=== PATIENT | male | born 1960 | race Caucasian/White ===

== ENCOUNTER → 2018-08-30 | Outpatient (CLI) | payer OTHER ==
[~2018-08-30] MED LIST: ?BP MED; ASP81TEC PO; CEPH500C PO
--- NOTE | 2018-08-30 16:30 | Diagnostic Imaging Report ---
INDICATION: Sarcoidosis. TIME OF EXAM: 4:04 PM COMPARISON: No prior studies are available for comparison. FINDINGS: The heart size is normal. There is some hilar prominence bilaterally, likely secondary to patient's known sarcoidosis. There is some linear scarring or atelectasis in both bases. Upper lung cisneros are clear. No effusion or pneumothorax is seen. IMPRESSION: 1. Hilar prominence, likely secondary to patient's known sarcoidosis. 2. Bibasilar subsegmental atelectasis or scarring. Dictated by: Dictated on workstation # [id number]
== END ==
LOC: RAD 15:34
PROVIDERS: ATTEND Family Medicine
DX: D86.0 Sarcoidosis of lung (principal)
CPT/HCPCS: 71046

== ENCOUNTER 2018-09-25 19:43 | Inpatient (IN) | payer BC, OTHER ==
[~2018-09-25] VITALS: Ht 172.7 cm; Wt 108.9 kg
--- OUTSIDE RECORDS SUMMARY | 2018-09-25 19:47 | XMS REPORT | Continuity of Care Document ---
Author Author [facility] Organization [facility] Address Unknown Phone Unavailable Care Team Providers Care Windows Mobile Developer Name Role Phone YUE LEON MD PP Insurance Providers Payer Name Policy Number Subscriber Name Relationship Self Pay Kun Mancuso 01 Self / Same As Patient Advance Directives Directive Response Recorded Date Advance Directives N 03/17/13 4:52pm Organ Donor N 03/17/13 4:52pm Problems No Known Problems or Medical conditions. Social History History Response Recorded Date/Time Alcohol Use Regular Use 03/17/13 4:52pm Recreational Drug Use N 03/17/13 4:52pm Allergies, Adverse Reactions, Alerts Allergen Type Severity Reaction Last Updated No Known Drug Allergies 03/17/13 Medications Medication Dose Units Route Sig Qty Days Cephalexin Monohydrate (Cephalexin) 1 Each PO TID 3 Aspirin (Aspirin Ec 81 Mg) 81 Mg PO DAILY [?Bp Med] DAILY Immunizations Name Given Type DTaP 03/17/13 A Response Recorded Date/Time Status not known Unknown Results No Known Relevant Diagnostic Tests, Laboratory Data and/or Discharge Summary. Encounters Encounter Location Date/Time Departed Emergency Room [facility] 12/25 4:41pm
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
[2018-09-25] MEDS ORDERED: RT-ALBUTEROL/IPRATROPIUM 3 ML (DUONEB) VIAL INH ONE (20:30)
--- NOTE | 2018-09-25 20:32 | ED Respiratory ---
General Stated Complaint: SOB,SWOLLEN ANKLES Source: patient, spouse Exam Limitations: no limitations History of Present Illness Date Seen by Provider: Sep 25, 2018 Time Seen by Provider: 20:15 Initial Comments Patient presents to ER by private conveyance for an acute worsening of his progressively worsening shortness of breath swelling in his feet and wheezing. He says been having this for past several months and it makes him very short of breath whenever he lays down at night after a long day. However last day or so he's been getting very short of breath just with exertion. He also has noticed increased swelling in his feet up half way up his legs throughout the day and even had a hard time lifting a 20 pound object. He's had a nonproductive cough. No fevers or chills. No known history of coronary artery disease or congestive heart failure. Is not followed by a curriculum manager. He is not on any water pills. He quit drinking 10 months ago. He stopped smoking years ago. Is not having any pain in his chest right now but last night he did note a little sharp pain for a few minutes in his right upper chest that he associated with some gas pains. He's never had a heart catheterization or echocardiogram that he knows of. He said last week when it wasn't as bad he went to Dr. Munoz and they shot an x- ray that was unremarkable. He does have a history of sarcoidosis with some mild scarring in his lungs but he's never had to be on any kind of treatment to maintain it. The patient denies a history of anemia, black tarry stools, hematochezia, recent trauma or surgeries, etc.. He has never had a colonoscopy/EGD. Allergies and Home Medications Allergies Coded Allergies: No Known Drug Allergies (Unverified , 03/17/13) Patient Home Medication List Home Medication List Reviewed: Yes Review of Systems Review of Systems Constitutional: No chills, No diaphoresis EENTM: No ear discharge, No ear pain Respiratory: cough; No phlegm; short of breath, wheezing Cardiovascular: chest pain (yesterday recently), edema; No Hx of Intervention, No palpitations, No syncope, No vascular heart diseas Gastrointestinal: No abdominal pain, No constipation, No diarrhea, No nausea Genitourinary: No discharge, No dysuria Musculoskeletal: No back pain, No joint pain Skin: No pruritus, No rash Psychiatric/Neurological: Denies Headache, Denies Numbness Past Jfkqjmx-[id number]-Zliexv Hx Patient Social History Alcohol Use: Past History Recreational Drug Use: No Smoking Status: Former Smoker Type Used: Cigarettes Recent Foreign Travel: No Contact w/Someone Who Travel: No Immunizations Up To Date Tetanus Booster (TDap): More than 5yrs Seasonal Allergies Seasonal Allergies: Yes Past Medical History Kidney Stones Physical Exam Vital Signs - First Documented 09/25/18 20:43 Pulse Ox 94 O2 Delivery Room Air Capillary Refill : Height: '" Weight: lbs. oz. kg; BMI Method:Stated General Appearance: WD/WN, mild distress (ambulated in that short of breath with ambulation or talking.) Eyes: Bilateral Eye Normal Inspection, Bilateral Eye PERRL, Bilateral Eye EOMI HEENT: PERRL/EOMI, normal ENT inspection, TMs normal, pharynx normal Neck: non-tender, full range of motion, supple, normal inspection Respiratory: chest non-tender, no accessory muscle use, respiratory distress ( mild on exertion), wheezing (faint, upper) Cardiovascular: normal peripheral pulses, regular rate, rhythm, no JVD, no murmur, other (bilateral lower extremity 1+ pitting edema up to the mid leg) Gastrointestinal: normal bowel sounds, non tender, soft Neurologic/Psychiatric: financial services specialist II-XII nml as tested, no motor/sensory deficits, alert, normal mood/affect, oriented x 3 Skin: normal color, warm/dry Focused Exam Lactate Level 09/25/18 20:30: Lactic Acid Level 1.13 Lactic Acid Level Laboratory Tests Test 09/25/18 20:30 Lactic Acid Level 1.13 MMOL/L (0.50-2.00) Progress/Results/Core Measures Suspected Sepsis SIRS Temperature: Pulse: Respiratory Rate: Laboratory Tests 09/25/18 20:30: White Blood Count 8.5 Blood Pressure / Mean: 09/25/18 20:30: Lactic Acid Level 1.13 Laboratory Tests 09/25/18 20:30: Creatinine 0.94, INR Comment 1.2, Platelet Count 272, Total Bilirubin 0.6 Results/Orders Lab Results Laboratory Tests Test 09/25/18 20:30 09/25/18 21:09 Range/Units White Blood Count 8.5 4.3-11.0 10^3/uL Red Blood Count 3.85 L 4.35-5.85 10^6/uL Hemoglobin 6.5 *L 13.3-17.7 G/DL Hematocrit 24 L 40-54 % Mean Corpuscular Volume 61 L 80-99 FL Mean Corpuscular Hemoglobin 17 L 25-34 PG Mean Corpuscular Hemoglobin Concent 27 L 32-36 G/DL Red Cell Distribution Width 18.7 H 10.0-14.5 % Platelet Count 272 130-400 10^3/uL Mean Platelet Volume 9.7 7.4-10.4 FL Neutrophils (%) (Auto) 70 42-75 % Lymphocytes (%) (Auto) 10 L 12-44 % Monocytes (%) (Auto) 14 H 0-12 % Eosinophils (%) (Auto) 4 0-10 % Basophils (%) (Auto) 2 0-10 % Neutrophils # (Auto) 5.9 1.8-7.8 X 10^3 Lymphocytes # (Auto) 0.9 L 1.0-4.0 X 10^3 Monocytes # (Auto) 1.1 H 0.0-1.0 X 10^3 Eosinophils # (Auto) 0.4 H 0.0-0.3 10^3/uL Basophils # (Auto) 0.1 0.0-0.1 10^3/uL Absolute Reticulocyte Count 99 H 24-90 10e9/L Percent Reticulocyte Count 2.58 H 0.50-2.40 % Prothrombin Time 15.2 H 12.2-14.7 SEC INR Comment 1.2 0.8-1.4 Activated Partial Thromboplast Time 34 24-35 SEC Sodium Level 133 L 135-145 MMOL/L Potassium Level 3.7 3.6-5.0 MMOL/L Chloride Level 103 98-107 MMOL/L Carbon Dioxide Level 20 L 21-32 MMOL/L Anion Gap 10 5-14 MMOL/L Blood Urea Nitrogen 18 7-18 MG/DL Creatinine 0.94 0.60-1.30 MG/DL Estimat Glomerular Filtration Rate > 60 BUN/Creatinine Ratio 19 Glucose Level 116 H 70-105 MG/DL Lactic Acid Level 1.13 0.50-2.00 MMOL/L Calcium Level 9.0 8.5-10.1 MG/DL Corrected Calcium 9.0 8.5-10.1 MG/DL Total Bilirubin 0.6 0.1-1.0 MG/DL Aspartate Amino Transf (AST/SGOT) 21 5-34 U/L Alanine Aminotransferase (ALT/SGPT) 17 0-55 U/L Alkaline Phosphatase 63 40-136 U/L Lactate Dehydrogenase 187 125-220 U/L Troponin I < 0.028 <0.028 NG/ML B-Type Natriuretic Peptide 284.3 H <100.0 PG/ML Total Protein 7.0 6.4-8.2 GM/DL Albumin 4.0 3.2-4.5 GM/DL Urine Color YELLOW Urine Clarity CLEAR Urine pH 5 5-9 Urine Specific [place] 1.015 L 1.016-1.022 Urine Protein NEGATIVE NEGATIVE Urine Glucose (UA) NEGATIVE NEGATIVE Urine Ketones NEGATIVE NEGATIVE Urine Nitrite NEGATIVE NEGATIVE Urine Bilirubin NEGATIVE NEGATIVE Urine Urobilinogen NORMAL NORMAL MG/DL Urine Leukocyte Esterase NEGATIVE NEGATIVE Urine RBC (Auto) NEGATIVE NEGATIVE Urine RBC NONE /HPF Urine WBC NONE /HPF Urine Squamous Epithelial Cells 0-2 /HPF Urine Crystals NONE /LPF Urine Bacteria NEGATIVE /HPF Urine Casts NONE /LPF Urine Mucus NEGATIVE /LPF Urine Culture Indicated CULTURE PENDING My Orders Orders - LIBBY OTT Cbc With Automated Diff (09/25/18 20:23) Comprehensive Metabolic Panel (09/25/18 20:23) Blood Culture (09/25/18 20:23) Sputum Culture (09/25/18 20:23) Urinalysis (09/25/18 20:23) Urine Culture (09/25/18 20:23) Protime With Inr (09/25/18 20:23) Partial Thromboplastin Time (09/25/18 20:23) Saline Lock/Iv-Start (09/25/18 20:23) Saline Lock/Iv-Start (09/25/18 20:23) Ekg Tracing (09/25/18 20:23) Troponin I (09/25/18 20:23) O2 (09/25/18 20:23) Remove Rings In Anticipation O (09/25/18 20:23) Lactic Acid Analyzer (09/25/18 20:23) BNP (09/25/18 20:23) Chest Pa/Lat (2 View) (09/25/18 20:23) Albuterol/Ipra Inhalation Soln (Duoneb I (09/25/18 20:30) Svn Small Volume Nebulizer (09/25/18 20:23) Vital Signs: Special (Order) (09/25/18 20:39) Consent-Obtain Consent For (09/25/18 20:39) Monitor S/S Transfusion Reacti (09/25/18 20:39) Ns Iv 500 Ml (Sodium Chloride 0.9%) (09/25/18 20:39) Furosemide Injection (Lasix Injection) (09/25/18 20:45) Type And Screen (09/25/18 20:39) Red Cells Leukocytes Reduced (09/25/18 20:39) Preop Checklist (09/25/18 20:39) Occult Blood Stool (09/25/18 20:39) Iron Tibc %Sat & Ferritin (09/25/18 20:49) Reticulocyte Count (09/25/18 20:49) Medications Given in ED Current Medications Medications Dose Ordered Sig/Obi Route Start Time Stop Time Status Last Admin Dose Admin Albuterol/ Ipratropium 3 ml ONCE ONCE INH 09/25/18 20:30 09/25/18 20:31 DC 09/25/18 20:42 3 ML Furosemide 20 mg ONCE ONCE IVP 09/25/18 20:45 09/25/18 20:46 DC 09/26/18 02:07 20 MG Vital Signs/I&O 09/25/18 20:43 Pulse Ox 94 O2 Delivery Room Air Capillary Refill : Progress Note : Time: 20:31 Progress Note Patient's history of sarcoidosis, fluid collection metastatic about possible decompensated heart failure. His chest pain from yesterday will prompt an EKG and troponin today. We'll give him a breathing treatment by think most of his wheezing is more in his upper airways and may not be as beneficial. He is tachycardic in the 115 to 120 range we'll go ahead and obtain cultures but is afebrile and at this point not convinced that this is infectious process. We'll hold off giving any fluids or antibiotics until we have a better idea what the BNP shows. Chest x-ray from August 30, 2018 showed some mild evidence of sarcoidosis and basilar scarring versus atelectasis. Plan to recheck an EKG after we've got some blood in him and his heart rate is slow down to be a little easier to read. Hemoglobin 6.5 plan to transfuse 2 units. We'll also get an iron panel and reticulocyte count. ECG Initial ECG Impression Date: Sep 25, 2018 Initial ECG Impression Time: 20:33 Initial ECG Rate: 115 Initial ECG Rhythm: S.Tach Initial ECG Intervals: QT (498) Initial ECG Impression: Nonspecific Changes Initial ECG Comparisson: No Previous ECG Available Comment Lots of artifact with PVCs and irregular heart rate. Difficult to ascertain if there is atrial flutter versus sinus rhythm with fairly irregular heartbeat. EKG : EKG Time: 21:01 Rate: 117 Rhythm: S.Tach Intervals: QT (519) ECG Comparisson: Unchanged ECG Impression: Normal Comment Sinus tachycardia with a run of Monica PVCs. Can clearly see that is not atrial flutter. Diagnostic Imaging Diagonstic Imaging: Xray Plain Films/CT/US/NM/MRI: chest (2 view) Comments No interval changes. Hilar prominence with possible scarring versus atelectasis in the bases. [facility]. [place], [place] NAME: JAMEESUKHJINDER A [facility] REC#: [id number] PT STATUS: REG ER : 1960 PHYSICIAN: LIBBY OTT MD ADMIT DATE: 09/25/18/ER Draft Date of Exam:09/25/18 CHEST PA/LAT (2 VIEW) EXAM: CHEST PA/LAT (2 VIEW) INDICATION: Sarcoidosis. COMPARISON: Chest radiograph 08/30/2018. FINDINGS: Stable cardiomegaly and prominent byron bilaterally. Scarring in the right lung base. There is increasing interstitial opacities including Tracy B lines. No pleural effusion or pneumothorax. No acute osseous findings. IMPRESSION: 1. Increasing interstitial opacities including Tracy B-lines suggesting a degree of interstitial edema. 2. Stable cardiomegaly. 3. Stable prominence of the byron bilaterally would be consistent with reported history of sarcoidosis. Dictated on workstation # [id number] Dict: 09/25/182124 Trans: 09/25/182128 SHERIN [id number] Interpreted by: TRACY MOYA MD Electronically signed by: Reviewed: Reviewed by Me Departure Communication (Admissions) Time/Spoke to Admitting Phy: 21:35 Discussed the case lab imaging findings with Dr. Winter. She recommends an LDH in addition to her overnight stay for transfusion of blood. Impression Primary Impression: Anemia Qualified Codes: D64.9 - Anemia, unspecified Additional Impression: Dyspnea Qualified Codes: R06.09 - Other forms of dyspnea Disposition: ADMITTED INPATIENT Condition: Stable Admissions Decision to Admit Reason: Admit from ER (General) Decision to Admit/Date: Sep 25, 2018 Time/Decision to Admit Time: 21:30 Departure-Patient Inst. Referrals: YUE MUNOZ MD (PCP/Family) Primary Care Physician LIBBY OTT Sep 25, 2018 20:32
[2018-09-25 20:36] LABS: BASOPHILS # (AUTO) 0.1 10^3/uL (0.0-0.1); BASOPHILS % (AUTO) 2 % (0-10); EOSINOPHILS # (AUTO) 0.4 10^3/uL (0.0-0.3); EOSINOPHILS % (AUTO) 4 % (0-10); HEMATOCRIT 24 % (40-54); LYMPHOCYTES # (AUTO) 0.9 X 10^3 (1.0-4.0); LYMPHOCYTES % (AUTO) 10 % (12-44); MEAN CORPUSCULAR HEMOGLOBIN 17 PG (25-34); MEAN CORPUSCULAR HGB CONC 27 G/DL (32-36); MEAN CORPUSCULAR VOLUME 61 FL (80-99); MEAN PLATELET VOLUME 9.7 FL (7.4-10.4); MONOCYTES # (AUTO) 1.1 X 10^3 (0.0-1.0); MONOCYTES % (AUTO) 14 % (0-12); NEUTROPHILS # (AUTO) 5.9 X 10^3 (1.8-7.8); NEUTROPHILS % (AUTO) 70 % (42-75); PLATELET COUNT 272 10^3/uL (130-400); RED BLOOD COUNT 3.89 10^6/uL (4.35-5.85); RED CELL DISTRIBUTION WIDTH 18.7 % (10.0-14.5); WHITE BLOOD COUNT 8.5 10^3/uL (4.3-11.0)
[2018-09-25 20:38] LABS: HEMOGLOBIN 6.5 G/DL (13.3-17.7)
[2018-09-25] MEDS ORDERED: NS IV 500 ML 500 ML IV SCH (20:39)
[2018-09-25] MEDS ORDERED: FUROSEMIDE 40 MG/4 ML INJ (LASIX) IVP ONE (20:45)
[2018-09-25 20:49] LABS: INR 1.2 (0.8-1.4); PROTHROMBIN TIME PATIENT 15.2 SEC (12.2-14.7)
[2018-09-25 20:54] LABS: RED BLOOD COUNT 3.85 10^6/uL (4.35-5.85); RETICULOCYTE % 2.58 % (0.50-2.40)
[2018-09-25 20:58] LABS: ALANINE AMINOTRANSFERASE 17 U/L (0-55); ALKALINE PHOSPHATASE 63 U/L (40-136); BILIRUBIN,TOTAL 0.6 MG/DL (0.1-1.0); BUN/CREATININE RATIO 19; CARBON DIOXIDE 20 MMOL/L (21-32); CHLORIDE 103 MMOL/L (98-107); CREATININE SERUM 0.94 MG/DL (0.60-1.30); GFR ESTIMATED > 60; GLUCOSE 116 MG/DL (70-105); POTASSIUM 3.7 MMOL/L (3.6-5.0); SODIUM 133 MMOL/L (135-145)
[2018-09-25 21:16] LABS: BILIRUBIN,URINE NEGATIVE (NEGATIVE); CLARITY,URINE CLEAR; COLOR,URINE YELLOW; GLUCOSE, URINE (UA) NEGATIVE (NEGATIVE); KETONES,URINE NEGATIVE (NEGATIVE); LEUKOCYTE ESTERASE ,URINE NEGATIVE (NEGATIVE); NITRITE,URINE NEGATIVE (NEGATIVE); PH,URINE 5 (5-9); PROTEIN,URINE NEGATIVE (NEGATIVE); UROBILINOGEN,URINE NORMAL (NORMAL)
[2018-09-25 21:27] LABS: BACTERIA,URINE NEGATIVE /HPF; SQUAMOUS EPITHELIAL CELL,UR 0-2 /HPF
--- NOTE | 2018-09-25 21:30 | Diagnostic Imaging Report ---
EXAM: CHEST PA/LAT (2 VIEW) INDICATION: Sarcoidosis. COMPARISON: Chest radiograph 08/30/2018. FINDINGS: Stable cardiomegaly and prominent byron bilaterally. Scarring in the right lung base. There is increasing interstitial opacities including Tracy B lines. No pleural effusion or pneumothorax. No acute osseous findings. IMPRESSION: 1. Increasing interstitial opacities including Tracy B-lines suggesting a degree of interstitial edema. 2. Stable cardiomegaly. 3. Stable prominence of the byron bilaterally would be consistent with reported history of sarcoidosis. Dictated by: Dictated on workstation # [id number]
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
[2018-09-25 23:00] VITALS: BP 156/83
--- NOTE | 2018-09-25 23:00 | NUR ---
SUKHJINDER MANCUSO admitted to room 433-1, with an admitting diagnosis of SOB, ANEMIA, on 09/25/18 from ED via WHEELCHAIR, accompanied by STAFF.SUKHJINDER MANCUSO introduced to surroundings, call light, bed controls, phone, TV, temperature control, lights, meal times, smoking policy, visitor policy, side rail policy, bathrooms and showers. Patient Rights given to patient in the handbook. SUKHJINDER MANCUSO verbalizes understanding that [facility] is not responsible for the loss or damage to any personal effects or valuables that are kept in the patients posession during their hospitalization.
[2018-09-25] MEDS ORDERED: ONDANSETRON 4 MG/2 ML (SDV) Z0FRAN IV PRN (23:30)
[2018-09-25] MEDS ORDERED: FUROSEMIDE 40 MG/4 ML INJ (LASIX) IV ONE (23:30)
[2018-09-25] MEDS ORDERED: ACETAMINOPHEN 500 MG TAB (TYLENOL) PO PRN (23:30)
[2018-09-25 23:42] VITALS: BP 151/60
[2018-09-26] VITALS (11 sets, daily range): BP systolic 112–152; BP diastolic 54–91
[2018-09-26] MEDS ORDERED: LOSARTAN (01:46)
[2018-09-26] MEDS ORDERED: FUROSEMIDE 40 MG/4 ML INJ (LASIX) ONE (01:58)
[2018-09-26] MEDS ORDERED: FLU QUADRIvalent (5+ YOA) 2018-2019 (AFLURIA) 0.5 ML IM ONE (07:15)
[2018-09-26 07:22] LABS: BASOPHILS # (AUTO) 0.1 10^3/uL (0.0-0.1); BASOPHILS % (AUTO) 1 % (0-10); EOSINOPHILS # (AUTO) 0.3 10^3/uL (0.0-0.3); EOSINOPHILS % (AUTO) 5 % (0-10); HEMATOCRIT 28 % (40-54); HEMOGLOBIN 8.2 G/DL (13.3-17.7); LYMPHOCYTES # (AUTO) 0.7 X 10^3 (1.0-4.0); LYMPHOCYTES % (AUTO) 10 % (12-44); MEAN CORPUSCULAR HEMOGLOBIN 19 PG (25-34); MEAN CORPUSCULAR HGB CONC 29 G/DL (32-36); MEAN CORPUSCULAR VOLUME 65 FL (80-99); MONOCYTES # (AUTO) 0.8 X 10^3 (0.0-1.0); MONOCYTES % (AUTO) 13 % (0-12); NEUTROPHILS # (AUTO) 4.6 X 10^3 (1.8-7.8); NEUTROPHILS % (AUTO) 71 % (42-75); PLATELET COUNT 247 10^3/uL (130-400); RED BLOOD COUNT 4.39 10^6/uL (4.35-5.85); RED CELL DISTRIBUTION WIDTH 21.8 % (10.0-14.5); WHITE BLOOD COUNT 6.5 10^3/uL (4.3-11.0)
[2018-09-26 07:34] LABS: BUN/CREATININE RATIO 14; CALCIUM 9.4 MG/DL (8.5-10.1); CARBON DIOXIDE 23 MMOL/L (21-32); CHLORIDE 103 MMOL/L (98-107); CREATININE SERUM 1.05 MG/DL (0.60-1.30); GFR ESTIMATED > 60; GLUCOSE 102 MG/DL (70-105); SODIUM 138 MMOL/L (135-145)
[2018-09-26] MEDS ORDERED: CALCIUM CARBONATE 500 MG (TUMS) TAB.CHEW ONE (09:23)
[2018-09-26] MEDS ORDERED: PANTOPRAZOLE 20 MG TABLET (PROTONIX) PO ONE (09:24)
--- NOTE | 2018-09-26 13:26 | History & Physical-Hospitalist ---
History of Present Illness HPI/Chief Complaint This is a 58-year-old white male who presents to the emergency room with severe shortness of breath for the last week. He notes that he's had orthopnea and PND for the last 2-3 weeks as well. He notes he's been short of breath for about 6 months or so. He says he thinks he's had a heart attack in the past when he was fishing. He notes that he has had trouble with heartburn for years and has some dysphagia and hasn't is no longer able to throw up although he could in the past. He denies having any change in his bowel habits and notes that there is no blood in his stools or melena. Hemoccult stool was positive in the emergency room where his hemoglobin was found to be 6.5. This morning he status post 2 units of blood transfusion and feels much much better. In addition his pedal edema is down. On exam it is noted that he has frequent PVCs and PACs. Source: patient Exam Limitations: no limitations Date Seen 09/26/18 Time Seen by a Provider: 13:00 Attending Physician Marichuy Winter MD PCP Yue Munoz MD Referring Physician Date of Admission Sep 25, 2018 at 21:15 Home Medications & Allergies Home Medications Reviewed patient Home Medication Reconciliation performed by pharmacy medication reconciliations fiber technician and/or nursing. Patients Allergies have been reviewed. Allergies Allergies Coded Allergies No Known Drug Allergies (Unverified03/17/13) Past Phogobw-Lbatty-Xkcljh Hx Past Med/Social Hx: Reviewed Nursing Past Med/Soc Hx Patient Social History Marrital Status: Employed/Student: employed Alcohol Use: Past History Recreational Drug Use: No Smoking Status: Former Smoker Type Used: Cigarettes Physical Abuse Screen: No Sexual Abuse: No Recent Foreign Travel: No Contact w/other who traveled: No Recent Hopitalizations: No Recent Infectious Disease Expo: No Immunizations Up To Date Tetanus Booster (TDap): More than 5yrs Seasonal Allergies Seasonal Allergies: Yes Past Medical History Genitourinary: Kidney Stones History of Blood Disorders: No Family History Cancer, CAD Under 55 Years Old Review of Systems Constitutional: see HPI EENTM: no symptoms reported Respiratory: dyspnea on exertion, orthopnea, short of breath Cardiovascular: edema, palpitations Gastrointestinal: dysphagia, heartburn Genitourinary: no symptoms reported Musculoskeletal: no symptoms reported Skin: no symptoms reported Psychiatric/Neurological: No Symptoms Reported Physical Exam Physical Exam Vital Signs Vital Signs - First Documented 09/25/18 09/25/18 20:43 22:55 Temp 98.9 Pulse 66 Resp 19 B/P (MAP) 147/91 (109) Pulse Ox 94 O2 Delivery Room Air Capillary Refill : Less Than 3 Seconds Height, Weight, BMI Height: 5'8.00" Weight: 240lbs. 0.00oz. 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 Assessment/Plan Admission Diagnosis Severe anemia secondary to GI blood loss over time Microcytic anemia with a good reticulocyte count Cardiac arrhythmias with possible previous inferior wall ND Pedal edema consistent with mild failure. Sarcoid asymptomatic Elevated BNP Plan is to consult general surgery for upper endoscopy and colonoscopy cardiology for further evaluation of heart function and discharge planning based on the results Admission Status: Observation Clinical Quality Measures DVT/VTE Risk/Contraindication: Risk Factor Score Per Nursin RFS Level Per Nursing on Admit: 3=High Copy Copies To 1: YUE MUNOZ MD, KATHLEEN M MD Sep 26, 2018 13:26
[2018-09-26] MEDS ORDERED: FUROSEMIDE 40 MG (LASIX) TAB PO ONE (13:30)
[2018-09-26] MEDS ORDERED: KCL 10 MEQ TAB (MICRO K) PO ONE (13:30)
--- NOTE | 2018-09-26 13:33 | Consultation-Cardiology ---
HPI-Cardiology Cardiology Consultation: Date of Consultation 09/26/18 Time Seen by a Provider: 13:10 Date of Admission Attending Physician Marichuy Winter MD Admitting Physician Duane Munoz MD Consulting Physician EDWARDO QUESADA MD, MA, FACP, FACC, FSCAI, CCDS Physician requesting consult: Dr Winter HPI: Chief Complaint: Shortness of breath HPI: 58 yo man with increasing shortness of breath and bilat leg swelling for several weeks prior to being admitted to Dr Winter yesterday. Found to have anemia and leg swelling. Treated with blood transfusion and furosemide. Much better now. No cp or palp or syncope. Has gen malaise and tiredness Review of Systems-Cardiology Review of Systems Constitutional: As described under HPI Eyes: No vision change Ears/Nose/Throat: No ear discharge, No nasal drainage, No recent hearing loss Respiratory: As described under HPI Cardiovascular: As described under HPI Gastrointestinal: No diarrhea, No nausea Genitourinary: No dysuria, No hematuria, No urine frequency changes Musculoskeletal: No back pain, No joint pain Skin: No rash, No ulcerations Psychiatric/Neurological: No seizure, No focal weakness, No syncope Hematologic: No bleeding abnormalities XTJ-Rmisee-Ncvvks Hx Patient Social History Alcohol Use: Past History Recreational Drug Use: No Smoking Status: Former Smoker Type Used: Cigarettes Recent Foreign Travel: No Recent Infectious Disease Expo: No Hospitalization with Isolation: Denies Physical Abuse Screen: No Sexual Abuse: No Immunizations Up To Date Tetanus Booster (TDap): More than 5yrs Past Medical History PMH As described under Assessment. Family Medical History Family Medical History: Has fam h/o early CAD Allergies and Home Medications Allergies Coded Allergies: No Known Drug Allergies (Unverified , 03/17/13) Patient Home Medication List Home Medication List Reviewed: Yes Physical Exam-Cardiology Physical Exam Vital Signs/I&O 09/26/18 09/26/18 09/26/18 09/26/18 01:55 02:05 02:20 02:37 Temp 97.4 97.0 97.0 97.9 Pulse 98 82 82 89 Resp 18 18 18 18 B/P (MAP) 132/75 (94) 133/89 133/89 112/66 Pulse Ox 90 96 96 97 O2 Delivery Room Air Room Air Room Air Room Air 09/26/18 09/26/18 09/26/1813/19 04:00 04:53 07:38 08:00 Temp 97.0 97.4 97.4 97.0 Pulse 79 84 110 87 Resp 18 20 20 18 B/P (MAP) 131/91 (104) 131/84 163/110 (127) 142/68 (92) Pulse Ox 97 96 97 97 O2 Delivery Room Air Room Air Room Air Room Air Capillary Refill : Less Than 3 Seconds Constitutional: AAO x 3, well-developed, well-nourished HEENT: PERRL, EOMI; No xanthelasmas are seen Neck: No carotid bruit; carotid pulses are 2 + bilaterally, with good upstrokes Respiratory: No accessory muscle use; lungs clear to percussion, lungs clear to auscultation Cardiovascular: regular rate-rhythm, S1 and S2, systolic murmur (soft MARILYN at card base) Gastrointestinal: No tender; soft; No guarding, No rebound; audible bowel sounds Extremities: No clubbing, No cyanosis; significant edema (2+ edema of the legs) Neurologic/Psychiatric: oriented x 3, grossly intact, power is 5/5 both on sides Skin: No rash on exposed areas, No ulcerations on exposed areas Data Review Labs Laboratory Tests 09/25/18 20:30: White Blood Count 8.5, Red Blood Count 3.85L, Hemoglobin 6.5*L, Hematocrit 24L, Mean Corpuscular Volume 61L, Mean Corpuscular Hemoglobin 17L, Mean Corpuscular Hemoglobin Concent 27L, Red Cell Distribution Width 18.7H, Platelet Count 272, Mean Platelet Volume 9.7, Neutrophils (%) (Auto) 70, Lymphocytes (%) (Auto) 10L , Monocytes (%) (Auto) 14H, Eosinophils (%) (Auto) 4, Basophils (%) (Auto) 2, Neutrophils # (Auto) 5.9, Lymphocytes # (Auto) 0.9L, Monocytes # (Auto) 1.1H, Eosinophils # (Auto) 0.4H, Basophils # (Auto) 0.1, Absolute Reticulocyte Count 99H, Percent Reticulocyte Count 2.58H, Prothrombin Time 15.2H, INR Comment 1.2, Activated Partial Thromboplast Time 34, Sodium Level 133L, Potassium Level 3.7, Chloride Level 103, Carbon Dioxide Level 20L, Anion Gap 10, Blood Urea Nitrogen 18, Creatinine 0.94, Estimat Glomerular Filtration Rate > 60, BUN/Creatinine Ratio 19, Glucose Level 116H, Lactic Acid Level 1.13, Calcium Level 9.0, Corrected Calcium 9.0, Total Bilirubin 0.6, Aspartate Amino Transf (AST/SGOT) 21 , Alanine Aminotransferase (ALT/SGPT) 17, Alkaline Phosphatase 63, Lactate Dehydrogenase 187, Troponin I < 0.028, B-Type Natriuretic Peptide 284.3H, Total Protein 7.0, Albumin 4.0 09/25/18 21:09: Urine Color YELLOW, Urine Clarity CLEAR, Urine pH 5, Urine Specific [place] 1.015L, Urine Protein NEGATIVE, Urine Glucose (UA) NEGATIVE, Urine Ketones NEGATIVE, Urine Nitrite NEGATIVE, Urine Bilirubin NEGATIVE, Urine Urobilinogen NORMAL, Urine Leukocyte Esterase NEGATIVE, Urine RBC (Auto) NEGATIVE, Urine RBC NONE, Urine WBC NONE, Urine Squamous Epithelial Cells 0-2, Urine Crystals NONE, Urine Bacteria NEGATIVE, Urine Casts NONE, Urine Mucus NEGATIVE, Urine Culture Indicated CULTURE PENDING 09/26/18 07:09: White Blood Count 6.5, Red Blood Count 4.39, Hemoglobin 8.2#L, Hematocrit 28L, Mean Corpuscular Volume 65L, Mean Corpuscular Hemoglobin 19L, Mean Corpuscular Hemoglobin Concent 29L, Red Cell Distribution Width 21.8H, Platelet Count 247, Mean Platelet Volume , Neutrophils (%) (Auto) 71, Lymphocytes (%) (Auto) 10L, Monocytes (%) (Auto) 13H, Eosinophils (%) (Auto) 5, Basophils (%) (Auto) 1, Neutrophils # (Auto) 4.6, Lymphocytes # (Auto) 0.7L, Monocytes # (Auto) 0.8, Eosinophils # (Auto) 0.3, Basophils # (Auto) 0.1, Sodium Level 138, Potassium Level 4.0, Chloride Level 103, Carbon Dioxide Level 23, Anion Gap 12, Blood Urea Nitrogen 15, Creatinine 1.05, Estimat Glomerular Filtration Rate > 60, BUN/ Creatinine Ratio 14, Glucose Level 102, Calcium Level 9.4 Laboratory Tests 09/25/18 20:30 09/26/18 07:09 A/P-Cardiology Assessment/Admission Diagnosis Shortness of breath likely primarily due to marked anemia Anemia, suspected to be due to GI blood loss, s/p transfusions RBBB and frequent, isolated PVCs as documented on ECG of 09/26/18 Bilat leg swelling Impaired fasting glucose H/o hypertension Elevated BMI of approx 37 Fam h/o early CAD Discussion and Recomendations * I discussed his case with Dr Winter who had asked us to see him because of abnormal ECG * I had a long and detailed discussion with him and his regarding his CV issues * Add BB * Add diuretic and K * Keep on tele * Echo * Ok to proceed with GI w/u and/or intervention (if needed) Clinical Quality Measures DVT/VTE Risk/Contraindication: Risk Factor Score Per Nursin RFS Level Per Nursing on Admit: 3=High EDWARDO QUESADA MD FACP FACC CCDS Sep 26, 2018 13:33
[2018-09-26] MEDS: BISACODYL 5 MG (DULCOLAX) TABLET PO SCH ×2 (14:16→20:10)
--- NOTE | 2018-09-26 14:23 | Consultation ---
History of Present Illness History of Present Illness Patient Consulted On(wily/time) 09/26/18 14:17 Time Seen by Provider: 12:50 History of Present Illness Surgery asked to consult regarding anemia, Hemoccult + stool and has never had colonoscopy. HPI per IM: This is a 58-year-old white male who presents to the emergency room with severe shortness of breath for the last week. He notes that he's had orthopnea and PND for the last 2-3 weeks as well. He notes he's been short of breath for about 6 months or so. He says he thinks he's had a heart attack in the past when he was fishing. He notes that he has had trouble with heartburn for years and has some dysphagia and hasn't is no longer able to throw up although he could in the past. He denies having any change in his bowel habits and notes that there is no blood in his stools or melena. Hemoccult stool was positive in the emergency room where his hemoglobin was found to be 6.5. This morning he status post 2 units of blood transfusion and feels much much better. In addition his pedal edema is down. On exam it is noted that he has frequent PVCs and PACs. When I spoke to pt he states he has never seen black or bloody BM's; he has seen blood after riding tractor or mower all day "cause of my hemorrhoids". He states he was pretty weak when he came in and breathing was "raspy"; but he feels great today and want to walk around the halls. He denies abdominal pain. He states he has never had an EGD either and does admit to taking Alleve daily. Allergies and Home Medications Allergies Coded Allergies: No Known Drug Allergies (Unverified , 03/17/13) Patient Home Medication List Home Medication List Reviewed: Yes Past Bthxntd-Bqrxhg-Mgbxvj Hx Patient Social History Alcohol Use: Past History Recreational Drug Use: No Smoking Status: Former Smoker Type Used: Cigarettes Recent Foreign Travel: No Contact w/Someone Who Travel: No Recent Infectious Disease Expo: No Recent Hopitalizations: No Physical Abuse Screen: No Sexual Abuse: No Immunizations Up To Date Tetanus Booster (TDap): More than 5yrs Seasonal Allergies Seasonal Allergies: Yes Respiratory History of Respiratory Disorde: Yes (SARCOIDOSIS) Cardiovascular History of Cardiac Disorders: Yes Neurological History of Neurological Disord: No Genitourinary History of Genitourinary Disor: No Genitourinary Disorders: Kidney Stones Gastrointestinal History of Gastrointestinal Di: No Musculoskeletal History of Musculoskeletal Dis: No Endocrine History of Endocrine Disorders: No HEENT History of HEENT Disorders: No Cancer History of Cancer: No Psychosocial History of Psychiatric Problem: No Integumentary History of Skin or Integumenta: No Blood Transfusions History of Blood Disorders: No Family Medical History Significant Family History: Cancer, CAD Under 55 Years Old (father and mother) , Stroke (grandparents) Review of Systems-General Constitutional: No chills, No diaphoresis; malaise, weakness EENTM: No blurred vision, No double vision, No mouth pain, No mouth swelling, No epistaxis Respiratory: No cough; dyspnea on exertion; No hemoptysis; short of breath, wheezing Cardiovascular: chest pain, palpitations Gastrointestinal: No abdominal pain, No constipation, No diarrhea; dysphagia; No hematemesis, No jaundice, No melena, No nausea, No vomiting Genitourinary: No dysuria; frequency; No hematuria; hesitancy, nocturia Musculoskeletal: joint pain, muscle stiffness Skin: No change in color, No change in hair/nails Psychiatric/Neurological: Denies Anxiety, Denies Depressed, Denies Seizure, Denies Tremors Other pt denies any abnormal bruising or bleeding, no heat or cold intolerance Physical Exam-General Problems Physical Exam Vital Signs Vital Signs - First Documented 09/25/18 09/25/18 20:43 22:55 Temp 98.9 Pulse 66 Resp 19 B/P (MAP) 147/91 (109) Pulse Ox 94 O2 Delivery Room Air Capillary Refill : Less Than 3 Seconds General Appearance: WD/WN, no apparent distress Eyes: Bilateral Eye PERRL, Bilateral Eye EOMI HEENT: pharynx normal; No scleral icterus (R), No scleral icterus (L) Neck: non-tender, full range of motion, supple, normal inspection Respiratory: chest non-tender, lungs clear, normal breath sounds, no respiratory distress, no accessory muscle use Cardiovascular: regular rate, rhythm, no murmur, systolic murmur Gastrointestinal: normal bowel sounds, non tender, soft, no organomegaly, no pulsatile mass Back: no CVA tenderness, no vertebral tenderness Extremities: normal range of motion, non-tender, normal inspection, no pedal edema, no calf tenderness Neurologic/Psychiatric: teaching fellow II-XII nml as tested, no motor/sensory deficits, alert, normal mood/affect, oriented x 3 Skin: normal color, warm/dry Lymphatic: no adenopathy (neck, axilla or groin) Data Review Labs Laboratory Tests 09/25/18 20:30: White Blood Count 8.5, Red Blood Count 3.85L, Hemoglobin 6.5*L, Hematocrit 24L, Mean Corpuscular Volume 61L, Mean Corpuscular Hemoglobin 17L, Mean Corpuscular Hemoglobin Concent 27L, Red Cell Distribution Width 18.7H, Platelet Count 272, Mean Platelet Volume 9.7, Neutrophils (%) (Auto) 70, Lymphocytes (%) (Auto) 10L , Monocytes (%) (Auto) 14H, Eosinophils (%) (Auto) 4, Basophils (%) (Auto) 2, Neutrophils # (Auto) 5.9, Lymphocytes # (Auto) 0.9L, Monocytes # (Auto) 1.1H, Eosinophils # (Auto) 0.4H, Basophils # (Auto) 0.1, Absolute Reticulocyte Count 99H, Percent Reticulocyte Count 2.58H, Prothrombin Time 15.2H, INR Comment 1.2, Activated Partial Thromboplast Time 34, Sodium Level 133L, Potassium Level 3.7, Chloride Level 103, Carbon Dioxide Level 20L, Anion Gap 10, Blood Urea Nitrogen 18, Creatinine 0.94, Estimat Glomerular Filtration Rate > 60, BUN/Creatinine Ratio 19, Glucose Level 116H, Lactic Acid Level 1.13, Calcium Level 9.0, Corrected Calcium 9.0, Total Bilirubin 0.6, Aspartate Amino Transf (AST/SGOT) 21 , Alanine Aminotransferase (ALT/SGPT) 17, Alkaline Phosphatase 63, Lactate Dehydrogenase 187, Troponin I < 0.028, B-Type Natriuretic Peptide 284.3H, Total Protein 7.0, Albumin 4.0 09/25/18 21:09: Urine Color YELLOW, Urine Clarity CLEAR, Urine pH 5, Urine Specific [place] 1.015L, Urine Protein NEGATIVE, Urine Glucose (UA) NEGATIVE, Urine Ketones NEGATIVE, Urine Nitrite NEGATIVE, Urine Bilirubin NEGATIVE, Urine Urobilinogen NORMAL, Urine Leukocyte Esterase NEGATIVE, Urine RBC (Auto) NEGATIVE, Urine RBC NONE, Urine WBC NONE, Urine Squamous Epithelial Cells 0-2, Urine Crystals NONE, Urine Bacteria NEGATIVE, Urine Casts NONE, Urine Mucus NEGATIVE, Urine Culture Indicated CULTURE PENDING 09/26/18 07:09: White Blood Count 6.5, Red Blood Count 4.39, Hemoglobin 8.2#L, Hematocrit 28L, Mean Corpuscular Volume 65L, Mean Corpuscular Hemoglobin 19L, Mean Corpuscular Hemoglobin Concent 29L, Red Cell Distribution Width 21.8H, Platelet Count 247, Mean Platelet Volume , Neutrophils (%) (Auto) 71, Lymphocytes (%) (Auto) 10L, Monocytes (%) (Auto) 13H, Eosinophils (%) (Auto) 5, Basophils (%) (Auto) 1, Neutrophils # (Auto) 4.6, Lymphocytes # (Auto) 0.7L, Monocytes # (Auto) 0.8, Eosinophils # (Auto) 0.3, Basophils # (Auto) 0.1, Sodium Level 138, Potassium Level 4.0, Chloride Level 103, Carbon Dioxide Level 23, Anion Gap 12, Blood Urea Nitrogen 15, Creatinine 1.05, Estimat Glomerular Filtration Rate > 60, BUN/ Creatinine Ratio 14, Glucose Level 102, Calcium Level 9.4 Assessment/Plan Assessment/Plan Assessment/Plan Anemia Hemoccult + stool Gastritis and GERD HTN Plan is to begin prepping pt today and do EGD and Colonoscopy tomorrow. Will do this to rule out GI bleed as cause of anemia. Discussed risks and complications with pt and ; including but not limited to pain, bleeding, infection damage to esophagus or even intestinal perforation. All questions answered to their satisfaction. Monitor H/H, probably will not need another transfusion; in fact would recommend iron infusion first. Clinical Quality Measures DVT/VTE Risk/Contraindication: Risk Factor Score Per Nursin RFS Level Per Nursing on Admit: 3=High JENNIFER DOMINIQUE DO Sep 26, 2018 14:23
[2018-09-26] MEDS ORDERED: POLYETHYLENE GLYCOL 17 GM (MIRALAX) PACK PO ONE (16:00)
[2018-09-27 00:57] VITALS: BP 141/71
[2018-09-27 04:00] VITALS: BP 131/66
[2018-09-27 04:12] LABS: BASOPHILS # (AUTO) 0.2 10^3/uL (0.0-0.1); BASOPHILS % (AUTO) 2 % (0-10); EOSINOPHILS # (AUTO) 0.4 10^3/uL (0.0-0.3); EOSINOPHILS % (AUTO) 6 % (0-10); HEMATOCRIT 30 % (40-54); HEMOGLOBIN 8.7 G/DL (13.3-17.7); LYMPHOCYTES # (AUTO) 0.7 X 10^3 (1.0-4.0); LYMPHOCYTES % (AUTO) 11 % (12-44); MEAN CORPUSCULAR HEMOGLOBIN 18 PG (25-34); MEAN CORPUSCULAR HGB CONC 29 G/DL (32-36); MEAN CORPUSCULAR VOLUME 64 FL (80-99); MEAN PLATELET VOLUME 10.1 FL (7.4-10.4); MONOCYTES # (AUTO) 1.1 X 10^3 (0.0-1.0); MONOCYTES % (AUTO) 18 % (0-12); NEUTROPHILS # (AUTO) 3.9 X 10^3 (1.8-7.8); NEUTROPHILS % (AUTO) 63 % (42-75); PLATELET COUNT 285 10^3/uL (130-400); RED BLOOD COUNT 4.74 10^6/uL (4.35-5.85); RED CELL DISTRIBUTION WIDTH 22.2 % (10.0-14.5); WHITE BLOOD COUNT 6.2 10^3/uL (4.3-11.0)
[2018-09-27 04:39] LABS: ALANINE AMINOTRANSFERASE 19 U/L (0-55); ALBUMIN 4.1 GM/DL (3.2-4.5); ALKALINE PHOSPHATASE 63 U/L (40-136); BUN/CREATININE RATIO 16; CALCIUM 9.3 MG/DL (8.5-10.1); CARBON DIOXIDE 22 MMOL/L (21-32); CHLORIDE 107 MMOL/L (98-107); CHOLESTEROL 150 MG/DL (< 200); CREATININE SERUM 0.99 MG/DL (0.60-1.30); GFR ESTIMATED > 60; GLUCOSE 98 MG/DL (70-105); HDL CHOLESTEROL 31 MG/DL (40-60); POTASSIUM 3.8 MMOL/L (3.6-5.0); SODIUM 140 MMOL/L (135-145); TOTAL PROTEIN 7.1 GM/DL (6.4-8.2); TRIGLYCERIDES 143 MG/DL (<150); VLDL CHOLESTEROL 29 MG/DL (5-40)
[2018-09-27] MEDS: PANTOPRAZOLE 40 MG (PROTONIX) VIAL IV SCH ×2 (05:14→08:07)
[2018-09-27] MEDS: KCL 10 MEQ TAB (MICRO K) PO SCH (05:18)
[2018-09-27] MEDS ORDERED: POLYETHYLENE GLYCOL 17 GM (MIRALAX) PACK PO ONE (06:00)
[2018-09-27 08:00] VITALS: BP 126/87
--- NOTE | 2018-09-27 09:30 | Progress Note-Cardiology ---
Cardiology SOAP Progress Note Subjective: Up ambulating in the halls. No c/o CP, palpitations, syncope or near syncope. Feels LE swelling has improved. Awaiting EGD/colo scheduled for later today. Objective: I&O/Vital Signs 09/27/18 09/27/18 09/27/18 09/27/18 07:00 08:00 08:00 11:25 Temp 96.7 97.6 Pulse 100 78 80 Resp 19 17 B/P (MAP) 126/87 (100) 134/78 (96) Pulse Ox 96 97 O2 Delivery Room Air Room Air Room Air 09/27/18 13:00 Pulse 102 09/27/18 00:00 Intake Total 3970 ml Output Total 3550 ml Balance 420 ml Weight (Pounds): 240 Weight (Ounces): 0.00 Weight (Calculated Kilograms): [id number] Constitutional: AAO x 3, well-developed, well-nourished Respiratory: No accessory muscle use; lungs clear to percussion, lungs clear to auscultation Cardiovascular: regular rate-rhythm, S1 and S2, systolic murmur (soft MARILYN at card base) Gastrointestional: No tender; soft; No guarding, No rebound; audible bowel sounds Extremities: No clubbing, No cyanosis; significant edema (mild bilat LE swelling) Neurologic/Psychiatric: oriented x 3, grossly intact, power is 5/5 both on sides Skin: No rash on exposed areas, No ulcerations on exposed areas Results/Procedures: Labs Laboratory Tests 09/27/18 04:00: White Blood Count 6.2, Red Blood Count 4.74, Hemoglobin 8.7L, Hematocrit 30L, Mean Corpuscular Volume 64L, Mean Corpuscular Hemoglobin 18L, Mean Corpuscular Hemoglobin Concent 29L, Red Cell Distribution Width 22.2H, Platelet Count 285, Mean Platelet Volume 10.1, Neutrophils (%) (Auto) 63, Lymphocytes (%) (Auto) 11L , Monocytes (%) (Auto) 18H, Eosinophils (%) (Auto) 6, Basophils (%) (Auto) 2, Neutrophils # (Auto) 3.9, Lymphocytes # (Auto) 0.7L, Monocytes # (Auto) 1.1H, Eosinophils # (Auto) 0.4H, Basophils # (Auto) 0.2H, Sodium Level 140, Potassium Level 3.8, Chloride Level 107, Carbon Dioxide Level 22, Anion Gap 11, Blood Urea Nitrogen 16, Creatinine 0.99, Estimat Glomerular Filtration Rate > 60, BUN/ Creatinine Ratio 16, Glucose Level 98, Calcium Level 9.3, Corrected Calcium 9.2 , Magnesium Level 2.0, Total Bilirubin 1.0, Aspartate Amino Transf (AST/SGOT) 24 , Alanine Aminotransferase (ALT/SGPT) 19, Alkaline Phosphatase 63, Total Protein 7.1, Albumin 4.1, Triglycerides Level 143, Cholesterol Level 150, LDL Cholesterol Direct 102, VLDL Cholesterol 29, HDL Cholesterol 31L, Thyroid Stimulating Hormone (TSH) 0.51 09/27/18 12:06: Lab Scanned Report Transfusion Reaction Form Microbiology 09/25/18 Blood Culture - Preliminary, Resulted No growth 09/26/18 MRSA Screen - Final, Complete MRSA not isolated 09/25/18 Urine Culture - Final, Complete NO GROWTH A/P: Assessment: Shortness of breath likely primarily due to marked anemia Anemia due to GI blood loss, s/p transfusions. Endoscopy today has shown colonic obstruction. Pt is awaiting surgery with Dr Benitez Echo of 09/27/18: LVEF 50-55%, mod to sev MR, basal inferior hypokinesis RBBB and frequent, isolated PVCs as documented on ECG of 09/26/18 Bilat leg swelling Impaired fasting glucose H/o hypertension Elevated BMI of approx 37 Fam h/o early CAD Suspected sleep apnea Plan: * We have had a long and detailed discussion with him and his regarding his CV issues * Continue BB * Continue diuretic and K * Keep on tele * Echo - pending * Suspected sleep apnea - advise w/u as an out pt * Ok to proceed with GI w/u and/or intervention (if needed) Physician Assessment Physician Assessment No cp or palp or syncope. Shortness of breath resolved after treatment since admission (transfusions and diuretics) Lungs: good bilat air entry Cor: reg Ext: no c/c. Mild edema A&R * As documented in our note above that I updated (italics) and as noted below * I spoke with him in detail regarding his CV findings * Cardiac risk for non-cardiac surgery is estimated to be intermediate. He understands his risk and wishes to proceed * Continue therapy with BB, ARB and diuretics * Add aspirin when safe from surgical standpoint ZULEYMA BUCKNER Sep 27, 2018 09:30 EDWARDO QUESADA MD FACP FAC CCDS Sep 27, 2018 17:13
[2018-09-27 11:25] VITALS: BP 134/78
[2018-09-27] MEDS ORDERED: LOSA100T57 PO (12:10)
[2018-09-27] MEDS ORDERED: ASPI-983 PO (12:10)
[2018-09-27] MEDS ORDERED: NAPR220T66 PO (12:10)
[2018-09-27] MEDS ORDERED: TRAM50TA2 PO (12:10)
--- NOTE | 2018-09-27 12:13 | NUR ---
SPOKE WITH THE PATIENT ABOUT HIS MEDICATIONS. HE LISTED WHAT HE IS TAKING. [facility] FILLED: 09-20-18 LOSARTAN 100MG DAILY 09-20-18 TRAMADOL 50MG 2 Q6H PRN #30 (STATES HE ONLY TAKES 1 TAB AT HS) HE ALSO TAKES ALEVE OTC PRN PAIN AND ASPIRIN 81MG OTC - HE STATES HE IS SUPPOSED TO TAKE THE ASPIRIN EVERY DAY BUT FORGETS TO AND PROBABLY REMEMBERS IT ABOUT THREE TIMES A WEEK.
--- NOTE | 2018-09-27 12:42 | Progress Note-Hospitalist ---
Progress Note Progress Notes/Assess & Plan Date Seen 09/27/18 Time Seen by Provider: 12:40 Assessment & Plan The patient is a 58-year-old white male known to me as he is my cole and as his father was before him. He was admitted from the emergency room after he arrived complaining of edema and progressive shortness of breath over a month to 2 month period of time. He was found to have a hemoglobin of 6.5 and has received 2 units of packed red blood cells. He denies any hematemesis, hematochezia or melena. He reports that after a 2 unit transfusion he feels remarkably better. He is to have upper lower endoscopy today. Physical exam: He is alert and oriented. Lungs are clear to auscultation. CV is regular without murmur. There is no tachycardia. Abdomen is obese and nontender. Extremities show only a trace of pedal edema. Impression: Significant anemia etiology unclear. Focused Exam Lactate Level 09/25/18 20:30: Lactic Acid Level 1.13 JIM ARREDONDO MD Sep 27, 2018 12:42
[2018-09-27] MEDS ORDERED: LACTATED RINGERS 1,000 ML IV ONE (13:25)
[2018-09-27] MEDS ORDERED: LACTATED RINGERS 1,000 ML IV STA (13:46)
[2018-09-27] MEDS ORDERED: HURRICAINE EXT TUBE (BENZOCAINE) XX PRN (14:00)
[2018-09-27] MEDS ORDERED: PROPOFOL INJECTION 50 ML IV ONE ×3 (14:20→15:09)
[2018-09-27] MEDS ORDERED: MIDAZOLAM 2 MG/2 ML (VERSED) VIAL ONE (14:21)
--- NOTE | 2018-09-27 14:24 | Progress Note ---
Subjective Time Seen by a Provider: 13:53 Subjective/Events-last exam Pt seen and examined, denies abdominal pain. States stool very liquidy and mostly green, "at the very end it was dark". Pt denies hematochezia. Review of Systems General: No Chills, No Night Sweats Pulmonary: No Dyspnea, No Cough Cardiovascular: Palpitations; No: Chest Pain Gastrointestinal: No: Nausea, Vomiting, Abdominal Pain Focused Exam Lactate Level 09/25/18 20:30: Lactic Acid Level 1.13 Objective Exam Vital Signs Date Time Temp Pulse Resp B/P (MAP) Pulse Ox O2 Delivery O2 Flow Rate FiO2 09/27/18 13:00 102 09/27/18 11:25 97.6 80 17 134/78 (96) 97 Room Air 09/27/18 08:00 96.7 78 19 126/87 (100) 96 Room Air 09/27/18 08:00 Room Air 09/27/18 07:00 100 09/27/18 04:00 97.0 78 20 131/66 (87) 97 Room Air 09/27/18 01:00 95 09/27/18 00:57 97.4 77 20 141/71 (94) 97 Room Air 09/26/18 20:20 98.0 87 20 152/77 (102) 99 Room Air 09/26/18 20:00 Room Air 09/26/18 19:00 94 09/26/18 16:15 97.1 76 18 133/79 (97) 98 Room Air 09/26/18 14:24 104 I & O 09/27/18 07:00 Intake Total 3970 ml Output Total 3550 ml Balance 420 ml Capillary Refill : Less Than 3 Seconds General Appearance: No Apparent Distress, WD/WN HEENT: Normal ENT Inspection Neck: Full Range of Motion, Normal Inspection, Supple Respiratory: Chest Non Tender, Lungs Clear, Normal Breath Sounds, No Accessory Muscle Use, No Respiratory Distress Cardiovascular: No Gallop, Normal Peripheral Pulses, Irregularly Irregular Gastrointestinal: normal bowel sounds, non tender, soft, no organomegaly, no pulsatile mass Extremity: Pedal Edema Neurologic/Psychiatric: Alert, Oriented x3, No Motor/Sensory Deficits, Normal 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, 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 Norm as 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 Skin: Pallor Results Lab Laboratory Tests 09/27/18 04:00: White Blood Count 6.2, Red Blood Count 4.74, Hemoglobin 8.7L, Hematocrit 30L, Mean Corpuscular Volume 64L, Mean Corpuscular Hemoglobin 18L, Mean Corpuscular Hemoglobin Concent 29L, Red Cell Distribution Width 22.2H, Platelet Count 285, Mean Platelet Volume 10.1, Neutrophils (%) (Auto) 63, Lymphocytes (%) (Auto) 11L , Monocytes (%) (Auto) 18H, Eosinophils (%) (Auto) 6, Basophils (%) (Auto) 2, Neutrophils # (Auto) 3.9, Lymphocytes # (Auto) 0.7L, Monocytes # (Auto) 1.1H, Eosinophils # (Auto) 0.4H, Basophils # (Auto) 0.2H, Sodium Level 140, Potassium Level 3.8, Chloride Level 107, Carbon Dioxide Level 22, Anion Gap 11, Blood Urea Nitrogen 16, Creatinine 0.99, Estimat Glomerular Filtration Rate > 60, BUN/ Creatinine Ratio 16, Glucose Level 98, Calcium Level 9.3, Corrected Calcium 9.2 , Magnesium Level 2.0, Total Bilirubin 1.0, Aspartate Amino Transf (AST/SGOT) 24 , Alanine Aminotransferase (ALT/SGPT) 19, Alkaline Phosphatase 63, Total Protein 7.1, Albumin 4.1, Triglycerides Level 143, Cholesterol Level 150, LDL Cholesterol Direct 102, VLDL Cholesterol 29, HDL Cholesterol 31L, Thyroid Stimulating Hormone (TSH) 0.51 09/27/18 12:06: Lab Scanned Report Transfusion Reaction Form Microbiology 09/25/18 Blood Culture - Preliminary, Resulted No growth 09/25/18 Urine Culture - Final, Complete NO GROWTH Assessment/Plan Assessment/Plan Assessment/Plan Anemia Hemoccult + stool Gastritis and GERD HTN Plan to do EGD and Colonoscopy; to rule out GI bleed as cause of anemia. Hemoglobin stable from yesterday, did not drop. Discussed risks and complications with pt and ; including but not limited to pain, bleeding, infection damage to esophagus or even intestinal perforation. All questions answered to their satisfaction. Clinical Quality Measures DVT/VTE Risk/Contraindication: Risk Factor Score Per Nursin RFS Level Per Nursing on Admit: 3=High JENNIFER DOMINIQUE DO Sep 27, 2018 14:24
--- NOTE | 2018-09-27 15:44 | Anesthesia-General Post-Op ---
MAC Patient Condition Mental Status/LOC: Same as Preop Cardiovascular: Satisfactory Nausea/Vomiting: Absent Respiratory: Satisfactory Pain: Controlled Complications: Absent Post Op Complications Complications None Follow Up Care/Instructions Patient Instructions None needed. Anesthesiology Discharge Order Discharge Order Patient is doing well, no complaints, stable vital signs, no apparent adverse anesthesia problems. JAMAAL ASENCIO DO Sep 27, 2018 15:44
[2018-09-27] MEDS ORDERED: FURO40TA4 PO (16:42)
[2018-09-27] MEDS ORDERED: METO-387 PO (16:42)
[2018-09-27] MEDS ORDERED: PANT40TA2 PO (16:42)
--- NOTE | 2018-09-27 16:45 | Discharge Inst-Simple/Standard ---
Discharge Inst-Standard Discharge Medications New, Converted or Re-Newed RX: Transmitted to Pharmacy Patient Instructions/Follow Up Plan of Care/Instructions/FU: Please continue to take your medications as written. Please follow up with Dr Munoz, Dr Tavera, and Dr Benitez to follow up this hospital stay and to scheduled your surgery. Activity as Tolerated: Yes Discharge Diet: Other Diet (Clear liquids) Return to The Hospital For: Chest pain, shortness of breath, dark stools, abdominal pain, if you feel you are getting worse. THAI BRANHAM MD Sep 27, 2018 16:45
[2018-09-27 16:50] VITALS: BP 142/92
--- NOTE | 2018-09-27 17:01 | Diagnostic Imaging Report ---
INDICATION: Incomplete colonoscopy, possible stricture in the descending colon. TECHNIQUE: The CT abdomen and pelvis was obtained without IV contrast. Rectal contrast was given. FINDINGS: The visualized portions of the lung bases show no infiltrate. There is no pleural fluid or free intraperitoneal air. The liver shows no focal lesion without IV contrast. There are numerous gallstones in the gallbladder. The spleen, adrenals, and pancreas appear normal. The kidneys bilaterally appear unremarkable. There is questionable adenopathy in the paraesophageal region in the lower mediastinum and I would recommend a CT of the chest with IV contrast for further evaluation. There is no retroperitoneal adenopathy. There is no ascites. Rectal contrast was given. There is an apparent stricture in the region of the junction of the sigmoid colon and descending colon which appears suspicious for a neoplastic lesion. There is some induration of the adjacent fat. The remainder of the colon is grossly unremarkable. There is no significant small bowel distention. IMPRESSION: The CT performed with rectal contrast demonstrates a suspicious lesion in the junction of the sigmoid and descending colon, neoplasm is not excluded. There is some induration of the adjacent fat which may represent secondary inflammatory change or tumor microinvasion. There is questionable adenopathy in the lower portion of the mediastinum in the paraesophageal region. I would recommend a CT chest with IV contrast for further evaluation of this area. An apparent cluster of nodes to the right of the esophagus measures about 4.1 x 3.5 cm. Dictated by: Dictated on workstation # [id number]
--- NOTE | 2018-09-27 19:16 | Progress Note-Post Operative ---
Post-Operative Progess Note Surgeon (s)/Quality Officer (s) Surgeon JENNIFER DOMINIQUE DO Quality Officer: none Pre-Operative Diagnosis Anemia, Hemoccult + Post-Operative Diagnosis Gastritis Sigmoid colon stricture and inflammation Procedure & Operative Findings Date of Procedure 09/27/18 Procedure Performed/Findings EGD with Bx Flex sig with snare polypectomy Anesthesia Type IV sedation by PUSHCART PEDDLER Estimated Blood Loss Estimated blood loss (mL): scant Specimens/Packing Specimens Removed Antral Bx Sigmoid Colon polyp JENNIFER DOMINIQUE DO Sep 27, 2018 19:16
--- NOTE | 2018-09-27 19:22 | Progress Note ---
Subjective Time Seen by a Provider: 18:50 Subjective/Events-last exam I spoke with pt and his regarding the findings from flex sig and CT with contrast enema. Pt denies abdominal pain. He states he feels great after getting the blood transfusion. Review of Systems General: No Chills Pulmonary: No Dyspnea, No Cough Cardiovascular: No: Chest Pain, Palpitations Focused Exam Lactate Level 09/25/18 20:30: Lactic Acid Level 1.13 Objective Exam Vital Signs Date Time Temp Pulse Resp B/P (MAP) Pulse Ox O2 Delivery O2 Flow Rate FiO2 09/27/18 16:50 97.1 89 20 142/92 (109) 98 Room Air 09/27/18 13:00 102 09/27/18 11:25 97.6 80 17 134/78 (96) 97 Room Air 09/27/18 08:00 96.7 78 19 126/87 (100) 96 Room Air 09/27/18 08:00 Room Air 09/27/18 07:00 100 09/27/18 04:00 97.0 78 20 131/66 (87) 97 Room Air 09/27/18 01:00 95 09/27/18 00:57 97.4 77 20 141/71 (94) 97 Room Air 09/26/18 20:20 98.0 87 20 152/77 (102) 99 Room Air 09/26/18 20:00 Room Air I & O 09/27/18 07:00 Intake Total 3970 ml Output Total 3550 ml Balance 420 ml Capillary Refill : Less Than 3 Seconds General Appearance: No Apparent Distress, WD/WN Neck: Full Range of Motion, Normal Inspection, Supple Respiratory: Chest Non Tender, Lungs Clear, Normal Breath Sounds, No Accessory Muscle Use, No Respiratory Distress Cardiovascular: Regular Rate, Rhythm, No Gallop, Normal Peripheral Pulses Gastrointestinal: normal bowel sounds, non tender, soft, no organomegaly, no pulsatile mass Extremity: Pedal Edema Neurologic/Psychiatric: Alert, Oriented x3, No Motor/Sensory Deficits, Normal 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, 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 Norm as Tested Skin: Pallor Results Lab Laboratory Tests 09/27/18 04:00: White Blood Count 6.2, Red Blood Count 4.74, Hemoglobin 8.7L, Hematocrit 30L, Mean Corpuscular Volume 64L, Mean Corpuscular Hemoglobin 18L, Mean Corpuscular Hemoglobin Concent 29L, Red Cell Distribution Width 22.2H, Platelet Count 285, Mean Platelet Volume 10.1, Neutrophils (%) (Auto) 63, Lymphocytes (%) (Auto) 11L , Monocytes (%) (Auto) 18H, Eosinophils (%) (Auto) 6, Basophils (%) (Auto) 2, Neutrophils # (Auto) 3.9, Lymphocytes # (Auto) 0.7L, Monocytes # (Auto) 1.1H, Eosinophils # (Auto) 0.4H, Basophils # (Auto) 0.2H, Sodium Level 140, Potassium Level 3.8, Chloride Level 107, Carbon Dioxide Level 22, Anion Gap 11, Blood Urea Nitrogen 16, Creatinine 0.99, Estimat Glomerular Filtration Rate > 60, BUN/ Creatinine Ratio 16, Glucose Level 98, Calcium Level 9.3, Corrected Calcium 9.2 , Magnesium Level 2.0, Total Bilirubin 1.0, Aspartate Amino Transf (AST/SGOT) 24 , Alanine Aminotransferase (ALT/SGPT) 19, Alkaline Phosphatase 63, Total Protein 7.1, Albumin 4.1, Triglycerides Level 143, Cholesterol Level 150, LDL Cholesterol Direct 102, VLDL Cholesterol 29, HDL Cholesterol 31L, Thyroid Stimulating Hormone (TSH) 0.51 09/27/18 12:06: Lab Scanned Report Transfusion Reaction Form Microbiology 09/25/18 Blood Culture - Preliminary, Resulted No growth 09/26/18 MRSA Screen - Final, Complete MRSA not isolated 09/25/18 Urine Culture - Final, Complete NO GROWTH Assessment/Plan Assessment/Plan Assessment/Plan Sigmoid Colon Stricture Anemia Hemoccult + stool Gastritis and GERD HTN Unable to complete Colonoscopy because of a stricture, confirmed on CT. I spoke with pt and about timing of surgery; he will need it whether this is stricture from diverticular inflammation or worse cancer. Surgery would be the same no matter what and he is already prepped. I did give him the option of going home; but told him he should not wait longer than a week or two to have the surgery. He wants to do it now. I discussed risks and complications with pt and ; including but not limited to pain, bleeding, infection, scar and damage to intestine with need for further procedure. All questions answered to their satisfaction. Laparoscopic Hand Assisted Sigmoid colon resection is planned for tomorrow and ordered consent and IV ABX (chief innovation officer to OR), npo after midnight. I also wrote for a Valium to help him sleep tonight. Clinical Quality Measures DVT/VTE Risk/Contraindication: Risk Factor Score Per Nursin RFS Level Per Nursing on Admit: 3=High JENNIFER DOMINIQUE DO Sep 27, 2018 19:22
[2018-09-27] MEDS: FUROSEMIDE 40 MG (LASIX) TAB PO SCH (19:26)
[2018-09-27 19:50] VITALS: BP 133/76
[2018-09-27] MEDS ORDERED: DIAZEPAM 5 MG (VALIUM) TABLET PO NR (21:00)
[2018-09-28] VITALS: BP 130/64
--- NOTE | 2018-09-28 02:02 | NUR ---
PT REPORTED THAT HE WAS FEELING SHORT OF BREATH AND CONGESTED. STATED HE RECEIVED A BREATHING TREATMENT WHEN HE ARRIVED THURSDAY NIGHT AND IT HELPED, REQUESTED ANOTHER ONE. THIS RN CALLED DR ARREDONDO AND RECEIVED TELEPHONE ORDERS FOR ALBUTEROL BREATHING TX PRN.
[2018-09-28] MEDS ORDERED: RT-ALBUTEROL SULF 2.5 MG/3 ML PRE-MIX VIAL INH SCH (02:15)
[2018-09-28] MEDS: RT-ALBUTEROL SULF 2.5 MG/3 ML PRE-MIX VIAL INH PRN ×2 (03:21→20:42)
--- NOTE | 2018-09-28 03:55 | OPERATIVE REPORT ---
DATE OF SERVICE: 09/27/2018 PREOPERATIVE DIAGNOSIS: Anemia, hemoccult positive. POSTOPERATIVE DIAGNOSES: 1. Gastritis. 2. Stricture of the sigmoid colon. 3. Internal hemorrhoids. PROCEDURES: 1. EGD with biopsy. 2. Flexible sigmoidoscopy with a snare polypectomy. SURGEON: Waqas Benitez DO. MAT MAKER: None. ANESTHESIA: IV sedation by LEASE ADMINISTRATION SUPERVISOR. SPECIMEN: 1. Biopsy from the antrum. 2. Polyp or a portion of inflamed tissue from the sigmoid colon. BLOOD LOSS: Scant. FLUIDS: Per anesthesia. POSTOPERATIVE CONDITION: Stable. INDICATION FOR PROCEDURE: The patient is a 58-year-old male. He came in with chest pain with more short of breath, found to be anemic and little bit of CHF, given some Lasix and then proved. Also had a blood transfusion as his hemoglobin was 6.5, needed a workup. FINDINGS: The patient had a little bit of gastritis, but in the sigmoid colon he had a stricture could not get pass this area, there was inflamed tissue and then elected to do a snare of this inflamed tissue, got a large piece and sent to pathology. PROCEDURE NOTE: After informed consent was obtained, the patient was brought to the endoscopy suite and placed in the left lateral decubitus position. Administered IV sedation by the LEASE ADMINISTRATION SUPERVISOR who then monitored his vitals the entire time, heart rate, blood pressure and pulse ox and started this with the EGD pushing the scope down the mouth through the esophagus and into the stomach, saw little bit of gastritis, possibly an ulcer, did a biopsy of the antrum, possibly small hiatal hernia. I did a biopsy of the GE junction, took pictures and then pulled the scope up the esophagus out the mouth. I then switched scopes, switched cameras went down below and inserted the colonoscope, got about 40 cm in and came into an inflamed tissue, looked like a possible polyp or mass could not feel, tried to get through here, but could not. Elected to do a snare polypectomy, removed a large portion of the tissue, had to wait to get a good portion of tissue then suctioned this up to the scope. Pulled the scope out to remove this pulling the scope back in, could not. Tried for about 5 to 10 minutes, could not get pass this area. Switched actually a pediatric scope and still could not get pass this area. At this point, then elected to pull the scope out down in the rectum, retroflexed the rectal vault, saw some minimal internal hemorrhoids, took a picture of this. The patient was recovered in the endoscopy suite and then sent to a CAT scan for a barium enema to assess this area. The patient tolerated the procedure. Job ID: [id number] DocumentID: [id number] Dictated Date: 09/27/2018 20:03:24 Residential Monitor Date: 09/28/2018 03:54:42 Dictated By: DO RICHELLE ROA
[2018-09-28 04:23] VITALS: BP 120/64
[2018-09-28] MEDS: KCL 10 MEQ TAB (MICRO K) PO SCH (07:37)
[2018-09-28] MEDS: PANTOPRAZOLE 40 MG (PROTONIX) VIAL IV SCH (07:46)
[2018-09-28] MEDS: FUROSEMIDE 40 MG (LASIX) TAB PO SCH (07:46)
--- NOTE | 2018-09-28 07:52 | Physician Query Clarification ---
PQ-CHF Specificity The medical record reflects the following clinical scenario: History/Risk Factors: Pedal edema consistent with mild failure documented by Dr. Winter. Dr. Benitez's op report says, "he came in with chest pain with more shor of breath, found to be anemic and little bit of CHF,given some Lasix. Clinical Findings: Pedal edema, BNP 284.3, EF 50-55% on 09/27 Echo. Treatment: IV Lasix. Question: Can you further specify the acuity &/or type of CHF per the clinical indicators above? Please document a response below PHYSICIAN RESPONSE Acuity: Acute Type: Systolic & Diastolic In responding to this query, please exercise your independent professional judgment. The purpose of this communication is to more accurately reflect the complexity of your patients condition. The fact that a question is asked does not imply that any particular answer is desired or expected. Thank you for your timely response to this clarification. Requestors name: Lottie Hensley [facility], [facility] Phone # ext [phone] or [phone] THIS PHYSICIAN QUERY FORM IS A PERMANENT PART OF THE MEDICAL RECORD LOTTIE HENSLEY Sep 28, 2018 07:52 EDWARDO QUESADA MD [facility] Sep 28, 2018 09:38
[2018-09-28] MEDS ORDERED: LIDOCAINE/EPI 1%-1:100,000 (XYLOCAINE) 20ML ONE (08:19)
[2018-09-28] MEDS ORDERED: metroNIDAZOLE 500MG/100ML IVPB 100 ML IV SCH (09:00)
[2018-09-28] MEDS ORDERED: ceFAZolin 2 GM IV Premixed 50 ML IV SCH (09:00)
[2018-09-28] MEDS ORDERED: proPOfol 200 MG/20 ML (DIPRIVAN) VIAL IV ONE ×2 (09:09→13:05)
[2018-09-28] MEDS ORDERED: ONDANSETRON 4 MG/2 ML (SDV) Z0FRAN ONE (09:09)
[2018-09-28] MEDS ORDERED: DEXAMETHASONE 10 MG/ML (DECADRON) 1 ML VIAL ONE (09:09)
[2018-09-28] MEDS ORDERED: MIDAZOLAM 2 MG/2 ML (VERSED) VIAL ONE (09:09)
[2018-09-28] MEDS ORDERED: fentaNYL INJECTION 100 MCG/2 ML AMP ONE ×2 (09:09→10:25)
[2018-09-28] MEDS ORDERED: ROCURONIUM 10 MG/ML 5 ML SYRINGE IV ONE ×3 (09:09→12:31)
[2018-09-28] MEDS ORDERED: SEVOFLURANE (ULTANE) 15 ML INHAL SOLN ONE (09:09)
[2018-09-28] MEDS ORDERED: RT-ALBUTEROL HFA (VENTOLIN) PER PUFF IH ONE ×3 (10:51→11:54)
[2018-09-28] MEDS ORDERED: LABETALOL HCL 20 MG/4 ML VIAL ONE (10:51)
[2018-09-28] MEDS ORDERED: SUGAMMADEX 500 MG/5 ML VIAL (BRIDION) IV ONE (12:39)
[2018-09-28] MEDS: LACTATED RINGERS 1,000 ML IV SCH ×3 (12:44→14:30)
--- NOTE | 2018-09-28 12:45 | Progress Note-Post Operative ---
Post-Operative Progess Note Surgeon (s)/Drawer In Hand (s) Surgeon JENNIFER DOMINIQUE DO Drawer In Hand: Winsome Pre-Operative Diagnosis Sigmoid Colon Stricture Post-Operative Diagnosis Same pending path Procedure & Operative Findings Date of Procedure 09/28/18 Procedure Performed/Findings Lap hand assisted Sigmoid colon resection Anesthesia Type GET Estimated Blood Loss Estimated blood loss (mL): 100ml Specimens/Packing Specimens Removed portion of sigmoid colon JENNIFER DOMINIQUE DO Sep 28, 2018 12:45
[2018-09-28] MEDS ORDERED: ONDANSETRON 4 MG/2 ML (SDV) Z0FRAN IVP PRN ×2 (13:00→13:30)
[2018-09-28] MEDS ORDERED: ACETAMINOPHEN 500 MG TAB (TYLENOL) PO PRN (13:00)
[2018-09-28] MEDS ORDERED: BUPIVACAINE 0.5% 30 ML (SENSORCAINE) VIAL ONE (13:29)
[2018-09-28] MEDS ORDERED: HYDROmorphone 2 MG/ML VIAL (DILAUDID) IV ONE (13:30)
[2018-09-28] MEDS ORDERED: morphine INJ 10 MG/ML 1ML (SYR OR VIAL) IVP ONE (13:30)
[2018-09-28] MEDS: metroNIDAZOLE 500MG/100ML IVPB 100 ML IV SCH ×2 (15:08→23:04)
[2018-09-28] MEDS: ceFAZolin 2 GM IV Premixed 50 ML IV SCH (15:08)
[2018-09-28] MEDS: KETOROLAC 30 MG/ML VIAL IVP PRN (15:24)
--- NOTE | 2018-09-28 15:24 | Progress Note-Hospitalist ---
Subjective HPI/CC On Admission Date Seen by Provider: Sep 28, 2018 Time Seen by Provider: 15:17 This is a 58-year-old white male who presents to the emergency room with severe shortness of breath for the last week. He notes that he's had orthopnea and PND for the last 2-3 weeks as well. He notes he's been short of breath for about 6 months or so. He says he thinks he's had a heart attack in the past when he was fishing. He notes that he has had trouble with heartburn for years and has some dysphagia and hasn't is no longer able to throw up although he could in the past. He denies having any change in his bowel habits and notes that there is no blood in his stools or melena. Hemoccult stool was positive in the emergency room where his hemoglobin was found to be 6.5. This morning he status post 2 units of blood transfusion and feels much much better. In addition his pedal edema is down. On exam it is noted that he has frequent PVCs and PACs. Subjective/Events-last exam Just returned to room for PACU. No complaints. Still somewhat drowsy. at bedside. No concerns. Focused Exam Lactate Level Objective Exam Vital Signs Vital Signs Date Time Temp Pulse Resp B/P (MAP) Pulse Ox O2 Delivery O2 Flow Rate FiO2 10/01/18 12:00 98.0 84 18 132/68 (89) 96 Room Air 09/30/18 08:00 2.00 Capillary Refill : Less Than 3 Seconds General Appearance: No Apparent Distress, Anxious, Obese Respiratory: Lungs Clear, No Respiratory Distress Cardiovascular: Regular Rate, Rhythm, No Murmur Gastrointestinal: Distended, Tenderness (appropriately) Neurologic/Psychiatric: Alert, Oriented x3 Results/Procedures Lab Patient resulted labs reviewed. Assessment/Plan Assessment and Plan Assess & Plan/Chief Complaint Colonic stricture- POD #[address] Benitez Severe anemia secondary to GI losses- Hgb now stable Microcytic anemia- s/p 2 unit pRBCs transfusion, check in AM Cardiac arrhythmias with possible previous inferior wall SD- cardiology consulted, appreciate recs Sarcoid- asymptomatic Diagnosis/Problems Diagnosis/Problems (1) Colonic mass (2) Anemia Status: Acute Qualifiers: Anemia type: unspecified type Qualified Codes: D64.9 - Anemia, unspecified Clinical Quality Measures DVT/VTE Risk/Contraindication: Risk Factor Score Per Nursin RFS Level Per Nursing on Admit: 3=High THAI BRANHAM MD Sep 28, 2018 15:24
[2018-09-28 16:30] VITALS: BP 134/76
[2018-09-28] MEDS: rOPINIRole 0.25 MG (REQUIP) TAB PO SCH (20:26)
[2018-09-28 20:35] VITALS: BP 136/73
[2018-09-28] MEDS: morphine INJ 10 MG/ML 1ML (SYR OR VIAL) IVP PRN (23:12)
[2018-09-29 00:20] VITALS: BP 123/71
[2018-09-29] MEDS: ceFAZolin 2 GM IV Premixed 50 ML IV SCH (00:21)
--- NOTE | 2018-09-29 01:30 | OPERATIVE REPORT ---
DATE OF SERVICE: PREOPERATIVE DIAGNOSIS: Sigmoid colon stricture. POSTOPERATIVE DIAGNOSES: Sigmoid colon stricture. PROCEDURES: 1. Laparoscopic hand assisted sigmoid colon resection. 2. Takedown of splenic flexure. SURGEON: Waqas Benitez DO REAL ESTATE EXECUTIVE ASSISTANT: Andrew Schumacher DO ANESTHESIA: General endotracheal tube. SPECIMEN: Portion of sigmoid colon with anastomotic rings. BLOOD LOSS: Less than 100 mL. FLUIDS: Per anesthesia. POSTOPERATIVE CONDITION: Stable. INDICATION FOR PROCEDURE: The patient is a 58-year-old male who had a colonoscopy and then subsequent CT, which showed a severe stricturing of the sigmoid colon and the patient needed to get this resected so that he can have normal bowel movements, unsure whether this was going to be diverticular or even possibility of cancer. FINDINGS: The patient had a severe stricturing of the sigmoid colon. This area was very stuck into the left pelvic and abdominal side wall, which made me think it was more likely diverticular, but it was all sent to pathology. PROCEDURE NOTE: After informed consent was obtained, the patient was brought to the operating room, placed on the table in the lithotomy position. He was sterilely prepped and draped in normal fashion. I made incision in the midline starting from just above the umbilicus to just below with #15 blade, carried down through the skin and subcutaneous tissue, deepened down to subcutaneous tissue with Bovie electrocautery down to the fascia. Fascia incised with Bovie electrocautery and bluntly entered the abdomen and then increased the incision superiorly and inferiorly, placed a wound retractor and then in the right lower quadrant, infiltrate the skin with local, made a stab incision with #11 blade and then used the VersaStep trocar, advanced it towards my finger, felt to come in and protected the bowel and then placed a 12 mm port hooked this up to gas and then placed the Gelport over the top of the wound protector and then created pneumoperitoneum. I placed a 12 mm trocar port using the VersaStep system in the normal fashion using local lidocaine, 11 blade for stab incision, all done under direct visualization. During the case, also placed one more 5 mm VersaStep ports. Upon entry, we could see the area of tattooing it was below this stricture. There was a lot of adhesions in the left lower quadrant started taking these down with the LigaSure, clamping, coagulating and transecting taking care to try and stay out of the retroperitoneum, took quite a while to get this down. Once this was down, then able to place the patient in the Trendelenburg so that the intestines fell out of the way, went about 5 cm below the tattooing, made a defect in the mesentery with blunt dissection got my finger around the intestine and then placed an Endo-SINDHU 60 mm staple load across the distal portion of the sigmoid colon, clamped and fired transecting, unfortunately did go all the way across to switch for another 45 mm load and then came across the rest of the colon and started coming across the mesentery in the superior direction clamping, coagulating and transecting to try and start going under this, made mostly under this and then elected to start coming across the left pericolic gutter and coming up the white line of Toldt going all the way across over through the splenic flexure and taking down the splenic ligament, so we could get the colon to mobilize and come into the middle of the abdomen. Did this with blunt dissection as well as with the LigaSure. Removed the gel hand port and brought to the colon up placed a pursestring applicator about 4 cm past the superior aspect of the stricture or mass and then clamped above this with an intestinal clamp and then cut the intestine passed this off the table. A pursestring was placed and then placed the anvil of a 29 ILS tied this down. Then, did more take down of the splenic flexure; then able to easily bring down the descending colon to the distal portion of the sigmoid colon. We could bring this up. I then went below and placed a 25, then 28 and 30 rectal dilators. They went up very easily and at this point, I then placed a 29 ILS it went all the way up. We could feel it towards the end and then brought out the trocar through the tinea attached to the trocar to the anvil, tightened it down all the way to its tightest held for 30 seconds. Clamps and fired, held for 20 seconds and then removed this. The distal donut was good. This superior donut was not that great. We tested with water for leakage held colon above the anastomosis. There were no leaks. At this point, then made sure hemostasis. Took out all of the sponges that we had been in the abdomen and then elected to close the midline incision with a #1 double stranded PDS suture, one from the inferior portion to superior portion and tied to itself, copiously irrigated with normal saline and then closed this midline incision with geovanny as well as closed the two 10 mm incisions and the 5 mm incision with geovanny. Area was cleaned and dried, dressing placed. The patient then transferred to recovery room in stable condition. Sponge, instrument and needle count correct at the end of the case. Dr. Andrew Schumacher assisted in this case helping to make incisions, closed the incisions, identify anatomy, moving the anatomy out of the way. Job ID: [id number] DocumentID: [id number] Dictated Date: 09/28/2018 16:40:07 Catalog Librarian Date: 09/28/2018 23:13:15 Dictated By: DO RICHELLE ROA
[2018-09-29] MEDS: morphine INJ 10 MG/ML 1ML (SYR OR VIAL) IVP PRN ×2 (04:15→06:15)
[2018-09-29] MEDS: RT-ALBUTEROL SULF 2.5 MG/3 ML PRE-MIX VIAL INH PRN ×3 (04:27→21:59)
[2018-09-29 04:28] VITALS: BP 115/67
[2018-09-29] MEDS: KCL 10 MEQ TAB (MICRO K) PO SCH (06:15)
[2018-09-29] MEDS: LACTATED RINGERS 1,000 ML IV SCH (06:27)
--- NOTE | 2018-09-29 07:49 | NUR ---
RT recommends patient use [facility]. Dr. Diaz notified and approved.
[2018-09-29 08:00] VITALS: BP 123/76
[2018-09-29] MEDS: FUROSEMIDE 40 MG (LASIX) TAB PO SCH (08:31)
[2018-09-29] MEDS: PANTOPRAZOLE 40 MG (PROTONIX) VIAL IVP SCH (08:31)
[2018-09-29] MEDS: KETOROLAC 30 MG/ML VIAL IVP PRN (08:37)
[2018-09-29] MEDS ORDERED: NS IV 500 ML 500 ML IV SCH (09:13)
[2018-09-29] MEDS ORDERED: diphenhydrAMINE 50 MG/ML INJ (BENADRYL) IV PRN (09:15)
[2018-09-29] MEDS ORDERED: EPINEPHrine INJECTION 1 MG/ML AMP IM PRN (09:15)
[2018-09-29] MEDS ORDERED: RT-ALBUTEROL SULF 2.5 MG/3 ML PRE-MIX VIAL IH PRN (09:15)
[2018-09-29] MEDS ORDERED: HYDROCORTISONE 100 MG/2 ML (Solu-CORTEF) VIAL IV PRN (09:15)
[2018-09-29] MEDS ORDERED: IRON DEXTRAN INJECTION 1,000 MG in NS (IVPB) 250 ML IV ONE (09:15)
[2018-09-29] MEDS ORDERED: IRON DEXTRAN INJECTION 25 MG in NS (IVPB) 5.75 ML IV NR (09:27)
[2018-09-29 09:39] LABS: BASOPHILS % (AUTO) 0 % (0-10); EOSINOPHILS % (AUTO) 0 % (0-10); HEMATOCRIT 27 % (40-54); HEMOGLOBIN 7.5 G/DL (13.3-17.7); LYMPHOCYTES # (AUTO) 0.5 X 10^3 (1.0-4.0); LYMPHOCYTES % (AUTO) 4 % (12-44); MEAN CORPUSCULAR HEMOGLOBIN 18 PG (25-34); MEAN CORPUSCULAR HGB CONC 28 G/DL (32-36); MEAN CORPUSCULAR VOLUME 65 FL (80-99); MEAN PLATELET VOLUME 10.1 FL (7.4-10.4); MONOCYTES # (AUTO) 1.4 X 10^3 (0.0-1.0); MONOCYTES % (AUTO) 11 % (0-12); NEUTROPHILS # (AUTO) 10.5 X 10^3 (1.8-7.8); NEUTROPHILS % (AUTO) 84 % (42-75); PLATELET COUNT 251 10^3/uL (130-400); RED CELL DISTRIBUTION WIDTH 22.2 % (10.0-14.5); WHITE BLOOD COUNT 12.5 10^3/uL (4.3-11.0)
--- NOTE | 2018-09-29 09:47 | Progress Note-Hospitalist ---
Subjective HPI/CC On Admission Date Seen by Provider: Sep 29, 2018 Time Seen by Provider: 09:42 This is a 58-year-old white male who presents to the emergency room with severe shortness of breath for the last week. He notes that he's had orthopnea and PND for the last 2-3 weeks as well. He notes he's been short of breath for about 6 months or so. He says he thinks he's had a heart attack in the past when he was fishing. He notes that he has had trouble with heartburn for years and has some dysphagia and hasn't is no longer able to throw up although he could in the past. He denies having any change in his bowel habits and notes that there is no blood in his stools or melena. Hemoccult stool was positive in the emergency room where his hemoglobin was found to be 6.5. This morning he status post 2 units of blood transfusion and feels much much better. In addition his pedal edema is down. On exam it is noted that he has frequent PVCs and PACs. Subjective/Events-last exam Pt reports feeling well. Restless leg symptoms improved significantly with Requip. Otherwise no complaints or concerns. Objective Exam Vital Signs Vital Signs Date Time Temp Pulse Resp B/P (MAP) Pulse Ox O2 Delivery O2 Flow Rate FiO2 10/01/18 12:00 98.0 84 18 132/68 (89) 96 Room Air 09/30/18 08:00 2.00 Capillary Refill : Less Than 3 Seconds General Appearance: No Apparent Distress, Obese Respiratory: Lungs Clear, No Respiratory Distress Cardiovascular: Regular Rate, Rhythm, No Murmur Gastrointestinal: Non Tender, Soft, Abnormal Bowel Sounds (quiet) Neurologic/Psychiatric: Alert, Oriented x3, Normal Mood/Affect Results/Procedures Lab Patient resulted labs reviewed. Assessment/Plan Assessment and Plan Assess & Plan/Chief Complaint Colonic stricture- POD #[address] Benitez, pathology from resection pending Severe anemia secondary to GI losses- Hgb 7.5 today likely from losses from OR Microcytic anemia- s/p 2 unit pRBCs transfusion, iron low- will give Infed Cardiac arrhythmias with possible previous inferior wall MS- cardiology consulted, appreciate recs Sarcoid- asymptomatic Restless leg syndrome- improved with Requip Diagnosis/Problems Diagnosis/Problems (1) Colonic mass (2) Anemia Status: Acute Qualifiers: Anemia type: unspecified type Qualified Codes: D64.9 - Anemia, unspecified Clinical Quality Measures DVT/VTE Risk/Contraindication: Risk Factor Score Per Nursin RFS Level Per Nursing on Admit: 3=High THAI BRANHAM MD Sep 29, 2018 09:47
--- NOTE | 2018-09-29 09:54 | Progress Note ---
Subjective Time Seen by a Provider: 09:26 Subjective/Events-last exam Pt seen and examined, states his pain is better controlled once he got Toradol shot. No flatus or BM. Tolerating clears. Review of Systems General: No Chills, No Night Sweats Pulmonary: No Dyspnea; Cough Cardiovascular: No: Chest Pain Gastrointestinal: Abdominal Pain Objective Exam Vital Signs Date Time Temp Pulse Resp B/P (MAP) Pulse Ox O2 Delivery O2 Flow Rate FiO2 09/29/18 08:00 Room Air 09/29/18 07:39 98 Nasal Cannula 3.00 09/29/18 07:00 87 09/29/18 04:28 97.9 87 18 115/67 (83) 100 Nasal Cannula 2.00 09/29/18 04:27 96 Nasal Cannula 3.00 09/29/18 01:00 86 09/29/18 00:20 98.7 83 18 123/71 (88) 99 Nasal Cannula 2.00 09/28/18 20:42 97 Nasal Cannula 3.00 09/28/18 20:35 97.2 87 18 136/73 (94) 99 Nasal Cannula 2.00 09/28/18 20:00 Room Air 09/28/18 19:00 92 09/28/18 16:30 97.6 92 18 134/76 (95) 98 Nasal Cannula 2.00 I & O 09/29/18 07:00 Intake Total 3945 ml Output Total 2390 ml Balance 1555 ml Capillary Refill : Less Than 3 Seconds General Appearance: No Apparent Distress, WD/WN Respiratory: Chest Non Tender, No Accessory Muscle Use, No Respiratory Distress Cardiovascular: Regular Rate, Rhythm Gastrointestinal: tenderness (mostly at incision, incision is c/d/i) Extremity: Pedal Edema Skin: Pallor Results Lab Laboratory Tests 09/29/18 09:30: White Blood Count 12.5H, Red Blood Count 4.10L, Hemoglobin 7.5L, Hematocrit 27L , Mean Corpuscular Volume 65L, Mean Corpuscular Hemoglobin 18L, Mean Corpuscular Hemoglobin Concent 28L, Red Cell Distribution Width 22.2H, Platelet Count 251, Mean Platelet Volume 10.1, Neutrophils (%) (Auto) 84H, Lymphocytes (% ) (Auto) 4L, Monocytes (%) (Auto) 11, Eosinophils (%) (Auto) 0, Basophils (%) ( Auto) 0, Neutrophils # (Auto) 10.5H, Lymphocytes # (Auto) 0.5L, Monocytes # ( Auto) 1.4H, Eosinophils # (Auto) 0.0, Basophils # (Auto) 0.0 Microbiology 09/25/18 Blood Culture - Preliminary, Resulted No growth 09/26/18 MRSA Screen - Final, Complete MRSA not isolated 09/25/18 Urine Culture - Final, Complete NO GROWTH Assessment/Plan Assessment/Plan Assessment/Plan S/P Lap Hand assisted Sigmoid Colon Resection Anemia - Dr. Diaz has ordered Infed Gastritis and GERD HTN Pt doing well after surgery, will continue clears and pain control. Pt encouraged to ambulate and use IS. Clinical Quality Measures DVT/VTE Risk/Contraindication: Risk Factor Score Per Nursin RFS Level Per Nursing on Admit: 3=High JENNIFER DOMINIQUE DO Sep 29, 2018 09:54
[2018-09-29] MEDS ORDERED: IRON DEXTRAN INJECTION 1,000 MG in NS (IVPB) 250 ML IV NR (10:00)
--- NOTE | 2018-09-29 11:09 | Progress Note-Cardiology ---
Cardiology SOAP Progress Note Subjective: Up ambulating in the halls. Denies any c/o CP or palpitations. C/O occ "wheezing". Feels LE swelling has resolved. Objective: I&O/Vital Signs 09/29/18 09/29/18 09/29/18 09/29/18 07:00 07:39 08:00 08:00 Temp 99.2 Pulse 87 101 Resp 18 B/P (MAP) 123/76 (92) Pulse Ox 98 95 O2 Delivery Nasal Cannula Nasal Cannula Room Air O2 Flow Rate 3.00 2.00 09/29/18 09/29/18 09/29/18 12:00 13:00 15:54 Temp 99.0 97.6 Pulse 85 95 93 Resp 18 18 B/P (MAP) 118/75 (89) 131/76 (94) Pulse Ox 96 95 O2 Delivery Room Air Room Air 09/29/18 00:00 Intake Total 2895 ml Output Total 1390 ml Balance 1505 ml Weight (Pounds): 240 Weight (Ounces): 0.00 Weight (Calculated Kilograms): 108.801197 Constitutional: AAO x 3, well-developed, well-nourished Respiratory: No accessory muscle use; lungs clear to percussion, lungs clear to auscultation Cardiovascular: regular rate-rhythm, S1 and S2, systolic murmur (soft MARILYN at card base) Gastrointestional: audible bowel sounds, other (post surgical abdomen (POD #1)) Extremities: No clubbing, No cyanosis, No significant edema Neurologic/Psychiatric: oriented x 3, grossly intact, power is 5/5 both on sides Skin: No rash on exposed areas, No ulcerations on exposed areas Results/Procedures: Labs Laboratory Tests 09/29/18 09:30: White Blood Count 12.5H, Red Blood Count 4.10L, Hemoglobin 7.5L, Hematocrit 27L , Mean Corpuscular Volume 65L, Mean Corpuscular Hemoglobin 18L, Mean Corpuscular Hemoglobin Concent 28L, Red Cell Distribution Width 22.2H, Platelet Count 251, Mean Platelet Volume 10.1, Neutrophils (%) (Auto) 84H, Lymphocytes (% ) (Auto) 4L, Monocytes (%) (Auto) 11, Eosinophils (%) (Auto) 0, Basophils (%) ( Auto) 0, Neutrophils # (Auto) 10.5H, Lymphocytes # (Auto) 0.5L, Monocytes # ( Auto) 1.4H, Eosinophils # (Auto) 0.0, Basophils # (Auto) 0.0, Neutrophils % ( Manual) 85, Lymphocytes % (Manual) 2, Monocytes % (Manual) 11, Eosinophils % ( Manual) 0, Basophils % (Manual) 0, Band Neutrophils 2, Nucleated Red Blood Cells 1, Polychromasia SLIGHT, Hypochromasia MARKED, Anisocytosis MARKED, Microcytosis MODERATE, Tear Drop Cells SLIGHT, Elliptocytes SLIGHT Microbiology 09/25/18 Blood Culture - Preliminary, Resulted No growth 09/26/18 MRSA Screen - Final, Complete MRSA not isolated 09/25/18 Urine Culture - Final, Complete NO GROWTH A/P: Assessment: Shortness of breath likely primarily due to marked anemia - improved following transfusion and improved H/H Anemia due to GI blood loss, s/p transfusions. Endoscopy today has shown colonic obstruction. S/P colon resection Echo of 09/27/18: LVEF 50-55%, mod to sev MR, basal inferior hypokinesis RBBB and frequent, isolated PVCs as documented on ECG of 09/26/18 S/P colon resection d/t stricture by Dr. Benitez on 09-28-18 Echocardiogram of 09-27-18 showed LVEF 50-55%. Hypokinesis of basal inferoseptal and basal inferolateral myocardium. LA mildly dilated. Mod to severe MR. PASP 35-40 mmHg Bilat leg swelling - resolved Impaired fasting glucose H/o hypertension Elevated BMI of approx 37 Fam h/o early CAD Suspected sleep apnea Plan: * Continue BB * Continue diuretic and K * Keep on tele * Echocardiogram as noted above * Suspected sleep apnea - advise w/u as an out pt * S/P colon resection on 09-28-18 (POD#1) * Answered multiple questions regarding cardiac status and tx plan Physician Assessment Physician Assessment No cp or palp or syncope Lungs: fair air entry bilat Cor: reg Ext: no c/c/e A&R * As documented in our note above that I updated (italics) and as noted below * Monitor labs * Continue current regimen ZULEYMA BUCKNER [facility] Sep 29, 2018 11:09 EDWARDO QUESADA MD [facility] Sep 29, 2018 18:58
[2018-09-29 11:43] LABS: BAND NEUTROPHILS 2 %; BASOPHILS % (MANUAL) 0 %; EOSINOPHILS % (MANUAL) 0 %; LYMPHOCYTES % (MANUAL) 2 %; MONOCYTES % (MANUAL) 11 %; NEUTROPHILS % (MANUAL) 85 %; NUCLEATED RED BLOOD CELLS 1; POLYCHROMASIA SLIGHT
[2018-09-29 11:44] LABS: ANISOCYTOSIS MARKED; ELLIPT/OVALOCYTES SLIGHT; HYPOCHROMASIA MARKED; MICROCYTOSIS MODERATE; TEAR DROP CELLS SLIGHT
[2018-09-29 12:00] VITALS: BP 118/75
[2018-09-29] MEDS: ENOXAPARIN 40 MG/0.4 ML (LOVENOX) SYR SC SCH (13:13)
[2018-09-29] MEDS: KETOROLAC 30 MG/ML VIAL IVP SCH ×2 (13:13→19:29)
--- NOTE | 2018-09-29 14:07 | Anesthesia-General Post-Op ---
General Patient Condition Mental Status/LOC: Same as Preop Cardiovascular: Satisfactory Nausea/Vomiting: Absent Respiratory: Satisfactory Pain: Controlled Complications: Absent Post Op Complications Complications None Follow Up Care/Instructions Patient Instructions None needed. Anesthesia/Patient Condition Patient Condition Patient is doing well, no complaints, stable vital signs, no apparent adverse anesthesia problems. JAMAAL ASENCIO DO Sep 29, 2018 14:07
[2018-09-29 15:54] VITALS: BP 131/76
--- NOTE | 2018-09-29 18:58 | NUR ---
Pt. running sinus tachycardia in the 130s with multiple PVCs. EKG obtained and vital signs taken. Dr. Liang hughes. New metoprolol orders received.
[2018-09-29] MEDS ORDERED: meTOproloL SUCCINATE 50 MG (TOPROL XL) TAB PO NR (19:00)
[2018-09-29 19:43] VITALS: BP 129/75
[2018-09-29] MEDS: rOPINIRole 0.25 MG (REQUIP) TAB PO SCH (21:15)
--- NOTE | 2018-09-29 22:11 | NUR ---
THIS PT REPORTED FEELING SHORT OF BREATHE AND ANXIOUS AND ASKED THIS RN TO PLACE A CALL TO THE DOCTOR TO REQUEST SOMETHING FOR ANXIETY, AND STATED HE HAS TAKEN XANAX BEFORE. THIS RN PLACED AN ORDER TO DR ARREDONDO AND RECEIVED TELEPHONE ORDER FOR 2MG XANAX TID PO.
[2018-09-29] MEDS: ALPRAZolam 1 MG (XANAX) TAB PO SCH (22:19)
[2018-09-30] VITALS (7 sets, daily range): BP systolic 105–139; BP diastolic 57–77
[2018-09-30] MEDS: KETOROLAC 30 MG/ML VIAL IVP SCH ×4 (01:04→18:39)
[2018-09-30] MEDS: KCL 10 MEQ TAB (MICRO K) PO SCH (06:08)
--- NOTE | 2018-09-30 09:00 | NUR ---
PRIOR TO A.M. MEDICATIONS PULSE WAS 84 BPM AND B/P WAS 129/72.
[2018-09-30] MEDS: PANTOPRAZOLE 40 MG (PROTONIX) VIAL IVP SCH (09:22)
[2018-09-30] MEDS: meTOproloL SUCCINATE 50 MG (TOPROL XL) TAB PO SCH (09:23)
[2018-09-30] MEDS: ALPRAZolam 1 MG (XANAX) TAB PO SCH ×2 (09:23→13:14)
[2018-09-30] MEDS: FUROSEMIDE 40 MG (LASIX) TAB PO SCH (09:23)
[2018-09-30] MEDS: morphine INJ 10 MG/ML 1ML (SYR OR VIAL) IVP PRN (09:23)
--- NOTE | 2018-09-30 13:01 | Progress Note-Hospitalist ---
Subjective HPI/CC On Admission Date Seen by Provider: Sep 30, 2018 Time Seen by Provider: 12:58 This is a 58-year-old white male who presents to the emergency room with severe shortness of breath for the last week. He notes that he's had orthopnea and PND for the last 2-3 weeks as well. He notes he's been short of breath for about 6 months or so. He says he thinks he's had a heart attack in the past when he was fishing. He notes that he has had trouble with heartburn for years and has some dysphagia and hasn't is no longer able to throw up although he could in the past. He denies having any change in his bowel habits and notes that there is no blood in his stools or melena. Hemoccult stool was positive in the emergency room where his hemoglobin was found to be 6.5. This morning he status post 2 units of blood transfusion and feels much much better. In addition his pedal edema is down. On exam it is noted that he has frequent PVCs and PACs. Subjective/Events-last exam Pt reports doing well. tolerating current diet. Passing flatus. States just took a Xanax and would like to rest. Objective Exam Vital Signs Vital Signs Date Time Temp Pulse Resp B/P (MAP) Pulse Ox O2 Delivery O2 Flow Rate FiO2 10/01/18 12:00 98.0 84 18 132/68 (89) 96 Room Air 09/30/18 08:00 2.00 Capillary Refill : Less Than 3 Seconds General Appearance: No Apparent Distress, Obese Respiratory: Lungs Clear, No Respiratory Distress Cardiovascular: Regular Rate, Rhythm, No Murmur Gastrointestinal: Normal Bowel Sounds, Soft, Tenderness (appropriately tender) Neurologic/Psychiatric: Alert, Oriented x3 Results/Procedures Lab Patient resulted labs reviewed. Assessment/Plan Assessment and Plan Assess & Plan/Chief Complaint Colonic stricture- POD #2 s/p resection; pathology from resection pending Severe anemia secondary to GI losses- s/p Infed and 2 units pRBCs Cardiac arrhythmias with possible previous inferior wall MD- cardiology consulted, appreciate recs Sarcoid- asymptomatic Restless leg syndrome- improved with Requip Anxiety- improved with Xanax Diagnosis/Problems Diagnosis/Problems (1) Colonic mass (2) Anemia Status: Acute Qualifiers: Anemia type: unspecified type Qualified Codes: D64.9 - Anemia, unspecified Clinical Quality Measures DVT/VTE Risk/Contraindication: Risk Factor Score Per Nursin RFS Level Per Nursing on Admit: 3=High THAI BRANHAM MD Sep 30, 2018 13:00
[2018-09-30] MEDS: ENOXAPARIN 40 MG/0.4 ML (LOVENOX) SYR SC SCH (13:14)
--- NOTE | 2018-09-30 14:30 | Progress Note-Cardiology ---
Cardiology SOAP Progress Note Subjective: No cp or palp or syncope or shortness of breath Objective: I&O/Vital Signs 09/30/18 09/30/18 09/30/18 09/30/18 03:57 07:09 08:00 08:00 Temp 98.0 97.1 Pulse 81 86 84 Resp 20 18 B/P (MAP) 122/58 (79) 129/72 (91) Pulse Ox 100 100 96 O2 Delivery Room Air Room Air Room Air O2 Flow Rate 2.00 09/30/18 09/30/18 12:00 13:06 Temp 97.4 Pulse 77 77 Resp 18 B/P (MAP) 110/62 (78) Pulse Ox 91 O2 Delivery Room Air 09/30/18 00:00 Intake Total 2740 ml Output Total 2625 ml Balance 115 ml Weight (Pounds): 240 Weight (Ounces): 0.00 Weight (Calculated Kilograms): 108.977996 Constitutional: AAO x 3, well-developed, well-nourished Respiratory: No accessory muscle use; lungs clear to percussion, lungs clear to auscultation Cardiovascular: regular rate-rhythm, S1 and S2, systolic murmur (soft MARILYN at card base) Gastrointestional: audible bowel sounds, other (post surgical abdomen (POD #1)) Extremities: No clubbing, No cyanosis, No significant edema Neurologic/Psychiatric: oriented x 3, grossly intact, power is 5/5 both on sides Skin: No rash on exposed areas, No ulcerations on exposed areas Results/Procedures: Labs Microbiology 09/25/18 Blood Culture - Preliminary, Resulted No growth 09/26/18 MRSA Screen - Final, Complete MRSA not isolated 09/25/18 Urine Culture - Final, Complete NO GROWTH A/P: Assessment: Shortness of breath likely primarily due to marked anemia - improved following transfusion and improved H/H Anemia due to GI blood loss. 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 S/P colon resection on 09/28/18 RBBB and frequent, isolated PVCs as documented on ECG of 09/26/18 Echocardiogram of 09-27-18 showed LVEF 50-55%. Hypokinesis of basal inferoseptal and basal inferolateral myocardium. LA mildly dilated. Mod to severe MR. PASP 35-40 mmHg Bilat leg swelling - resolved Impaired fasting glucose H/o hypertension Elevated BMI of approx 37 Fam h/o early CAD Suspected sleep apnea Plan: * Continue BB * Add losartan back to regimen * D/c diuretics * Monitor labs * Answered multiple questions regarding cardiac status and tx plan EDWARDO QUESADA MD FACP [facility] Sep 30, 2018 14:30
--- NOTE | 2018-09-30 16:23 | Progress Note ---
Subjective Time Seen by a Provider: 15:52 Subjective/Events-last exam Pt seen and exmamined, denies abdominal pain. States he has been sleeping. Review of Systems General: No Chills, No Night Sweats Pulmonary: No Dyspnea, No Cough Gastrointestinal: No: Nausea, Vomiting Objective Exam Vital Signs Date Time Temp Pulse Resp B/P (MAP) Pulse Ox O2 Delivery O2 Flow Rate FiO2 09/30/18 13:06 77 09/30/18 12:00 97.4 77 18 110/62 (78) 91 Room Air 09/30/18 08:00 97.1 84 18 129/72 (91) 96 Room Air 09/30/18 08:00 100 Room Air 2.00 09/30/18 07:09 86 09/30/18 03:57 98.0 81 20 122/58 (79) 100 Room Air 09/30/18 01:00 88 09/30/18 00:28 98.0 91 20 120/77 (91) 96 Room Air 09/29/18 21:59 93 Room Air 09/29/18 20:00 Room Air 09/29/18 19:43 98.0 113 18 129/75 (93) 94 Room Air 09/29/18 19:00 110 I & O 09/30/18 07:00 Intake Total 3040 ml Output Total 2625 ml Balance 415 ml Capillary Refill : Less Than 3 Seconds General Appearance: No Apparent Distress, Obese Respiratory: Lungs Clear, No Respiratory Distress Cardiovascular: Regular Rate, Rhythm, No Murmur Gastrointestinal: tenderness (mostly at incision, incision is c/d/i) Extremity: Pedal Edema Skin: Pallor Results Lab Microbiology 09/25/18 Blood Culture - Preliminary, Resulted No growth 09/26/18 MRSA Screen - Final, Complete MRSA not isolated 09/25/18 Urine Culture - Final, Complete NO GROWTH Assessment/Plan Assessment/Plan Assessment/Plan S/P Lap Hand assisted Sigmoid Colon Resection Anemia - Dr. Diaz has ordered Infed Gastritis and GERD HTN Pt doing well after surgery, will switch to soft diet. Pt encouraged to ambulate and use IS. Clinical Quality Measures DVT/VTE Risk/Contraindication: Risk Factor Score Per Nursin RFS Level Per Nursing on Admit: 3=High JENNIFER DOMINIQUE DO Sep 30, 2018 16:23
[2018-09-30] MEDS: rOPINIRole 0.25 MG (REQUIP) TAB PO SCH (20:31)
[2018-09-30] MEDS ORDERED: ALPRAZolam 1 MG (XANAX) TAB PO SCH (21:00)
[2018-10-01] MEDS: KETOROLAC 30 MG/ML VIAL IVP SCH ×3 (01:43→14:59)
[2018-10-01 03:30] VITALS: BP 129/74
[2018-10-01] MEDS: morphine INJ 10 MG/ML 1ML (SYR OR VIAL) IVP PRN (07:47)
[2018-10-01 08:00] VITALS: BP 127/64
[2018-10-01] MEDS: meTOproloL SUCCINATE 50 MG (TOPROL XL) TAB PO SCH (08:42)
[2018-10-01] MEDS: PANTOPRAZOLE 40 MG (PROTONIX) VIAL IVP SCH (08:42)
[2018-10-01] MEDS ORDERED: LOSARTAN 25 MG (COZAAR) TAB PO SCH (09:00)
--- NOTE | 2018-10-01 10:18 | Progress Note ---
Subjective Time Seen by a Provider: 10:07 Subjective/Events-last exam Pt seen and examined; tolerating soft diet, pain controlled and having flatus. Review of Systems Pulmonary: No Dyspnea, No Cough Cardiovascular: No: Chest Pain Gastrointestinal: Abdominal Pain Objective Exam Vital Signs Date Time Temp Pulse Resp B/P (MAP) Pulse Ox O2 Delivery O2 Flow Rate FiO2 10/01/18 08:20 98.4 10/01/18 08:00 Room Air 10/01/18 08:00 98.3 70 18 127/64 (85) 95 Room Air 10/01/18 07:47 98.4 10/01/18 07:23 93 Room Air 10/01/18 07:00 85 10/01/18 03:30 98.4 79 18 129/74 (92) 96 Room Air 10/01/18 01:00 80 09/30/18 23:57 98.0 83 18 131/76 (94) 93 Room Air 09/30/18 20:00 96.8 127 14 139/63 (88) 92 Room Air 09/30/18 20:00 Room Air 09/30/18 19:00 99 09/30/18 15:48 97.1 70 22 105/57 (73) 91 Room Air 09/30/18 13:06 77 09/30/18 12:00 97.4 77 18 110/62 (78) 91 Room Air I & O 10/01/18 07:00 Intake Total 2490 ml Output Total 1725 ml Balance 765 ml Capillary Refill : Less Than 3 Seconds General Appearance: No Apparent Distress, Obese Respiratory: Lungs Clear, No Respiratory Distress Cardiovascular: Regular Rate, Rhythm, No Murmur Gastrointestinal: tenderness (mostly at incision, incision is c/d/i) Extremity: Pedal Edema Skin: Pallor Results Lab Microbiology 09/25/18 Blood Culture - Preliminary, Resulted No growth 09/26/18 MRSA Screen - Final, Complete MRSA not isolated 09/25/18 Urine Culture - Final, Complete NO GROWTH Assessment/Plan Assessment/Plan Assessment/Plan S/P Lap Hand assisted Sigmoid Colon Resection Anemia - Dr. Diaz has ordered Infed Gastritis and GERD HTN DC IV, DC home Clinical Quality Measures DVT/VTE Risk/Contraindication: Risk Factor Score Per Nursin RFS Level Per Nursing on Admit: 3=High JENNIFER DOMINIQUE DO Oct 01, 2018 10:18
[2018-10-01] MEDS ORDERED: HYDR-3820 PO (10:20)
--- NOTE | 2018-10-01 10:22 | Discharge Inst-Surgical ---
Discharge Inst-Surgical Depart Medication/Instructions New, Converted or Re-Newed RX: RX Given to Pt/Family Patient Instructions Follow up Appt: Make appointment for 1 week. Instructions: No lifting greater than 10 pounds. No strenuous activity. May shower in 24 hours, no tub bath or soaking. Use incentive spirometer at home as directed. No Smoking Skin/Wound Care: May remove bandages. You need to leave the geovanny in place, they will be removed in 7-10 days. Symptoms to Report: Appetite Changes, Extremity Discoloration, Numbness/Tingling, Swelling Increased , Bleeding Excessive, Eyesight Changes, Pain Increased, Urine Color Change, Constipation(Persistent), Fever over 101 degree F, Pain/Pressure in chest, Urinating Difficulty, Cough Up/Vomit Blood, Heart Beat Irreg/Pounding, Pain/ Pressure in jaw, Cramps in feet or legs, Lightheadedness, Pain/Pressure in shoulder, Diarrhea(Persistent), Memory Changes Suddenly, Questions/Concerns, Weight gain consecutive days, Dizziness/Fainting, Nausea/Vomiting, Shortness of Breath, Weight gain over 2 pounds If questions or concerns contact your physician Or seek help at emergency department. Activity Activity as Tolerated: Yes Activity Instructions: Avoid Stress to Incision Driving Instructions: No Driving/Refer to Diet Discharge Diet: Low Residue If Any Problems/Questions/Issu: Contact Your Physician, Go to Emergency Room Skin/Wound Care Infection Signs and Symptoms: Increased Redness, Foul Odor of Wound, Increased Drainage, Skin Itchy or Has a Rash, Increased Swelling, Temperature Above 101 F Bathing Instructions: Shower Stitches/Geovanny/Dermabond Dis: Care of JENNIFER Juarez DO Oct 01, 2018 10:22
[2018-10-01] MEDS ORDERED: ALPR1TAB2 PO (11:05)
[2018-10-01] MEDS ORDERED: LOSA25TA41 PO (11:05)
[2018-10-01] MEDS ORDERED: RPN.25T PO (11:05)
--- NOTE | 2018-10-01 11:10 | Discharge Summary-Hospitalist ---
Diagnosis/Chief Complaint Date of Admission Sep 25, 2018 at 21:15 Date of Discharge Discharge Date: Sep 27, 2018 Admission Diagnosis Severe anemia secondary to GI blood loss over time Microcytic anemia with a good reticulocyte count Cardiac arrhythmias with possible previous inferior wall WI Pedal edema consistent with mild failure. Sarcoid asymptomatic Elevated BNP Plan is to consult general surgery for upper endoscopy and colonoscopy cardiology for further evaluation of heart function and discharge planning based on the results Discharge Diagnosis (1) Colonic mass (2) Anemia Status: Acute (3) Adenocarcinoma, colon (4) Essential (primary) hypertension Discharge Summary Procedures/Consulations Dr Benitez- Surgery Dr Tavera- Cardiology Discharge Physical Exam Allergies: Coded Allergies: No Known Drug Allergies (Unverified , 03/17/13) Vitals & I&Os Vital Signs Date Time Temp Pulse Resp B/P (MAP) Pulse Ox O2 Delivery O2 Flow Rate FiO2 10/01/18 12:00 98.0 84 18 132/68 (89) 96 Room Air 09/30/18 08:00 2.00 General Appearance: No Apparent Distress, Obese Respiratory: Lungs Clear, No Respiratory Distress Cardiovascular: Regular Rate, Rhythm, No Murmur Gastrointestinal: Normal Bowel Sounds, Non Tender, Soft Neurologic/Psychiatric: Alert, Oriented x3 Hospital Course Pt was admitted for severe anemia after presenting for shortness of breath. He was transfused 2 units of pRBCs and given 1g of Infed. He underwent endoscopy and colonoscopy which revealed a polyp s/p polypectomy and a colonic stricture. He was taken to the OR for resection the next day. His initial pathology revealed moderately differentiated adenocarcinoma within the polyp. The pathology from the resection is still pending at this time. He is to follow up with Dr Benitez on Wednesday 10/04 and he plans to establish care with Dr Jace Montalvo to follow up this hospital stay as well. I called and discussed this admission with Dr Montalvo. Labs (last 24 hrs) Microbiology 09/25/18 Blood Culture - Preliminary, Resulted No growth 09/26/18 MRSA Screen - Final, Complete MRSA not isolated 09/25/18 Urine Culture - Final, Complete NO GROWTH Patient resulted labs reviewed. Discussion & Recommendations Discharge Planning: >30 minutes discharge planning Discharge Home Medications: Active Scripts Active Xanax (Alprazolam) 1 Mg Tablet 1 Mg PO HS PRN Requip (Ropinirole HCl) 0.25 Mg Tab 0.25 Mg PO HS Losartan Potassium 25 Mg Tablet 25 Mg PO DAILY Hydrocodon-Acetaminophn 10-325 (Hydrocodone/Acetaminophen) 1 Each Tablet 1 Tab PO Q6H MDD 5 Protonix (Pantoprazole Sodium) 40 Mg Tablet.dr 40 Mg PO DAILY Furosemide 40 Mg Tablet 40 Mg PO DAILY Metoprolol Succinate 25 Mg Tab.er.24h 25 Mg PO DAILY Reported Tramadol HCl 50 Mg Tablet 50 Mg PO HS Instructions to patient/family Please see electronic discharge instructions given to patient. Clinical Quality Measures DVT/VTE Risk/Contraindication: Risk Factor Score Per Nursin RFS Level Per Nursing on Admit: 3=High Problem Qualifiers (1) Anemia: Anemia type: unspecified type Qualified Codes: D64.9 - Anemia, unspecified THAI BRANHAM MD Oct 01, 2018 11:10
[2018-10-01 12:00] VITALS: BP 132/68
--- NOTE | 2018-10-01 12:49 | NUR ---
NOTE THAT THIS RN WENT OVER DISCHARGE ORDERS WITH PT AND HE SIGNED THEM -- PT VOICED THAT HE WAS GOING TO REST AND THAT HIS RIDE WOULD BE HERE LATER ON
--- NOTE | 2018-10-01 13:19 | Cardiology Progress Note ---
Cardiology SOAP Progress Note Subjective: Mild shortness of breath According to the patient. Objective: I&O/Vital Signs 10/02/18 00:00 Intake Total 680 ml Output Total 575 ml Balance 105 ml Weight (Pounds): 240 Weight (Ounces): 0.00 Weight (Calculated Kilograms): 108.671633 Constitutional: No appears stated age; AAO x 3; No apparent distress, No PERRL ; well-developed, well-nourished; No other Respiratory: No accessory muscle use; chest is bilaterally symmetric, lungs clear to percussion, lungs clear to auscultation Cardiovascular: regular rate-rhythm; No irregularly irregular, No extra beats, No parasternal heave is noted, No JVD, No edema, No bradycardia, No tachycardia , No point of maximal impulse, No cardiac thrills are palpable; S1 and S2; No gallop/S3, No gallop/S4, No diastolic murmur; systolic murmur (soft MARILYN at card base); No friction rub, No click, No other Gastrointestional: No tender, No soft, No round, No distended, No pulsatile mass, No organomegaly, No guarding, No rebound, No tenderness, No hernia, No mass; audible bowel sounds; No abnormal bowel sounds, No abdominal bruits, No spleenomegaly; other (post surgical abdomen (POD #1)) Extremities: No normal range of motion, No non-tender, No normal inspection, No pedal edema, No calf tenderness, No normal capillary refill, No pelvis stable , No calf tenderness, No inflammation, No pedal edema, No slow capillary refill , No swelling, No other, No abrasion, No clubbing, No cyanosis, No ecchymosis, No laceration, No no lower extremity edema bilateral, No significant edema, No tenderness, No wound Neurologic/Psychiatric: no motor/sensory deficits, alert, normal mood/affect, oriented x 3, grossly intact, power is 5/5 both on sides Skin: No rash on exposed areas, No ulcerations on exposed areas Results/Procedures: Labs Microbiology 09/25/18 Blood Culture - Final, Complete No growth 09/26/18 MRSA Screen - Final, Complete MRSA not isolated 09/25/18 Urine Culture - Final, Complete NO GROWTH A/P: Assessment/Dx: Assessment: Shortness of breath likely primarily due to marked anemia - improved following transfusion and improved H/H Anemia due to GI blood loss. Endoscopy showed colonic obstruction (moderately differentiated adeno CA). S/P colon resection on 09/28/18 RBBB and frequent, isolated PVCs as documented on ECG of 09/26/18 Echocardiogram of 09-27-18 showed LVEF 50-55%. Hypokinesis of basal inferoseptal and basal inferolateral myocardium. LA mildly dilated. Mod to severe MR. PASP 35-40 mmHg Bilat leg swelling - resolved Impaired fasting glucose H/o hypertension Elevated BMI of approx 37 Fam h/o early CAD Suspected sleep apnea Plan: Plan: * Continue BB * Add losartan back to regimen * D/c diuretics * Monitor labs * Patient will follow with Dr. Tavera as an outpatient. Thank you for your consultation. Please call me if you have any questions. Paul Bentley MD, FACP, FACC, FSCAI, FHRS, CCDS Interventional Cardiology Cardiac Electrophysiology Vascular Medicine and Endovascular Interventions Kristin BENTLEY MD Oct 01, 2018 13:19
[2018-10-01] MEDS: ENOXAPARIN 40 MG/0.4 ML (LOVENOX) SYR SC SCH (15:00)
[2018-10-01 15:01] VITALS: BP 132/68
--- NOTE | 2018-10-01 15:02 | NUR ---
Patient's arrived to take patient home. Belongings gathered and discharge instructions and prescriptions in hand. Pt. left via wheelchair accompanied by and staff member.
[2018-10-03] MEDS ORDERED: CEPH-507 PO (14:48)
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
--- NOTE | 2018-10-05 12:25 | Physician Query Clarification ---
PQ-Further Specificity Admission/Discharge Admission Date: Sep 25, 2018 at 21:15 Discharge Date: Oct 01, 2018 at 15:05 The medical record reflects the following clinical scenario: History/Risk Factors: CA sigmoid colon, gastritis, gastric ulcer, chronic blood loss anemia, acute systolic/diastolic CHF Clinical Findings: Hgb 6.5, CA sigmoid colon Treatment: Transfusion 2 U RBC's, excision sigmoid Question: Can you further specify the etiology of the chronic blood loss anemia per the clinical indicators above? Please document below. 1. 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 Gastric ulcer 3. Gastritis 4. Other, with explanation of the clinical findings. 5. Clinically undetermined, no explanation for the clinical findings. PHYSICIAN RESPONSE Can you specify per above: 1 In responding to this query, please exercise your independent professional judgment. The purpose of this communication is to more accurately reflect the complexity of your patients condition. The fact that a question is asked does not imply that any particular answer is desired or expected. Thank you for your timely response to this clarification. Requestors name: [place] THIS PHYSICIAN QUERY FORM IS A PERMANENT PART OF THE MEDICAL RECORD PHILLY RIOS Oct 05, 2018 12:25 JENNIFER DOMINIQUE DO Oct 05, 2018 13:31
[2018-10-07] MEDS ORDERED: FURO40TA4 PO (16:30)
[2018-10-07] MEDS ORDERED: PANT40TA3 PO (16:30)
[2018-10-07] MEDS ORDERED: HYDR-3820 PO (16:30)
[2018-10-07] MEDS ORDERED: NORT25CA PO (16:30)
[2018-10-07] MEDS ORDERED: LEVO500T80 PO (16:30)
[2018-10-07] MEDS ORDERED: POTA-51 PO (16:30)
[2018-10-07] MEDS ORDERED: METO-387 PO (16:30)
[2018-10-07] MEDS ORDERED: ROPI0.253 PO (16:30)
[2018-10-07] MEDS ORDERED: LOSA25TA41 PO (16:30)
[2018-10-07] MEDS ORDERED: POLY17PO6 PO (16:32)
[2018-10-07] MEDS ORDERED: DOCU-143 PO (16:32)
[2018-10-07] MEDS ORDERED: FEXO1TAB43 PO (16:37)
[2018-10-07] MEDS ORDERED: GUAI400T44 PO (16:37)
[2018-10-07] MEDS ORDERED: RT-ALBUINH IH (16:37)
== END 2018-10-01 15:05 | disposition home or self-care (01) | DRG 329 ==
LOC: EDUNIT# 19:43 → ER 19:44 → 4TH 21:15 → INTOOBSV 21:15 → 4TH 21:15 → UNDOADMOB 21:15 → OBSVTOIN 21:15 → 4TH 09-27 11:28 → UNDODISIN 10-01 15:05
PROVIDERS: ADMIT Internal Medicine; ATTEND Internal Medicine
PROC: 0DB78ZX Excision of Stomach, Pylorus, Via Natural or Artificial Opening Endoscopic, Diagnostic (ICD-10-PCS; 2018-09-27)
PROC: 0DBN8ZX Excision of Sigmoid Colon, Via Natural or Artificial Opening Endoscopic, Diagnostic (ICD-10-PCS; 2018-09-27)
PROC: 0DB48ZX Excision of Esophagogastric Junction, Via Natural or Artificial Opening Endoscopic, Diagnostic (ICD-10-PCS; 2018-09-27 14:25)
PROC: 0DBN0ZZ Excision of Sigmoid Colon, Open Approach (ICD-10-PCS; principal; 2018-09-28 10:00)
DX: C18.7 Malignant neoplasm of sigmoid colon (principal); C77.2 Secondary and unspecified malignant neoplasm of intra-abdominal lymph nodes; K25.9 Gastric ulcer, unspecified as acute or chronic, without hemorrhage or perforation; K29.70 Gastritis, unspecified, without bleeding; D50.0 Iron deficiency anemia secondary to blood loss (chronic); I11.0 Hypertensive heart disease with heart failure; I50.41 Acute combined systolic (congestive) and diastolic (congestive) heart failure; D86.0 Sarcoidosis of lung; I49.3 Ventricular premature depolarization; K64.8 Other hemorrhoids; I34.0 Nonrheumatic mitral (valve) insufficiency; K44.9 Diaphragmatic hernia without obstruction or gangrene; I49.1 Atrial premature depolarization; R13.10 Dysphagia, unspecified; R12 Heartburn; R73.01 Impaired fasting glucose; G47.30 Sleep apnea, unspecified; I25.2 Old myocardial infarction; Z82.49 Family history of ischemic heart disease and other diseases of the circulatory system; Z87.442 Personal history of urinary calculi; Z87.891 Personal history of nicotine dependence; Z79.1 Long term (current) use of non-steroidal anti-inflammatories (NSAID)
CPT/HCPCS: 36415; 71046; 74176; 80048; 80053; 80061; 81000; 82728; 83540; 83605; 83615; 83735; 83880; 84443; 84484; 85007; 85025; 85027; 85045; 85610; 85730; 86850; 86900; 86901; 86920; 87040; 87081; 87088; 88309; 88341; 88342; 93005; 93306; 94640; 94664; 94760

== ENCOUNTER 2018-10-03 11:48 | Emergency (ER) | payer BC | END 2018-10-03 15:22 | disposition home or self-care (01) | LOC: ER 11:48 ==

== ENCOUNTER → 2018-10-13 | Outpatient (CLI) | payer BC ==
[~2018-10-13] MED LIST changes: +ALPR1TAB2 PO; +ASPI-983 PO; +CEPH-507 PO; +DOCU-143 PO; +FEXO1TAB43 PO; +FURO40TA4 PO; +GUAI400T44 PO; +HYDR-3820 PO; +LEVO500T80 PO; +LOSA100T57 PO; +LOSA25TA41 PO; +LOSARTAN; +METO-387 PO; +NAPR220T66 PO; +NORT25CA PO; +PANT40TA2 PO; +PANT40TA3 PO; +POLY17PO6 PO; +POTA-51 PO; +ROPI0.253 PO; +RPN.25T PO; +RT-ALBUINH IH; +TRAM50TA2 PO
== END ==
LOC: WOUNDCARE 13:54
PROVIDERS: ATTEND Surgery
DX: T81.32XA Disruption of internal operation (surgical) wound, not elsewhere classified, initial encounter (principal); T81.41XA Infection following a procedure, superficial incisional surgical site, initial encounter
CPT/HCPCS: 97606

== ENCOUNTER → 2018-10-15 | Outpatient (CLI) | payer BC | LOC: WOUNDCARE 08:11 | PROVIDERS: ATTEND Surgery | DX: T81.32XA Disruption of internal operation (surgical) wound, not elsewhere classified, initial encounter (principal); T81.41XA Infection following a procedure, superficial incisional surgical site, initial encounter | CPT/HCPCS: 97606 ==

== ENCOUNTER → 2018-10-20 | Outpatient (CLI) | payer BC | LOC: WOUNDCARE 11:34 | PROVIDERS: ATTEND Surgery | DX: T81.32XA Disruption of internal operation (surgical) wound, not elsewhere classified, initial encounter (principal); T81.41XA Infection following a procedure, superficial incisional surgical site, initial encounter ==

== ENCOUNTER → 2018-10-22 | Outpatient (CLI) | payer BC | LOC: WOUNDCARE 08:19 | PROVIDERS: ATTEND Surgery | DX: T81.32XA Disruption of internal operation (surgical) wound, not elsewhere classified, initial encounter (principal); T81.41XA Infection following a procedure, superficial incisional surgical site, initial encounter | CPT/HCPCS: 97605 ==

== ENCOUNTER → 2018-10-27 | Outpatient (CLI) | payer BC | LOC: WOUNDCARE 07:57 | PROVIDERS: ATTEND Surgery | DX: T81.32XA Disruption of internal operation (surgical) wound, not elsewhere classified, initial encounter (principal); T81.41XA Infection following a procedure, superficial incisional surgical site, initial encounter | CPT/HCPCS: 97605 ==

== ENCOUNTER → 2018-10-29 | Outpatient (CLI) | payer BC | LOC: WOUNDCARE 08:03 | PROVIDERS: ATTEND Surgery | DX: T81.32XA Disruption of internal operation (surgical) wound, not elsewhere classified, initial encounter (principal); T81.41XA Infection following a procedure, superficial incisional surgical site, initial encounter | CPT/HCPCS: 97605 ==

== ENCOUNTER 2018-11-07 15:30 | Inpatient (IN) | payer BC ==
[2018-11-07] VITALS (10 sets, daily range): BP systolic 98–117; BP diastolic 65–90
[~2018-11-07] VITALS: Ht 175.3 cm; Wt 108.4 kg
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
[2018-11-07] MEDS ORDERED: morphine INJ 10 MG/ML 1ML (SYR OR VIAL) ONE (15:52)
[2018-11-07] MEDS ORDERED: NS IV 1000 ML 1,000 ML IV SCH (16:00)
[2018-11-07] MEDS ORDERED: morphine INJ 10 MG/ML 1ML (SYR OR VIAL) IVP STA (16:04)
[2018-11-07 16:07] LABS: BASOPHILS % (AUTO) 0 % (0-10); EOSINOPHILS # (AUTO) 0.1 10^3/uL (0.0-0.3); EOSINOPHILS % (AUTO) 0 % (0-10); HEMATOCRIT 39 % (40-54); HEMOGLOBIN 11.9 G/DL (13.3-17.7); LYMPHOCYTES # (AUTO) 0.4 X 10^3 (1.0-4.0); LYMPHOCYTES % (AUTO) 2 % (12-44); MEAN CORPUSCULAR HEMOGLOBIN 22 PG (25-34); MEAN CORPUSCULAR HGB CONC 30 G/DL (32-36); MEAN CORPUSCULAR VOLUME 71 FL (80-99); MONOCYTES # (AUTO) 0.5 X 10^3 (0.0-1.0); MONOCYTES % (AUTO) 3 % (0-12); NEUTROPHILS # (AUTO) 15.4 X 10^3 (1.8-7.8); NEUTROPHILS % (AUTO) 94 % (42-75); PLATELET COUNT 290 10^3/uL (130-400); RED CELL DISTRIBUTION WIDTH 27.1 % (10.0-14.5); WHITE BLOOD COUNT 16.4 10^3/uL (4.3-11.0)
[2018-11-07 16:12] LABS: INR 1.3 (0.8-1.4); PROTHROMBIN TIME PATIENT 16.6 SEC (12.2-14.7)
[2018-11-07] MEDS ORDERED: VANCOMYCIN INJECTION 1,000 MG in NS (IVPB) 250 ML IV SCH (16:15)
[2018-11-07] MEDS ORDERED: PIPERACILLIN/TAZOBACTAM (BULK) 4.5 GM in NS (IVPB) 100 ML IV ONE (16:15)
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
[2018-11-07 16:21] LABS: ALANINE AMINOTRANSFERASE 42 U/L (0-55); ALBUMIN 3.7 GM/DL (3.2-4.5); ALKALINE PHOSPHATASE 126 U/L (40-136); BILIRUBIN,TOTAL 0.7 MG/DL (0.1-1.0); BUN/CREATININE RATIO 20; CALCIUM 10.1 MG/DL (8.5-10.1); CARBON DIOXIDE 23 MMOL/L (21-32); CHLORIDE 100 MMOL/L (98-107); CREATININE SERUM 0.83 MG/DL (0.60-1.30); GFR ESTIMATED > 60; GLUCOSE 105 MG/DL (70-105); POTASSIUM 3.9 MMOL/L (3.6-5.0); SODIUM 134 MMOL/L (135-145); TOTAL PROTEIN 7.4 GM/DL (6.4-8.2)
[2018-11-07 16:26] LABS: ANISOCYTOSIS MARKED; BAND NEUTROPHILS 3 %; BASOPHILS % (MANUAL) 0 %; EOSINOPHILS % (MANUAL) 0 %; HYPOCHROMASIA SLIGHT; LYMPHOCYTES % (MANUAL) 1 %; MONOCYTES % (MANUAL) 1 %; NEUTROPHILS % (MANUAL) 95 %; POLYCHROMASIA MODERATE
[2018-11-07 16:27] LABS: ELLIPT/OVALOCYTES SLIGHT; MICROCYTOSIS MODERATE; SPHEROCYTES SLIGHT; TARGET CELLS SLIGHT
[2018-11-07 16:37] LABS: BILIRUBIN,URINE NEGATIVE (NEGATIVE); CLARITY,URINE CLEAR; COLOR,URINE YELLOW; GLUCOSE, URINE (UA) NEGATIVE (NEGATIVE); KETONES,URINE NEGATIVE (NEGATIVE); LEUKOCYTE ESTERASE ,URINE 1+ (NEGATIVE); NITRITE,URINE NEGATIVE (NEGATIVE); PH,URINE 5 (5-9); PROTEIN,URINE 2+ (NEGATIVE); UROBILINOGEN,URINE NORMAL (NORMAL)
--- NOTE | 2018-11-07 16:37 | Diagnostic Imaging Report ---
INDICATION: Fever. COMPARISON: 10/03/2018. EXAMINATION: Single view of the chest was obtained. FINDINGS: There are hilar infiltrates. The heart remains enlarged. There is no pulmonary edema. No pneumothorax is seen. No large effusion identified. Osseous structures are stable. IMPRESSION: Hilar infiltrates. Followup recommended. Dictated by: Dictated on workstation # [id number]
[2018-11-07 16:43] LABS: BACTERIA,URINE NEGATIVE /HPF; WBC,URINE RARE /HPF
[2018-11-07] MEDS ORDERED: NS (IVPB) 100 ML ONE (16:43)
[2018-11-07] MEDS ORDERED: PIPERACILLIN/TAZO 4.5 GM VIAL (ZOSYN) IV ONE (16:43)
[2018-11-07] MEDS ORDERED: NS IV 1000 ML 1,000 ML IV ONE ×2 (16:58)
[2018-11-07] MEDS ORDERED: ONDANSETRON 4 MG/2 ML (SDV) Z0FRAN ONE (16:59)
[2018-11-07] MEDS ORDERED: RECEIVED CONTRAST 20 ML VIAL IV SCH (17:00)
[2018-11-07] MEDS ORDERED: IOHEXOL 350 MG/ML 100 ML (OMNIPAQUE 350) VIAL IV ONE (17:00)
[2018-11-07] MEDS ORDERED: NS 100 ML (IVPB) BAG IV ONE (17:00)
--- NOTE | 2018-11-07 17:01 | ED General ---
General Chief Complaint: Fever-Adult/Adol Stated Complaint: FEVER/REDNESS AROUND WOUND Nursing Triage Note: Ambulatory to rm 5. Pt reports colon surgery 6 weeks ago, and pt had wound vac until Thursday. Pt c/o fever, GREEN, and redness, odor and streaks around abdominal wound. Pt reports GREEN began last night, but pt did not notice redness until today. When bandages were removed, there was visible puss in the wound. Pt also had audible wheeze. Nursing Sepsis Screen: Possible Sepsis Risk Source of Information: Patient Exam Limitations: No Limitations History of Present Illness Date Seen by Provider: Nov 07, 2018 Time Seen by Provider: 15:40 Initial Comments This 58-year-old gentleman presents to the emergency room with complaints of fever, headache, erythema around his abdominal wound, purulent drainage from the wound, cough, and some wheezing. Patient had a colon resection for removal of adenocarcinoma on September 25. He had a dehiscence repaired with mesh placement on October 07. He has been receiving wound care and has had a wound VAC until a couple of days ago. This morning he woke with the above symptoms. When he coughs, copious amounts of purulent drainage ooze from the wound. Allergies and Home Medications Allergies Coded Allergies: ibuprofen (Verified Allergy, Severe, HIVES, 10/07/18) thimerosal (Verified Allergy, Unknown, 10/07/18) Home Medications Albuterol Sulfate 1 Puff Puff, 2 PUFF IH Q4H PRN for SHORTNESS OF BREATH, ( Reported) Fexofenadine/Pseudoephedrine 1 Each Tab.er.24h, 1 TAB PO DAILY PRN for ALLERGIES , (Reported) Furosemide 40 Mg Tablet, 40 MG PO DAILY, (Reported) Guaifenesin 400 Mg Tablet, 400 MG PO Q4H PRN for CONGESTION, (Reported) Hydrocodone/Acetaminophen 1 Each Tablet, 1 TAB PO Q6H PRN for PAIN-MODERATE, ( Reported) Losartan Potassium 25 Mg Tablet, 25 MG PO 1900, (Reported) Metoprolol Succinate 25 Mg Tab.er.24h, 25 MG PO 1900, (Reported) Nortriptyline HCl 25 Mg Capsule, 25 MG PO 1800, (Reported) Pantoprazole Sodium 40 Mg Tablet.dr, 40 MG PO DAILY, (Reported) Potassium Chloride 20 Meq Tablet.er, 20 MEQ PO DAILY, (Reported) Ropinirole HCl 0.25 Mg Tablet, 0.25 MG PO 1900, (Reported) Patient Home Medication List Home Medication List Reviewed: Yes Review of Systems Review of Systems Constitutional: see HPI EENTM: no symptoms reported Respiratory: see HPI Cardiovascular: other (tachycardia) Gastrointestinal: see HPI Genitourinary: no symptoms reported Musculoskeletal: no symptoms reported Skin: see HPI Psychiatric/Neurological: See HPI Hematologic/Lymphatic: No Symptoms Reported Immunological/Allergic: no symptoms reported Past Cvugltg-Uywbbz-Etaqtm Hx Past Med/Social Hx: Reviewed and Corrections made Patient Social History Alcohol Use: Denies Use Recreational Drug Use: No Type Used: Cigarettes Recent Foreign Travel: No Contact w/Someone Who Travel: No Recent Infectious Disease Expo: No Recent Hopitalizations: Yes Physical Abuse: No Sexual Abuse: No Immunizations Up To Date Tetanus Booster (TDap): More than 5yrs Seasonal Allergies Seasonal Allergies: Yes Past Medical History Surgeries: Yes (SARCOIDOSIS, Hernia, colon resection, repair of wound dehiscence with mesh placement.) Bowel Surgery Respiratory: Yes (SARCOIDOSIS) Cardiac: Yes Hypertension Neurological: No Genitourinary: Yes Kidney Stones Gastrointestinal: Yes Gastroesophageal Reflux Musculoskeletal: No Endocrine: No HEENT: No Cancer: Yes Colon Did You Recieve Any Treatments: Yes What Type of Treatment Did You: Surgical Intervention Psychosocial: No Integumentary: No Blood Disorders: No Family Medical History Cancer, CAD Under 55 Years Old, Stroke Physical Exam-Suspected Sepsis Physical Exam Vital Signs Vital Signs - First Documented 11/07/18 15:30 Temp 102.7 Pulse 113 Resp 16 B/P (MAP) 153/119 (130) Pulse Ox 94 O2 Delivery Room Air Capillary Refill : Less Than 3 Seconds Blood Pressure Mean: 130 Height, Weight, BMI Height: 5'9.00" Weight: 241lbs. 0.0oz. 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 Norm as Tested Skin: normal color, warm/dry, other (see above) Focused Exam Lactate Level 11/07/18 15:45: Lactic Acid Level 1.02 Lactic Acid Level Progress/Results/Core Measures Suspected Sepsis Recent Fever Within 48 Hours: Yes Infection Criteria Present: Suspected New Infection New/Unexplained Altered Menta: No Sepsis Screen: Possible Sepsis Risk SIRS Temperature:102.7 Pulse: 113 Respiratory Rate: 16 Laboratory Tests 11/07/18 15:45: White Blood Count 16.4H Blood Pressure 153 /119 Mean: 130 11/07/18 15:45: Lactic Acid Level 1.02 Laboratory Tests 11/07/18 15:45: Creatinine 0.83, INR Comment 1.3, Platelet Count 290, Total Bilirubin 0.7 Results/Orders Lab Results Laboratory Tests Test 11/07/18 15:45 11/07/18 16:20 Range/Units White Blood Count 16.4 H 4.3-11.0 10^3/uL Red Blood Count 5.52 4.35-5.85 10^6/uL Hemoglobin 11.9 L 13.3-17.7 G/DL Hematocrit 39 L 40-54 % Mean Corpuscular Volume 71 L 80-99 FL Mean Corpuscular Hemoglobin 22 L 25-34 PG Mean Corpuscular Hemoglobin Concent 30 L 32-36 G/DL Red Cell Distribution Width 27.1 H 10.0-14.5 % Platelet Count 290 130-400 10^3/uL Mean Platelet Volume 7.4-10.4 FL Neutrophils (%) (Auto) 94 H 42-75 % Lymphocytes (%) (Auto) 2 L 12-44 % Monocytes (%) (Auto) 3 0-12 % Eosinophils (%) (Auto) 0 0-10 % Basophils (%) (Auto) 0 0-10 % Neutrophils # (Auto) 15.4 H 1.8-7.8 X 10^3 Lymphocytes # (Auto) 0.4 L 1.0-4.0 X 10^3 Monocytes # (Auto) 0.5 0.0-1.0 X 10^3 Eosinophils # (Auto) 0.1 0.0-0.3 10^3/uL Basophils # (Auto) 0.0 0.0-0.1 10^3/uL Neutrophils % (Manual) 95 % Lymphocytes % (Manual) 1 % Monocytes % (Manual) 1 % Eosinophils % (Manual) 0 % Basophils % (Manual) 0 % Band Neutrophils 3 % Polychromasia MODERATE Hypochromasia SLIGHT Anisocytosis MARKED Microcytosis MODERATE Spherocytes SLIGHT Target Cells SLIGHT Elliptocytes SLIGHT Prothrombin Time 16.6 H 12.2-14.7 SEC INR Comment 1.3 0.8-1.4 Activated Partial Thromboplast Time 37 H 24-35 SEC Sodium Level 134 L 135-145 MMOL/L Potassium Level 3.9 3.6-5.0 MMOL/L Chloride Level 100 98-107 MMOL/L Carbon Dioxide Level 23 21-32 MMOL/L Anion Gap 11 5-14 MMOL/L Blood Urea Nitrogen 17 7-18 MG/DL Creatinine 0.83 0.60-1.30 MG/DL Estimat Glomerular Filtration Rate > 60 BUN/Creatinine Ratio 20 Glucose Level 105 70-105 MG/DL Lactic Acid Level 1.02 0.50-2.00 MMOL/L Calcium Level 10.1 8.5-10.1 MG/DL Corrected Calcium 10.3 H 8.5-10.1 MG/DL Total Bilirubin 0.7 0.1-1.0 MG/DL Aspartate Amino Transf (AST/SGOT) 31 5-34 U/L Alanine Aminotransferase (ALT/SGPT) 42 0-55 U/L Alkaline Phosphatase 126 40-136 U/L Total Protein 7.4 6.4-8.2 GM/DL Albumin 3.7 3.2-4.5 GM/DL Urine Color YELLOW Urine Clarity CLEAR Urine pH 5 5-9 Urine Specific [place] 1.015 L 1.016-1.022 Urine Protein 2+ H NEGATIVE Urine Glucose (UA) NEGATIVE NEGATIVE Urine Ketones NEGATIVE NEGATIVE Urine Nitrite NEGATIVE NEGATIVE Urine Bilirubin NEGATIVE NEGATIVE Urine Urobilinogen NORMAL NORMAL MG/DL Urine Leukocyte Esterase 1+ H NEGATIVE Urine RBC (Auto) NEGATIVE NEGATIVE Urine RBC NONE /HPF Urine WBC RARE /HPF Urine Squamous Epithelial Cells NONE /HPF Urine Crystals NONE /LPF Urine Bacteria NEGATIVE /HPF Urine Casts NONE /LPF Urine Mucus NEGATIVE /LPF Urine Culture Indicated CULTURE PENDING My Orders Orders - YUMIKO MAN MD Morphine Injection (Morphine Injection (11/07/18 15:52) Cbc With Automated Diff (11/07/18 16:00) Comprehensive Metabolic Panel (11/07/18 16:00) Blood Culture (11/07/18 16:00) Sputum Culture (11/07/18 16:00) Urinalysis (11/07/18 16:00) Urine Culture (11/07/18 16:00) Protime With Inr (11/07/18 16:00) Partial Thromboplastin Time (11/07/18 16:00) Chest 1 View, Ap/Pa Only (11/07/18 16:00) Saline Lock/Iv-Start (11/07/18 16:00) Saline Lock/Iv-Start (11/07/18 16:00) Vital Signs Adult Sepsis Patie Q15M (11/07/18 16:00) O2 (11/07/18 16:00) Remove Rings In Anticipation O (11/07/18 16:00) Lactic Acid Analyzer (11/07/18 16:00) Ns Iv 1000 Ml (Sodium Chloride 0.9%) (11/07/18 16:00) Piperacillin/Tazobactam (Bulk) (Zosyn In (11/07/18 16:15) Vancomycin Injection (Vancomycin Injecti (11/07/18 16:15) Wound Culture (11/07/18 16:04) Morphine Injection (Morphine Injection (11/07/18 16:04) Manual Differential (11/07/18 15:45) Ct Abdomen/Pelvis W (11/07/18 16:42) Ns (Ivpb) (Sodium Chloride 0.9% Ivpb Bag (11/07/18 16:43) Piperacillin Sodium/Tazobactam (Zosyn Vi (11/07/18 16:43) Iohexol Injection (Omnipaque 350 Mg/Ml 1 (11/07/18 17:00) Contrast Received (Contrast Received) (11/07/18 17:00) Ns (Ivpb) (Sodium Chloride 0.9% Ivpb Bag (11/07/18 17:00) Ekg Tracing (11/07/18 16:58) Monitor-Rhythm Ecg Trace Only (11/07/18 16:58) Ns Iv 1000 Ml (Sodium Chloride 0.9%) (11/07/18 16:58) Ns Iv 1000 Ml (Sodium Chloride 0.9%) (11/07/18 16:58) Ondansetron Injection (Zofran Injectio (11/07/18 17:15) Ondansetron Injection (Zofran Injectio (11/07/18 16:59) Acetaminophen Tablet (Tylenol Tablet) (11/07/18 18:15) Medications Given in ED Current Medications Medications Dose Ordered Sig/Obi Route Start Time Stop Time Status Last Admin Dose Admin Acetaminophen 1,000 mg ONCE ONCE PO 11/07/18 18:15 11/07/18 18:16 DC 11/07/18 18:23 1,000 MG Iohexol 100 ml ONCE ONCE IV 11/07/18 17:00 11/07/18 17:01 DC 11/07/18 17:17 100 ML Morphine Sulfate 10 mg STK-MED ONCE .ROUTE 11/07/18 15:52 11/07/18 15:58 DC 11/07/18 16:01 5 MG Ondansetron HCl 8 mg ONCE ONCE IVP 11/07/18 17:15 11/07/18 17:16 DC 11/07/18 17:06 8 MG Piperacillin Sod/ Tazobactam Sod 4.5 gm/Sodium Chloride 120 ml @ 240 mls/hr ONCE ONCE IV 11/07/18 16:15 11/07/18 16:44 DC 11/07/18 16:59 240 MLS/HR Sodium Chloride 100 ml ONCE ONCE IV 11/07/18 17:00 11/07/18 17:01 DC 11/07/18 17:17 80 ML Sodium Chloride 1,000 ml @ 0 mls/hr Q0M ONCE IV 11/07/18 16:58 11/07/18 17:00 DC 11/07/18 17:55 1,000 MLS/HR Sodium Chloride 1,000 ml @ 0 mls/hr Q0M ONCE IV 11/07/18 16:58 11/07/18 17:00 DC 11/07/18 18:45 1,000 MLS/HR Vital Signs/I&O 11/07/18 15:30 Temp 102.7 Pulse 113 Resp 16 B/P (MAP) 153/119 (130) Pulse Ox 94 O2 Delivery Room Air Capillary Refill : Less Than 3 Seconds Blood Pressure Mean: 130 Progress Note #1: Time: 17:54 Progress Note Patient was seen and examined shortly after arrival. Septic workup was pursued. Culture of the abdominal wound was obtained. Copious amounts of purulent material draining from the wound when patient performs Valsalva or coughs. Patient is being hydrated with IV normal saline. Antibiotic therapy was started with Zosyn and vancomycin after cultures and lactic acid were collected. Case was discussed with Dr. Dennison. We agreed a CT abdomen and pelvis was necessary to rule out intra-abdominal abscess. CT report is pending at this time. Morphine 5 mg was administered for patient's severe headache. Zofran was given for emesis prophylaxis prior to contrast administration. It was noted after CT was ordered the patient had an abnormal x-ray on his prior hospital stay. There is a nodular density in the right lung. This may be related to sarcoid. I will defer to the attending physician to determine if a CT of the chest should be added for further evaluation. The nodular density was not called out on today's chest x-ray by the radiologist. Progress Note #2: Progress Note Patient received his doses of Zosyn and vancomycin in the ER. CT revealed no intra-abdominal abscess. There was a small fluid collection in the subcutaneous tissue likely representing a small abscess. This was not described by the radiologist on the CT report. Case was again discussed with Dr. Dennison who agreed with admission. Patient was admitted to Dr. Stewart in the ICU on behalf of Dr. Jace Casanova. Patient was stable at the time of admission. ECG Initial ECG Impression Date: Nov 07, 2018 Initial ECG Impression Time: 16:50 Initial ECG Rate: 133 Initial ECG Rhythm: S.Tach Comment Sinus tachycardia with no ischemic ST elevation or depression. Multiple PVCs. Right bundle branch block. Compared with prior with no significant change. Diagnostic Imaging Diagonstic Imaging: Xray Plain Films/CT/US/NM/MRI: chest Comments Chest x-ray viewed by me and report reviewed. See report below: NAME: SUKHJINDER MANCUSO MED REC#: [id number] PT STATUS: REG ER : 1960 PHYSICIAN: YUMIKO MAN MD ADMIT DATE: 11/07/18/ER Draft Date of Exam:11/07/18 CHEST 1 VIEW, AP/PA ONLY INDICATION: Fever. COMPARISON: 10/03/2018. EXAMINATION: Single view of the chest was obtained. FINDINGS: There are hilar infiltrates. The heart remains enlarged. There is no pulmonary edema. No pneumothorax is seen. No large effusion identified. Osseous structures are stable. IMPRESSION: Hilar infiltrates. Followup recommended. Dictated on workstation # [id number] Dict: 11/07/18 1623 Trans: 11/07/18 1636 [facility] [id number] Interpreted by: VIOLETA YODER Departure Communication (Admissions) Time/Spoke to Admitting Phy: 18:15 Dr. Stewart Time/Spoke to Consulting Phy: 18:12 Dr. Dennison Impression Primary Impression: Sepsis Qualified Codes: A41.9 - Sepsis, unspecified organism Additional Impressions: Wound infection Pulmonary infiltrates Sinus tachycardia PVCs (premature ventricular contractions) Disposition: ADMITTED INPATIENT Condition: Improved Admissions Decision to Admit Reason: Admit from ER (General) Decision to Admit/Date: Nov 07, 2018 Time/Decision to Admit Time: 15:50 Departure-Patient Inst. Referrals: JACE CASANOVA MD (PCP/Family) Primary Care Physician YUMIKO MAN MD Nov 07, 2018 5:01 pm
[2018-11-07] MEDS ORDERED: ONDANSETRON 4 MG/2 ML (SDV) Z0FRAN IVP ONE (17:15)
--- NOTE | 2018-11-07 17:58 | Diagnostic Imaging Report ---
PROCEDURE: CT abdomen and pelvis with contrast. TECHNIQUE: Multiple contiguous axial images were obtained through the abdomen and pelvis after administration of intravenous contrast. INDICATION: Recent colon resection. Fever. Headache. Oder and streaking around the abdominal wound. COMPARISON: 09/27/2018. FINDINGS: Included portions of the lung bases again show partially calcified paraesophageal soft tissue density. There is also suspicion of right hilar adenopathy. These findings are incompletely visualized on today's exam, but are noted present on prior study dated 09/27/2018. CT abdomen: Patient is status post previous partial colectomy. Surgical suture material is noted within the distal left colon. There is stranding of the surrounding pericolonic fat. There is no free air, loculated fluid collection, or significant free fluid within the abdomen or pelvis. Moderate amount of stool is also noted within the sigmoid colon. Normal appendix cannot be adequately identified, but there is no pericecal inflammation. Small bowel loops are nondistended. The kidneys show benign-appearing cyst on the right, but otherwise have normal CT appearance. The adrenal glands, spleen, pancreas, and liver have a normal CT appearance. Note is made of cholelithiasis. Few scattered subcentimeter retroperitoneal lymph nodes are noted. There is some stranding of the anterior abdominal fat midline. Small focus of gas is also noted (image 48, series 2). There is otherwise no large focal fluid collection to suggest abscess. Note is made of mild scattered calcified aortic and arterial atherosclerosis. Bony structures show no acute abnormalities. CT pelvis: Urinary bladder is grossly unremarkable. There is no loculated fluid collection, free fluid, nor free air within the pelvis. Left inguinal lymph node is noted and is prominent in size measuring 2.9 x 1.9 cm. Bony structures show no acute abnormalities. IMPRESSION: 1. Interval partial left hemicolectomy. There is no significant free fluid, free air, or loculated air-fluid collection to suggest abscess. 2. Stranding of the anterior abdominal fat midline. Correlation with incision site is recommended. There is small droplet of gas within the soft tissues, but no loculated fluid collection to suggest abscess. 3. Few scattered but nonspecific retroperitoneal lymph nodes. These may be reactive, although metastatic disease cannot be excluded. 4. Nonspecific partially visualized paraesophageal and infrahilar soft tissue densities within the included portions of the lower chest. 5. Cholelithiasis. 6. Prominent left inguinal lymph node with the same differential as above. Dictated by: Dictated on workstation # [id number]
--- NOTE | 2018-11-07 18:01 | NUR ---
Pt's temperature rechecked at this time. 103.[address] Pereyra notified.
[2018-11-07] MEDS ORDERED: ACETAMINOPHEN 500 MG TAB (TYLENOL) PO ONE (18:15)
--- NOTE | 2018-11-07 18:27 | NUR ---
Attempted to call report. Nurse taking pt to 4th floor. ICU nurse to call for report when available.
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
--- NOTE | 2018-11-07 19:40 | NUR ---
RECEIVED FROM ED, 58 YEAR OLD MALE WITH DX OF WOUND INFECTION. HAD ABDOMINAL SURGERY APPROX 1 MONTH AGO, WOUND VAC WAS REMOVED LAST WEEK. NOW HAS PURULENT DRAINAGE. ED DID A CULTURE OF IT. DRESSED WITH WET TO DRY DRESSING AT THIS TIME
[2018-11-07] MEDS ORDERED: NS IV 1000 ML 1,000 ML ONE (20:02)
[2018-11-07] MEDS ORDERED: RT-ALBUTEROL/IPRATROPIUM 3 ML (DUONEB) VIAL INH PRN (20:30)
[2018-11-07] MEDS ORDERED: ONDANSETRON 4 MG/2 ML (SDV) Z0FRAN IV PRN (20:45)
[2018-11-07] MEDS ORDERED: morphine INJ 4 MG/ML 1 ML (VIAL/SYRINGE) IV PRN (20:45)
[2018-11-07] MEDS ORDERED: PIPERACILLIN/TAZO 4.5 GM/NS 100 ML IV ONE ×2 (20:45)
[2018-11-07] MEDS: NS IV 1000 ML 1,000 ML IV SCH (20:45)
[2018-11-07] MEDS ORDERED: rOPINIRole 0.25 MG (REQUIP) TAB PO SCH (21:00)
[2018-11-07] MEDS: RT-ALBUTEROL/IPRATROPIUM 3 ML (DUONEB) VIAL INH SCH (21:53)
[2018-11-08] VITALS (11 sets, daily range): BP systolic 94–119; BP diastolic 62–80
[2018-11-08] MEDS: ACETAMINOPHEN 500 MG TAB (TYLENOL) PO PRN ×2 (00:56→08:57)
[2018-11-08] MEDS ORDERED: PIPERACILLIN/TAZO 4.5 GM VIAL (ZOSYN) IV ONE (02:17)
[2018-11-08] MEDS ORDERED: NS (IVPB) 100 ML ONE (02:20)
[2018-11-08] MEDS: NS IV 1000 ML 1,000 ML IV SCH ×2 (02:51→09:53)
[2018-11-08] MEDS ORDERED: PIPERACILLIN/TAZO 4.5 GM/NS 100 ML IV SCH ×2 (03:00)
[2018-11-08 03:43] LABS: BASOPHILS % (AUTO) 0 % (0-10); EOSINOPHILS % (AUTO) 0 % (0-10); HEMATOCRIT 34 % (40-54); HEMOGLOBIN 10.1 G/DL (13.3-17.7); LYMPHOCYTES # (AUTO) 0.4 X 10^3 (1.0-4.0); LYMPHOCYTES % (AUTO) 3 % (12-44); MEAN CORPUSCULAR HEMOGLOBIN 22 PG (25-34); MEAN CORPUSCULAR HGB CONC 30 G/DL (32-36); MEAN CORPUSCULAR VOLUME 72 FL (80-99); MONOCYTES # (AUTO) 0.7 X 10^3 (0.0-1.0); MONOCYTES % (AUTO) 5 % (0-12); NEUTROPHILS # (AUTO) 11.2 X 10^3 (1.8-7.8); NEUTROPHILS % (AUTO) 91 % (42-75); PLATELET COUNT 273 10^3/uL (130-400); RED CELL DISTRIBUTION WIDTH 27.3 % (10.0-14.5); WHITE BLOOD COUNT 12.3 10^3/uL (4.3-11.0)
[2018-11-08 04:09] LABS: ALANINE AMINOTRANSFERASE 30 U/L (0-55); ALKALINE PHOSPHATASE 106 U/L (40-136); BILIRUBIN,TOTAL 0.5 MG/DL (0.1-1.0); BUN/CREATININE RATIO 14; CALCIUM 8.9 MG/DL (8.5-10.1); CARBON DIOXIDE 22 MMOL/L (21-32); CHLORIDE 105 MMOL/L (98-107); CREATININE SERUM 0.77 MG/DL (0.60-1.30); GFR ESTIMATED > 60; GLUCOSE 88 MG/DL (70-105); MAGNESIUM 1.6 MG/DL (1.8-2.4); PHOSPHORUS 3.6 MG/DL (2.3-4.7); POTASSIUM 3.3 MMOL/L (3.6-5.0); SODIUM 137 MMOL/L (135-145); TOTAL PROTEIN 6.2 GM/DL (6.4-8.2)
--- NOTE | 2018-11-08 04:40 | Pulmonary Consultation ---
History of Present Illness History of Present Illness Date of Consultation 11/08/18 04:39 Time Seen by Provider: 04:39 Date of Admission History of Present Illness 58yo who is s/p colon surgery 6 wks ago for adenocarcinoma 09/25 and then developed wound infection with wound dehiscence s/p repeat surgery for mesh placement 10/07 and then required a wound vac which was d/c'd last Thursday. He presented to ED secondary to fever, GREEN, worsening wound erythema, and odor from wound. Upon ED admission pt was found to have puss oozing from wound. Pt was also complaining of persistent cough and wheezing upon admission. Symptoms started morning of admission. When he coughs, copious amounts of purulent drainage ooze from the wound. I am consulted for pulmonary/CC management. Allergies and Home Medications Allergies Coded Allergies: ibuprofen (Verified Allergy, Severe, HIVES, 10/07/18) thimerosal (Verified Allergy, Unknown, 10/07/18) Home Medications Aspirin 81 Mg Tab.chew, 81 MG PO DAILY, (Reported) Cephalexin 500 Mg Capsule, 500 MG PO TID Prescribed by: JENNIFER DOMINIQUE on 11/08/18 1148 Furosemide 40 Mg Tablet, 40 MG PO DAILY, (Reported) Guaifenesin 400 Mg Tablet, 400 MG PO Q4H PRN for CONGESTION, (Reported) Hydrocodone/Acetaminophen 1 Each Tablet, 1 TAB PO DAILY PRN for PAIN-MODERATE, ( Reported) Losartan Potassium 25 Mg Tablet, 25 MG PO 1800, (Reported) Metoprolol Succinate 25 Mg Tab.er.24h, 25 MG PO 1800, (Reported) Nortriptyline HCl 50 Mg Capsule, 50 MG PO HS, (Reported) Pantoprazole Sodium 40 Mg Tablet.dr, 40 MG PO DAILY, (Reported) Potassium Chloride 20 Meq Tablet.er, 20 MEQ PO DAILY, (Reported) Ropinirole HCl 0.25 Mg Tablet, 0.25 MG PO 1800, (Reported) Past Fxiirqy-Apyrsh-Brevee Hx Past Med/Social Hx: Reviewed and Corrections made Patient Social History Alcohol Use: Denies Use Recreational Drug Use: No Type Used: Cigarettes Recent Foreign Travel: No Contact w/Someone Who Travel: No Recent Infectious Disease Expo: No Recent Hopitalizations: Yes Physical Abuse: No Sexual Abuse: No Immunizations Up To Date Tetanus Booster (TDap): More than 5yrs Date of Influenza Vaccine: Jul 07, 2018 Seasonal Allergies Seasonal Allergies: Yes Past Medical History Surgeries: Yes Bowel Surgery Respiratory: Yes (SARCOIDOSIS) Cardiac: Yes Hypertension Neurological: No Genitourinary: Yes Kidney Stones Gastrointestinal: Yes Gastroesophageal Reflux Musculoskeletal: No Endocrine: No HEENT: No Cancer: Yes Colon Did You Recieve Any Treatments: Yes What Type of Treatment Did You: Surgical Intervention Psychosocial: No Integumentary: No Blood Disorders: No Family Medical History Cancer, CAD Under 55 Years Old, Stroke Review of Systems Time Seen by Provider: 06:39 Constitutional: Fever, Chills, Sweats, Weakness, Malaise Eyes: No: Pain, Vision change, Conjunctivae inflammation, Eyelid inflammation, Other, Redness ENT: Nose congestion; No: Ear pain, Ear discharge, Nose pain, Nose discharge, Mouth pain, Mouth swelling, Throat pain, Throat swelling, Other Respiratory: Cough, Shortness of breath, SOB with excertion, Wheezing, Sputum; No: Hemoptysis Cardiovascular: Paroxysmal Noc. Dyspnea Gastrointestinal: Abdominal Pain Genitourinary: No Dysuria, No Frequency, No Incontinence, No Hematuria, No Retention, No Other Neurological: Weakness Sepsis Event Evaluation Height, Weight, BMI Height: 5'9.00" Weight: 241lbs. 0.0oz. [id number]; 35.6 BMI Method:Stated Exam Exam Vital Signs Date Time Temp Pulse Resp B/P (MAP) Pulse Ox O2 Delivery O2 Flow Rate FiO2 11/08/18 03:00 91 27 94/67 (76) 95 Room Air 11/08/18 02:00 98.4 11/08/18 02:00 117 28 104/80 (88) 95 Room Air 11/08/18 01:00 107 24 119/80 (93) 96 Room Air 11/08/18 01:00 107 11/08/18 00:00 112 21 100/75 (83) 94 Room Air 11/08/18 00:00 96 Room Air 11/07/18 23:30 107 22 93 Room Air 11/07/18 23:30 99.4 11/07/18 23:00 105 24 107/85 (92) 93 Room Air 11/07/18 22:30 103 20 107/72 (84) 90 Room Air 11/07/18 22:03 97 Room Air 11/07/18 22:00 98.4 11/07/18 22:00 105 18 107/68 (81) 95 Room Air 11/07/18 21:53 95 Room Air 11/07/18 21:30 99 21 106/74 (85) 95 Room Air 11/07/18 21:00 91 35 102/65 (77) 93 Room Air 11/07/18 20:30 100 25 98/70 (79) 94 Room Air 11/07/18 20:15 100.4 Room Air 11/07/18 20:00 122 21 100/68 (79) 94 Room Air 11/07/18 19:58 117 94 21 11/07/18 19:52 124 27 107/90 (96) 94 Room Air 11/07/18 19:50 115 19 117/85 (96) 94 Room Air 11/07/18 19:49 112 11/07/18 19:30 100.3 118 18 113/56 (75) 95 Room Air 11/07/18 15:30 102.7 113 16 153/119 (130) 94 Room Air I & O 11/08/18 07:00 Intake Total 3880 ml Output Total 1250 ml Balance 2630 ml Height & Weight Height: 5'9.00" Weight: 241lbs. 0.0oz. 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 -Surgery is consulted -Roland cultures pending Pulmonary mediastinal lymphadenopathy r/o metastasis vs sarcoidosis -Pt will need a dedicated chest CT with contrast -Since he currently has sepsis and is s/p CT abd/pelvis with IV contrast yesterday I will wait a couple days before getting CT of chest with contrast. Atelectasis with Acute bronchitis r/o PNA -Tamiflu is negative -Continue abx -SVNS Hx of sarcoidosis -Has not required treatment -Dx years ago via surgical bx -Check NELSY level Recent colon adenocarcinoma s/p resection Witness LASHAE, nocturnal hypoxia, obesity, pulmonary HTN -Pt is scheduled for out patient PSG -I recommend out pt full PFT Hypokalemia -replace CONCETTA ELKINS DO Nov 08, 2018 04:40
[2018-11-08] MEDS: MAGNESIUM 1 GM/100 ML IVPB 100 ML IV SCH ×2 (05:20→05:56)
[2018-11-08] MEDS: POTASSIUM CL 10MEQ/50ML IVPB 50 ML IV SCH ×3 (05:20→06:48)
[2018-11-08] MEDS ORDERED: KCL 20 MEQ TAB (K-DUR) PO SCH (06:00)
[2018-11-08] MEDS ORDERED: POTASSIUM CL 10MEQ/50ML IVPB 50 ML IV SCH (06:00)
[2018-11-08] MEDS ORDERED: MAGNESIUM 1 GM/100 ML IVPB 100 ML IV SCH (06:00)
--- NOTE | 2018-11-08 07:08 | Diagnostic Imaging Report ---
INDICATION: Sepsis wound infection. COMPARISON: 11/07/2018 FINDINGS: Single view of the chest demonstrates cardiac enlargement with unchanged central vascular congestion, bibasilar atelectasis and/or infiltrate. There is no pneumothorax or large effusion. Osseous structures are stable. IMPRESSION: Unchanged aeration of the lungs. Dictated by: Dictated on workstation # [id number]
[2018-11-08] MEDS: RT-ALBUTEROL/IPRATROPIUM 3 ML (DUONEB) VIAL INH SCH (08:08)
--- NOTE | 2018-11-08 08:33 | History & Physical ---
History of Present Illness History of Present Illness Reason for visit/HPI 58 yo M admitted for sepsis due to cellulitis/abdominal wound infection presenting with fevers, chills and a cough. He reports the pus started the morning of admission. He was found to have adenocarcinoma of the colon in September 2018 and underwent resection- with subsequent mesh placement for wound dehiscence. 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 Review of abdominal CT- shows fat stranding, no abscess- left inguinal lymph node- and lung findings that need further evaluation. Dr. Zazueta consulted and plans to do a CT chest w/ contrast to further evaluate his lungs. Date of Admission Nov 07, 2018 at 18:18 Date Seen by a Provider: Nov 08, 2018 Time Seen by a Provider: 08:33 I consulted on this patient on 11/08/18 08:22 Attending Physician Jace Casanova MD Admitting Physician Jace Casanova MD Consult Dr. Carlita Dominique Allergies and Home Medications Allergies Coded Allergies: ibuprofen (Verified Allergy, Severe, HIVES, 10/07/18) thimerosal (Verified Allergy, Unknown, 10/07/18) Home Medications Aspirin 81 Mg Tab.chew, 81 MG PO DAILY, (Reported) Cephalexin 500 Mg Capsule, 500 MG PO TID Prescribed by: JENNIFER DOMINIQUE on 11/08/18 1148 Furosemide 40 Mg Tablet, 40 MG PO DAILY, (Reported) Guaifenesin 400 Mg Tablet, 400 MG PO Q4H PRN for CONGESTION, (Reported) Hydrocodone/Acetaminophen 1 Each Tablet, 1 TAB PO DAILY PRN for PAIN-MODERATE, ( Reported) Losartan Potassium 25 Mg Tablet, 25 MG PO 1800, (Reported) Metoprolol Succinate 25 Mg Tab.er.24h, 25 MG PO 1800, (Reported) Nortriptyline HCl 50 Mg Capsule, 50 MG PO HS, (Reported) Pantoprazole Sodium 40 Mg Tablet.dr, 40 MG PO DAILY, (Reported) Potassium Chloride 20 Meq Tablet.er, 20 MEQ PO DAILY, (Reported) Ropinirole HCl 0.25 Mg Tablet, 0.25 MG PO 1800, (Reported) Patient Home Medication List Home Medication List Reviewed: Yes Past Bpimrjv-Ceftmb-Kxzeqi Hx Patient Social History Alcohol Use: Denies Use Recreational Drug Use: No Type Used: Cigarettes Recent Foreign Travel: No Contact w/other who traveled: No Recent Hopitalizations: Yes Recent Infectious Disease Expo: No Immunizations Up To Date Tetanus Booster (TDap): More than 5yrs Date of Influenza Vaccine: Jul 07, 2018 Seasonal Allergies Seasonal Allergies: Yes Surgeries Yes Bowel Surgery Respiratory Yes (SARCOIDOSIS) Cardiovascular Yes Hypertension Neurological No Genitourinary Yes Kidney Stones Gastrointestinal Yes Gastroesophageal Reflux Musculoskeletal No Endocrine History of Endocrine Disorders: No HEENT History of HEENT Disorders: No Cancer Yes Colon Did You Recieve Any Treatments: Yes Type of Treatment: Surgical Intervention Psychosocial History of Psychiatric Problem: No Integumentary History of Skin or Integumenta: No Blood Transfusions History of Blood Disorders: No Family Medical History Significant Family History: Cancer, CAD Under 55 Years Old, Stroke Review of Systems Review of Systems General: No Chills, No Night Sweats HEENT: Head Aches Pulmonary: No Dyspnea; Cough Cardiovascular: Paroxysmal Noc. Dyspnea Gastrointestinal: Abdominal Pain Genitourinary: No Dysuria, No Frequency, No Incontinence, No Hematuria, No Retention, No Other Neurological: Weakness Physical Exam Vital Signs Capillary Refill : Less Than 3 Seconds Height, Weight, BMI Height: 5'9.00" Weight: 239lbs. 0.0oz. 108.487375qw; 35.6 BMI Method:Stated General Appearance: No Apparent Distress, WD/WN HEENT: PERRL/EOMI Neck: Non Tender, Supple Respiratory: Chest Non Tender, Lungs Clear, Normal Breath Sounds, No Accessory Muscle Use Cardiovascular: Regular Rate, Rhythm Gastrointestinal: Non Tender, Soft Rectal: Deferred Extremity: Normal Inspection, Normal Range of Motion, Non Tender Neurologic/Psychiatric: Alert, Oriented x3, Normal Mood/Affect Skin: Warm/Dry Lymphatic: No Adenopathy Assessment/Plan Assessment/Plan Admission Dx sepsis from surgical wound Admission Status: Inpatient Order (span 2 midnights) Reason for Inpatient Admission: patient will require an inpatient stay due to his abdominal wound infection- and possible need for surgery/debridement Assessment and Plan Sepsis from surgical wound - continue Zosyn, and Vancomycin -Dr. Dominique to be consulted -cultures pending Colon adenocarcinoma s/p resection - September 2018 -will need to establish with onc. Pneumonia- on zosyn, vanc- monitor status, RT -CT chest w/ contrast- Dr. Zazueta will order in a few days. - to further evaluate mediastinal lymphadenopathy probable LASHAE- outpatient sleep study Hypokalemia -replacing Fe deficiency anemia- complete Fe infusions. Restless leg syndrome- on ropinirole- january d/c once Fe deficiency anemia is resolved Dispo: admitted for sepsis, surgery to evaluate patient. Re-evaluated this afternoon and patient improved significantly and will be discharged to home on keflex. He will follow up with Dr. Dominique. Final Diagnosis sepsis from cellulitis of abdominal surgical wound Clinical Quality Measures DVT/VTE Risk/Contraindication: Risk Factor Score Per Nursin RFS Level Per Nursing on Admit: 3=High JACE CASANOVA MD Nov 08, 2018 08:33
[2018-11-08] MEDS ORDERED: VANCOMYCIN 1,750 MG/NS 500 ML IVPB IV SCH ×2 (09:00)
[2018-11-08] MEDS ORDERED: NORT50CA PO ×2 (09:32)
[2018-11-08] MEDS ORDERED: ASPI-999 PO ×2 (09:32)
--- NOTE | 2018-11-08 10:01 | NUR ---
WENT OVER THE EXT MED HX WITH THE PATIENT. HE STATES HE IS NOT TAKING THE TRAMADOL THAT WAS RECENTLY FILLED BECAUSE DR. CASANOVA INSTRUCTED HIM NOT TO. HE VERIFIED HIS OTHER MEDICATIONS AND HOW HE TAKES THEM.
--- NOTE | 2018-11-08 11:45 | Progress Note ---
Subjective Time Seen by a Provider: 10:12 Subjective/Events-last exam Pt seen and examined, resting comfortably in bed. Pt is worried about a little drainage from midline, but states he feels great now. Pt has been eating and tolerating diet. Review of Systems General: Chills, Night Sweats Pulmonary: No Dyspnea, No Cough Cardiovascular: No: Chest Pain, Palpitations Gastrointestinal: No: Nausea, Vomiting Focused Exam Lactate Level 11/07/18 15:45: Lactic Acid Level 1.02 Objective Exam Vital Signs Date Time Temp Pulse Resp B/P (MAP) Pulse Ox O2 Delivery O2 Flow Rate FiO2 11/08/18 08:20 97 Room Air 11/08/18 08:19 97.3 Room Air 11/08/18 08:08 94 Room Air 11/08/18 08:00 87 26 101/69 (80) 94 Room Air 11/08/18 07:08 86 11/08/18 07:00 85 14 102/71 (81) 96 Room Air 11/08/18 06:00 76 18 105/68 (80) 94 Room Air 11/08/18 05:00 77 16 99/65 (76) 94 Room Air 11/08/18 04:00 81 17 103/70 (81) 92 Room Air 11/08/18 04:00 96 Room Air 11/08/18 03:00 91 27 94/67 (76) 95 Room Air 11/08/18 02:00 98.4 11/08/18 02:00 117 28 104/80 (88) 95 Room Air 11/08/18 01:00 107 24 119/80 (93) 96 Room Air 11/08/18 01:00 107 11/08/18 00:00 112 21 100/75 (83) 94 Room Air 11/08/18 00:00 96 Room Air 11/07/18 23:30 107 22 93 Room Air 11/07/18 23:30 99.4 11/07/18 23:00 105 24 107/85 (92) 93 Room Air 11/07/18 22:30 103 20 107/72 (84) 90 Room Air 11/07/18 22:03 97 Room Air 11/07/18 22:00 98.4 11/07/18 22:00 105 18 107/68 (81) 95 Room Air 11/07/18 21:53 95 Room Air 11/07/18 21:30 99 21 106/74 (85) 95 Room Air 11/07/18 21:00 91 35 102/65 (77) 93 Room Air 11/07/18 20:30 100 25 98/70 (79) 94 Room Air 11/07/18 20:15 100.4 Room Air 11/07/18 20:00 122 21 100/68 (79) 94 Room Air 11/07/18 19:58 117 94 21 11/07/18 19:52 124 27 107/90 (96) 94 Room Air 11/07/18 19:50 115 19 117/85 (96) 94 Room Air 11/07/18 19:49 112 11/07/18 19:30 100.3 118 18 113/56 (75) 95 Room Air 11/07/18 15:30 102.7 113 16 153/119 (130) 94 Room Air I & O 11/08/18 07:00 Intake Total 4080 ml Output Total 1750 ml Balance 2330 ml Capillary Refill : Less Than 3 Seconds General Appearance: No Apparent Distress, WD/WN HEENT: PERRL/EOMI, Pharynx Normal Respiratory: Lungs Clear, Normal Breath Sounds, No Accessory Muscle Use, No Respiratory Distress Cardiovascular: No Edema, No Murmur, Irregularly Irregular, Tachycardia Gastrointestinal: soft, other (midline wound has good granulation, minimal serous fluid and some fibrinous fluid. There is no purulent drainage. 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 Norm as Tested Results Lab Laboratory Tests 11/07/18 15:45: White Blood Count 16.4H, Red Blood Count 5.52, Hemoglobin 11.9L, Hematocrit 39L , Mean Corpuscular Volume 71L, Mean Corpuscular Hemoglobin 22L, Mean Corpuscular Hemoglobin Concent 30L, Red Cell Distribution Width 27.1H, Platelet Count 290, Mean Platelet Volume , Neutrophils (%) (Auto) 94H, Lymphocytes (%) ( Auto) 2L, Monocytes (%) (Auto) 3, Eosinophils (%) (Auto) 0, Basophils (%) (Auto ) 0, Neutrophils # (Auto) 15.4H, Lymphocytes # (Auto) 0.4L, Monocytes # (Auto) 0.5, Eosinophils # (Auto) 0.1, Basophils # (Auto) 0.0, Neutrophils % (Manual) 95 , Lymphocytes % (Manual) 1, Monocytes % (Manual) 1, Eosinophils % (Manual) 0, Basophils % (Manual) 0, Band Neutrophils 3, Polychromasia MODERATE, Hypochromasia SLIGHT, Anisocytosis MARKED, Microcytosis MODERATE, Spherocytes SLIGHT, Target Cells SLIGHT, Elliptocytes SLIGHT, Prothrombin Time 16.6H, INR Comment 1.3, Activated Partial Thromboplast Time 37H, Sodium Level 134L, Potassium Level 3.9, Chloride Level 100, Carbon Dioxide Level 23, Anion Gap 11, Blood Urea Nitrogen 17, Creatinine 0.83, Estimat Glomerular Filtration Rate > 60 , BUN/Creatinine Ratio 20, Glucose Level 105, Lactic Acid Level 1.02, Calcium Level 10.1, Corrected Calcium 10.3H, Total Bilirubin 0.7, Aspartate Amino Transf (AST/SGOT) 31, Alanine Aminotransferase (ALT/SGPT) 42, Alkaline Phosphatase 126, Total Protein 7.4, Albumin 3.7 11/07/18 16:20: Urine Color YELLOW, Urine Clarity CLEAR, Urine pH 5, Urine Specific [place] 1.015L, Urine Protein 2+H, Urine Glucose (UA) NEGATIVE, Urine Ketones NEGATIVE, Urine Nitrite NEGATIVE, Urine Bilirubin NEGATIVE, Urine Urobilinogen NORMAL, Urine Leukocyte Esterase 1+H, Urine RBC (Auto) NEGATIVE, Urine RBC NONE, Urine WBC RARE, Urine Squamous Epithelial Cells NONE, Urine Crystals NONE, Urine Bacteria NEGATIVE, Urine Casts NONE, Urine Mucus NEGATIVE, Urine Culture Indicated CULTURE PENDING 11/08/18 03:00: White Blood Count 12.3H, Red Blood Count 4.64, Hemoglobin 10.1L, Hematocrit 34L , Mean Corpuscular Volume 72L, Mean Corpuscular Hemoglobin 22L, Mean Corpuscular Hemoglobin Concent 30L, Red Cell Distribution Width 27.3H, Platelet Count 273, Mean Platelet Volume 10.0, Neutrophils (%) (Auto) 91H, Lymphocytes (% ) (Auto) 3L, Monocytes (%) (Auto) 5, Eosinophils (%) (Auto) 0, Basophils (%) ( Auto) 0, Neutrophils # (Auto) 11.2H, Lymphocytes # (Auto) 0.4L, Monocytes # ( Auto) 0.7, Eosinophils # (Auto) 0.0, Basophils # (Auto) 0.0, Sodium Level 137, Potassium Level 3.3L, Chloride Level 105, Carbon Dioxide Level 22, Anion Gap 10 , Blood Urea Nitrogen 11, Creatinine 0.77, Estimat Glomerular Filtration Rate > 60, BUN/Creatinine Ratio 14, Glucose Level 88, Calcium Level 8.9, Corrected Calcium 9.7, Total Bilirubin 0.5, Aspartate Amino Transf (AST/SGOT) 19, Alanine Aminotransferase (ALT/SGPT) 30, Alkaline Phosphatase 106, Total Protein 6.2L, Albumin 3.0L, Phosphorus Level 3.6, Magnesium Level 1.6L Assessment/Plan Assessment/Plan Assessment/Plan Pyrexia and Elevated WBC - pt met Sepsis criteria, but looks completely fine now. I am unsure why he had a high temp, but lungs are clear (per CXR) and there is no abscess/fluid collection in abdomen or under skin. Pt does not have sepsis from surgical wound. Stop all ABX, would put him on some Keflex for mild cellulitis. He is ok to be D/C'd from a surgical standpoint. Would hold off on Chest CT until after pt meets with Oncology and has PET scan. Clinical Quality Measures DVT/VTE Risk/Contraindication: Risk Factor Score Per Nursin RFS Level Per Nursing on Admit: 3=High JENNIFER DOMINIQUE DO Nov 08, 2018 11:45
[2018-11-08] MEDS ORDERED: CEPH-507 PO ×2 (11:48)
[2018-11-09] MEDS ORDERED: TROUGH ORDER-PHARMACY XX NR (08:00)
--- NOTE | 2018-11-09 17:47 | Physician Query-Final Dx ---
MAURICE NAQVI 11/09/18 1747: Final Diagnosis Give Final Diagnosis Please give Final Diagnosis SHERYL CASANOVA MD 11/15/18 1254: Final Diagnosis Give Final Diagnosis sepsis from cellulitis of abdominal surgical wound Colon adenocarcinoma s/p resection - Pneumonia- probable LASHAE- Hypokalemia - Fe deficiency anemia- Restless leg syndrome MAURICE NAQVI Nov 09, 2018 17:47 SHERYL CASANOVA MD Nov 15, 2018 12:54
== END 2018-11-08 14:00 | disposition home or self-care (01) | DRG 862 ==
LOC: EDUNIT# 15:30 → ER 15:32 → ICU 18:18
PROVIDERS: ADMIT Internal Medicine; ATTEND Family Medicine
DX: T81.44XA Sepsis following a procedure, initial encounter (principal); A41.9 Sepsis, unspecified organism; T81.41XA Infection following a procedure, superficial incisional surgical site, initial encounter; L03.311 Cellulitis of abdominal wall; J18.9 Pneumonia, unspecified organism; T81.31XA Disruption of external operation (surgical) wound, not elsewhere classified, initial encounter; J98.11 Atelectasis; Z85.038 Personal history of other malignant neoplasm of large intestine; Z68.35 Body mass index [BMI] 35.0-35.9, adult; G47.33 Obstructive sleep apnea (adult) (pediatric); E87.6 Hypokalemia; G25.81 Restless legs syndrome; D50.9 Iron deficiency anemia, unspecified; K21.9 Gastro-esophageal reflux disease without esophagitis; I10 Essential (primary) hypertension; R09.02 Hypoxemia; E66.9 Obesity, unspecified; R59.0 Localized enlarged lymph nodes; J20.9 Acute bronchitis, unspecified; I27.20 Pulmonary hypertension, unspecified; Z87.442 Personal history of urinary calculi; Z87.09 Personal history of other diseases of the respiratory system; Z90.49 Acquired absence of other specified parts of digestive tract
CPT/HCPCS: 36415; 71045; 74177; 80053; 81000; 82164; 83605; 83735; 84100; 85007; 85025; 85027; 85610; 85730; 87040; 87070; 87077; 87081; 87088; 87186; 87205; 87804; 93005; 93041; 94640; 96361; 96365; 96367; 96375

== ENCOUNTER 2018-11-15 13:44 | Outpatient (RCR) | payer BC ==
[2018-10-18] MEDS: IRON SUCROSE 200 MG/10 ML (VENOFER) VIAL IV SCH (10:31)
[2018-10-18 10:40] VITALS: BP 129/79
[2018-10-25] MEDS: IRON SUCROSE 200 MG/10 ML (VENOFER) VIAL IV SCH (10:28)
[2018-10-25 11:00] VITALS: BP 137/88
[2018-11-01] MEDS: IRON SUCROSE 200 MG/10 ML (VENOFER) VIAL IV SCH (10:00)
[2018-11-01 10:30] VITALS: BP 133/94
[~2018-11-15] VITALS: Ht 175.3 cm; Wt 108.9 kg
[~2018-11-15 13:44] MED LIST changes: -CATHETER FLUSH 10 ML SYR IV PRN; -IOHEXOL 350 MG/ML 100 ML (OMNIPAQUE 350) VIAL IV ONE; +IRON SUCROSE 200 MG/10 ML (VENOFER) VIAL IV ONE; -NS 100 ML (IVPB) BAG IV ONE; -RECEIVED CONTRAST 20 ML VIAL IV SCH
[2018-11-15] MEDS: IRON SUCROSE 200 MG/10 ML (VENOFER) VIAL IV SCH (13:50)
[2018-11-15 13:59] VITALS: BP 135/88
== END 2018-11-15 14:20 | disposition home or self-care (01) ==
LOC: SDC 13:44
PROVIDERS: ATTEND Family Medicine
DX: D50.8 Other iron deficiency anemias (principal); R53.83 Other fatigue
CPT/HCPCS: 96365

== ENCOUNTER → 2018-11-15 | Outpatient (CLI) | payer BC ==
[~2018-11-15] MED LIST changes: +ASPI-999 PO; +CATHETER FLUSH 10 ML SYR IV PRN; +IOHEXOL 350 MG/ML 100 ML (OMNIPAQUE 350) VIAL IV ONE; +NORT50CA PO; +NS 100 ML (IVPB) BAG IV ONE; +RECEIVED CONTRAST 20 ML VIAL IV SCH
--- NOTE | 2018-11-15 17:55 | Diagnostic Imaging Report ---
PROCEDURE: CT chest with contrast only. TECHNIQUE: Multiple contiguous axial images were obtained through the chest after administration of intravenous contrast. INDICATION: Colon cancer. There is a reported history of sarcoidosis. COMPARISON: I have no previous for comparison. Comparison limited to overlapped images obtained during an abdominal CT, most recently 09/27/2018. FINDINGS: Ayanna-fissural opacity involves the right middle and right lower lobes where there is airspace density as well as more soft tissue like nodularity with the nodular components measuring up to 1.9 x 1.0 cm. An irregular nodule in the left lower lobe measures 1 cm. There are some zones with partial atelectasis in the left lung. Irregular nodule in the right upper lobe measures 8.2 mm. No effusion or pneumothorax. There is extensive mediastinal right greater than left hilar lymphadenopathy. Lower mediastinal paraesophageal node measures 3.7 x 3.2 cm. Partially calcified subcarinal mass measures 4.4 x 3 cm. Lower right paratracheal mass measures 2.6 x 2.1 cm. Lower left paratracheal mass measures 2 x 1 cm. Left para-aortic mediastinal mass measures 3.3 x 2.0 cm. AP window lymph nodes measure up to 3.1 x 1.7 cm. Perivascular and superior paratracheal mediastinal nodes are 1.5 cm in short axis. Supraclavicular fossa is unremarkable. There is no axillary adenopathy. Upper abdomen reveals gallstones and splenomegaly with no free air or fluid collection. No acute bony abnormality is identified. IMPRESSION: Hilar and mediastinal lymphadenopathy with bilateral pulmonary nodules, ill defined and somewhat atypical in density for metastatic disease. The lung nodules could be metastatic or inflammatory. Adenopathy may reflect the systemic process of sarcoidosis in this patient as well as metastatic disease. Given the history, there are presumed outside chest CTs in existence somewhere; if these could be obtained, their submission is encouraged, and an addendum addressing stability or change could be provided upon receipt. Dictated by: Dictated on workstation # [id number]
== END ==
LOC: RAD 14:26
PROVIDERS: ATTEND Internal Medicine Hematology & Oncology
DX: C18.7 Malignant neoplasm of sigmoid colon (principal); R59.0 Localized enlarged lymph nodes; R91.8 Other nonspecific abnormal finding of lung field; Z87.09 Personal history of other diseases of the respiratory system
CPT/HCPCS: 71260

== ENCOUNTER 2018-11-17 05:35 | Outpatient (CLI) | payer BC ==
[~2018-11-17] VITALS: Ht 175.3 cm; Wt 104.8 kg
[~2018-11-17 05:35] MED LIST changes: -IRON SUCROSE 200 MG/10 ML (VENOFER) VIAL IV ONE
== END 2018-11-17 12:42 | disposition home or self-care (01) ==
LOC: PREOP 05:35
PROVIDERS: ATTEND Surgery
DX: Z01.818 Encounter for other preprocedural examination (principal)

== ENCOUNTER 2018-11-22 07:20 | Day surgery (SDC) | payer BC ==
[~2018-11-22] VITALS: Ht 175.3 cm; Wt 104.8 kg
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
[2018-11-22 07:25] VITALS: BP 133/90
[2018-11-22] MEDS ORDERED: LACTATED RINGERS 1,000 ML IV PRN (07:32)
[2018-11-22] MEDS ORDERED: ceFAZolin 2 GM IV Premixed 50 ML IV ONE (07:45)
[2018-11-22] MEDS ORDERED: CATHETER FLUSH 10 ML SYR IV PRN (08:00)
--- NOTE | 2018-11-22 08:25 | Progress Note-Pre Operative ---
Pre-Operative Progress Note H&P Reviewed The H&P was reviewed, patient examined and no changes noted. Time Seen by Provider: 08:22 Date H&P Reviewed: Nov 22, 2018 Time H&P Reviewed: 08:23 Pre-Operative Diagnosis: Venous Insufficiency, Colon CA JENNIFER DOMINIQUE DO Nov 22, 2018 08:25
[2018-11-22] MEDS ORDERED: BUP/EPI 0.5% 1:200,000 (SENSORCAINE) 30 ML VIAL ONE (08:38)
[2018-11-22] MEDS ORDERED: LIDOCAINE 1% INJ 20 ML 20 ML VIAL ONE (08:38)
[2018-11-22] MEDS ORDERED: NS (IVPB) 100 ML ONE (08:38)
[2018-11-22] MEDS ORDERED: HEParin (CENTRAL IV FLUSH) 500 UNIT/5 ML SYR ONE (08:38)
[2018-11-22] MEDS ORDERED: PROPOFOL INJECTION 0 ML IV ONE (08:50)
[2018-11-22] MEDS ORDERED: MIDAZOLAM 2 MG/2 ML (VERSED) VIAL ONE ×2 (08:51→09:38)
[2018-11-22] MEDS ORDERED: fentaNYL INJECTION 100 MCG/2 ML AMP ONE (08:51)
[2018-11-22] MEDS ORDERED: LIDOCAINE PF 2% 5 ML (XYLOCAINE) VIAL ONE (09:10)
[2018-11-22] MEDS ORDERED: proPOfol 200 MG/20 ML (DIPRIVAN) VIAL IV ONE (09:10)
--- NOTE | 2018-11-22 09:55 | Progress Note-Post Operative ---
Post-Operative Progess Note Surgeon (s)/Guard Driver (s) Surgeon JENNIFER DOMINIQUE DO Guard Driver: none Pre-Operative Diagnosis Venous Insufficiency, Colon CA Post-Operative Diagnosis same Procedure & Operative Findings Date of Procedure 11/22/18 Procedure Performed/Findings Shauna-cath insertion Anesthesia Type MAC Estimated Blood Loss Estimated blood loss (mL): scant Specimens/Packing Specimens Removed none JENNIFER DOMINIQUE DO Nov 22, 2018 09:55
--- NOTE | 2018-11-22 09:58 | Discharge Inst-Surgical ---
Discharge Inst-Surgical Depart Medication/Instructions New, Converted or Re-Newed RX: Other (no Rx needed) Patient Instructions Follow up Appt: Make appointment for 1 week. [phone] Instructions: No lifting greater than 20 pounds. No strenuous activity. May shower in 24 hours, no tub bath or soaking. Use incentive spirometer at home as directed. No Smoking Skin/Wound Care: May remove bandages in am. You need to leave the Dermabond on incision it will fall off on it's own. Symptoms to Report: Appetite Changes, Extremity Discoloration, Numbness/Tingling, Swelling Increased , Bleeding Excessive, Eyesight Changes, Pain Increased, Urine Color Change, Constipation(Persistent), Fever over 101 degree F, Pain/Pressure in chest, Urinating Difficulty, Cough Up/Vomit Blood, Heart Beat Irreg/Pounding, Pain/ Pressure in jaw, Cramps in feet or legs, Lightheadedness, Pain/Pressure in shoulder, Diarrhea(Persistent), Memory Changes Suddenly, Questions/Concerns, Weight gain consecutive days, Dizziness/Fainting, Nausea/Vomiting, Shortness of Breath, Weight gain over 2 pounds If questions or concerns contact your physician Or seek help at emergency department. Activity Activity Instructions: Avoid Stress to Incision Driving Instructions: No Driving/Refer to Dr. Collins Discharge Diet: No Restrictions Diet After 24 Hours: Clear Liquid if Nauseous If Any Problems/Questions/Issu: Contact Your Physician, Go to Emergency Room Skin/Wound Care Infection Signs and Symptoms: Increased Redness, Foul Odor of Wound, Increased Drainage, Skin Itchy or Has a Rash, Increased Swelling, Temperature Above 101 F Bathing Instructions: Shower Stitches/Rugby/Dermabond Dis: Dermabond Ice Pack: Ice On and Off Site (as needed for pain ) JENNIFER DOMINIQUE DO Nov 22, 2018 09:58
--- NOTE | 2018-11-22 10:08 | Diagnostic Imaging Report ---
INDICATION: Fluoroscopy for Groshong catheter placement. FINDINGS: Fluoroscopy was provided in the OR during Groshong catheter placement. 6 seconds of fluoroscopy was utilized. A right subclavian catheter is noted. IMPRESSION: Fluoroscopy for Groshong catheter placement. Dictated by: Dictated on workstation # [id number]
[2018-11-22] MEDS ORDERED: ONDANSETRON 4 MG/2 ML (SDV) Z0FRAN IVP PRN (10:15)
[2018-11-22] MEDS ORDERED: morphine INJ 10 MG/ML 1ML (SYR OR VIAL) IVP ONE (10:15)
[2018-11-22 10:30] VITALS: BP 118/82
[2018-11-22 11:00] VITALS: BP 127/92
[2018-11-22 11:20] VITALS: BP 127/92
--- NOTE | 2018-11-22 11:20 | NUR ---
HAS REMAINED ALERT, CHEERFUL AND HAS DENIED COMPLAINTS THROUGHOUT RECOVERY. OPSITE OVER GAUZE DSG REMAINS D/I TO RIGHT UPPER CHEST PORT INSERTION SITE. HAS USED ICE PACK ON AND OFF TO SITE. REQUESTING DISMISSAL.
--- NOTE | 2018-11-23 03:39 | OPERATIVE REPORT ---
DATE OF SERVICE: PREOPERATIVE DIAGNOSES: 1. Venous insufficiency. 2. Colon cancer. POSTOPERATIVE DIAGNOSES: 1. Venous insufficiency. 2. Colon cancer. PROCEDURE: Insertion of Port-A-Cath. SURGEON: Waqas Benitez DO CREDIT REVIEW ANALYST: None. ANESTHESIA: IV sedation by the anesthesiologist. SPECIMENS: None. BLOOD LOSS: Scant. FLUIDS: Per anesthesia. POSTOPERATIVE CONDITION: Stable. INDICATION FOR PROCEDURE: The patient is a 58-year-old male who has venous insufficiency, history of colon cancer needed port placed for chemotherapy. FINDINGS: The patient had a port placed right anterior chest wall and right subclavian vein. PROCEDURE NOTE: After informed consent was obtained, the patient was brought to the operating room, placed on the table in supine position, sterilely prepped and draped in normal fashion, placed slightly Trendelenburg. Then, right anterior chest wall infiltrated with local as well as towards the clavicle and slightly under it, injected about 20 mL of local and then an 18 gauge fine needle was advanced using negative inspiration, cannulated the subclavian vein on the first attempt. Good flash of blood, removed the syringe, placed a guidewire down the needle using Seldinger technique, went in easily, checked fluoroscopy, it was in good position in superior vena cava, removed the needle, held the guidewire in place with a clamp and then made a stab incision along the guidewire as well as made an incision in the right anterior chest wall with #11 blade carried down through the skin into the subcutaneous tissue, then deepened down to subcutaneous tissue with Bovie electrocautery down to the pectoralis major fascia. A blunt dissection also used to create a pocket over the guidewire placed a dilator using Seldinger technique, it went in easily and then tunneled the catheter from the stab incision towards the port pocket and then placed the catheter down the dilator after removing the inner portion and then the wire, checked fluoroscopy, it was in good position, removed the dilator portion, connect the catheter to the port, accessed, good flush of blood, flushed with saline, then accessed the flush with heparin, then placed into the pocket previously created, sutured placed with 3-0 Prolene and then closed the deep tissue with 3-0 Vicryl, 2 interrupted sutures and closed the skin with 4-0 undyed Monocryl, 3 interrupted subcuticular stitches. Area was then cleaned and dried. Dermabond placed. Post-fluoroscopy also showed the port was in good position, no kinks and the patient then transferred to recovery room in stable condition. Sponge, instrument and needle count correct at the end of the case. Job ID: [id number] DocumentID: [id number] Dictated Date: 11/22/2018 15:59:19 Internet Sales Associate Date: 11/23/2018 03:38:30 Dictated By: WAQAS BENITEZ DO
[2018-11-23] MEDS ORDERED: BUDE10.2 IH (07:58)
[2018-11-23] MEDS ORDERED: METO-352 PO (09:21)
[2018-11-23] MEDS ORDERED: SPIR25TA5 PO (09:23)
[2018-11-23] MEDS ORDERED: ATOR20TA66 PO (09:23)
== END 2018-11-22 11:20 | disposition home or self-care (01) ==
LOC: SDC 07:20
PROVIDERS: ATTEND Surgery
DX: C18.7 Malignant neoplasm of sigmoid colon (principal); I87.2 Venous insufficiency (chronic) (peripheral); I10 Essential (primary) hypertension; D86.9 Sarcoidosis, unspecified; I34.0 Nonrheumatic mitral (valve) insufficiency; K21.9 Gastro-esophageal reflux disease without esophagitis; E66.01 Morbid (severe) obesity due to excess calories; Z68.34 Body mass index [BMI] 34.0-34.9, adult; Z79.82 Long term (current) use of aspirin; Z79.899 Other long term (current) drug therapy
CPT/HCPCS: 87081

== ENCOUNTER 2018-11-23 06:56 | Day surgery (SDC) | payer BC ==
[2018-11-23] VITALS (8 sets, daily range): BP systolic 100–143; BP diastolic 71–108
[~2018-11-23] VITALS: Ht 175.3 cm; Wt 104.8 kg
[2018-11-23] MEDS ORDERED: NS IV 1000 ML 1,000 ML IV SCH ×2 (07:00→09:15)
[2018-11-23] MEDS ORDERED: HEParin 1000 UNIT/ML (10ML VIAL) FOR BOLUS ONE (07:01)
[2018-11-23] MEDS ORDERED: LIDOCAINE 1% INJ 20 ML 20 ML VIAL ONE (07:01)
[2018-11-23] MEDS ORDERED: NS IV 1000 ML 3,000 ML ONE (07:01)
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
[2018-11-23 07:45] LABS: HEMATOCRIT 43 % (40-54); HEMOGLOBIN 13.3 G/DL (13.3-17.7); MEAN CORPUSCULAR HEMOGLOBIN 23 PG (25-34); MEAN CORPUSCULAR HGB CONC 31 G/DL (32-36); MEAN CORPUSCULAR VOLUME 73 FL (80-99); PLATELET COUNT 233 10^3/uL (130-400); RED CELL DISTRIBUTION WIDTH 26.3 % (10.0-14.5); WHITE BLOOD COUNT 5.4 10^3/uL (4.3-11.0)
[2018-11-23 07:55] LABS: PROTHROMBIN TIME PATIENT 13.5 SEC (12.2-14.7)
[2018-11-23] MEDS ORDERED: BUDE10.2 IH (07:58)
[2018-11-23] MEDS ORDERED: FLU QUADRIvalent (5+ YOA) 2018-2019 (AFLURIA) 0.5 ML IM ONE (08:00)
[2018-11-23 08:05] LABS: ALANINE AMINOTRANSFERASE 132 U/L (0-55); ALBUMIN 3.9 GM/DL (3.2-4.5); ALKALINE PHOSPHATASE 85 U/L (40-136); BILIRUBIN,TOTAL 0.4 MG/DL (0.1-1.0); BUN/CREATININE RATIO 23; CALCIUM 9.4 MG/DL (8.5-10.1); CARBON DIOXIDE 22 MMOL/L (21-32); CHLORIDE 106 MMOL/L (98-107); CHOLESTEROL 207 MG/DL (< 200); CREATININE SERUM 0.78 MG/DL (0.60-1.30); GFR ESTIMATED > 60; GLUCOSE 100 MG/DL (70-105); HDL CHOLESTEROL 34 MG/DL (40-60); POTASSIUM 3.9 MMOL/L (3.6-5.0); SODIUM 139 MMOL/L (135-145); TOTAL PROTEIN 7.7 GM/DL (6.4-8.2); TRIGLYCERIDES 365 MG/DL (<150); VLDL CHOLESTEROL 73 MG/DL (5-40)
[2018-11-23] MEDS ORDERED: fentaNYL INJECTION 100 MCG/2 ML AMP ONE (08:11)
[2018-11-23] MEDS ORDERED: MIDAZOLAM 5 MG/5 ML (VERSED) VIAL ONE (08:11)
--- NOTE | 2018-11-23 09:14 | Cardiac Procedure Note-CS/ASA ---
Pre-Procedure Note Pre-Op Procedure Note H&P Reviewed The H&P was reviewed, patient examined and no changes noted. Date H&P Reviewed: Nov 23, 2018 Time H&P Reviewed: 08:45 Conscious Sedation Pre-Proced Time 08:45 ASA Score 3 For ASA 3 and 4: Consider anesthesia and medical clearance. Also, for patients with a history of failed moderate sedation consider anesthesia. Airway Lungs Heart ASA score ASA 1: a normal healthy patient ASA 2: a patient with a mild systemic disease (mid diabetes, controlled hypertension, obesity ASA 3: a patient with a severe systemic disease that limits activity (angina , COPD, prior Myocardial infarction) ASA 4: a patient with an incapacitating disease that is a constant threat to life (CHF, renal failure) ASA 5: a moribund patient not expected to survive 24 hrs. (ruptured aneurysm) ASA 6: a declared brain- patient whose organs are being harvested. For emergent operations, add the letter E after the classification Mallampati Classification Grade 2 Sedation Plan Analgesia, Amnesia, Plan communicated to team members, Discussed options with patient/fam, Discussed risks with patient/fam The patient is an appropriate candidate to undergo the planned procedure, sedation, and anesthesia. The patient immediately re-assessed prior to indication. EDWARDO QUESADA MD FACP FAC CCDS Nov 23, 2018 09:14
[2018-11-23] MEDS ORDERED: PATIENT MAY USE OWN MEDS, ALL PO SCH (09:15)
[2018-11-23] MEDS ORDERED: METO-352 PO (09:21)
[2018-11-23] MEDS ORDERED: SPIR25TA5 PO (09:23)
[2018-11-23] MEDS ORDERED: ATOR20TA66 PO (09:23)
--- NOTE | 2018-11-23 09:24 | Discharge Inst-Cardiology ---
Discharge Inst-Cardiac Discharge Medications New Medications: Atorvastatin Calcium (Atorvastatin Calcium) 20 Mg Tablet 20 MG PO DAILY, #30 TAB 5 Refills Metoprolol Succinate (Toprol Xl) 50 Mg Tab.er.24h 50 MG PO DAILY, #30 TAB 5 Refills Spironolactone (Spironolactone) 25 Mg Tablet 25 MG PO DAILY, #30 TAB 5 Refills Continued Medications: Aspirin (Aspirin) 81 Mg Tab.chew 81 MG PO DAILY, TAB.CHEW Budesonide/Formoterol Fumarate (Symbicort 160-4.5 Mcg Inhaler) 10.2 Gm Hfa.aer.ad 2 PUFF IH BID, INHALER Furosemide (Furosemide) 40 Mg Tablet 40 MG PO DAILY, TAB Losartan Potassium (Losartan Potassium) 25 Mg Tablet 25 MG PO 1800, TAB Pantoprazole Sodium (Pantoprazole Sodium) 40 Mg Tablet.dr 40 MG PO DAILY, TAB Potassium Chloride (Potassium Chloride) 20 Meq Tablet.er 20 MEQ PO DAILY, TAB Discontinued Medications: Metoprolol Succinate (Metoprolol Succinate) 25 Mg Tab.er.24h 25 MG PO 1800, TAB Nortriptyline HCl (Nortriptyline HCl) 50 Mg Capsule 50 MG PO HS, CAP Ropinirole HCl (Ropinirole HCl) 0.25 Mg Tablet 0.25 MG PO 1800, TAB EDWARDO QUESADA MD FACP FAC CCDS Nov 23, 2018 09:24
--- NOTE | 2018-11-23 09:25 | Discharge Inst-Post CATH ---
Discharge Inst-CATH/EP Post Cardiac Cath/EP D/C Inst Follow Up/Plan F/u with Dr Tavera in 2 weeks CARDIAC CATH DISCHARGE INSTRUCTIONS *Hold Metformin for 48 hours post heart cath. ACTIVITY * Go Home directly and rest. * Limit activity of the leg (or wrist if it was used) for 7 days including aerobics, swimming, jogging, bicycling, etc. * Restrict stair-climbing for 7 days if possible, if not, climb up with your non -cath leg, then bring together on the same step. * Avoid lifting, pushing, pulling or excessive movement of the affected extremity for 7 days. * Customary sexual activity may be resumed after 2 days-use caution not to use a position that strains or causes pain to the affected extremity. * No driving for 24 hours. * NO SMOKING. * Avoid straining for bowel movements for 7 days. * Gentle walking on level ground is allowed. * Returning to work will depend on the type of procedure and the results. Your doctor will discuss this with you. CALL YOUR DOCTOR FOR ANY OF THE FOLLOWING: *If bleeding from the puncture site occurs- Apply gentle pressure to site with clean cloth and call your doctor or EMS. * If a knot or lump forms under the skin, increases in size, or causes pain. * If bruising appears to be worsening or moving further down your leg instead of disappearing. * Temperature above 101 F. CARE OF YOUR GROIN INCISION; * Bruising or purple discoloration of the skin near the puncture site is common. * You may shower only, no bathtub bathing for 5 days. Be careful to avoid slipping as your leg may feel stiff. * If a closure device was used on your femoral artery, please see the attached guide regarding care of the device and your leg. * Leave the dressing on, until removed by office staff. CARE OF YOUR WRIST INCISION; * Bruising or purple discoloration of the skin near the puncture site is common. * You may shower. * DO NOT submerge wrist. * Leave dressing on, until removed by office staff.. EDWARDO TAVERA MD [facility] CCDS Nov 23, 2018 09:25
--- NOTE | 2018-11-23 10:27 | CARDIAC CATHETERIZATION ---
DATE OF SERVICE: 11/23/2018 CARDIAC CATHETERIZATION REPORT The patient is a 58-year-old man who has recently been diagnosed with dilated cardiomyopathy and acute systolic congestive heart failure. After systolic heart failure was brought under control, cardiac catheterization was carried out for further evaluation. Informed consent was obtained. PROCEDURE: He was brought to the cardiac catheterization laboratory in a fasting state. Right groin was prepared and draped in the usual sterile fashion. Lidocaine 1% was used for local anesthesia. Modified Seldinger technique was used to advance a 5-[place] sheath in the right femoral artery, 5-[place] JL4 catheter for left coronary angiography, a 5-[place] JR4 catheter for right coronary angiography, 5-[place] pigtail catheter was used for left heart catheterization and left ventricular angiography. Angiography of the right femoral artery was carried out through the sheath. Mynx was used to achieve hemostasis. He tolerated the procedure well. HEMODYNAMICS: Left ventricular end diastolic pressure following coronary angiography was 14 mmHg. There was no significant pressure gradient on pullback across the aortic valve. Ascending aortic pressure was 115/82 with a mean of 94 mmHg. CORONARY ANGIOGRAPHY: There is diffuse mild to moderate coronary calcification. There is diffuse coronary plaque. There is 30 to 40% stenosis at multiple sites in the left and the right coronary system. Left circumflex artery is dominant. LEFT VENTRICULAR ANGIOGRAPHY: Left ventricular angiography was carried out in the right anterior oblique projection. There is global hypokinesis. Left ventricular ejection fraction is approximately 35%. CONCLUSIONS: 1. Mild coronary artery disease. 2. Global hypokinesis of left ventricle with left ventricular ejection fraction of approximately 35%. 3. Mild elevation of left ventricular end-diastolic pressure. DISCUSSION AND RECOMMENDATIONS: Based on the results of the study, it appears appropriate to continue a conservative approach. Risk factor modification has been reviewed with him. Therapy for dilated cardiomyopathy and chronic systolic congestive heart failure is being continued. Closed outpatient followup is advised. 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
== END 2018-11-23 12:45 | disposition home or self-care (01) ==
LOC: CATH 06:56 → SDC 09:41 → CATH 12:45
PROVIDERS: ATTEND Internal Medicine Cardiovascular Disease
DX: I25.10 Atherosclerotic heart disease of native coronary artery without angina pectoris (principal); I42.0 Dilated cardiomyopathy; I11.0 Hypertensive heart disease with heart failure; I50.21 Acute systolic (congestive) heart failure; I34.0 Nonrheumatic mitral (valve) insufficiency; I45.10 Unspecified right bundle-branch block; I73.9 Peripheral vascular disease, unspecified; D50.0 Iron deficiency anemia secondary to blood loss (chronic); D86.9 Sarcoidosis, unspecified; C18.7 Malignant neoplasm of sigmoid colon; Z82.49 Family history of ischemic heart disease and other diseases of the circulatory system; Z79.82 Long term (current) use of aspirin; Z79.899 Other long term (current) drug therapy
CPT/HCPCS: 36415; 36430; 80053; 80061; 85027; 85610; 85730; 87081; 93005; 93458

== ENCOUNTER → 2018-12-14 | Outpatient (CLI) | payer BC ==
[~2018-12-14] MED LIST changes: +ATOR20TA66 PO; +BUDE10.2 IH; +METO-352 PO; +SPIR25TA5 PO
== END ==
LOC: RAD 13:32
PROVIDERS: ATTEND Internal Medicine Cardiovascular Disease
DX: I42.0 Dilated cardiomyopathy (principal); I50.22 Chronic systolic (congestive) heart failure; G47.33 Obstructive sleep apnea (adult) (pediatric)
CPT/HCPCS: 93923

== ENCOUNTER 2019-01-01 20:46 | Outpatient (CLI) | payer BC | END 2019-01-02 02:45 | disposition home or self-care (01) | LOC: SLEEP 20:46 | PROVIDERS: ATTEND Nurse Practitioner Family | DX: G47.10 Hypersomnia, unspecified (principal); G47.50 Parasomnia, unspecified; C18.7 Malignant neoplasm of sigmoid colon; J30.9 Allergic rhinitis, unspecified; R06.89 Other abnormalities of breathing; R05 Cough; R59.1 Generalized enlarged lymph nodes; R06.02 Shortness of breath; D68.9 Coagulation defect, unspecified ==

== ENCOUNTER → 2019-01-04 | Outpatient (CLI) | payer BC ==
--- NOTE | 2019-01-04 13:35 | Diagnostic Imaging Report ---
INDICATION: History of sigmoid carcinoma. Patient has abnormal CT chest study demonstrating mediastinal and hilar lymphadenopathy as well as pulmonary parenchymal nodularity. This study is performed for further evaluation. Patient also has history of sarcoidosis. TECHNIQUE: Serum blood glucose level at the time of injection is 108 mg/dL. Patient was administered 11 mCi of F-18 FDG intravenously in the left antecubital region and PET imaging from the top of the skull to mid thighs was performed. Noncontrast CT was also performed for attenuation correction and anatomic correlation. Correlation is made with prior CT chest from 11/15/2018. No prior PET study is available for comparison. FINDINGS: There is symmetric activity throughout the brain. Soft tissues of the neck are unremarkable. There is mild generalized uptake identified in the enlarged lymph nodes in the mediastinum and byron seen on recent CT. SUV values are approximately 3 to 4. The areas of nodularity in the pulmonary parenchyma particularly related to the fissure in the right middle lobe are without abnormal uptake. No pulmonary parenchymal hypermetabolism is identified. Abdomen and pelvis demonstrate physiologic activity within the GI and tracts. No suspicious hypermetabolism is identified. IMPRESSION: 1. No suspicious pulmonary hypermetabolic foci are identified. There is some generalized mild hypermetabolism identified in the hilar and mediastinal enlarged lymph nodes noted on CT. While it is conceivable that uptake is secondary to a neoplastic or lymphomatous process, sarcoidosis would also be an additional consideration. No suspicious hypermetabolism in the abdomen or pelvis is identified. Dictated by: Dictated on workstation # [id number]
== END ==
LOC: RAD 08:31
PROVIDERS: ATTEND Nurse Practitioner Family
DX: C18.7 Malignant neoplasm of sigmoid colon (principal); R59.0 Localized enlarged lymph nodes; R91.8 Other nonspecific abnormal finding of lung field; J30.9 Allergic rhinitis, unspecified; G47.10 Hypersomnia, unspecified; G47.50 Parasomnia, unspecified; D86.9 Sarcoidosis, unspecified

== ENCOUNTER → 2019-01-13 | Outpatient (CLI) | payer BC ==
[~2019-01-13] MED LIST changes: +ATOR20TA49 PO; +HOLD METFORMIN - RECEIVED CONTRAST 20 ML VIAL IV SCH; +IOHEXOL 350 MG/ML 100 ML (OMNIPAQUE 350) VIAL IV ONE; +LOPE-134 PO; +METO-370 PO; +ONDA8TAB13 PO; +PROC10TA10 PO
--- NOTE | 2019-01-13 11:06 | Diagnostic Imaging Report ---
CLINICAL INDICATION: Patient on chemotherapy with headache and nausea for 2 weeks. EXAM: Axial CT scan of the brain performed without and with 80 cc of Omnipaque 350 IV contrast. COMPARISON: None. FINDINGS: There is no evidence of acute cerebral infarct, intracranial hemorrhage, or gross mass effect. There is no abnormal IV contrast enhancement. The brain parenchymal volume appears appropriate for patient's age. There is normal putnam-white matter distinction. There is no significant midline shift or herniation. The [place] vascular structures show no gross abnormality as visualized. Dural venous sinuses are patent. There is no evidence of hydrocephalus. The basal cisterns are unremarkable. The skull, extracranial soft tissue, and orbits are unremarkable. The paranasal sinuses are unremarkable. Temporal bones show no significant abnormality. IMPRESSION: Unremarkable CT scan of the brain. Dictated by: Dictated on workstation # [id number]
== END ==
LOC: RAD 09:15
PROVIDERS: ATTEND Internal Medicine Hematology & Oncology
DX: R51 Headache (principal); C18.7 Malignant neoplasm of sigmoid colon
CPT/HCPCS: 70470

== ENCOUNTER 2019-01-14 10:49 | Inpatient (IN) | payer BC | END 2019-01-19 16:14 | disposition other institution (70) | LOC: 4TH 10:49 | DX: K52.9 Noninfective gastroenteritis and colitis, unspecified (principal); E87.6 Hypokalemia; E83.42 Hypomagnesemia; K80.20 Calculus of gallbladder without cholecystitis without obstruction; C18.7 Malignant neoplasm of sigmoid colon; I10 Essential (primary) hypertension; J30.2 Other seasonal allergic rhinitis; D86.9 Sarcoidosis, unspecified; K21.9 Gastro-esophageal reflux disease without esophagitis; Z90.49 Acquired absence of other specified parts of digestive tract; Z87.891 Personal history of nicotine dependence; Z87.442 Personal history of urinary calculi; Z79.899 Other long term (current) drug therapy ==

== ENCOUNTER 2019-04-18 09:18 | Outpatient (RCR) | payer BC ==
[2019-02-09 13:10] LABS: BASOPHILS % (AUTO) 1 % (0-10); EOSINOPHILS # (AUTO) 0.3 10^3/uL (0.0-0.3); EOSINOPHILS % (AUTO) 4 % (0-10); HEMATOCRIT 38 % (40-54); LYMPHOCYTES # (AUTO) 0.5 X 10^3 (1.0-4.0); LYMPHOCYTES % (AUTO) 7 % (12-44); MEAN CORPUSCULAR HEMOGLOBIN 28 PG (25-34); MEAN CORPUSCULAR HGB CONC 34 G/DL (32-36); MEAN CORPUSCULAR VOLUME 83 FL (80-99); MEAN PLATELET VOLUME 9.7 FL (7.4-10.4); MONOCYTES % (AUTO) 14 % (0-12); NEUTROPHILS # (AUTO) 5.3 X 10^3 (1.8-7.8); NEUTROPHILS % (AUTO) 75 % (42-75); PLATELET COUNT 215 10^3/uL (130-400); RED CELL DISTRIBUTION WIDTH 22.3 % (10.0-14.5); WHITE BLOOD COUNT 7.1 10^3/uL (4.3-11.0)
[2019-02-09 13:27] LABS: ALBUMIN 4.1 GM/DL (3.2-4.5); BILIRUBIN,TOTAL 0.8 MG/DL (0.1-1.0); CALCIUM 9.8 MG/DL (8.5-10.1); CREATININE SERUM 1.33 MG/DL (0.60-1.30); MAGNESIUM 1.9 MG/DL (1.8-2.4); POTASSIUM 4.4 MMOL/L (3.6-5.0); TOTAL PROTEIN 7.3 GM/DL (6.4-8.2)
[2019-02-14 11:30] LABS: BASOPHILS # (AUTO) 0.1 10^3/uL (0.0-0.1); BASOPHILS % (AUTO) 1 % (0-10); EOSINOPHILS # (AUTO) 0.3 10^3/uL (0.0-0.3); EOSINOPHILS % (AUTO) 4 % (0-10); HEMATOCRIT 38 % (40-54); HEMOGLOBIN 13.1 G/DL (13.3-17.7); LYMPHOCYTES # (AUTO) 0.6 X 10^3 (1.0-4.0); LYMPHOCYTES % (AUTO) 9 % (12-44); MEAN CORPUSCULAR HEMOGLOBIN 29 PG (25-34); MEAN CORPUSCULAR HGB CONC 34 G/DL (32-36); MEAN CORPUSCULAR VOLUME 83 FL (80-99); MONOCYTES # (AUTO) 1.1 X 10^3 (0.0-1.0); MONOCYTES % (AUTO) 16 % (0-12); NEUTROPHILS # (AUTO) 4.7 X 10^3 (1.8-7.8); NEUTROPHILS % (AUTO) 70 % (42-75); PLATELET COUNT 223 10^3/uL (130-400); WHITE BLOOD COUNT 6.7 10^3/uL (4.3-11.0)
[2019-02-14 11:54] LABS: ALANINE AMINOTRANSFERASE 20 U/L (0-55); ALBUMIN 4.2 GM/DL (3.2-4.5); ALKALINE PHOSPHATASE 88 U/L (40-136); BILIRUBIN,TOTAL 0.9 MG/DL (0.1-1.0); BUN/CREATININE RATIO 20; CALCIUM 9.6 MG/DL (8.5-10.1); CARBON DIOXIDE 23 MMOL/L (21-32); CHLORIDE 106 MMOL/L (98-107); CREATININE SERUM 0.93 MG/DL (0.60-1.30); GFR ESTIMATED > 60; GLUCOSE 152 MG/DL (70-105); POTASSIUM 3.4 MMOL/L (3.6-5.0); SODIUM 137 MMOL/L (135-145); TOTAL PROTEIN 7.4 GM/DL (6.4-8.2)
[2019-02-25 08:15] LABS: BASOPHILS # (AUTO) 0.1 10^3/uL (0.0-0.1); BASOPHILS % (AUTO) 2 % (0-10); EOSINOPHILS # (AUTO) 0.4 10^3/uL (0.0-0.3); EOSINOPHILS % (AUTO) 8 % (0-10); HEMATOCRIT 38 % (40-54); LYMPHOCYTES # (AUTO) 0.5 X 10^3 (1.0-4.0); LYMPHOCYTES % (AUTO) 10 % (12-44); MEAN CORPUSCULAR HEMOGLOBIN 30 PG (25-34); MEAN CORPUSCULAR HGB CONC 34 G/DL (32-36); MEAN CORPUSCULAR VOLUME 88 FL (80-99); MEAN PLATELET VOLUME 10.1 FL (7.4-10.4); MONOCYTES % (AUTO) 21 % (0-12); NEUTROPHILS # (AUTO) 2.9 X 10^3 (1.8-7.8); NEUTROPHILS % (AUTO) 60 % (42-75); PLATELET COUNT 165 10^3/uL (130-400); RED CELL DISTRIBUTION WIDTH 23.4 % (10.0-14.5); WHITE BLOOD COUNT 4.8 10^3/uL (4.3-11.0)
[2019-02-25 08:45] LABS: ALANINE AMINOTRANSFERASE 19 U/L (0-55); ALBUMIN 4.4 GM/DL (3.2-4.5); ALKALINE PHOSPHATASE 95 U/L (40-136); BILIRUBIN,TOTAL 0.9 MG/DL (0.1-1.0); BUN/CREATININE RATIO 26; CALCIUM 9.5 MG/DL (8.5-10.1); CARBON DIOXIDE 22 MMOL/L (21-32); CHLORIDE 106 MMOL/L (98-107); CREATININE SERUM 0.91 MG/DL (0.60-1.30); GFR ESTIMATED > 60; GLUCOSE 106 MG/DL (70-105); SODIUM 137 MMOL/L (135-145); TOTAL PROTEIN 7.6 GM/DL (6.4-8.2)
[2019-03-07 09:56] LABS: BASOPHILS # (AUTO) 0.1 10^3/uL (0.0-0.1); BASOPHILS % (AUTO) 1 % (0-10); EOSINOPHILS # (AUTO) 0.4 10^3/uL (0.0-0.3); EOSINOPHILS % (AUTO) 6 % (0-10); HEMATOCRIT 42 % (40-54); HEMOGLOBIN 14.2 G/DL (13.3-17.7); LYMPHOCYTES # (AUTO) 0.6 X 10^3 (1.0-4.0); LYMPHOCYTES % (AUTO) 9 % (12-44); MEAN CORPUSCULAR HEMOGLOBIN 31 PG (25-34); MEAN CORPUSCULAR HGB CONC 34 G/DL (32-36); MEAN CORPUSCULAR VOLUME 89 FL (80-99); MEAN PLATELET VOLUME 10.6 FL (7.4-10.4); MONOCYTES # (AUTO) 1.2 X 10^3 (0.0-1.0); MONOCYTES % (AUTO) 17 % (0-12); NEUTROPHILS # (AUTO) 4.8 X 10^3 (1.8-7.8); NEUTROPHILS % (AUTO) 67 % (42-75); PLATELET COUNT 149 10^3/uL (130-400); RED CELL DISTRIBUTION WIDTH 19.5 % (10.0-14.5); WHITE BLOOD COUNT 7.2 10^3/uL (4.3-11.0)
[2019-03-07 10:11] LABS: BUN/CREATININE RATIO 19; CALCIUM 10.1 MG/DL (8.5-10.1); CARBON DIOXIDE 26 MMOL/L (21-32); CHLORIDE 104 MMOL/L (98-107); GFR ESTIMATED > 60; GLUCOSE 97 MG/DL (70-105); POTASSIUM 4.5 MMOL/L (3.6-5.0); SODIUM 144 MMOL/L (135-145)
[2019-03-14 11:01] LABS: BASOPHILS # (AUTO) 0.1 10^3/uL (0.0-0.1); BASOPHILS % (AUTO) 1 % (0-10); EOSINOPHILS # (AUTO) 0.3 10^3/uL (0.0-0.3); EOSINOPHILS % (AUTO) 5 % (0-10); HEMATOCRIT 38 % (40-54); HEMOGLOBIN 12.8 G/DL (13.3-17.7); LYMPHOCYTES # (AUTO) 0.5 X 10^3 (1.0-4.0); LYMPHOCYTES % (AUTO) 8 % (12-44); MEAN CORPUSCULAR HEMOGLOBIN 31 PG (25-34); MEAN CORPUSCULAR HGB CONC 34 G/DL (32-36); MEAN CORPUSCULAR VOLUME 91 FL (80-99); MEAN PLATELET VOLUME 10.3 FL (7.4-10.4); MONOCYTES # (AUTO) 1.1 X 10^3 (0.0-1.0); MONOCYTES % (AUTO) 18 % (0-12); NEUTROPHILS # (AUTO) 4.1 X 10^3 (1.8-7.8); NEUTROPHILS % (AUTO) 68 % (42-75); PLATELET COUNT 124 10^3/uL (130-400); RED CELL DISTRIBUTION WIDTH 18.9 % (10.0-14.5); WHITE BLOOD COUNT 6.1 10^3/uL (4.3-11.0)
[2019-03-14 11:25] LABS: BUN/CREATININE RATIO 23; CALCIUM 10.1 MG/DL (8.5-10.1); CARBON DIOXIDE 27 MMOL/L (21-32); CHLORIDE 106 MMOL/L (98-107); CREATININE SERUM 1.02 MG/DL (0.60-1.30); GFR ESTIMATED > 60; GLUCOSE 102 MG/DL (70-105); POTASSIUM 4.6 MMOL/L (3.6-5.0); SODIUM 144 MMOL/L (135-145)
[2019-03-21 09:20] LABS: BASOPHILS # (AUTO) 0.1 10^3/uL (0.0-0.1); BASOPHILS % (AUTO) 2 % (0-10); EOSINOPHILS # (AUTO) 0.4 10^3/uL (0.0-0.3); EOSINOPHILS % (AUTO) 10 % (0-10); HEMATOCRIT 40 % (40-54); HEMOGLOBIN 13.7 G/DL (13.3-17.7); LYMPHOCYTES # (AUTO) 0.5 X 10^3 (1.0-4.0); LYMPHOCYTES % (AUTO) 13 % (12-44); MEAN CORPUSCULAR HEMOGLOBIN 31 PG (25-34); MEAN CORPUSCULAR HGB CONC 34 G/DL (32-36); MEAN CORPUSCULAR VOLUME 92 FL (80-99); MONOCYTES # (AUTO) 1.1 X 10^3 (0.0-1.0); MONOCYTES % (AUTO) 26 % (0-12); NEUTROPHILS % (AUTO) 49 % (42-75); PLATELET COUNT 135 10^3/uL (130-400); RED CELL DISTRIBUTION WIDTH 19.9 % (10.0-14.5)
[2019-03-21 09:37] LABS: BUN/CREATININE RATIO 20; CALCIUM 9.6 MG/DL (8.5-10.1); CARBON DIOXIDE 23 MMOL/L (21-32); CHLORIDE 106 MMOL/L (98-107); CREATININE SERUM 0.92 MG/DL (0.60-1.30); GFR ESTIMATED > 60; GLUCOSE 123 MG/DL (70-105); POTASSIUM 4.1 MMOL/L (3.6-5.0); SODIUM 139 MMOL/L (135-145)
[~2019-04-18 09:18] MED LIST changes: +D5W 500 ML IV (CANCER CTR) 500 ML IV SCH; +FOSAPREPITANT DIMEGLUMINE 150 MG in NS (IVPB) CANCER CENTER ONLY 150 ML IV SCH; -HOLD METFORMIN - RECEIVED CONTRAST 20 ML VIAL IV SCH; -IOHEXOL 350 MG/ML 100 ML (OMNIPAQUE 350) VIAL IV ONE; +OXALIPLATIN 260 MG in D5W 250 ML IVPB (CANCER CTR) 250 ML IV SCH; +PALONOSETRON HCL 0.25 MG, DEXAMETHASONE INJECTION 10 MG in NS (IVPB) CANCER CENTER 50 ML IV SCH
== END 2019-05-10 | disposition home or self-care (01) ==
LOC: ONC 09:18
PROVIDERS: ATTEND Internal Medicine Hematology & Oncology
DX: C18.7 Malignant neoplasm of sigmoid colon (principal); I10 Essential (primary) hypertension; K21.9 Gastro-esophageal reflux disease without esophagitis; Z90.49 Acquired absence of other specified parts of digestive tract; Z87.891 Personal history of nicotine dependence; Z79.899 Other long term (current) drug therapy; Z45.2 Encounter for adjustment and management of vascular access device
CPT/HCPCS: 36415; 80048; 80053; 83735; 85025; 96367; 96375; 96413; 96415; 96523; 99213

== ENCOUNTER 2019-06-24 08:01 | Outpatient (RCR) | payer BC ==
[~2019-06-24 08:01] MED LIST changes: -D5W 500 ML IV (CANCER CTR) 500 ML IV SCH; -FOSAPREPITANT DIMEGLUMINE 150 MG in NS (IVPB) CANCER CENTER ONLY 150 ML IV SCH; -OXALIPLATIN 260 MG in D5W 250 ML IVPB (CANCER CTR) 250 ML IV SCH; -PALONOSETRON HCL 0.25 MG, DEXAMETHASONE INJECTION 10 MG in NS (IVPB) CANCER CENTER 50 ML IV SCH
[2019-06-24 08:17] LABS: BASOPHILS # (AUTO) 0.1 10^3/uL (0.0-0.1); BASOPHILS % (AUTO) 2 % (0-10); EOSINOPHILS # (AUTO) 0.5 10^3/uL (0.0-0.3); EOSINOPHILS % (AUTO) 8 % (0-10); HEMATOCRIT 45 % (40-54); HEMOGLOBIN 15.5 G/DL (13.3-17.7); LYMPHOCYTES # (AUTO) 0.6 X 10^3 (1.0-4.0); LYMPHOCYTES % (AUTO) 10 % (12-44); MEAN CORPUSCULAR HEMOGLOBIN 29 PG (25-34); MEAN CORPUSCULAR HGB CONC 35 G/DL (32-36); MEAN CORPUSCULAR VOLUME 84 FL (80-99); MEAN PLATELET VOLUME 10.1 FL (7.4-10.4); MONOCYTES # (AUTO) 0.8 X 10^3 (0.0-1.0); MONOCYTES % (AUTO) 14 % (0-12); NEUTROPHILS # (AUTO) 3.8 X 10^3 (1.8-7.8); NEUTROPHILS % (AUTO) 65 % (42-75); PLATELET COUNT 171 10^3/uL (130-400); RED CELL DISTRIBUTION WIDTH 13.7 % (10.0-14.5); WHITE BLOOD COUNT 5.8 10^3/uL (4.3-11.0)
[2019-06-24 08:43] LABS: ALANINE AMINOTRANSFERASE 33 U/L (0-55); ALBUMIN 4.3 GM/DL (3.2-4.5); ALKALINE PHOSPHATASE 95 U/L (40-136); BILIRUBIN,TOTAL 0.7 MG/DL (0.1-1.0); BUN/CREATININE RATIO 26; CALCIUM 9.2 MG/DL (8.5-10.1); CARBON DIOXIDE 28 MMOL/L (21-32); CHLORIDE 101 MMOL/L (98-107); CREATININE SERUM 1.09 MG/DL (0.60-1.30); GFR ESTIMATED > 60; GLUCOSE 120 MG/DL (70-105); POTASSIUM 4.1 MMOL/L (3.6-5.0); SODIUM 137 MMOL/L (135-145); TOTAL PROTEIN 7.6 GM/DL (6.4-8.2)
== END 2019-08-15 | disposition home or self-care (01) ==
LOC: ONC 08:01
PROVIDERS: ATTEND Internal Medicine Hematology & Oncology
DX: C18.7 Malignant neoplasm of sigmoid colon (principal); I10 Essential (primary) hypertension; K21.9 Gastro-esophageal reflux disease without esophagitis; Z90.49 Acquired absence of other specified parts of digestive tract; Z87.891 Personal history of nicotine dependence; Z79.899 Other long term (current) drug therapy; Z45.2 Encounter for adjustment and management of vascular access device
CPT/HCPCS: 36591; 80053; 85025; 96523

== ENCOUNTER 2019-12-12 10:45 | Outpatient (RCR) | payer BC ==
[2019-09-16 08:20] LABS: BASOPHILS # (AUTO) 0.1 10^3/uL (0.0-0.1); BASOPHILS % (AUTO) 1 % (0-10); EOSINOPHILS # (AUTO) 0.5 10^3/uL (0.0-0.3); EOSINOPHILS % (AUTO) 9 % (0-10); HEMATOCRIT 45 % (40-54); HEMOGLOBIN 15.7 G/DL (13.3-17.7); LYMPHOCYTES # (AUTO) 0.6 X 10^3 (1.0-4.0); LYMPHOCYTES % (AUTO) 10 % (12-44); MEAN CORPUSCULAR HEMOGLOBIN 29 PG (25-34); MEAN CORPUSCULAR HGB CONC 35 G/DL (32-36); MEAN CORPUSCULAR VOLUME 84 FL (80-99); MEAN PLATELET VOLUME 9.6 FL (7.4-10.4); MONOCYTES # (AUTO) 0.8 X 10^3 (0.0-1.0); MONOCYTES % (AUTO) 13 % (0-12); NEUTROPHILS # (AUTO) 3.9 X 10^3 (1.8-7.8); NEUTROPHILS % (AUTO) 68 % (42-75); PLATELET COUNT 173 10^3/uL (130-400); WHITE BLOOD COUNT 5.8 10^3/uL (4.3-11.0)
[2019-09-16 08:52] LABS: ALANINE AMINOTRANSFERASE 34 U/L (0-55); ALBUMIN 4.2 GM/DL (3.2-4.5); ALKALINE PHOSPHATASE 92 U/L (40-136); BILIRUBIN,TOTAL 0.8 MG/DL (0.1-1.0); BUN/CREATININE RATIO 17; CALCIUM 9.5 MG/DL (8.5-10.1); CARBON DIOXIDE 22 MMOL/L (21-32); CHLORIDE 104 MMOL/L (98-107); CREATININE SERUM 1.03 MG/DL (0.60-1.30); GFR ESTIMATED > 60; GLUCOSE 182 MG/DL (70-105); POTASSIUM 4.1 MMOL/L (3.6-5.0); SODIUM 138 MMOL/L (135-145); TOTAL PROTEIN 7.6 GM/DL (6.4-8.2)
[~2019-12-12 10:45] MED LIST changes: +ACHYD1T PO; -GUAI400T44 PO; +GUAI400T85 PO; -HYDR-3820 PO; -METO-370 PO; -METO-387 PO; +METO50TA7 PO; +MTP25TSR PO; -TRAM50TA2 PO; +TRM50T PO
== END 2019-12-15 | disposition home or self-care (01) ==
LOC: ONC 10:45
PROVIDERS: ATTEND Internal Medicine Hematology & Oncology
DX: C18.7 Malignant neoplasm of sigmoid colon (principal); I10 Essential (primary) hypertension; K21.9 Gastro-esophageal reflux disease without esophagitis; Z90.49 Acquired absence of other specified parts of digestive tract; Z87.891 Personal history of nicotine dependence; Z79.899 Other long term (current) drug therapy; Z45.2 Encounter for adjustment and management of vascular access device
CPT/HCPCS: 36591; 80053; 85025; 96523

== ENCOUNTER → 2020-01-16 | Outpatient (CLI) | payer BC ==
[~2020-01-16] MED LIST changes: +BARIUM SUSPENSION 2.1% (VANILLA SILQ) 450 ML PO ONE; +HOLD METFORMIN - RECEIVED CONTRAST 20 ML VIAL IV SCH; +IOHEXOL 350 MG/ML 100 ML (OMNIPAQUE 350) VIAL IV ONE; +NS 100 ML (IVPB) BAG IV ONE
--- NOTE | 2020-01-16 11:13 | Diagnostic Imaging Report ---
PROCEDURE: CT chest with contrast, CT abdomen and pelvis with and without contrast. TECHNIQUE: Pre and post intravenous contrast axial imaging of the abdomen and pelvis and post contrast axial imaging of the chest were performed. Auto Exposure Controls were utilized during the CT exam to meet ALARA standards for radiation dose reduction. INDICATION: History of colon cancer. Study compared with exam one year earlier. CHEST: Multiple scattered somewhat irregular and in part airspace dense up solid pulmonary nodules largely showed little if any interval change, however keith-fissural disease in the right lower lobe anteroinferiorly has progressed and consolidation in density. Low-density mediastinal and hilar lymphadenopathy partly calcified, but predominantly uncalcified showed no change. Underlying sarcoidosis remains a suspicion. No effusion or pneumothorax. No acute soft tissue or osseous chest wall pathology. A central venous catheter in the lower SVC is stable. Abdomen/pelvis: No hepatosplenic abnormality. The adrenals are negative. There is no abdominal pelvic mesenteric or retroperitoneal lymphadenopathy. No ascites, abscess, hematoma or acute fluid collection. No suspicious lytic or sclerotic bony lesion. Some lymph nodes in the left groin stable. There are few gallstones without bile duct dilatation. There is no acute cholecystitis. Unobstructed kidneys appeared normal. The urinary bladder unremarkable. No adnexal lesion. IMPRESSION: CHEST: Largely unchanged irregular somewhat airspace subcentimeter pulmonary nodules with unchanged moderately extensive hilar and mediastinal lymphadenopathy. Underlying sarcoidosis may account for these findings. Given the relative stability, the metastatic disease would be less likely although we do acknowledge progressive density and consolidation in the keith-fissural right lower lobe which could be neoplastic or infectious. Abdomen/pelvis: No evidence of metastatic disease, cholelithiasis without acute cholecystitis. No obstructive features, inflammatory process, ascites or change. Dictated by: Dictated on workstation # [id number]
== END ==
LOC: RAD 08:59
PROVIDERS: ATTEND Internal Medicine Hematology & Oncology
DX: C18.7 Malignant neoplasm of sigmoid colon (principal); R91.8 Other nonspecific abnormal finding of lung field
CPT/HCPCS: 71260; 74178

== ENCOUNTER 2020-01-19 07:56 | Outpatient (RCR) | payer BC ==
[2020-01-16 08:59] LABS: BASOPHILS # (AUTO) 0.1 10^3/uL (0.0-0.1); BASOPHILS % (AUTO) 1 % (0-10); EOSINOPHILS # (AUTO) 0.2 10^3/uL (0.0-0.3); EOSINOPHILS % (AUTO) 2 % (0-10); HEMATOCRIT 45 % (40-54); HEMOGLOBIN 15.9 G/DL (13.3-17.7); LYMPHOCYTES # (AUTO) 0.9 X 10^3 (1.0-4.0); LYMPHOCYTES % (AUTO) 9 % (12-44); MEAN CORPUSCULAR HEMOGLOBIN 30 PG (25-34); MEAN CORPUSCULAR HGB CONC 35 G/DL (32-36); MEAN CORPUSCULAR VOLUME 84 FL (80-99); MEAN PLATELET VOLUME 10.3 FL (7.4-10.4); MONOCYTES # (AUTO) 1.3 X 10^3 (0.0-1.0); MONOCYTES % (AUTO) 13 % (0-12); NEUTROPHILS # (AUTO) 7.2 X 10^3 (1.8-7.8); NEUTROPHILS % (AUTO) 75 % (42-75); PLATELET COUNT 198 10^3/uL (130-400); RED CELL DISTRIBUTION WIDTH 15.4 % (10.0-14.5); WHITE BLOOD COUNT 9.6 10^3/uL (4.3-11.0)
[2020-01-16 09:22] LABS: ALANINE AMINOTRANSFERASE 29 U/L (0-55); ALBUMIN 4.1 GM/DL (3.2-4.5); ALKALINE PHOSPHATASE 80 U/L (40-136); BILIRUBIN,TOTAL 0.6 MG/DL (0.1-1.0); BUN/CREATININE RATIO 17; CALCIUM 8.9 MG/DL (8.5-10.1); CARBON DIOXIDE 23 MMOL/L (21-32); CHLORIDE 107 MMOL/L (98-107); CREATININE SERUM 1.11 MG/DL (0.60-1.30); GFR ESTIMATED > 60; GLUCOSE 122 MG/DL (70-105); POTASSIUM 3.8 MMOL/L (3.6-5.0); SODIUM 142 MMOL/L (135-145)
[~2020-01-19 07:56] MED LIST changes: -BARIUM SUSPENSION 2.1% (VANILLA SILQ) 450 ML PO ONE; -HOLD METFORMIN - RECEIVED CONTRAST 20 ML VIAL IV SCH; -IOHEXOL 350 MG/ML 100 ML (OMNIPAQUE 350) VIAL IV ONE; -NS 100 ML (IVPB) BAG IV ONE
[2020-02-09] MEDS ORDERED: SPIR25TA5 PO (10:28)
[2020-02-09] MEDS ORDERED: DICL75TA2 PO (10:28)
[2020-02-09] MEDS ORDERED: NORT50CA PO (10:28)
[2020-02-09] MEDS ORDERED: FURO40TA4 PO (10:28)
== END 2020-04-15 | disposition home or self-care (01) ==
LOC: ONC 07:56
PROVIDERS: ATTEND Internal Medicine Hematology & Oncology
DX: C18.7 Malignant neoplasm of sigmoid colon (principal); I10 Essential (primary) hypertension; K21.9 Gastro-esophageal reflux disease without esophagitis; Z90.49 Acquired absence of other specified parts of digestive tract; Z87.891 Personal history of nicotine dependence; Z79.899 Other long term (current) drug therapy; Z45.2 Encounter for adjustment and management of vascular access device
CPT/HCPCS: 36591; 80053; 85025; 99213

== ENCOUNTER 2020-02-09 05:32 | Outpatient (RCR) | payer BC ==
[~2020-02-09] VITALS: Ht 175.3 cm; Wt 122.7 kg
[2020-02-09] MEDS ORDERED: SPIR25TA5 PO (10:28)
[2020-02-09] MEDS ORDERED: NORT50CA PO (10:28)
[2020-02-09] MEDS ORDERED: DICL75TA2 PO (10:28)
[2020-02-09] MEDS ORDERED: FURO40TA4 PO (10:28)
== END 2020-02-09 15:39 | disposition home or self-care (01) ==
LOC: PREOP 05:32
PROVIDERS: ATTEND Surgery
DX: Z01.818 Encounter for other preprocedural examination (principal); Z11.59 Encounter for screening for other viral diseases
CPT/HCPCS: 87635

== ENCOUNTER 2020-02-13 06:05 | Day surgery (SDC) | payer BC ==
[~2020-02-13] VITALS: Ht 175.3 cm; Wt 122.7 kg
[~2020-02-13 06:05] MED LIST changes: +DICL75TA2 PO
[2020-02-13] MEDS ORDERED: LACTATED RINGERS 1,000 ML IV PRN (06:07)
--- OUTSIDE RECORDS SUMMARY | 2020-02-13 06:13 | XMS REPORT | Continuity of Care Document ---
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 LOCALIZED ENLARGED LYMPH NODES 01/13/2019 JANAE WOLFE TECHNICAL DOCUMENT WRITER Ot R91.8 OTHER NONSPECIFIC ABNORMAL FINDING OF ALEXEI 01/14/2019 SUGAR SR MD Ot C18.7 MALIGNANT NEOPLASM OF SIGMOID COLON 01/14/2019 SUGAR SR MD Ot R51 HEADACHE 01/17/2019 SUGAR SR MD Ot C18.7 MALIGNANT NEOPLASM OF SIGMOID COLON 01/17/2019 SUGAR SR MD Ot D86.9 SARCOIDOSIS, UNSPECIFIED 01/17/2019 SUGAR SR MD Ot E83.42 HYPOMAGNESEMIA 01/17/2019 SUGAR SR MD Ot E87.6 HYPOKALEMIA 01/17/2019 SUGAR SR MD Ot I10 ESSENTIAL (PRIMARY) HYPERTENSION 01/17/2019 SUGAR SR MD Ot J30.2 OTHER SEASONAL ALLERGIC RHINITIS 01/17/2019 SUGAR SR MD Ot K21.9 GASTRO-ESOPHAGEAL REFLUX DISEASE WITHOUT 01/17/2019 SUGAR SR MD Ot K52.9 NONINFECTIVE GASTROENTERITIS AND COLITIS 01/17/2019 SUGAR SR MD Ot K80.20 CALCULUS OF GALLBLADDER W/O CHOLECYSTITI 01/17/2019 SUGAR SR MD Ot Z79.899 OTHER SHOE CLEANER (CURRENT) DRUG THERAPY 01/17/2019 SUGAR SR MD Ot Z87.442 PERSONAL HISTORY OF URINARY CALCULI 01/17/2019 SUGAR SR MD Ot Z87.891 PERSONAL HISTORY OF NICOTINE DEPENDENCE 01/17/2019 SUGAR SR MD Ot Z90.49 ACQUIRED ABSENCE OF OTHER SPECIFIED PART 01/17/2019 SUGAR SR MD Ot C18.7 MALIGNANT NEOPLASM OF SIGMOID COLON 01/17/2019 SUGAR SR MD Ot D86.9 SARCOIDOSIS, UNSPECIFIED 01/17/2019 SUGAR SR MD Ot E83.42 HYPOMAGNESEMIA 01/17/2019 SUGAR SR MD Ot E87.6 HYPOKALEMIA 01/17/2019 SUGAR SR MD Ot I10 ESSENTIAL (PRIMARY) HYPERTENSION 01/17/2019 SUGAR SR MD Ot J30.2 OTHER SEASONAL ALLERGIC RHINITIS 01/17/2019 SUGAR SR MD Ot K21.9 GASTRO-ESOPHAGEAL REFLUX DISEASE WITHOUT 01/17/2019 SUGAR SR MD Ot K52.9 NONINFECTIVE GASTROENTERITIS AND COLITIS 01/17/2019 SUGAR SR MD Ot K80.20 CALCULUS OF GALLBLADDER W/O CHOLECYSTITI 01/17/2019 SUGAR SR MD Ot Z79.899 OTHER NURSING HOME (CURRENT) DRUG THERAPY 01/17/2019 SUGAR SR MD Ot Z87.442 PERSONAL HISTORY OF URINARY CALCULI 01/17/2019 SUGAR SR MD Ot Z87.891 PERSONAL HISTORY OF NICOTINE DEPENDENCE 01/17/2019 SUGAR SR MD Ot Z90.49 ACQUIRED ABSENCE OF OTHER SPECIFIED PART 01/19/2019 SUGAR SR MD Ot C18.7 MALIGNANT NEOPLASM OF SIGMOID COLON 01/19/2019 SUGAR SR MD Ot D86.9 SARCOIDOSIS, UNSPECIFIED 01/19/2019 SUGAR SR MD Ot E83.42 HYPOMAGNESEMIA 01/19/2019 SUGAR SR MD Ot E87.6 HYPOKALEMIA 01/19/2019 SUGAR SR MD Ot I10 ESSENTIAL (PRIMARY) HYPERTENSION 01/19/2019 SUGAR SR MD Ot J30.2 OTHER SEASONAL ALLERGIC RHINITIS 01/19/2019 SUGAR SR MD Ot K21.9 GASTRO-ESOPHAGEAL REFLUX DISEASE WITHOUT 01/19/2019 SUGAR SR MD Ot K52.9 NONINFECTIVE GASTROENTERITIS AND COLITIS 01/19/2019 SUGAR SR MD Ot K80.20 CALCULUS OF GALLBLADDER W/O CHOLECYSTITI 01/19/2019 SUGAR SR MD Ot L27.1 LOC SKIN ERUPTION DUE TO DRUGS AND MEDS 01/19/2019 SUGAR SR MD Ot R51 HEADACHE 01/19/2019 SUGAR SR MD Ot T45.1X5 A ADVERSE EFFECT OF ANTINEOPLASTIC AND IMM 01/19/2019 SUGAR SR MD Ot Z79.899 OTHER SHOE CLEANER (CURRENT) DRUG THERAPY 01/19/2019 SUGAR SR MD Ot Z87.442 PERSONAL HISTORY OF URINARY CALCULI 01/19/2019 SUGAR SR MD Ot Z87.891 PERSONAL HISTORY OF NICOTINE DEPENDENCE 01/19/2019 SUGAR SR MD Ot Z90.49 ACQUIRED ABSENCE OF OTHER SPECIFIED PART 01/21/2019 SUGAR SR MD Ot C18.7 MALIGNANT NEOPLASM OF SIGMOID COLON 01/21/2019 SUGAR SR MD Ot D86.9 SARCOIDOSIS, UNSPECIFIED 01/21/2019 SUGAR SR MD Ot E83.42 HYPOMAGNESEMIA 01/21/2019 SUGAR SR MD Ot E87.6 HYPOKALEMIA 01/21/2019 SUGAR SR MD Ot I10 ESSENTIAL (PRIMARY) HYPERTENSION 01/21/2019 SUGAR SR MD Ot J30.2 OTHER SEASONAL ALLERGIC RHINITIS 01/21/2019 SUGAR SR MD Ot K21.9 GASTRO-ESOPHAGEAL REFLUX DISEASE WITHOUT 01/21/2019 SUGAR SR MD Ot K52.9 NONINFECTIVE GASTROENTERITIS AND COLITIS 01/21/2019 SUGAR SR MD Ot K80.20 CALCULUS OF GALLBLADDER W/O CHOLECYSTITI 01/21/2019 SUGAR SR MD Ot L27.1 LOC SKIN ERUPTION DUE TO DRUGS AND MEDS 01/21/2019 SUGAR SR MD Ot T45.1X5 A ADVERSE EFFECT OF ANTINEOPLASTIC AND IMM 01/21/2019 SUGAR SR MD Ot Z79.899 OTHER SHOE CLEANER (CURRENT) DRUG THERAPY 01/21/2019 SUGAR SR MD Ot Z87.442 PERSONAL HISTORY OF URINARY CALCULI 01/21/2019 SUGAR SR MD Ot Z87.891 PERSONAL HISTORY OF NICOTINE DEPENDENCE 01/21/2019 SUGAR SR MD Ot Z90.49 ACQUIRED ABSENCE OF OTHER SPECIFIED PART 01/21/2019 SUGAR SR MD Ot C18.7 MALIGNANT NEOPLASM OF SIGMOID COLON 01/21/2019 SUGAR SR MD Ot D86.9 SARCOIDOSIS, UNSPECIFIED 01/21/2019 SUGAR SR MD Ot E83.42 HYPOMAGNESEMIA 01/21/2019 SUGAR SR MD Ot E87.6 HYPOKALEMIA 01/21/2019 SUGAR SR MD Ot I10 ESSENTIAL (PRIMARY) HYPERTENSION 01/21/2019 SUGAR SR MD Ot J30.2 OTHER SEASONAL ALLERGIC RHINITIS 01/21/2019 SUGAR SR MD, Ot K21.9 GASTRO-ESOPHAGEAL REFLUX DISEASE WITHOUT 01/21/2019 SUGAR SR MD, Ot K52.9 NONINFECTIVE GASTROENTERITIS AND COLITIS 01/21/2019 SUGAR SR MD, Ot K80.20 CALCULUS OF GALLBLADDER W/O CHOLECYSTITI 01/21/2019 SUGAR SR MD, Ot L27.1 LOC SKIN ERUPTION DUE TO DRUGS AND MEDS 01/21/2019 SUGAR SR MD Ot T45.1X5 A ADVERSE EFFECT OF ANTINEOPLASTIC AND IMM 01/21/2019 SUGAR SR MD Ot Z79.899 OTHER SHOE CLEANER (CURRENT) DRUG THERAPY 01/21/2019 SUGAR SR MD, Ot Z87.442 PERSONAL HISTORY OF URINARY CALCULI 01/21/2019 SUGAR SR MD, Ot Z87.891 PERSONAL HISTORY OF NICOTINE DEPENDENCE 01/21/2019 SUGAR SR MD, Ot Z90.49 ACQUIRED ABSENCE OF OTHER SPECIFIED PART 02/03/2019 SUGAR SR MD Ot C18.9 MALIGNANT NEOPLASM OF COLON, UNSPECIFIED 02/08/2019 SUGAR SR MD Ot C18.7 MALIGNANT NEOPLASM OF SIGMOID COLON 02/08/2019 SUGAR SR MD, Ot C18.9 MALIGNANT NEOPLASM OF COLON, UNSPECIFIED 02/08/2019 SUGAR SR MD, Ot C77.2 SECONDARY AND UNSP MALIGNANT NEOPLASM OF 02/08/2019 SUGAR SR MD, Ot D86.9 SARCOIDOSIS, UNSPECIFIED 02/08/2019 SUGAR SR MD, Ot E66.9 OBESITY, UNSPECIFIED 02/08/2019 SUGAR SR MD Ot E83.42 HYPOMAGNESEMIA 02/08/2019 SUGAR SR MD Ot E87.6 HYPOKALEMIA 02/08/2019 SUGAR SR MD Ot G47.33 OBSTRUCTIVE SLEEP APNEA (ADULT) (PEDIATR 02/08/2019 SUGAR SR MD Ot I11.0 HYPERTENSIVE HEART DISEASE WITH HEART FA 02/08/2019 SUGAR SR MD Ot I25.10 ATHSCL HEART DISEASE OF [place] CORONARY 02/08/2019 SUGAR SR MD Ot I34.0 NONRHEUMATIC MITRAL (VALVE) INSUFFICIENC 02/08/2019 SUGAR SR MD, Ot I42.0 DILATED CARDIOMYOPATHY 02/08/2019 SUGAR SR MD, Ot I50.22 CHRONIC SYSTOLIC (CONGESTIVE) HEART FAIL 02/08/2019 SUGAR SR MD, Ot I73.9 PERIPHERAL VASCULAR DISEASE, UNSPECIFIED 02/08/2019 SUGAR SR MD, Ot K21.9 GASTRO-ESOPHAGEAL REFLUX DISEASE WITHOUT 02/08/2019 SUGAR SR MD, Ot R19.7 DIARRHEA, UNSPECIFIED 02/08/2019 SUGAR SR MD, Ot T81.41X A INFCT FOL A PROC, SUPERFIC INCISIONAL MARIA 02/08/2019 SUGAR SR MD, Ot Z51.11 ENCOUNTER FOR ANTINEOPLASTIC CHEMOTHERAP 02/08/2019 SUGAR SR MD, Ot Z68.33 BODY MASS INDEX (BMI) 33.0-33.9, ADULT 02/08/2019 SUGAR SR MD, Ot Z79.82 NURSING HOME (CURRENT) USE OF ASPIRIN 02/08/2019 SUGAR SR MD, Ot Z79.899 OTHER NURSING HOME (CURRENT) DRUG THERAPY 02/08/2019 SUGAR SR MD, Ot Z90.49 ACQUIRED ABSENCE OF OTHER SPECIFIED PART 02/10/2019 SUGAR SR MD, Ot C18.7 MALIGNANT NEOPLASM OF SIGMOID COLON 02/10/2019 SUGAR SR MD, Ot I10 ESSENTIAL (PRIMARY) HYPERTENSION 02/10/2019 SUGAR SR MD, Ot K21.9 GASTRO-ESOPHAGEAL REFLUX DISEASE WITHOUT 02/10/2019 SUGAR SR MD, Ot Z79.899 OTHER NURSING HOME (CURRENT) DRUG THERAPY 02/10/2019 SUGAR SR MD, Ot Z87.891 PERSONAL HISTORY OF NICOTINE DEPENDENCE 02/10/2019 SUGAR SR MD, Ot Z90.49 ACQUIRED ABSENCE OF OTHER SPECIFIED PART 02/10/2019 SUGAR SR MD, Ot C18.7 MALIGNANT NEOPLASM OF SIGMOID COLON 02/10/2019 SUGAR SR MD, Ot C77.2 SECONDARY AND UNSP MALIGNANT NEOPLASM OF 02/10/2019 SUGAR SR MD, Ot D86.9 SARCOIDOSIS, UNSPECIFIED 02/10/2019 SUGAR SR MD, Ot E66.9 OBESITY, UNSPECIFIED 02/10/2019 SUGAR SR MD, Ot E83.42 HYPOMAGNESEMIA 02/10/2019 SUGAR SR MD, Ot E87.6 HYPOKALEMIA 02/10/2019 SUGAR SR MD, Ot G47.33 OBSTRUCTIVE SLEEP APNEA (ADULT) (PEDIATR 02/10/2019 ORIN MD, WOOTEN Ot I11.0 HYPERTENSIVE HEART DISEASE WITH HEART FA 02/10/2019 SUGAR SR MD, Ot I25.10 ATHSCL HEART DISEASE OF [place] CORONARY 02/10/2019 SUGAR SR MD, Ot I34.0 NONRHEUMATIC MITRAL (VALVE) INSUFFICIENC 02/10/2019 SUGAR SR MD, Ot I42.0 DILATED CARDIOMYOPATHY 02/10/2019 SUGAR SR MD Ot I50.22 CHRONIC SYSTOLIC (CONGESTIVE) HEART FAIL 02/10/2019 SUGAR SR MD, Ot I73.9 PERIPHERAL VASCULAR DISEASE, UNSPECIFIED 02/10/2019 SUGAR SR MD, Ot K21.9 GASTRO-ESOPHAGEAL REFLUX DISEASE WITHOUT 02/10/2019 SUGAR SR MD Ot R19.7 DIARRHEA, UNSPECIFIED 02/10/2019 SUGAR SR MD, Ot T81.41X A INFCT FOL A PROC, SUPERFIC INCISIONAL MARIA 02/10/2019 SUGAR SR MD, Ot Z51.11 ENCOUNTER FOR ANTINEOPLASTIC CHEMOTHERAP 02/10/2019 SUGAR SR MD Ot Z68.33 BODY MASS INDEX (BMI) 33.0-33.9, ADULT 02/10/2019 SUGAR SR MD, Ot Z79.82 NURSING HOME (CURRENT) USE OF ASPIRIN 02/10/2019 SUGAR SR MD, Ot Z79.899 OTHER SHOE CLEANER (CURRENT) DRUG THERAPY 02/10/2019 SUGAR SR MD, Ot Z90.49 ACQUIRED ABSENCE OF OTHER SPECIFIED PART 02/10/2019 SUGAR SR MD, Ot C18.7 MALIGNANT NEOPLASM OF SIGMOID COLON 02/10/2019 SUGAR SR MD, Ot C77.2 SECONDARY AND UNSP MALIGNANT NEOPLASM OF 02/10/2019 SUGAR SR MD, Ot D86.9 SARCOIDOSIS, UNSPECIFIED 02/10/2019 SUGAR SR MD, Ot E66.9 OBESITY, UNSPECIFIED 02/10/2019 SUGAR SR MD Ot E83.42 HYPOMAGNESEMIA 02/10/2019 SUGAR SR MD, Ot E87.6 HYPOKALEMIA 02/10/2019 SUGAR SR MD, Ot G47.33 OBSTRUCTIVE SLEEP APNEA (ADULT) (PEDIATR 02/10/2019 SUGAR SR MD, Ot I11.0 HYPERTENSIVE HEART DISEASE WITH HEART FA 02/10/2019 SUGAR SR MD, Ot I25.10 ATHSCL HEART DISEASE OF [place] CORONARY 02/10/2019 SUGAR SR MD, Ot I34.0 NONRHEUMATIC MITRAL (VALVE) INSUFFICIENC 02/10/2019 SUGAR SR MD, Ot I42.0 DILATED CARDIOMYOPATHY 02/10/2019 SUGAR SR MD, Ot I50.22 CHRONIC SYSTOLIC (CONGESTIVE) HEART FAIL 02/10/2019 SUGAR SR MD, Ot I73.9 PERIPHERAL VASCULAR DISEASE, UNSPECIFIED 02/10/2019 SUGAR SR MD, Ot K21.9 GASTRO-ESOPHAGEAL REFLUX DISEASE WITHOUT 02/10/2019 SUGAR SR MD Ot R19.7 DIARRHEA, UNSPECIFIED 02/10/2019 SUGAR SR MD, Ot T81.41X A INFCT FOL A PROC, SUPERFIC INCISIONAL MARIA 02/10/2019 SUGAR SR MD, Ot Z51.11 ENCOUNTER FOR ANTINEOPLASTIC CHEMOTHERAP 02/10/2019 SUGAR SR MD, Ot Z68.33 BODY MASS INDEX (BMI) 33.0-33.9, ADULT 02/10/2019 SUGAR SR MD Ot Z79.82 NURSING HOME (CURRENT) USE OF ASPIRIN 02/10/2019 SUGAR SR MD Ot Z79.899 OTHER SHOE CLEANER (CURRENT) DRUG THERAPY 02/10/2019 SUGAR SR MD, Ot Z90.49 ACQUIRED ABSENCE OF OTHER SPECIFIED PART 02/24/2019 SUGAR SR MD Ot C18.7 MALIGNANT NEOPLASM OF SIGMOID COLON 02/24/2019 SUGAR SR MD Ot I10 ESSENTIAL (PRIMARY) HYPERTENSION 02/24/2019 SUGAR SR MD, Ot K21.9 GASTRO-ESOPHAGEAL REFLUX DISEASE WITHOUT 02/24/2019 SUGAR SR MD Ot Z79.899 OTHER SHOE CLEANER (CURRENT) DRUG THERAPY 02/24/2019 SUGAR SR MD Ot Z87.891 PERSONAL HISTORY OF NICOTINE DEPENDENCE 02/24/2019 SUGAR SR MD Ot Z90.49 ACQUIRED ABSENCE OF OTHER SPECIFIED PART 05/05/2019 SUGAR SR MD, Ot C18.7 MALIGNANT NEOPLASM OF SIGMOID COLON 05/05/2019 SUGAR SR MD Ot I10 ESSENTIAL (PRIMARY) HYPERTENSION 05/05/2019 SUGAR SR MD, Ot K21.9 GASTRO-ESOPHAGEAL REFLUX DISEASE WITHOUT 05/05/2019 SUGAR SR MD Ot Z79.899 OTHER NURSING HOME (CURRENT) DRUG THERAPY 05/05/2019 SUGAR SR MD Ot Z87.891 PERSONAL HISTORY OF NICOTINE DEPENDENCE 05/05/2019 SUGAR SR MD Ot Z90.49 ACQUIRED ABSENCE OF OTHER SPECIFIED PART 05/10/2019 SUGAR SR MD Ot C18.7 MALIGNANT NEOPLASM OF SIGMOID COLON 05/10/2019 SUGAR SR MD Ot I10 ESSENTIAL (PRIMARY) HYPERTENSION 05/10/2019 SUGAR SR MD Ot K21.9 GASTRO-ESOPHAGEAL REFLUX DISEASE WITHOUT 05/10/2019 IFEOMA SR MDNER Ot Z45.2 ENCOUNTER FOR ADJUSTMENT AND MANAGEMENT 05/10/2019 SUGAR SR MD Ot Z79.899 OTHER NURSING HOME (CURRENT) DRUG THERAPY 05/10/2019 SUGAR SR MD Ot Z87.891 PERSONAL HISTORY OF NICOTINE DEPENDENCE 05/10/2019 SUGAR SR MD Ot Z90.49 ACQUIRED ABSENCE OF OTHER SPECIFIED PART 05/11/2019 SUGAR SR MD Ot C18.7 MALIGNANT NEOPLASM OF SIGMOID COLON 05/11/2019 SUGAR SR MD Ot I10 ESSENTIAL (PRIMARY) HYPERTENSION 05/11/2019 SUGAR SR MD Ot K21.9 GASTRO-ESOPHAGEAL REFLUX DISEASE WITHOUT 05/11/2019 IFEOMA SR MDNER Ot Z45.2 ENCOUNTER FOR ADJUSTMENT AND MANAGEMENT 05/11/2019 SUGAR SR MD Ot Z79.899 OTHER SHOE CLEANER (CURRENT) DRUG THERAPY 05/11/2019 SUGAR SR MD Ot Z87.891 PERSONAL HISTORY OF NICOTINE DEPENDENCE 05/11/2019 SUGAR SR MD Ot Z90.49 ACQUIRED ABSENCE OF OTHER SPECIFIED PART 06/08/2019 SUGAR SR MD Ot 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9 GASTRO-ESOPHAGEAL REFLUX DISEASE WITHOUT 06/29/2019 SUGAR SR MD Ot Z45.2 ENCOUNTER FOR ADJUSTMENT AND MANAGEMENT 06/29/2019 SUGAR SR MD Ot Z79.899 OTHER SHOE CLEANER (CURRENT) DRUG THERAPY 06/29/2019 SUGAR SR MD Ot Z87.891 PERSONAL HISTORY OF NICOTINE DEPENDENCE 06/29/2019 SUGAR SR MD Ot Z90.49 ACQUIRED ABSENCE OF OTHER SPECIFIED PART 08/15/2019 SUGAR SR MD Ot C18.7 MALIGNANT NEOPLASM OF SIGMOID COLON 08/15/2019 SUGAR SR MD Ot I10 ESSENTIAL (PRIMARY) HYPERTENSION 08/15/2019 SUGAR SR MD Ot K21.9 GASTRO-ESOPHAGEAL REFLUX DISEASE WITHOUT 08/15/2019 SUGAR SR MD Ot Z45.2 ENCOUNTER FOR ADJUSTMENT AND MANAGEMENT 08/15/2019 SUGAR SR MD Ot Z79.899 OTHER NURSING HOME (CURRENT) DRUG THERAPY 08/15/2019 SUGAR SR MD Ot Z87.891 PERSONAL HISTORY OF NICOTINE DEPENDENCE 08/15/2019 SUGAR SR MD Ot Z90.49 ACQUIRED ABSENCE OF OTHER SPECIFIED PART 08/16/2019 SUGAR SR MD Ot C18.7 MALIGNANT NEOPLASM OF SIGMOID COLON 08/16/2019 SUGAR SR MD Ot I10 ESSENTIAL (PRIMARY) HYPERTENSION 08/16/2019 SUGAR SR MD Ot K21.9 GASTRO-ESOPHAGEAL REFLUX DISEASE WITHOUT 08/16/2019 SUGAR SR MD Ot Z45.2 ENCOUNTER FOR ADJUSTMENT AND MANAGEMENT 08/16/2019 SUGAR SR MD Ot Z79.899 OTHER SHOE CLEANER (CURRENT) DRUG THERAPY 08/16/2019 SUGAR SR MD Ot Z87.891 PERSONAL HISTORY OF NICOTINE DEPENDENCE 08/16/2019 SUGAR SR MD Ot Z90.49 ACQUIRED ABSENCE OF OTHER SPECIFIED PART 10/03/2019 Rayna Salcido W 21 1.3 BENIGN NEOPLASM OF COLON 10/03/2019 Rayna Salcido W 562.12 DIVERTICULOSIS OF COLON WITH HEMORRHAGE 10/03/2019 Rayna Salcido W D1 2.0 BENIGN NEOPLASM OF CECUM 10/03/2019 Rayna Salcido W 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 10/03/2019 Rayna Salcido 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 10/03/2019 Rayna Salcido W 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 10/03/2019 Rayna Salcido W 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 0 SARCOIDOSIS OF LUNG 10/26/2019 CAROLYN PERALTA YUE R Ot D86. 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9 GASTRO-ESOPHAGEAL REFLUX DISEASE WITHOUT 11/28/2019 SUGAR SR MD Ot Z45.2 ENCOUNTER FOR ADJUSTMENT AND MANAGEMENT 11/28/2019 SUGAR SR MD Ot Z79.899 OTHER SHOE CLEANER (CURRENT) DRUG THERAPY 11/28/2019 SUGAR SR MD Ot Z87.891 PERSONAL HISTORY OF NICOTINE DEPENDENCE 11/28/2019 SUGAR SR MD Ot Z90.49 ACQUIRED ABSENCE OF OTHER SPECIFIED PART 12/15/2019 SUGAR SR MD Ot C18.7 MALIGNANT NEOPLASM OF SIGMOID COLON 12/15/2019 SUGAR SR MD Ot I10 ESSENTIAL (PRIMARY) HYPERTENSION 12/15/2019 SUGAR SR MD Ot K21.9 GASTRO-ESOPHAGEAL REFLUX DISEASE WITHOUT 12/15/2019 SUGAR SR MD Ot Z45.2 ENCOUNTER FOR ADJUSTMENT AND MANAGEMENT 12/15/2019 SUGAR SR MD Ot Z79.899 OTHER SHOE CLEANER (CURRENT) DRUG THERAPY 12/15/2019 SUGAR SR MD Ot Z87.891 PERSONAL HISTORY OF NICOTINE DEPENDENCE 12/15/2019 SUGAR SR MD Ot Z90.49 ACQUIRED ABSENCE OF OTHER SPECIFIED PART 12/17/2019 SUGAR SR MD Ot C18.7 MALIGNANT NEOPLASM OF SIGMOID COLON 12/17/2019 SUGAR SR MD Ot I10 ESSENTIAL (PRIMARY) HYPERTENSION 12/17/2019 SUGAR SR MD Ot K21.9 GASTRO-ESOPHAGEAL REFLUX DISEASE WITHOUT 12/17/2019 SUGAR SR MD Ot Z45.2 ENCOUNTER FOR ADJUSTMENT AND MANAGEMENT 12/17/2019 SUGAR SR MD Ot Z79.899 OTHER SHOE CLEANER (CURRENT) DRUG THERAPY 12/17/2019 SUGAR SR MD Ot Z87.891 PERSONAL HISTORY OF NICOTINE DEPENDENCE 12/17/2019 SUGAR SR MD Ot Z90.49 ACQUIRED ABSENCE OF OTHER SPECIFIED PART 01/16/2020 CAROLYN PERALTA, YUE Nettles Ot D86. 0 SARCOIDOSIS OF LUNG 01/16/2020 [place] DO, JENNIFER B Ot T81.32XA DISRUPTION OF INTERNAL OPERATION (SURGIC 01/16/2020 [facility] DO, JENNIFER B Ot T81.41XA INFCT FOL A PROC, SUPERFIC INCISIONAL MARIA 01/16/2020 [place] DO, JENNIFER B Ot T81.32XA DISRUPTION OF INTERNAL OPERATION (SURGIC 01/16/2020 [place] DO, JENNIFER B Ot T81.41XA INFCT FOL A PROC, SUPERFIC INCISIONAL MARIA 01/16/2020 [place] DO, JENNIFER B Ot T81.32XA DISRUPTION OF INTERNAL OPERATION (SURGIC 01/16/2020 [place] DO, JENNIFER B Ot T81.41XA INFCT FOL A PROC, SUPERFIC INCISIONAL MARIA 01/16/2020 [place] DO, JENNIFER B Ot T81.32XA DISRUPTION OF INTERNAL OPERATION (SURGIC 01/16/2020 [place] DO, JENNIFER B Ot T81.41XA INFCT FOL A PROC, SUPERFIC INCISIONAL MARIA 01/16/2020 [place] DO, JENNIFER B Ot T81.32XA DISRUPTION OF INTERNAL OPERATION (SURGIC 01/16/2020 [place] DO, JENNIFER B Ot T81.41XA INFCT FOL A PROC, SUPERFIC INCISIONAL MARIA 01/16/2020 [place] DO, JENNIFER B Ot T81.32XA DISRUPTION OF INTERNAL OPERATION (SURGIC 01/16/2020 [place] DO, JENNIFER B Ot T81.41XA INFCT FOL A PROC, SUPERFIC INCISIONAL MARIA 01/16/2020 SUGAR SR MD Ot C18.7 MALIGNANT NEOPLASM OF SIGMOID COLON 01/16/2020 SUGAR SR MD Ot R59.0 LOCALIZED ENLARGED LYMPH NODES 01/16/2020 SUGAR SR MD Ot R91.8 OTHER NONSPECIFIC ABNORMAL FINDING OF ALEXEI 01/16/2020 SUGAR SR MD Ot Z87.09 PERSONAL HISTORY OF OTHER DISEASES OF 01/16/2020 JANAE WOLFE TECHNICAL DOCUMENT WRITER Ot C18.7 MALIGNANT NEOPLASM OF SIGMOID COLON 01/16/2020 JANAE WOLFE TECHNICAL DOCUMENT WRITER Ot D86.9 SARCOIDOSIS, UNSPECIFIED 01/16/2020 JANAE WOLFE TECHNICAL DOCUMENT WRITER Ot G47.10 HYPERSOMNIA, UNSPECIFIED 01/16/2020 JANAE WOLFE TECHNICAL DOCUMENT WRITER Ot G47.50 PARASOMNIA, UNSPECIFIED 01/16/2020 JANAE WOLFE TECHNICAL DOCUMENT WRITER Ot J30.9 ALLERGIC RHINITIS, UNSPECIFIED 01/16/2020 JANAE WOLFE TECHNICAL DOCUMENT WRITER Ot R59.0 LOCALIZED ENLARGED LYMPH NODES 01/16/2020 JANAE WOLFE TECHNICAL DOCUMENT WRITER Ot R91.8 OTHER NONSPECIFIC ABNORMAL FINDING OF ALEXEI 01/16/2020 DIPAK PERALTA FACC, ALI FACP CCDS Ot G47.33 OBSTRUCTIVE SLEEP APNEA (ADULT) (PEDIATR 01/16/2020 DIPAK PERALTA FACC, ALI FACP CCDS Ot I42.0 DILATED CARDIOMYOPATHY 01/16/2020 DIPAK PERALTA FACC, ALI FACP CCDS Ot I50.22 CHRONIC SYSTOLIC (CONGESTIVE) HEART FAIL 01/16/2020 SUGAR SR MD Ot C18.7 MALIGNANT NEOPLASM OF SIGMOID COLON 01/16/2020 SUGAR SR MD Ot R51 HEADACHE 01/16/2020 SUGAR SR MD Ot C18.7 MALIGNANT NEOPLASM OF SIGMOID COLON 01/16/2020 SUGAR SR MD Ot I10 ESSENTIAL (PRIMARY) HYPERTENSION 01/16/2020 SUGAR SR MD Ot K21.9 GASTRO-ESOPHAGEAL REFLUX DISEASE WITHOUT 01/16/2020 SUGAR SR MD Ot Z45.2 ENCOUNTER FOR ADJUSTMENT AND MANAGEMENT 01/16/2020 SUGAR SR MD Ot Z79.899 OTHER NURSING HOME (CURRENT) DRUG THERAPY 01/16/2020 SUGAR SR MD Ot Z87.891 PERSONAL HISTORY OF NICOTINE DEPENDENCE 01/16/2020 SUGAR SR MD Ot Z90.49 ACQUIRED ABSENCE OF OTHER SPECIFIED PART 01/17/2020 SUGAR SR MD Ot C18.7 MALIGNANT NEOPLASM OF SIGMOID COLON 01/17/2020 SUGAR SR MD Ot R91.8 OTHER NONSPECIFIC ABNORMAL FINDING OF ALEXEI 01/20/2020 SUGAR SR MD Ot C18.7 MALIGNANT NEOPLASM OF SIGMOID COLON 01/20/2020 SUGAR SR MD Ot I10 ESSENTIAL (PRIMARY) HYPERTENSION 01/20/2020 SUGAR SR MD Ot K21.9 GASTRO-ESOPHAGEAL REFLUX DISEASE WITHOUT 01/20/2020 SUGAR SR MD Ot Z45.2 ENCOUNTER FOR ADJUSTMENT AND MANAGEMENT 01/20/2020 SUAGR SR MD Ot Z79.899 OTHER SHOE CLEANER (CURRENT) DRUG THERAPY 01/20/2020 SUGAR SR MD Ot Z87.891 PERSONAL HISTORY OF NICOTINE DEPENDENCE 01/20/2020 SUGAR SR MD Ot Z90.49 ACQUIRED ABSENCE OF OTHER SPECIFIED PART 01/31/2020 CAROLYN PERALTA, YUE Nettles Ot D86. 0 SARCOIDOSIS OF LUNG 01/31/2020 TRIP DO, JENNIFER B Ot T81.32XA DISRUPTION OF INTERNAL OPERATION (SURGIC 01/31/2020 DELMAN DO, JENNIFER B Ot T81.41XA INFCT FOL A PROC, SUPERFIC INCISIONAL MARIA 01/31/2020 TRIP DO, JENNIFER B Ot T81.32XA DISRUPTION OF INTERNAL OPERATION (SURGIC 01/31/2020 MARUMAN DO, JENNIFER B Ot T81.41XA INFCT FOL A PROC, SUPERFIC INCISIONAL MARIA 01/31/2020 TRIP DO, JENNIFER B Ot T81.32XA DISRUPTION OF INTERNAL OPERATION (SURGIC 01/31/2020 TRIP DO, JENNIFER B Ot T81.41XA INFCT FOL A PROC, SUPERFIC INCISIONAL MARIA 01/31/2020 [place] DO, JENNIFER B Ot T81.32XA DISRUPTION OF INTERNAL OPERATION (SURGIC 01/31/2020 [place] DO, JENNIFER B Ot T81.41XA INFCT FOL A PROC, SUPERFIC INCISIONAL MARIA 01/31/2020 [place] DO, JENNIFER B Ot T81.32XA DISRUPTION OF INTERNAL OPERATION (SURGIC 01/31/2020 [facility] DO, JENNIFER B Ot T81.41XA INFCT FOL A PROC, SUPERFIC INCISIONAL MARIA 01/31/2020 [facility] DO, JENNIFER B Ot T81.32XA DISRUPTION OF INTERNAL OPERATION (SURGIC 01/31/2020 [facility] DO, JENNIFER B Ot T81.41XA INFCT FOL A PROC, SUPERFIC INCISIONAL MARIA 01/31/2020 SUGAR SR MD Ot C18.7 MALIGNANT NEOPLASM OF SIGMOID COLON 01/31/2020 SUGAR SR MD Ot R59.0 LOCALIZED ENLARGED LYMPH NODES 01/31/2020 SUGAR SR MD Ot R91.8 OTHER NONSPECIFIC ABNORMAL FINDING OF 01/31/2020 SUGAR SR MD Ot Z87.09 PERSONAL HISTORY OF OTHER DISEASES OF 01/31/2020 JANAE WOLFE TECHNICAL DOCUMENT WRITER Ot C18.7 MALIGNANT NEOPLASM OF SIGMOID COLON 01/31/2020 JANAE WOLFE TECHNICAL DOCUMENT WRITER Ot D86.9 SARCOIDOSIS, UNSPECIFIED 01/31/2020 JANAE WOLFE TECHNICAL DOCUMENT WRITER Ot G47.10 HYPERSOMNIA, UNSPECIFIED 01/31/2020 JANAE WOLFE TECHNICAL DOCUMENT WRITER Ot G47.50 PARASOMNIA, UNSPECIFIED 01/31/2020 JANAE WOLFE TECHNICAL DOCUMENT WRITER Ot J30.9 ALLERGIC RHINITIS, UNSPECIFIED 01/31/2020 JANAE WOLFE TECHNICAL DOCUMENT WRITER Ot R59.0 LOCALIZED ENLARGED LYMPH NODES 01/31/2020 JANAE WOLFE TECHNICAL DOCUMENT WRITER Ot R91.8 OTHER NONSPECIFIC ABNORMAL FINDING OF 01/31/2020 DIPAK PERALTA FAC, ALI FACP CCDS Ot G47.33 OBSTRUCTIVE SLEEP APNEA (ADULT) (PEDIATR 01/31/2020 DIPAK PERALTA FACC, ALI FACP CCDS Ot I42.0 DILATED CARDIOMYOPATHY 01/31/2020 DIPAK PERALTA FACC, ALI FACP CCDS Ot I50.22 CHRONIC SYSTOLIC (CONGESTIVE) HEART FAIL 01/31/2020 SUGAR SR MD, Ot C18.7 MALIGNANT NEOPLASM OF SIGMOID COLON 01/31/2020 SUGAR SR MD Ot R51 HEADACHE 01/31/2020 SUGAR SR MD, Ot C18.7 MALIGNANT NEOPLASM OF SIGMOID COLON 01/31/2020 SUGAR SR MD Ot R91.8 OTHER NONSPECIFIC ABNORMAL FINDING OF ALEXEI 01/31/2020 SUGAR SR MD, Ot C18.7 MALIGNANT NEOPLASM OF SIGMOID COLON 01/31/2020 SUGAR SR MD Ot I10 ESSENTIAL (PRIMARY) HYPERTENSION 01/31/2020 SUGAR SR MD Ot K21.9 GASTRO-ESOPHAGEAL REFLUX DISEASE WITHOUT 01/31/2020 SUGAR SR MD Ot Z45.2 ENCOUNTER FOR ADJUSTMENT AND MANAGEMENT 01/31/2020 SUGAR SR MD, Ot Z79.899 OTHER SHOE CLEANER (CURRENT) DRUG THERAPY 01/31/2020 SUGAR SR MD, Ot Z87.891 PERSONAL HISTORY OF NICOTINE DEPENDENCE 01/31/2020 SUGAR SR MD, Ot Z90.49 ACQUIRED ABSENCE OF OTHER SPECIFIED PART 02/03/2020 SUGAR SR MD, Ot C18.7 MALIGNANT NEOPLASM OF SIGMOID COLON 02/03/2020 SUGAR SR MD Ot R91.8 OTHER NONSPECIFIC ABNORMAL FINDING OF ALEXEI Procedures Code Description Performed By Per formed On [id number] EX CISION OF ESOPHAGOGASTRIC JUNCTION, EN 09/27/2018 [id number] EX CISION OF STOMACH, PYLORUS, ENDO, DIAG 09/27/2018 [id number] EX CISION OF SIGMOID COLON, ENDO, DIAGN 09/27/2018 [id number] EX CISION OF SIGMOID COLON, OPEN APPROACH 09/28/2018 [id number] EX CISION OF ABD SUBCU/FASCIA, OPEN APPRO 9 [id number] MARIA PPLEMENT OF ABD SUBCU/FASCIA WITH SYNT 10/07/2018 [id number] MARIA PPLEMENT OF ABD SUBCU/FASCIA WITH SYNT 10/07/2018 [id number] RE PAIR ABDOMINAL WALL, OPEN APPROACH 10/07/2018 Results Test Result Range Complete blood count (CBC) with automate d white blood cell (WBC) differential - 09/25/18 20:30 Blood leukocytes automated count (number/volume) 8.5 10*3/uL 4.3-11.0 Blood erythrocytes automated count (number/volume) 3.89 10*6/uL 4.35-5.85 Venous blood hemoglobin measurement (mass/volume) 6.5 g/dL 13.3-17.7 Blood hematocrit (volume fraction) 24 % 40-54 Automated erythrocyte mean corpuscular volume 61 [ foz_us] 80-99 Automated erythrocyte mean corpuscular h emoglobin (mass per erythrocyte) 17 pg 25-34 Automated erythrocyte mean corpuscular h emoglobin concentration measurement (mass/volume) 27 g/dL 32-36 Automated erythrocyte distribution width ratio 18. 7 % 10.0- 14.5 Automated blood platelet count (count/volume) 272 10*3/uL [...] 10*3 1.0-4.0 Blood monocytes automated count (number/volume) 1. 1 10*3 0.0-1.0 Automated eosinophil count 0.4 10*3/uL 0 .0-0.3 Automated blood basophil count (count/volume) 0.1 10*3/uL 0.0-0.1 PT panel in platelet poor plasma by coag ulation assay - 09/25/18 20:30 Prothrombin time (PT) in platelet poor plasma by coagu lation assay 15.2 s 12.2-14.7 INR in platelet poor plasma or blood by coagulation as say 1.2 0.8-1.4 Activated partial thromboplastin time (a PTT) in platelet poor plasma bycoagulation assay - 09/25/18 20:30 Activated partial thromboplastin time (a PTT) in platelet poor plasma bycoagulation assay 34 s 24-35 Blood lactic acid measurement (moles/vol ume) - 09/25/18 20:30 Blood lactic acid measurement (moles/volume) 1.13 mmol/L 0.50-2.00 Automated reticulocyte percentage - 09/14 11/02 20:30 Blood erythrocytes automated count (number/volume) 3.85 10*6/uL 4.35-5.85 Blood reticulocytes count (number/volume) 99 10*9/ L 24-90 Blood reticulocytes/100 erythrocytes 2.58 % 0.50-2.40 Comprehensive metabolic panel - 09/25/18 20:30 Serum or plasma sodium measurement (moles/volume) 133 mmol/L 135-145 Serum or plasma potassium measurement (moles/volume) 3.7 mmol/L 3.6-5.0 Serum or plasma chloride measurement (moles/volume) 103 mmol/L 98-107 Carbon dioxide 20 mmol/L 21-32 Serum or plasma anion gap determination (moles/volume) 10 mmol/L 5-14 Serum or plasma urea nitrogen measurement (mass/volume ) 18 mg/dL 7-18 Serum or plasma creatinine measurement (mass/volume) 0.94 mg/dL 0.60-1.30 Serum or plasma urea nitrogen/creatinine mass ratio 19 NRG Serum or plasma creatinine measurement w ith calculation of estimated glomerular filtration rate > NRG Serum or plasma glucose measurement (mass/volume) 116 mg/dL 70-105 Serum or plasma calcium measurement (mass/volume) 9.0 mg/dL 8.5-10.1 Serum or plasma total bilirubin measurement (mass/volu me) 0.6 mg/dL 0.1-1.0 Serum or plasma alkaline phosphatase lyly surement (enzymatic activity/volume) 63 U/L 40-136 Serum or plasma aspartate aminotransfera se measurement (enzymatic activity/volume) 21 U/L 5-34 Serum or plasma alanine aminotransferase measurement (enzymatic activity/volume) 17 U/L 0-55 Serum or plasma protein measurement (mass/volume) 7.0 g/dL 6.4-8.2 Serum or plasma albumin measurement (mass/volume) 4.0 g/dL 3.2-4.5 CALCIUM CORRECTED 9.0 mg/dL 8.5-10.1 Serum or plasma troponin i.cardiac measu rement (mass/volume) - 09/25/18 20:30 Serum or plasma troponin i.cardiac measurement (mass/v olume) < ng/mL <0.028 Serum or plasma lithium measurement (mol es/volume) - 09/25/18 20:30 BNP level 284.3 pg/mL <100.0 Lactate dehydrogenase 1 [enzymatic activ ity/volume] in serum or plasma - 09/25/18 20:30 Lactate dehydrogenase 1 [enzymatic activ ity/volume] in serum or plasma 187 U/L 125-220 Bacterial blood culture - 09/25/18 20:30 Bacterial blood culture NG NRG Serum iron and total iron binding capaci ty panel - 09/25/18 20:30 Serum or plasma iron measurement (mass/volume) 11 % 40-180 Total iron binding capacity and transferrin saturation measurement 3 % 15-50 Iron binding capacity [mass/volume] in serum or plasma 429 % 280-380 UIBC (unsaturated iron binding capacity) 418 % 55-450 Serum or plasma ferritin measurement (mass/volume) 4.7 % 32.0-356.0 RED CELLS LEUKO REDUCED AS1 - 09/25/18 2 0:40 RED CELLS LEUKO REDUCED AS1 T RANSFUSED 09/26/18 0218 NRG Blood type T Indirect antibody screen [facility] [place] - 09/25/18 20:40 ABO+Rh group ON NRG Transfusion band number [id number] NRG Blood group antibody screen NEGATIVE NR G Bacterial blood culture - 09/25/18 20:40 Bacterial blood culture NG NRG Complete urinalysis with reflex to cultu re - 09/25/18 21:09 Urine color determination YELLOW NRG Urine clarity determination CLEAR NR G Urine pH measurement by test strip 5 5-9 Specific gravity of urine by test strip 1.015 1.016-1.022 Urine protein assay by test strip, semi-quantitative NEGATIVE NEGATIVE Urine glucose detection by automated test strip NE GATIVE NEGATIVE Erythrocytes detection in urine sediment by light micr oscopy NEGATIVE NEGATIVE Urine ketones detection by automated test strip NE GATIVE NEGATIVE Urine nitrite detection by test strip NEGATIVE NEGATIVE Urine total bilirubin detection by test strip NEGA TIVE NEGATIVE Urine urobilinogen measurement by automated test strip (mass/volume) NORMAL NORMAL Urine leukocyte esterase detection by dipstick NEG ATIVE NEGATIVE Automated urine sediment erythrocyte cou nt by microscopy (number/high power field) NONE NRG Automated urine sediment leukocyte count by microscopy (number/high power field) NONE NRG Bacteria detection in urine sediment by light microsco py NEGATIVE NRG Squamous epithelial cells detection in u rine sediment by light microscopy 0-2 NRG Crystals detection in urine sediment by light microsco py NONE NRG Casts detection in urine sediment by light microscopy NONE NRG Mucus detection in urine sediment by light microscopy NEGATIVE NRG Complete urinalysis with reflex to culture CULTURE PENDING NRG Bacterial urine culture - 09/25/18 21:09 Bacterial urine culture NG NRG Complete blood count (CBC) with automate d white blood cell (WBC) differential - 09/26/18 07:09 Blood leukocytes automated count (number/volume) 6.5 10*3/uL 4.3-11.0 Blood erythrocytes automated count (number/volume) 4.39 10*6/uL 4.35-5.85 Venous blood hemoglobin measurement (mass/volume) 8.2 g/dL 13.3-17.7 Blood hematocrit (volume fraction) 28 % 40-54 Automated erythrocyte mean corpuscular volume 65 [ foz_us] 80-99 Automated erythrocyte mean corpuscular h emoglobin (mass per erythrocyte) 19 pg 25-34 Automated erythrocyte mean corpuscular h emoglobin concentration measurement (mass/volume) 29 g/dL 32-36 Automated erythrocyte distribution width ratio 21. 8 % 10.0- 14.5 Automated blood platelet count (count/volume) 247 10*3/uL 130-400 Automated blood platelet mean volume measurement [employer] 7.4- 10.4 Automated blood neutrophils/100 leukocytes 71 % 42-75 Automated blood lymphocytes/100 leukocytes 10 % 12-44 Blood monocytes/100 leukocytes 13 % 0-12 Automated blood eosinophils/100 leukocytes 5 % 0-10 Automated blood basophils/100 leukocytes 1 % 0-10 Blood neutrophils automated count (number/volume) 4.6 10*3 1.8-7.8 Blood lymphocytes automated count (number/volume) 0.7 10*3 1.0-4.0 Blood monocytes automated count (number/volume) 0. 8 10*3 0.0-1.0 Automated eosinophil count 0.3 10*3/uL 0 .0-0.3 Automated blood basophil count (count/volume) 0.1 10*3/uL 0.0-0.1 Whole blood basic metabolic panel - 09/14 11/30 07:09 Serum or plasma sodium measurement (moles/volume) 138 mmol/L 135-145 Serum or plasma potassium measurement (moles/volume) 4.0 mmol/L 3.6-5.0 Serum or plasma chloride measurement (moles/volume) 103 mmol/L 98-107 Carbon dioxide 23 mmol/L 21-32 Serum or plasma anion gap determination (moles/volume) 12 mmol/L 5-14 Serum or plasma urea nitrogen measurement (mass/volume ) 15 mg/dL 7-18 Serum or plasma creatinine measurement (mass/volume) 1.05 mg/dL 0.60-1.30 Serum or plasma urea nitrogen/creatinine mass ratio 14 NRG Serum or plasma creatinine measurement w ith calculation of estimated glomerular filtration rate > NRG Serum or plasma glucose measurement (mass/volume) 102 mg/dL 70-105 Serum or plasma calcium measurement (mass/volume) 9.4 mg/dL 8.5-10.1 Methicillin resistant Staphylococcus aur eus (MRSA) screening culture - 09/26/18 14:30 Methicillin resistant Staphylococcus aureus (MRSA) scr eening culture NEG NRG Complete blood count (CBC) with automate d white blood cell (WBC) differential - 09/27/18 04:00 Blood leukocytes automated count (number/volume) 6.2 10*3/uL 4.3-11.0 Blood erythrocytes automated count (number/volume) 4.74 10*6/uL 4.35-5.85 Venous blood hemoglobin measurement (mass/volume) 8.7 g/dL 13.3-17.7 Blood hematocrit (volume fraction) 30 % 40-54 Automated erythrocyte mean corpuscular volume 64 [ foz_us] 80-99 Automated erythrocyte mean corpuscular h emoglobin (mass per erythrocyte) 18 pg 25-34 Automated erythrocyte mean corpuscular h emoglobin concentration measurement (mass/volume) 29 g/dL 32-36 Automated erythrocyte distribution width ratio 22. 2 % 10.0- 14.5 Automated blood platelet count (count/volume) 285 10*3/uL [...] 10*3 1.0-4.0 Blood monocytes automated count (number/volume) 1. 1 10*3 0.0-1.0 Automated eosinophil count 0.4 10*3/uL 0 .0-0.3 Automated blood basophil count (count/volume) 0.2 10*3/uL 0.0-0.1 Comprehensive metabolic panel - 09/27/18 04:00 Serum or plasma sodium measurement (moles/volume) 140 mmol/L 135-145 Serum or plasma potassium measurement (moles/volume) 3.8 mmol/L 3.6-5.0 Serum or plasma chloride measurement (moles/volume) 107 mmol/L 98-107 Carbon dioxide 22 mmol/L 21-32 Serum or plasma anion gap determination (moles/volume) 11 mmol/L 5-14 Serum or plasma urea nitrogen measurement (mass/volume ) 16 mg/dL 7-18 Serum or plasma creatinine measurement (mass/volume) 0.99 mg/dL 0.60-1.30 Serum or plasma urea nitrogen/creatinine mass ratio 16 NRG Serum or plasma creatinine measurement w ith calculation of estimated glomerular filtration rate > NRG Serum or plasma glucose measurement (mass/volume) 98 mg/dL 70-105 Serum or plasma calcium measurement (mass/volume) 9.3 mg/dL 8.5-10.1 Serum or plasma total bilirubin measurement (mass/volu me) 1.0 mg/dL 0.1-1.0 Serum or plasma alkaline phosphatase lyly surement (enzymatic activity/volume) 63 U/L 40-136 Serum or plasma aspartate aminotransfera se measurement (enzymatic activity/volume) 24 U/L 5-34 Serum or plasma alanine aminotransferase measurement (enzymatic activity/volume) 19 U/L 0-55 Serum or plasma protein [...] Serum or plasma cholesterol in HDL measurement (mass/v olume) 31 mg/dL 40-60 Cholesterol in LDL [mass/volume] in serum or plasma by direct assay 102 mg/dL 1-129 Serum or plasma cholesterol in VLDL measurement (mass/ volume) 29 mg/dL 5-40 THYROID STIMULATING HORMONE - 09/27/18 0 4:00 THYROID STIMULATING HORMONE 0.51 u[iU]/mL 0.35-4.94 Serum iron and total iron binding capaci ty panel - 09/28/18 04:00 Serum or plasma iron measurement (mass/volume) 11 % 40-180 Total iron binding capacity and transferrin saturation measurement 2 % 15-50 Iron binding capacity [mass/volume] in serum or plasma 426 % 280-380 UIBC (unsaturated iron binding capacity) 416 % 55-450 Serum or plasma ferritin measurement (mass/volume) 4.6 % 32.0-356.0 Complete blood count (CBC) with automate d white blood cell (WBC) differential - 09/29/18 09:30 Blood leukocytes automated count (number/volume) 12.5 10*3/uL 4.3-11.0 Blood erythrocytes automated count (number/volume) 4.10 10*6/uL 4.35-5.85 Venous blood hemoglobin measurement (mass/volume) 7.5 g/dL 13.3-17.7 Blood hematocrit (volume fraction) 27 % 40-54 Automated erythrocyte mean corpuscular volume 65 [ foz_us] 80-99 Automated erythrocyte mean corpuscular h emoglobin (mass per erythrocyte) 18 pg 25-34 Automated erythrocyte mean corpuscular h emoglobin concentration measurement (mass/volume) 28 g/dL 32-36 Automated erythrocyte distribution width ratio 22. 2 % 10.0- 14.5 Automated blood platelet count (count/volume) 251 10*3/uL [...] 10*3 1.0-4.0 Blood monocytes automated count (number/volume) 1. 4 10*3 0.0-1.0 Automated eosinophil count 0.0 10*3/uL 0 .0-0.3 Automated blood basophil count (count/volume) 0.0 10*3/uL 0.0-0.1 Blood manual differential performed dete ction - 09/29/18 09:30 Blood monocytes/100 leukocytes 11 % NRG Manual blood segmented neutrophils/100 leukocytes 85 % NRG Blood band neutrophils/100 leukocytes 2 % NRG Manual blood lymphocytes/100 leukocytes 2 % NRG Manual eosinophils/100 leukocytes in nose 0 % NRG Manual blood basophils/100 leukocytes 0 % NRG Blood polychromasia detection by light microscopy SLIGHT NRG Blood anisocytosis detection by light microscopy M ARKED NRG Blood ovalocytes detection by light microscopy I [facility] NRG Manual blood nucleated erythrocytes/100 leukocytes ratio 1 NRG Blood hypochromia detection by light microscopy MA RKED NRG Blood microcytes detection by light microscopy MOD ERATE NRG Blood dacrocytes detection by light microscopy SLI T NRG Complete blood count (CBC) with automate d white blood cell (WBC) differential - 10/03/18 12:05 Blood leukocytes automated count (number/volume) 10.7 10*3/uL 4.3-11.0 Blood erythrocytes automated count (number/volume) 4.51 10*6/uL 4.35-5.85 Venous blood hemoglobin measurement (mass/volume) 8.6 g/dL 13.3-17.7 Blood hematocrit (volume fraction) 31 % 40-54 Automated erythrocyte mean corpuscular volume 68 [ foz_us] 80-99 Automated erythrocyte mean corpuscular h emoglobin (mass per erythrocyte) 19 pg 25-34 Automated erythrocyte mean corpuscular h emoglobin concentration measurement (mass/volume) 28 g/dL 32-36 Automated erythrocyte distribution width ratio 27. 2 % 10.0- 14.5 Automated blood platelet count (count/volume) 216 10*3/uL 130-400 Automated blood platelet mean volume measurement T [employer] 7.4- 10.4 Automated blood neutrophils/100 leukocytes 80 % 42-75 Automated blood lymphocytes/100 leukocytes 5 % 12-44 Blood monocytes/100 leukocytes 12 % 0-12 Automated blood eosinophils/100 leukocytes 2 % 0-10 Automated blood basophils/100 leukocytes 1 % 0-10 Blood neutrophils automated count (number/volume) 8.6 10*3 1.8-7.8 Blood lymphocytes automated count (number/volume) 0.5 10*3 1.0-4.0 Blood monocytes automated count (number/volume) 1. 2 10*3 0.0-1.0 Automated eosinophil count 0.3 10*3/uL 0 .0-0.3 Automated blood basophil count (count/volume) 0.1 10*3/uL 0.0-0.1 Blood lactic acid measurement (moles/vol ume) - 10/03/18 12:05 Blood lactic acid measurement (moles/volume) 1.25 mmol/L 0.50-2.00 PT panel in platelet poor plasma by coag ulation assay - 10/03/18 12:05 Prothrombin time (PT) in platelet poor plasma by coagu lation assay 15.4 s 12.2-14.7 INR in platelet poor plasma or blood by coagulation as say 1.2 0.8-1.4 Activated partial thromboplastin time (a PTT) in platelet poor plasma bycoagulation assay - 10/03/18 12:05 Activated partial thromboplastin time (a PTT) in platelet poor plasma bycoagulation assay 33 s 24-35 Comprehensive metabolic panel - 10/03/18 12:05 Serum or plasma sodium measurement (moles/volume) 137 mmol/L 135-145 Serum or plasma potassium measurement (moles/volume) 3.4 mmol/L 3.6-5.0 Serum or plasma chloride measurement (moles/volume) 100 mmol/L 98-107 Carbon dioxide 26 mmol/L 21-32 Serum or plasma anion gap determination (moles/volume) 11 mmol/L 5-14 Serum or plasma urea nitrogen measurement (mass/volume ) 20 mg/dL 7-18 Serum or plasma creatinine measurement (mass/volume) 1.04 mg/dL 0.60-1.30 Serum or plasma urea nitrogen/creatinine mass ratio 19 NRG Serum or plasma creatinine measurement w ith calculation of estimated glomerular filtration rate > NRG Serum or plasma glucose measurement (mass/volume) 118 mg/dL 70-105 Serum or plasma calcium measurement (mass/volume) 9.0 mg/dL 8.5-10.1 Serum or plasma total bilirubin measurement (mass/volu me) 0.7 mg/dL 0.1-1.0 Serum or plasma alkaline phosphatase lyly surement (enzymatic activity/volume) 68 U/L 40-136 Serum or plasma aspartate aminotransfera se measurement (enzymatic activity/volume) 16 U/L 5-34 Serum or plasma alanine aminotransferase measurement (enzymatic activity/volume) 13 U/L 0-55 Serum or plasma protein measurement (mass/volume) 6.7 g/dL 6.4-8.2 Serum or plasma albumin measurement (mass/volume) 3.7 g/dL 3.2-4.5 CALCIUM CORRECTED 9.2 mg/dL 8.5-10.1 Blood manual differential performed dete ction - 10/03/18 12:05 Blood monocytes/100 leukocytes 12 % NRG Manual blood segmented neutrophils/100 leukocytes 79 % NRG Manual blood lymphocytes/100 leukocytes 6 % NRG Manual eosinophils/100 leukocytes in nose 3 % NRG Blood anisocytosis detection by light microscopy M ODERATE NRG Blood hypochromia detection by light microscopy SL IGHT NRG Blood microcytes detection by light microscopy MOD ERATE NRG Blood dacrocytes detection by light microscopy SLI GHT NRG Blood stomatocytes detection by light microscopy M ODERATE NRG Bacterial blood culture - 10/03/18 12:05 Bacterial blood culture NG NRG Gram stain microscopy - 10/03/18 12:30 Gram stain microscopy Many Gram negative bacilli NRG Bacteria identification in wound by cult ure - 10/03/18 12:30 Bacteria identification in wound by culture SEE CO MMEN NRG QUANTITY OF GROWTH . NRG Bacterial blood culture - 10/03/18 12:35 Bacterial blood culture NG NRG Complete urinalysis with reflex to cultu re - 10/03/18 14:24 Urine color determination YELLOW NRG Urine clarity determination CLEAR NR G Urine pH measurement by test strip 6 5-9 Specific gravity of urine by test strip 1.010 1.016-1.022 Urine protein assay by test strip, semi-quantitative NEGATIVE NEGATIVE Urine glucose detection by automated test strip NE GATIVE NEGATIVE Erythrocytes detection in urine sediment by light micr oscopy 1+ NEGATIVE Urine ketones detection by automated test strip NE GATIVE NEGATIVE Urine nitrite detection by test strip NEGATIVE NEGATIVE Urine total bilirubin detection by test strip NEGA TIVE NEGATIVE Urine urobilinogen measurement by automated test strip (mass/volume) NORMAL NORMAL Urine leukocyte esterase detection by dipstick NEG ATIVE NEGATIVE Automated urine sediment erythrocyte cou nt by microscopy (number/high power field) [HPF] NRG Automated urine sediment leukocyte count by microscopy (number/high power field) [HPF] NRG Bacteria detection in urine sediment by light microsco py NEGATIVE NRG Crystals detection in urine sediment by light microsco py NONE NRG Casts detection in urine sediment by light microscopy NONE NRG Mucus detection in urine sediment by light microscopy NEGATIVE NRG Complete urinalysis with reflex to culture CULTURE PENDING NRG Bacterial urine culture - 10/03/18 14:24 Bacterial urine culture [id number] NRG COLONY COUNT <10,000 NRG FTX;REPORTABLE RML FINAL REPORT SENT 10/04 15:05: NRG FREE TEXT ENTRY 2 NO SUSCEPTIBILITY PERFORMED NRG Complete blood count (CBC) with automate d white blood cell (WBC) differential - 10/07/18 16:52 Blood leukocytes automated count (number/volume) 6.1 10*3/uL 4.3-11.0 Blood erythrocytes automated count (number/volume) 4.32 10*6/uL 4.35-5.85 Venous blood hemoglobin measurement (mass/volume) 8.5 g/dL 13.3-17.7 Blood hematocrit (volume fraction) 30 % 40-54 Automated erythrocyte mean corpuscular volume 69 [ foz_us] 80-99 Automated erythrocyte mean corpuscular h emoglobin (mass per erythrocyte) 20 pg 25-34 Automated erythrocyte mean corpuscular h emoglobin concentration measurement (mass/volume) 29 g/dL 32-36 Automated erythrocyte distribution width ratio 28. 8 % 10.0- 14.5 Automated blood platelet count (count/volume) 210 10*3/uL 130-400 Automated blood platelet mean volume measurement T [employer] 7.4- 10.4 Automated blood neutrophils/100 leukocytes 79 % 42-75 Automated blood lymphocytes/100 leukocytes 8 % 12-44 Blood monocytes/100 leukocytes 9 % 0-12 Automated blood eosinophils/100 leukocytes 3 % 0-10 Automated blood basophils/100 leukocytes 1 % 0-10 Blood neutrophils automated count (number/volume) 4.8 10*3 1.8-7.8 Blood lymphocytes automated count (number/volume) 0.5 10*3 1.0-4.0 Blood monocytes automated count (number/volume) 0. 5 10*3 0.0-1.0 Automated eosinophil count 0.2 10*3/uL 0 .0-0.3 Automated blood basophil count (count/volume) 0.1 10*3/uL 0.0-0.1 Comprehensive metabolic panel - 10/07/18 16:52 Serum or plasma sodium measurement (moles/volume) 141 mmol/L 135-145 Serum or plasma potassium measurement (moles/volume) 3.7 mmol/L 3.6-5.0 Serum or plasma chloride measurement (moles/volume) 103 mmol/L 98-107 Carbon dioxide 27 mmol/L 21-32 Serum or plasma anion gap determination (moles/volume) 11 mmol/L 5-14 Serum or plasma urea nitrogen measurement (mass/volume ) 16 mg/dL 7-18 Serum or plasma creatinine measurement (mass/volume) 1.00 mg/dL 0.60-1.30 Serum or plasma urea nitrogen/creatinine mass ratio 16 NRG Serum or plasma creatinine measurement w ith calculation of estimated glomerular filtration rate > NRG Serum or plasma glucose measurement (mass/volume) 90 mg/dL 70-105 Serum or plasma calcium measurement (mass/volume) 8.9 mg/dL 8.5-10.1 Serum or plasma total bilirubin measurement (mass/volu me) 0.5 mg/dL 0.1-1.0 Serum or plasma alkaline phosphatase lyly surement (enzymatic activity/volume) 58 U/L 40-136 Serum or plasma aspartate aminotransfera se measurement (enzymatic activity/volume) 22 U/L 5-34 Serum or plasma alanine aminotransferase measurement (enzymatic activity/volume) 14 U/L 0-55 Serum or plasma protein measurement (mass/volume) 6.4 g/dL 6.4-8.2 Serum or plasma albumin measurement (mass/volume) 3.5 g/dL 3.2-4.5 CALCIUM CORRECTED 9.3 mg/dL 8.5-10.1 Methicillin resistant Staphylococcus aur eus (MRSA) screening culture - 10/07/18 17:00 Methicillin resistant Staphylococcus aureus (MRSA) scr eening culture NEG NRG Complete blood count (CBC) with automate d white blood cell (WBC) differential - 10/11/18 09:20 Blood leukocytes automated count (number/volume) 6.4 10*3/uL 4.3-11.0 Blood erythrocytes automated count (number/volume) 4.75 10*6/uL 4.35-5.85 Venous blood hemoglobin measurement (mass/volume) 9.5 g/dL 13.3-17.7 Blood hematocrit (volume fraction) 33 % 40-54 Automated erythrocyte mean corpuscular volume 70 [ foz_us] 80-99 Automated erythrocyte mean corpuscular h emoglobin (mass per erythrocyte) 20 pg 25-34 Automated erythrocyte mean corpuscular h emoglobin concentration measurement (mass/volume) 29 g/dL 32-36 Automated erythrocyte distribution width ratio 29. 9 % 10.0- 14.5 Automated blood platelet count (count/volume) 433 10*3/uL [...] 10*3 1.0-4.0 Blood monocytes automated count (number/volume) 0. 6 10*3 0.0-1.0 Automated eosinophil count 0.2 10*3/uL 0 .0-0.3 Automated blood basophil count (count/volume) 0.1 10*3/uL 0.0-0.1 Complete blood count (CBC) with automate d white blood cell (WBC) differential - 11/07/18 15:45 Blood leukocytes automated count (number/volume) 16.4 10*3/uL 4.3-11.0 Blood erythrocytes automated count (number/volume) 5.52 10*6/uL 4.35-5.85 Venous blood hemoglobin measurement (mass/volume) 11.9 g/dL 13.3-17.7 Blood hematocrit (volume fraction) 39 % 40-54 Automated erythrocyte mean corpuscular volume 71 [ foz_us] 80-99 Automated erythrocyte mean corpuscular h emoglobin (mass per erythrocyte) 22 pg 25-34 Automated erythrocyte mean corpuscular h emoglobin concentration measurement (mass/volume) 30 g/dL 32-36 Automated erythrocyte distribution width ratio 27. 1 % 10.0- 14.5 Automated blood platelet count (count/volume) 290 10*3/uL 130-400 Automated blood platelet mean volume measurement T [employer] 7.4- 10.4 Automated blood neutrophils/100 leukocytes 94 % 42-75 Automated blood lymphocytes/100 leukocytes 2 % 12-44 Blood monocytes/100 leukocytes 3 % 0-12 Automated blood eosinophils/100 leukocytes 0 % 0-10 Automated blood basophils/100 leukocytes 0 % 0-10 Blood neutrophils automated count (number/volume) 15.4 10*3 1.8-7.8 Blood lymphocytes automated count (number/volume) 0.4 10*3 1.0-4.0 Blood monocytes automated count (number/volume) 0. 5 10*3 0.0-1.0 Automated eosinophil count 0.1 10*3/uL 0 .0-0.3 Automated blood basophil count (count/volume) 0.0 10*3/uL 0.0-0.1 PT panel in platelet poor plasma by coag ulation assay - 11/07/18 15:45 Prothrombin time (PT) in platelet poor plasma by coagu lation assay 16.6 s 12.2-14.7 INR in platelet poor plasma or blood by coagulation as say 1.3 0.8-1.4 Activated partial thromboplastin time (a PTT) in platelet poor plasma bycoagulation assay - 11/07/18 15:45 Activated partial thromboplastin time (a PTT) in platelet poor plasma bycoagulation assay 37 s 24-35 Blood lactic acid measurement (moles/vol ume) - 11/07/18 15:45 Blood lactic acid measurement [...] 5-14 Serum or plasma urea nitrogen measurement (mass/volume ) 17 mg/dL 7-18 Serum or plasma creatinine measurement (mass/volume) 0.83 mg/dL 0.60-1.30 Serum or plasma urea nitrogen/creatinine mass ratio 20 NRG Serum or plasma creatinine measurement w ith calculation of estimated glomerular filtration rate > NRG Serum or plasma glucose measurement (mass/volume) 105 mg/dL 70-105 Serum or plasma calcium measurement (mass/volume) 10.1 mg/dL 8.5-10.1 Serum or plasma total bilirubin measurement (mass/volu me) 0.7 mg/dL 0.1-1.0 Serum or plasma alkaline phosphatase lyly surement (enzymatic activity/volume) 126 U/L 40-136 Serum or plasma aspartate aminotransfera se measurement (enzymatic activity/volume) 31 U/L 5-34 Serum or plasma alanine aminotransferase measurement (enzymatic activity/volume) 42 U/L 0-55 Serum or plasma protein measurement (mass/volume) 7.4 g/dL 6.4-8.2 Serum or plasma albumin measurement (mass/volume) 3.7 g/dL 3.2-4.5 CALCIUM CORRECTED 10.3 mg/dL 8.5-10.1 Blood manual differential performed dete ction - 11/07/18 15:45 Blood monocytes/100 leukocytes 1 % NRG Manual blood segmented neutrophils/100 leukocytes 95 % NRG Blood band neutrophils/100 leukocytes 3 % NRG Manual blood lymphocytes/100 leukocytes 1 % NRG Manual eosinophils/100 leukocytes in nose 0 % NRG Manual blood basophils/100 leukocytes 0 % NRG Blood polychromasia detection by light microscopy MODERATE NRG Blood anisocytosis detection by light microscopy M ARKED NRG Blood ovalocytes detection by light microscopy SLI GHT NRG Blood hypochromia detection by light microscopy SL IGHT NRG Blood microcytes detection by light microscopy MOD ERATE NRG Blood target cells detection by light microscopy S LIGHT NRG Blood spherocytes detection by light microscopy SL IGHT NRG Bacterial blood culture - 11/07/18 15:45 Bacterial blood culture NG NRG Gram stain microscopy - 11/07/18 15:55 Gram stain microscopy Moderate Gram positive cocci in pairs NRG Bacteria identification in wound by cult ure - 11/07/18 15:55 Bacteria identification in wound by culture [id number] NRG FREE TEXT EXTERNAL SUSCEPTIBILITY REPORTED 11-11-19 19, 1306 NRG QUANTITY OF GROWTH Rare NRG MRSA AGAR METHICILLIN-SENSITIVITY NRG FREE TEXT ENTRY 2 ID REPORTED 11/10/18 09:05 NRG RML Sensitivity Panel - 11/07/18 15:55 Oxacillin susceptibility test by minimum inhibitory co ncentration 0.5 NRG Clindamycin susceptibility test by minimum inhibitory concentration <= NRG Erythromycin susceptibility test by minimum inhibitory concentration <= NRG Trimethoprim/sulfamethoxazole susceptibi lity test by minimum inhibitoryconcentration S NRG Vancomycin susceptibility test by minimum inhibitory c oncentration 1 NRG Levofloxacin susceptibility test by minimum inhibitory concentration <= NRG Rifampin susceptibility test by minimum inhibitory con centration <= NRG Cefazolin susceptibility test by minimum inhibitory co ncentration <= NRG Linezolid susceptibility test by minimum inhibitory co ncentration 2 NRG Penicillin G susceptibility test by minimum inhibitory concentration 0.5 NRG Moxifloxacin susceptibility test by minimum inhibitory concentration <= NRG Minocycline susc PAVEL <= NRG Bacterial blood culture - 11/07/18 16:15 QUANTITY OF GROWTH . NRG Bacterial blood culture SEE COMMEN NRG Complete urinalysis with reflex to cultu re - 11/07/18 16:20 Urine color determination YELLOW NRG Urine clarity determination CLEAR NR G Urine pH measurement by test strip 5 5-9 Specific gravity of urine by test strip 1.015 1.016-1.022 Urine protein assay by test strip, semi-quantitative 2+ NEGATIVE Urine glucose detection by automated test strip NE GATIVE NEGATIVE Erythrocytes detection in urine sediment by light micr oscopy NEGATIVE NEGATIVE Urine ketones detection by automated test strip NE GATIVE NEGATIVE Urine nitrite detection by test strip NEGATIVE NEGATIVE Urine total bilirubin detection by test strip NEGA TIVE NEGATIVE Urine urobilinogen measurement by automated test strip (mass/volume) NORMAL NORMAL Urine leukocyte esterase detection by dipstick 1+ NEGATIVE Automated urine sediment erythrocyte cou nt by microscopy (number/high power field) NONE NRG Automated urine sediment leukocyte count by microscopy (number/high power field) RARE NRG Bacteria detection in urine sediment by light microsco py NEGATIVE NRG Squamous epithelial cells detection in u rine sediment by light microscopy NONE NRG Crystals detection in urine sediment by light microsco py NONE NRG Casts detection in urine sediment by light microscopy NONE NRG Mucus detection in urine sediment by light microscopy NEGATIVE NRG Complete urinalysis with reflex to culture CULTURE PENDING NRG Bacterial urine culture - 11/07/18 16:20 Bacterial urine culture SEE COMMEN NR COLONY COUNT . NR Methicillin resistant Staphylococcus aur eus (MRSA) screening culture - 11/07/18 22:00 Methicillin resistant Staphylococcus aureus (MRSA) scr eening culture NEG NR Complete blood count (CBC) with automate d white blood cell (WBC) differential - 11/08/18 03:00 Blood leukocytes automated count (number/volume) 12.3 10*3/uL 4.3-11.0 Blood erythrocytes automated count (number/volume) 4.64 10*6/uL 4.35-5.85 Venous blood hemoglobin measurement (mass/volume) 10.1 g/dL 13.3-17.7 Blood hematocrit (volume fraction) 34 % 40-54 Automated erythrocyte mean corpuscular volume 72 [ foz_us] 80-99 Automated erythrocyte mean corpuscular h emoglobin (mass per erythrocyte) 22 pg 25-34 Automated erythrocyte mean corpuscular h emoglobin concentration measurement (mass/volume) 30 g/dL 32-36 Automated erythrocyte distribution width ratio 27. 3 % 10.0- 14.5 Automated blood platelet count (count/volume) 273 10*3/uL [...] 10*3 1.0-4.0 Blood monocytes automated count (number/volume) 0. 7 10*3 0.0-1.0 Automated eosinophil count 0.0 10*3/uL 0 .0-0.3 Automated blood basophil count (count/volume) 0.0 10*3/uL 0.0-0.1 Comprehensive metabolic panel - 11/08/18 03:00 Serum or plasma sodium measurement (moles/volume) 137 mmol/L 135-145 Serum or plasma potassium measurement (moles/volume) 3.3 mmol/L 3.6-5.0 Serum or plasma chloride measurement (moles/volume) 105 mmol/L 98-107 Carbon dioxide 22 mmol/L 21-32 Serum or plasma anion gap determination (moles/volume) 10 mmol/L 5-14 Serum or plasma urea nitrogen measurement (mass/volume ) 11 mg/dL 7-18 Serum or plasma creatinine measurement (mass/volume) 0.77 mg/dL 0.60-1.30 Serum or plasma urea nitrogen/creatinine mass ratio 14 NRG Serum or plasma creatinine measurement w ith calculation of estimated glomerular filtration rate > NRG Serum or plasma glucose measurement (mass/volume) 88 mg/dL 70-105 Serum or plasma calcium measurement (mass/volume) 8.9 mg/dL 8.5-10.1 Serum or plasma total bilirubin measurement (mass/volu me) 0.5 mg/dL 0.1-1.0 Serum or plasma alkaline phosphatase lyly surement (enzymatic activity/volume) 106 U/L 40-136 Serum or plasma aspartate aminotransfera se measurement (enzymatic activity/volume) 19 U/L 5-34 Serum or plasma alanine aminotransferase measurement (enzymatic activity/volume) 30 U/L 0-55 Serum or plasma protein measurement (mass/volume) 6.2 g/dL 6.4-8.2 Serum or plasma albumin measurement (mass/volume) 3.0 g/dL 3.2-4.5 CALCIUM CORRECTED 9.7 mg/dL 8.5-10.1 Serum or plasma phosphate measurement (m ass/volume) - 11/08/18 03:00 Serum or plasma phosphate measurement (mass/volume) 3.6 mg/dL 2.3-4.7 Magnesium - 11/08/18 03:00 Magnesium 1.6 mg/dL 1.8-2.4 Serum angiotensin converting enzyme (NELSY ) measurement - 11/08/18 03:00 Serum angiotensin converting enzyme (NELSY) measurement 52 U/L 9-67 Influenza virus A and B antigen detectio n - 11/08/18 13:07 FLU RESULT NEGATIVE FOR INFLUENZA A AND B ANTIGENS BY IA [facility] Methicillin resistant Staphylococcus aur eus (MRSA) screening culture - 11/22/18 07:45 Methicillin resistant Staphylococcus aureus (MRSA) scr eening culture NEG [facility] Automated blood complete blood count (he mogram) panel - 11/23/18 07:30 Blood leukocytes automated count (number/volume) 5.4 10*3/uL 4.3-11.0 Blood erythrocytes automated count (number/volume) 5.88 10*6/uL 4.35-5.85 Venous blood hemoglobin measurement (mass/volume) 13.3 g/dL 13.3-17.7 Blood hematocrit (volume fraction) 43 % 40-54 Automated erythrocyte mean corpuscular volume 73 [ foz_us] 80-99 Automated erythrocyte mean corpuscular h emoglobin (mass per erythrocyte) 23 pg 25-34 Automated erythrocyte mean corpuscular h emoglobin concentration measurement (mass/volume) 31 g/dL 32-36 Automated erythrocyte distribution width ratio 26. 3 % 10.0- 14.5 Automated blood platelet count (count/volume) 233 10*3/uL 130-400 Automated blood platelet mean volume measurement [employer] 7.4- 10.4 PT panel in platelet poor plasma by coag ulation assay - 11/23/18 07:30 Prothrombin time (PT) in platelet poor plasma by coagu lation assay 13.5 s 12.2-14.7 INR in platelet poor plasma or blood by coagulation as say 1.0 0.8-1.4 Activated partial thromboplastin time (a PTT) in platelet poor plasma bycoagulation assay - 11/23/18 07:30 Activated partial thromboplastin time (a PTT) in platelet poor plasma bycoagulation assay 30 s 24-35 Comprehensive metabolic panel - 11/23/18 07:30 Serum or plasma sodium measurement (moles/volume) 139 mmol/L 135-145 Serum or plasma potassium measurement (moles/volume) 3.9 mmol/L 3.6-5.0 Serum or plasma chloride measurement (moles/volume) 106 mmol/L 98-107 Carbon dioxide 22 mmol/L 21-32 Serum or plasma anion gap determination (moles/volume) 11 mmol/L 5-14 Serum or plasma urea nitrogen measurement (mass/volume ) 18 mg/dL 7-18 Serum or plasma creatinine measurement (mass/volume) 0.78 mg/dL 0.60-1.30 Serum or plasma urea nitrogen/creatinine mass ratio 23 NRG Serum or plasma creatinine measurement w ith calculation of estimated glomerular filtration rate > NRG Serum or plasma glucose measurement (mass/volume) 100 mg/dL 70-105 Serum or plasma calcium measurement (mass/volume) 9.4 mg/dL 8.5-10.1 Serum or plasma total bilirubin measurement (mass/volu me) 0.4 mg/dL 0.1-1.0 Serum or plasma alkaline phosphatase lyly surement (enzymatic activity/volume) 85 U/L 40-136 Serum or plasma aspartate aminotransfera se measurement (enzymatic activity/volume) 89 U/L 5-34 Serum or plasma alanine aminotransferase measurement (enzymatic activity/volume) 132 U/L 0-55 Serum or plasma protein measurement (mass/volume) 7.7 g/dL 6.4-8.2 Serum or plasma albumin measurement (mass/volume) 3.9 g/dL 3.2-4.5 CALCIUM CORRECTED 9.5 mg/dL 8.5-10.1 Lipid 1996 panel - 11/23/18 07:30 Serum or plasma triglyceride measurement (mass/volume) 365 mg/dL <150 Serum or plasma cholesterol measurement (mass/volume) 207 mg/dL < 200 Serum or plasma cholesterol in HDL measurement (mass/v olume) 34 mg/dL 40-60 Cholesterol in LDL [mass/volume] in serum or plasma by direct assay 122 mg/dL 1-129 Serum or plasma cholesterol in VLDL measurement (mass/ volume) 73 mg/dL 5-40 Methicillin resistant Staphylococcus aur eus (MRSA) screening culture - 11/23/18 07:30 Methicillin resistant Staphylococcus aureus (MRSA) scr eening culture NEG NRG Complete urinalysis with reflex to cultu re - 01/14/19 14:30 Urine color determination YELLOW NRG Urine clarity determination CLEAR NR G Urine pH measurement by test strip 6.5 5-9 Specific gravity of urine by test strip 1.010 1.016-1.022 Urine protein assay by test strip, semi-quantitative 1+ NEGATIVE Urine glucose detection by automated test strip NE GATIVE NEGATIVE Erythrocytes detection in urine sediment by light micr oscopy NEGATIVE NEGATIVE Urine ketones detection by automated test strip NE GATIVE NEGATIVE Urine nitrite detection by test strip NEGATIVE NEGATIVE Urine total bilirubin detection by test strip NEGA TIVE NEGATIVE Urine urobilinogen measurement by automated test strip (mass/volume) NORMAL NORMAL Urine leukocyte esterase detection by dipstick NEG ATIVE NEGATIVE Automated urine sediment erythrocyte cou nt by microscopy (number/high power field) NONE NRG Automated urine sediment leukocyte count by microscopy (number/high power field) RARE NRG Bacteria detection in urine sediment by light microsco py NEGATIVE NRG Squamous epithelial cells detection in u rine sediment by light microscopy NONE NRG Crystals detection in urine sediment by light microsco py NONE NRG Casts detection in urine sediment by light microscopy NONE NRG Mucus detection in urine sediment by light microscopy NEGATIVE NRG Complete urinalysis with reflex to culture NO NRG Stool bacteria identification by culture - 01/14/19 17:35 QUANTITY OF GROWTH . NRG Stool bacteria identification by culture SEE COMME N NRG Complete blood count (CBC) with automate d white blood cell (WBC) differential - 01/15/19 05:49 Blood leukocytes automated count (number/volume) 6.0 10*3/uL 4.3-11.0 Blood erythrocytes automated count (number/volume) 4.58 10*6/uL 4.35-5.85 Venous blood hemoglobin measurement (mass/volume) 12.1 g/dL 13.3-17.7 Blood hematocrit (volume fraction) 34 % 40-54 Automated erythrocyte mean corpuscular volume 74 [ foz_us] 80-99 Automated erythrocyte mean corpuscular h emoglobin (mass per erythrocyte) 26 pg 25-34 Automated erythrocyte mean corpuscular h emoglobin concentration measurement (mass/volume) 36 g/dL 32-36 Automated erythrocyte distribution width ratio 21. 2 % 10.0- 14.5 Automated blood platelet count (count/volume) 135 10*3/uL 130-400 Automated blood platelet mean volume measurement 9.5 [foz_us] 7.4-10.4 Automated blood neutrophils/100 leukocytes 67 % 42-75 Automated blood lymphocytes/100 leukocytes 7 % 12-44 Blood monocytes/100 leukocytes 23 % 0-12 Automated blood eosinophils/100 leukocytes 3 % 0-10 Automated blood basophils/100 leukocytes 0 % 0-10 Blood neutrophils automated count (number/volume) 4.0 10*3 1.8-7.8 Blood lymphocytes automated count (number/volume) 0.4 10*3 1.0-4.0 Blood monocytes automated count (number/volume) 1. 3 10*3 0.0-1.0 Automated eosinophil count 0.2 10*3/uL 0 .0-0.3 Automated blood basophil count (count/volume) 0.0 10*3/uL 0.0-0.1 Comprehensive metabolic panel - 01/15/19 05:49 Serum or plasma sodium measurement (moles/volume) 135 mmol/L 135-145 Serum or plasma potassium measurement (moles/volume) 2.5 mmol/L 3.6-5.0 Serum or plasma chloride measurement (moles/volume) 105 mmol/L 98-107 Carbon dioxide 22 mmol/L 21-32 Serum or plasma anion gap determination (moles/volume) 8 mmol/L 5-14 Serum or plasma urea nitrogen measurement (mass/volume ) 7 mg/dL 7-18 Serum or plasma creatinine measurement (mass/volume) 0.67 mg/dL 0.60-1.30 Serum or plasma urea nitrogen/creatinine mass ratio 10 NRG Serum or plasma creatinine measurement w ith calculation of estimated glomerular filtration rate > NRG Serum or plasma glucose measurement (mass/volume) 97 mg/dL 70-105 Serum or plasma calcium measurement (mass/volume) 7.8 mg/dL 8.5-10.1 Serum or plasma total bilirubin measurement (mass/volu me) 1.1 mg/dL 0.1-1.0 Serum or plasma alkaline phosphatase lyly surement (enzymatic activity/volume) 47 U/L 40-136 Serum or plasma aspartate aminotransfera se measurement (enzymatic activity/volume) 16 U/L 5-34 Serum or plasma alanine aminotransferase measurement (enzymatic activity/volume) 14 U/L 0-55 Serum or plasma protein measurement (mass/volume) 4.6 g/dL 6.4-8.2 Serum or plasma albumin measurement (mass/volume) 2.6 g/dL 3.2-4.5 CALCIUM CORRECTED 8.9 mg/dL 8.5-10.1 Magnesium - 01/15/19 05:49 Magnesium 1.9 mg/dL 1.8-2.4 Complete blood count (CBC) with automate d white blood cell (WBC) differential - 01/16/19 06:50 Blood leukocytes automated count (number/volume) 6.3 10*3/uL 4.3-11.0 Blood erythrocytes automated count (number/volume) 4.45 10*6/uL 4.35-5.85 Venous blood hemoglobin measurement (mass/volume) 11.7 g/dL 13.3-17.7 Blood hematocrit (volume fraction) 33 % 40-54 Automated erythrocyte mean corpuscular volume 75 [ foz_us] 80-99 Automated erythrocyte mean corpuscular h emoglobin (mass per erythrocyte) 26 pg 25-34 Automated erythrocyte mean corpuscular h emoglobin concentration measurement (mass/volume) 35 g/dL 32-36 Automated erythrocyte distribution width ratio 21. 7 % 10.0- 14.5 Automated blood platelet count (count/volume) 152 10*3/uL 130-400 Automated blood platelet mean volume measurement 9.8 [foz_us] 7.4-10.4 Automated blood neutrophils/100 leukocytes 69 % 42-75 Automated blood lymphocytes/100 leukocytes 6 % 12-44 Blood monocytes/100 leukocytes 22 % 0-12 Automated blood eosinophils/100 leukocytes 3 % 0-10 Automated blood basophils/100 leukocytes 0 % 0-10 Blood neutrophils automated count (number/volume) 4.3 10*3 1.8-7.8 Blood lymphocytes automated count (number/volume) 0.4 10*3 1.0-4.0 Blood monocytes automated count (number/volume) 1. 4 10*3 0.0-1.0 Automated eosinophil count 0.2 10*3/uL 0 .0-0.3 Automated blood basophil count (count/volume) 0.0 10*3/uL 0.0-0.1 Comprehensive metabolic panel - 01/16/19 06:50 Serum or plasma sodium measurement (moles/volume) 134 mmol/L 135-145 Serum or plasma potassium measurement (moles/volume) 2.7 mmol/L 3.6-5.0 Serum or plasma chloride measurement (moles/volume) 105 mmol/L 98-107 Carbon dioxide 22 mmol/L 21-32 Serum or plasma anion gap determination (moles/volume) 7 mmol/L 5-14 Serum or plasma urea nitrogen measurement (mass/volume ) 6 mg/dL 7-18 Serum or plasma creatinine measurement (mass/volume) 0.68 mg/dL 0.60-1.30 Serum or plasma urea nitrogen/creatinine mass ratio 9 NRG Serum or plasma creatinine measurement w ith calculation of estimated glomerular filtration rate > NRG Serum or plasma glucose measurement (mass/volume) 106 mg/dL 70-105 Serum or plasma calcium measurement (mass/volume) 7.4 mg/dL 8.5-10.1 Serum or plasma total bilirubin measurement (mass/volu me) 1.4 mg/dL 0.1-1.0 Serum or plasma alkaline phosphatase lyly surement (enzymatic activity/volume) 44 U/L 40-136 Serum or plasma aspartate aminotransfera se measurement (enzymatic activity/volume) 16 U/L 5-34 Serum or plasma alanine aminotransferase measurement (enzymatic activity/volume) 16 U/L 0-55 Serum or plasma protein measurement (mass/volume) 4.4 g/dL 6.4-8.2 Serum or plasma albumin measurement (mass/volume) 2.4 g/dL 3.2-4.5 CALCIUM CORRECTED 8.7 mg/dL 8.5-10.1 Magnesium - 01/16/19 06:50 Magnesium 1.3 mg/dL 1.8-2.4 Blood manual differential performed dete ction - 01/16/19 06:50 Blood monocytes/100 leukocytes 15 % NRG Manual blood segmented neutrophils/100 leukocytes 70 % NRG Blood band neutrophils/100 leukocytes 6 % NRG Manual blood lymphocytes/100 leukocytes 3 % NRG Manual eosinophils/100 leukocytes in nose 3 % NRG Blood lymphocytes variant/100 leukocytes 2 % NRG Blood polychromasia detection by light microscopy SLIGHT NRG Blood anisocytosis detection by light microscopy M ODERATE NRG Blood macrocytes detection by light microscopy SLI GHT NRG Manual blood metamyelocytes/100 leukocytes 1 % NRG Blood microcytes detection by light microscopy MOD ERATE NRG Complete blood count (CBC) with automate d white blood cell (WBC) differential - 01/17/19 06:45 Blood leukocytes automated count (number/volume) 5.5 10*3/uL 4.3-11.0 Blood erythrocytes automated count (number/volume) 4.23 10*6/uL 4.35-5.85 Venous blood hemoglobin measurement (mass/volume) 11.2 g/dL 13.3-17.7 Blood hematocrit (volume fraction) 32 % 40-54 Automated erythrocyte mean corpuscular volume 76 [ foz_us] 80-99 Automated erythrocyte mean corpuscular h emoglobin (mass per erythrocyte) 27 pg 25-34 Automated erythrocyte mean corpuscular h emoglobin concentration measurement (mass/volume) 35 g/dL 32-36 Automated erythrocyte distribution width ratio 21. 3 % 10.0- 14.5 Automated blood platelet count (count/volume) 153 10*3/uL 130-400 Automated blood platelet mean volume measurement 9.8 [foz_us] 7.4-10.4 Automated blood neutrophils/100 leukocytes 68 % 42-75 Automated blood lymphocytes/100 leukocytes 6 % 12-44 Blood monocytes/100 leukocytes 17 % 0-12 Automated blood eosinophils/100 leukocytes 9 % 0-10 Automated blood basophils/100 leukocytes 0 % 0-10 Blood neutrophils automated count (number/volume) 3.7 10*3 1.8-7.8 Blood lymphocytes automated count (number/volume) 0.4 10*3 1.0-4.0 Blood monocytes automated count (number/volume) 0. 9 10*3 0.0-1.0 Automated eosinophil count 0.5 10*3/uL 0 .0-0.3 Automated blood basophil count (count/volume) 0.0 10*3/uL 0.0-0.1 Comprehensive metabolic panel - 01/17/19 06:45 Serum or plasma sodium measurement (moles/volume) 135 mmol/L 135-145 Serum or plasma potassium measurement (moles/volume) 2.8 mmol/L 3.6-5.0 Serum or plasma chloride measurement (moles/volume) 105 mmol/L 98-107 Carbon dioxide 24 mmol/L 21-32 Serum or plasma anion gap determination (moles/volume) 6 mmol/L 5-14 Serum or plasma urea nitrogen measurement (mass/volume ) 5 mg/dL 7-18 Serum or plasma creatinine measurement (mass/volume) 0.60 mg/dL 0.60-1.30 Serum or plasma urea nitrogen/creatinine mass ratio 8 NRG Serum or plasma creatinine measurement w ith calculation of estimated glomerular filtration rate > NRG Serum or plasma glucose measurement (mass/volume) 106 mg/dL 70-105 Serum or plasma calcium measurement (mass/volume) 7.5 mg/dL 8.5-10.1 Serum or plasma total bilirubin measurement (mass/volu me) 1.1 mg/dL 0.1-1.0 Serum or plasma alkaline phosphatase lyly surement (enzymatic activity/volume) 40 U/L 40-136 Serum or plasma aspartate aminotransfera se measurement (enzymatic activity/volume) 11 U/L 5-34 Serum or plasma alanine aminotransferase measurement (enzymatic activity/volume) 13 U/L 0-55 Serum or plasma protein measurement (mass/volume) 3.9 g/dL 6.4-8.2 Serum or plasma albumin measurement (mass/volume) 2.2 g/dL 3.2-4.5 CALCIUM CORRECTED 8.9 mg/dL 8.5-10.1 Magnesium - 01/17/19 06:45 Magnesium 1.5 mg/dL 1.8-2.4 Complete blood count (CBC) with automate d white blood cell (WBC) differential - 01/18/19 06:45 Blood leukocytes automated count (number/volume) 6.0 10*3/uL 4.3-11.0 Blood erythrocytes automated count (number/volume) 4.01 10*6/uL 4.35-5.85 Venous blood hemoglobin measurement (mass/volume) 10.6 g/dL 13.3-17.7 Blood hematocrit (volume fraction) 31 % 40-54 Automated erythrocyte mean corpuscular volume 77 [ foz_us] 80-99 Automated erythrocyte mean corpuscular h emoglobin (mass per erythrocyte) 26 pg 25-34 Automated erythrocyte mean corpuscular h emoglobin concentration measurement (mass/volume) 34 g/dL 32-36 Automated erythrocyte distribution width ratio 22. 0 % 10.0- 14.5 Automated blood platelet count (count/volume) 163 10*3/uL 130-400 Automated blood platelet mean volume measurement 9.6 [foz_us] 7.4-10.4 Automated blood neutrophils/100 leukocytes 73 % 42-75 Automated blood lymphocytes/100 leukocytes 5 % 12-44 Blood monocytes/100 leukocytes 14 % 0-12 Automated blood eosinophils/100 leukocytes 7 % 0-10 Automated blood basophils/100 leukocytes 1 % 0-10 Blood neutrophils automated count (number/volume) 4.4 10*3 1.8-7.8 Blood lymphocytes automated count (number/volume) 0.3 10*3 1.0-4.0 Blood monocytes automated count (number/volume) 0. 8 10*3 0.0-1.0 Automated eosinophil count 0.4 10*3/uL 0 .0-0.3 Automated blood basophil count (count/volume) 0.0 10*3/uL 0.0-0.1 Whole blood basic metabolic panel - 04/01 06:45 Serum or plasma sodium measurement (moles/volume) 135 mmol/L 135-145 Serum or plasma potassium measurement (moles/volume) 3.4 mmol/L 3.6-5.0 Serum or plasma chloride measurement (moles/volume) 107 mmol/L 98-107 Carbon dioxide 24 mmol/L 21-32 Serum or plasma anion gap determination (moles/volume) 4 mmol/L 5-14 Serum or plasma urea nitrogen measurement (mass/volume ) 8 mg/dL 7-18 Serum or plasma creatinine measurement (mass/volume) 0.61 mg/dL 0.60-1.30 Serum or plasma urea nitrogen/creatinine mass ratio 13 NRG Serum or plasma creatinine measurement w ith calculation of estimated glomerular filtration rate > NRG Serum or plasma glucose measurement (mass/volume) 119 mg/dL 70-105 Serum or plasma calcium measurement (mass/volume) 7.2 mg/dL 8.5-10.1 Magnesium - 01/18/19 06:45 Magnesium 1.6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
[2020-02-13] MEDS ORDERED: ceFAZolin INJECTION 1,000 MG in WATER (STERILE) FOR INJECTION 10 ML IV ONE (06:15)
[2020-02-13 06:30] VITALS: BP 135/89
[2020-02-13] MEDS ORDERED: ceFAZolin 2 GM IV Premixed 50 ML ONE (06:42)
[2020-02-13] MEDS ORDERED: fentaNYL INJECTION 100 MCG/2 ML AMP ONE (06:56)
[2020-02-13] MEDS ORDERED: MIDAZOLAM 2 MG/2 ML (VERSED) VIAL ONE (06:56)
[2020-02-13] MEDS ORDERED: PROPOFOL INJECTION 50 ML IV ONE (06:56)
[2020-02-13] MEDS ORDERED: BUP/EPI 0.5% 1:200,000 (SENSORCAINE) 30 ML VIAL ONE (07:04)
[2020-02-13] MEDS ORDERED: ceFAZolin 2 GM/50 ML (PRE-MIXED) IV ONE (07:15)
--- NOTE | 2020-02-13 08:42 | Progress Note-Pre Operative ---
Pre-Operative Progress Note H&P Reviewed The H&P was reviewed, patient examined and no changes noted. Date Seen by Provider: Feb 13, 2020 Time Seen by Provider: 08:42 Date H&P Reviewed: Feb 13, 2020 Time H&P Reviewed: 08:42 Pre-Operative Diagnosis: hx colon cancer RAYNA SALCIDO DO Feb 13, 2020 08:42
[2020-02-13 09:05] VITALS: BP 133/83
[2020-02-13 09:10] VITALS: BP 136/84
--- NOTE | 2020-02-13 09:12 | Anesthesia-General Post-Op ---
MAC Patient Condition Mental Status/LOC: Same as Preop Cardiovascular: Satisfactory Nausea/Vomiting: Absent Respiratory: Satisfactory Pain: Controlled Complications: Absent Post Op Complications Complications None Follow Up Care/Instructions Patient Instructions None needed. Anesthesiology Discharge Order Discharge Order Patient is doing well, no complaints, stable vital signs, no apparent adverse anesthesia problems. No complications reported per nursing. JOHN BORJAS CRNA Feb 13, 2020 09:12
[2020-02-13] MEDS ORDERED: ONDANSETRON 4 MG/2 ML (SDV) Z0FRAN IVP PRN (09:15)
[2020-02-13] MEDS ORDERED: morphine INJ 10 MG/ML 1ML (SYR OR VIAL) IVP ONE (09:15)
[2020-02-13 09:20] VITALS: BP 136/93
[2020-02-13 09:25] VITALS: BP_SYST 132; BP_SYST 136; BP_DIAS 92; BP_DIAS 93
[2020-02-13 09:55] VITALS: BP 110/68
--- NOTE | 2020-02-13 10:55 | Progress Note-Post Operative ---
Post-Operative Progess Note Surgeon (s)/Chemical Equipment Controller (s) Surgeon RAYNA SALCIDO DO Chemical Equipment Controller: na Pre-Operative Diagnosis hx colon cancer Post-Operative Diagnosis same Procedure & Operative Findings Date of Procedure 02/13/20 Procedure Performed/Findings PROCEDURE: Removal of port, COMPLICATIONS: None. INDICATIONS: The patient is a 59 year-old male who had a port previously placed. Patient is ok to have port removed. The patient was explained risk and benefits of the procedure and wished to proceed with procedure. Consent was signed on the chart. PROCEDURE: The patient was taken to the operating suite and was prepped and draped in sterile fashion. A surgical pause was performed. Local anesthetic was infiltrated to the area around the port. A number 15 blade scalpel was used to make an incision. Cautery was used to dissect down to the port which was then grasped and then dissected around. The catheter was removed in its entirety. The port was then able to be dissected out of the pocket and elevated. The wound was then irrigated with copious amounts of irrigation. Hemostasis had been achieved. The subcutaneous tissues were then reapproximated using 3-0 Vicryl. The area was then washed and dried and Skin Affix placed over the incision. The patient tolerated the procedure well without complication and was taken to recovery room in stable condition. Anesthesia Type mac c local Estimated Blood Loss Estimated blood loss (mL): min Specimens/Packing Specimens Removed RAYNA Brizuela DO Feb 13, 2020 10:55
== END 2020-02-13 10:00 | disposition home or self-care (01) ==
LOC: SDC 06:05
PROVIDERS: ATTEND Surgery
DX: Z85.038 Personal history of other malignant neoplasm of large intestine (principal); K21.9 Gastro-esophageal reflux disease without esophagitis; I11.0 Hypertensive heart disease with heart failure; I34.0 Nonrheumatic mitral (valve) insufficiency; I25.5 Ischemic cardiomyopathy; I50.22 Chronic systolic (congestive) heart failure; E66.01 Morbid (severe) obesity due to excess calories; D86.9 Sarcoidosis, unspecified; D64.9 Anemia, unspecified; G47.50 Parasomnia, unspecified; G47.33 Obstructive sleep apnea (adult) (pediatric); E87.6 Hypokalemia; Z68.41 Body mass index [BMI] 40.0-44.9, adult; Z79.899 Other long term (current) drug therapy; Z79.82 Long term (current) use of aspirin; Z92.21 Personal history of antineoplastic chemotherapy; Z88.8 Allergy status to other drugs, medicaments and biological substances; Z82.3 Family history of stroke; Z80.0 Family history of malignant neoplasm of digestive organs; Z80.6 Family history of leukemia; Z80.49 Family history of malignant neoplasm of other genital organs
CPT/HCPCS: 87081

== ENCOUNTER → 2020-04-30 | Outpatient (CLI) | payer BC ==
[2020-04-30 13:23] LABS: BASOPHILS # (AUTO) 0.1 10^3/uL (0.0-0.1); BASOPHILS % (AUTO) 1 % (0-10); EOSINOPHILS # (AUTO) 0.1 10^3/uL (0.0-0.3); EOSINOPHILS % (AUTO) 1 % (0-10); HEMATOCRIT 44 % (40-54); HEMOGLOBIN 15.4 G/DL (13.3-17.7); LYMPHOCYTES # (AUTO) 0.7 X 10^3 (1.0-4.0); LYMPHOCYTES % (AUTO) 6 % (12-44); MEAN CORPUSCULAR HEMOGLOBIN 30 PG (25-34); MEAN CORPUSCULAR HGB CONC 35 G/DL (32-36); MEAN CORPUSCULAR VOLUME 86 FL (80-99); MEAN PLATELET VOLUME 10.3 FL (7.4-10.4); MONOCYTES # (AUTO) 0.6 X 10^3 (0.0-1.0); MONOCYTES % (AUTO) 5 % (0-12); NEUTROPHILS # (AUTO) 9.6 X 10^3 (1.8-7.8); NEUTROPHILS % (AUTO) 87 % (42-75); PLATELET COUNT 153 10^3/uL (130-400); RED CELL DISTRIBUTION WIDTH 14.9 % (10.0-14.5)
[2020-04-30 13:45] LABS: ALANINE AMINOTRANSFERASE 47 U/L (0-55); ALBUMIN 4.5 GM/DL (3.2-4.5); ALKALINE PHOSPHATASE 60 U/L (40-136); BILIRUBIN,TOTAL 1.1 MG/DL (0.1-1.0); BUN/CREATININE RATIO 16; CALCIUM 9.4 MG/DL (8.5-10.1); CARBON DIOXIDE 26 MMOL/L (21-32); CHLORIDE 101 MMOL/L (98-107); CREATININE SERUM 1.16 MG/DL (0.60-1.30); GFR ESTIMATED > 60; GLUCOSE 178 MG/DL (70-105); POTASSIUM 3.8 MMOL/L (3.6-5.0); SODIUM 137 MMOL/L (135-145); TOTAL PROTEIN 7.4 GM/DL (6.4-8.2)
== END ==
LOC: EDSTATUS 04-16 12:33 → ONC 12:54
PROVIDERS: ATTEND Internal Medicine Hematology & Oncology
DX: C18.7 Malignant neoplasm of sigmoid colon (principal); K80.20 Calculus of gallbladder without cholecystitis without obstruction; I11.9 Hypertensive heart disease without heart failure; I34.0 Nonrheumatic mitral (valve) insufficiency; R91.8 Other nonspecific abnormal finding of lung field; R59.0 Localized enlarged lymph nodes
CPT/HCPCS: 80053; 83615; 85025; G0463; 99213

== ENCOUNTER → 2020-05-28 | Outpatient (CLI) | payer BC ==
[~2020-05-28] MED LIST changes: +ASPI-1238 PO; -ASPI-983 PO
--- NOTE | 2020-05-28 11:36 | Diagnostic Imaging Report ---
INDICATION: Chest pain. TIME OF EXAM: 10:48 AM Correlation is made with prior chest from 11/08/2018. FINDINGS: The heart is enlarged but stable. There are infiltrates or atelectasis in both bases. Upper lung cisneros are clear. No effusion or pneumothorax is identified. Pulmonary vascularity is unremarkable. IMPRESSION: Cardiomegaly with mild bibasilar infiltrate or atelectasis. Dictated by: Dictated on workstation # [id number]
== END ==
LOC: RAD 10:25
PROVIDERS: ATTEND Family Medicine
DX: I51.7 Cardiomegaly (principal); Z20.828 Contact with and (suspected) exposure to other viral communicable diseases
CPT/HCPCS: 71046

== ENCOUNTER 2020-06-29 09:24 | Outpatient (CLI) | payer BC ==
[~2020-06-29 09:24] MED LIST changes: -PANT40TA3 PO; +PANT40TA52 PO
== END 2020-06-29 10:00 | disposition home or self-care (01) ==
LOC: SLEEP 09:24
PROVIDERS: ATTEND Otolaryngology Otolaryngology/Facial Plastic Surgery
DX: G47.33 Obstructive sleep apnea (adult) (pediatric) (principal); G47.10 Hypersomnia, unspecified; Z20.828 Contact with and (suspected) exposure to other viral communicable diseases

== ENCOUNTER 2020-07-30 15:26 | Observation (INO) | payer BC ==
[~2020-07-30] VITALS: Ht 172.7 cm; Wt 135.9 kg
[2020-07-30] MEDS ORDERED: RX-ALBUTEROL INHALER (VENTOLIN HFA) 18 GM IH ONE (15:37)
[2020-07-30] MEDS ORDERED: LORazepam INJ 2 MG/ML (ATIVAN) VIAL ONE (15:39)
[2020-07-30] MEDS: RT-ALBUTEROL INHALER HFA (VENTOLIN HFA) 18 GM IH SCH ×2 (15:40→20:53)
--- NOTE | 2020-07-30 15:40 | ED General ---
General Stated Complaint: SOA Source of Information: Patient Exam Limitations: No Limitations History of Present Illness Date Seen by Provider: Jul 30, 2020 Time Seen by Provider: 15:38 Initial Comments To ER by private vehicle with reports shortness of breath that got worse than usual yesterday. Wears CPAP at night but does not wear home oxygen. No fevers or chills. Believes he may just be anxious. He has history of sarcoidosis with pulmonary involvement. Steroids were stopped within the past few months. Timing/Duration: 1-2 Days, Getting Worse Severity: Moderate Associated Systoms: No Chest Pain, No Cough, No Fever/Chills; Shortness of Air Allergies and Home Medications Allergies Coded Allergies: ibuprofen (Verified Allergy, Severe, HIVES, 10/07/18) Home Medications Aspirin 81 Mg Tab.chew, 81 MG PO DAILY, (Reported) Atorvastatin Calcium 20 Mg Tablet, 20 MG PO HS, (Reported) Budesonide/Formoterol Fumarate 10.2 Gm Hfa.aer.ad, 2 PUFF IH BID PRN for SHORTNESS OF BREATH, (Reported) Diclofenac Sodium 75 Mg Tablet.dr, 75 MG PO DAILY PRN for MUSCLE SPASMS, (Reported) Furosemide 40 Mg Tablet, 40 MG PO DAILY, (Reported) Losartan Potassium 25 Mg Tablet, 25 MG PO 1800, (Reported) Metoprolol Succinate 50 Mg Tab.er.24h, 50 MG PO DAILY, (Reported) Nortriptyline HCl 50 Mg Capsule, 50 MG PO HS, (Reported) Pantoprazole Sodium 40 Mg Tablet.dr, 40 MG PO DAILY, (Reported) Potassium Chloride 20 Meq Tablet.er, 20 MEQ PO DAILY, (Reported) Spironolactone 25 Mg Tablet, 25 MG PO DAILY, (Reported) Patient Home Medication List Home Medication List Reviewed: Yes Review of Systems Review of Systems Constitutional: see HPI EENTM: see HPI Respiratory: see HPI, dyspnea on exertion Cardiovascular: no symptoms reported Genitourinary: no symptoms reported Musculoskeletal: no symptoms reported Skin: no symptoms reported Psychiatric/Neurological: No Symptoms Reported Hematologic/Lymphatic: No Symptoms Reported Immunological/Allergic: no symptoms reported Past Audopvn-Uzaozv-Aamfrq Hx Patient Social History Type Used: Cigarettes Former Smoker, Quit: Nov 17, 1974 2nd Hand Smoke Exposure: Yes Recent Foreign Travel: No Contact w/Someone Who Travel: No Recent Hopitalizations: No Immunizations Up To Date Tetanus Booster (TDap): More than 5yrs Date of Influenza Vaccine: Jul 07, 2019 Seasonal Allergies Seasonal Allergies: Yes Past Medical History Surgeries: Yes (COLON RESECTION x2,PORT) Bowel Surgery Respiratory: Yes (SARCOIDOSIS) Currently Using CPAP: No Currently Using BIPAP: No Cardiac: Yes (leaking valve, branch block) Hypertension Neurological: No Sexually Transmitted Disease: No HIV/AIDS: No Genitourinary: Yes Kidney Stones Gastrointestinal: Yes (hx colon ca) Gastroesophageal Reflux, Diverticulosis Musculoskeletal: No Endocrine: No HEENT: No Cancer: Yes Colon Did You Recieve Any Treatments: Yes What Type of Treatment Did You: Chemotherapy, Surgical Intervention Psychosocial: No Integumentary: No Blood Disorders: No Adverse Reaction/Blood Tranf: No Family Medical History Cancer, CAD Under 55 Years Old, Stroke Physical Exam Vital Signs Vital Signs - First Documented 07/30/20 15:30 Temp 36.0 Pulse 99 Resp 20 B/P (MAP) 173/118 (136) Pulse Ox 99 O2 Delivery Nasal Cannula O2 Flow Rate 1.50 Capillary Refill : Height, Weight, BMI Height: 5'9.00" Weight: 232lbs. 0.0oz. 105.142166zp; 39.92 BMI Method:Stated General Appearance: Anxious, Moderate Distress (He is visibly dyspneic, there is natatory wheezing greater on the left than the right. Oxygen saturation 94% room air, heart rate 130.), Obese Eyes: Bilateral Eye Normal Inspection, Bilateral Eye PERRL, Bilateral Eye EOMI Neck: Full Range of Motion, Normal Inspection Respiratory: No Accessory Muscle Use, No Respiratory Distress, Other (Tachypneic) Cardiovascular: Normal Peripheral Pulses, Tachycardia Gastrointestinal: Normal Bowel Sounds, Non Tender, Soft Extremity: Normal Capillary Refill, Normal Inspection Neurologic/Psychiatric: Alert, Oriented x3 Skin: Normal Color, Warm/Dry Progress/Results/Core Measures Suspected Sepsis SIRS Temperature: Pulse: Respiratory Rate: Laboratory Tests 07/30/20 15:34: White Blood Count 7.8 Blood Pressure / Mean: Laboratory Tests 07/30/20 15:34: Creatinine 1.12, Platelet Count 194, Total Bilirubin 1.0 Results/Orders Lab Results Laboratory Tests Test 07/30/20 15:34 07/30/20 15:36 Range/Units White Blood Count 7.8 4.3-11.0 10^3/uL Red Blood Count 5.58 H 4.30-5.52 10^6/uL Hemoglobin 16.1 13.3-17.7 g/dL Hematocrit 48 40-54 % Mean Corpuscular Volume 87 80-99 fL Mean Corpuscular Hemoglobin 29 25-34 pg Mean Corpuscular Hemoglobin Concent 33 32-36 g/dL Red Cell Distribution Width 13.4 10.0-14.5 % Platelet Count 194 130-400 10^3/uL Mean Platelet Volume 10.1 9.0-12.2 fL Immature Granulocyte % (Auto) 1 % Neutrophils (%) (Auto) 77 H 42-75 % Lymphocytes (%) (Auto) 6 L 12-44 % Monocytes (%) (Auto) 13 H 0-12 % Eosinophils (%) (Auto) 2 0-10 % Basophils (%) (Auto) 1 0-10 % Neutrophils # (Auto) 6.0 1.8-7.8 10^3/uL Lymphocytes # (Auto) 0.5 L 1.0-4.0 10^3/uL Monocytes # (Auto) 1.0 0.0-1.0 10^3/uL Eosinophils # (Auto) 0.2 0.0-0.3 10^3/uL Basophils # (Auto) 0.1 0.0-0.1 10^3/uL Immature Granulocyte # (Auto) 0.1 0.0-0.1 10^3/uL Neutrophils % (Manual) 80 % Lymphocytes % (Manual) 1 % Monocytes % (Manual) 10 % Eosinophils % (Manual) 3 % Reactive Lymphocytes 6 % Blood Morphology Comment NORMAL D-Dimer < 0.20 0.00-0.49 UG/ML Sodium Level 138 135-145 MMOL/L Potassium Level 4.2 3.6-5.0 MMOL/L Chloride Level 101 98-107 MMOL/L Carbon Dioxide Level 24 21-32 MMOL/L Anion Gap 13 5-14 MMOL/L Blood Urea Nitrogen 15 7-18 MG/DL Creatinine 1.12 0.60-1.30 MG/DL Estimat Glomerular Filtration Rate > 60 BUN/Creatinine Ratio 13 Glucose Level 124 H 70-105 MG/DL Calcium Level 9.2 8.5-10.1 MG/DL Corrected Calcium 8.9 8.5-10.1 MG/DL Magnesium Level 1.9 1.6-2.4 MG/DL Total Bilirubin 1.0 0.1-1.0 MG/DL Aspartate Amino Transf (AST/SGOT) 34 5-34 U/L Alanine Aminotransferase (ALT/SGPT) 61 H 0-55 U/L Alkaline Phosphatase 72 40-136 U/L Troponin I 0.034 H <0.028 NG/ML C-Reactive Protein High Sensitivity 0.52 H 0.00-0.50 MG/DL B-Type Natriuretic Peptide 332.5 H <100.0 PG/ML Total Protein 7.5 6.4-8.2 GM/DL Albumin 4.4 3.2-4.5 GM/DL Coronavirus 2019 ([facility]) Negative Negative Micro Results Microbiology 07/30/20 Influenza Types A,B Antigen ([facility]) - Final, Complete My Orders Orders - CRISTAL FOSS APRN Cbc With Automated Diff (07/30/20 15:36) Hs C Reactive Protein (07/30/20 15:36) Comprehensive Metabolic Panel (07/30/20 15:36) BNP (07/30/20 15:36) Influenza A And B Antigens (07/30/20 15:36) Covid 19 Inhouse Test (07/30/20 15:36) Chest 1 View, Ap/Pa Only (07/30/20 15:36) Ekg Tracing (07/30/20 15:36) Troponin I (07/30/20 15:36) Ed Iv/Invasive Line Start (07/30/20 15:36) Lorazepam Injection (Ativan Injection) (07/30/20 15:45) Albuterol Inhaler (Ventolin Hfa) (07/30/20 18:00) Rx-Albuterol Inhaler (Rx-Ventolin Hfa) (07/30/20 15:37) Fibrin Degradation Products (07/30/20 15:40) Lorazepam Injection (Ativan Injection) (07/30/20 15:39) Manual Differential (07/30/20 15:34) Magnesium (07/30/20 16:08) Procalcitonin (Pct) (07/30/20 16:30) Medications Given in ED Current Medications Medications Dose Ordered Sig/Obi Route Start Time Stop Time Status Last Admin Dose Admin Lorazepam 0.5 mg ONCE PRN IVP 07/30/20 15:45 07/30/20 15:41 0.5 MG Vital Signs/I&O 07/30/20 15:30 Temp 36.0 Pulse 99 Resp 20 B/P (MAP) 173/118 (136) Pulse Ox 99 O2 Delivery Nasal Cannula O2 Flow Rate 1.50 Capillary Refill : Diagnostic Imaging Diagonstic Imaging: Xray Plain Films/CT/US/NM/MRI: chest Comments NAME: SUKHJINDER MANCUSO [facility] REC#: [id number] PT STATUS: REG ER : 1960 PHYSICIAN: CRISTAL FOSS APRN ADMIT DATE: 07/30/20/ER Draft Date of Exam:07/30/20 CHEST 1 VIEW, AP/PA ONLY INDICATION: Cough. Shortness of air. COMPARISON: 05/28/2020. FINDINGS: Single frontal radiographic view of the chest was obtained and demonstrates interval increase in moderate cardiomegaly. There is also mild vascular congestion. Lungs show band-like opacity within the right yni-qs-mwzvn lung field. This corresponds to area of pulmonary nodules seen on previous CT chest. There is no large effusion or pneumothorax. Osseous structures show no acute abnormalities. IMPRESSION: 1. Moderate cardiomegaly and mild vascular congestion. 2. Band-like opacity within the right laq-fa-sfmjm lung field. Again, this corresponds to nodular density seen on previous exams. There may be increased adjacent atelectasis and/or infiltrate. Progression of neoplastic process is not excluded. Dictated on workstation # [id number] Dict: 07/30/20 1630 Trans: 07/30/20 1636 [id number] [id number] Interpreted by: SANGITA DUNCAN MD Electronically signed by: Departure Communication (Admissions) Time/Spoke to Admitting Phy: 17:[address] Whit Casanova and Dr brady. Will admit, serial troponins. Prednisone for the sarcoidosis which is the likely cause of this. Impression Primary Impression: Dyspnea Qualified Codes: R06.02 - Shortness of breath Additional Impression: Cardiomyopathy Qualified Codes: I42.9 - Cardiomyopathy, unspecified Disposition: ADMITTED INPATIENT Condition: Stable Admissions Decision to Admit Reason: Admit from ER (General) Decision to Admit/Date: Jul 30, 2020 Time/Decision to Admit Time: 16:35 Departure-Patient Inst. Referrals: SHERYL CASANOVA MD (PCP/Family) Primary Care Physician CRISTAL FOSS APRN Jul 30, 2020 15:40
[2020-07-30] MEDS ORDERED: LORazepam INJ 2 MG/ML (ATIVAN) VIAL IVP PRN (15:45)
[2020-07-30 15:48] LABS: BASOPHILS # (AUTO) 0.1 10^3/uL (0.0-0.1); BASOPHILS % (AUTO) 1 % (0-10); EOSINOPHILS # (AUTO) 0.2 10^3/uL (0.0-0.3); EOSINOPHILS % (AUTO) 2 % (0-10); HEMATOCRIT 48 % (40-54); HEMOGLOBIN 16.1 g/dL (13.3-17.7); LYMPHOCYTES # (AUTO) 0.5 10^3/uL (1.0-4.0); LYMPHOCYTES % (AUTO) 6 % (12-44); MEAN CORPUSCULAR HEMOGLOBIN 29 pg (25-34); MEAN CORPUSCULAR HGB CONC 33 g/dL (32-36); MEAN CORPUSCULAR VOLUME 87 fL (80-99); MEAN PLATELET VOLUME 10.1 fL (9.0-12.2); MONOCYTES % (AUTO) 13 % (0-12); NEUTROPHILS % (AUTO) 77 % (42-75); PLATELET COUNT 194 10^3/uL (130-400); WHITE BLOOD COUNT 7.8 10^3/uL (4.3-11.0)
[2020-07-30 16:07] LABS: ALBUMIN 4.4 GM/DL (3.2-4.5); CHLORIDE 101 MMOL/L (98-107); POTASSIUM 4.2 MMOL/L (3.6-5.0); SODIUM 138 MMOL/L (135-145)
[2020-07-30 16:08] LABS: CALCIUM 9.2 MG/DL (8.5-10.1)
[2020-07-30 16:10] LABS: GLUCOSE 124 MG/DL (70-105); TOTAL PROTEIN 7.5 GM/DL (6.4-8.2)
[2020-07-30 16:11] LABS: CARBON DIOXIDE 24 MMOL/L (21-32)
[2020-07-30 16:12] LABS: EOSINOPHILS % (MANUAL) 3 %; LYMPHOCYTES % (MANUAL) 1 %; MONOCYTES % (MANUAL) 10 %; NEUTROPHILS % (MANUAL) 80 %; RBC MORPH NORMAL; REACTIVE LYMPHOCYTES 6 %
[2020-07-30 16:13] LABS: ALKALINE PHOSPHATASE 72 U/L (40-136); CREATININE SERUM 1.12 MG/DL (0.60-1.30); GFR ESTIMATED > 60
[2020-07-30 16:14] LABS: BUN/CREATININE RATIO 13
[2020-07-30 16:16] LABS: ALANINE AMINOTRANSFERASE 61 U/L (0-55)
--- NOTE | 2020-07-30 16:37 | Diagnostic Imaging Report ---
INDICATION: Cough. Shortness of air. COMPARISON: 05/28/2020. FINDINGS: Single frontal radiographic view of the chest was obtained and demonstrates interval increase in moderate cardiomegaly. There is also mild vascular congestion. Lungs show band-like opacity within the right aam-de-bgiwz lung field. This corresponds to area of pulmonary nodules seen on previous CT chest. There is no large effusion or pneumothorax. Osseous structures show no acute abnormalities. IMPRESSION: 1. Moderate cardiomegaly and mild vascular congestion. 2. Band-like opacity within the right qrr-bb-rfnot lung field. Again, this corresponds to nodular density seen on previous exams. There may be increased adjacent atelectasis and/or infiltrate. Progression of neoplastic process is not excluded. Dictated by: Dictated on workstation # [id number]
[2020-07-30] MEDS ORDERED: methylPREDNISolone 40 MG/ML (Solu-MEDROL) VIAL IV ONE (17:15)
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
[2020-07-30 18:09] VITALS: BP 156/99
[2020-07-30] MEDS ORDERED: CATHETER FLUSH 10 ML SYR IV PRN (18:45)
[2020-07-30] MEDS ORDERED: FLU QUADRIvalent (3YOA+) 60 mcg/0.5 ml 2020-21 (AFLURIA) IM ONE (19:00)
[2020-07-30 20:00] VITALS: BP 146/98
[2020-07-30] MEDS: ENOXAPARIN 300 MG/3 ML (LOVENOX) MULTI-DOSE VIAL SQ SCH (20:21)
[2020-07-30] MEDS: CATHETER FLUSH 10 ML SYR IV SCH (22:00)
[2020-07-30] MEDS: LORazepam INJ 2 MG/ML (ATIVAN) VIAL IV PRN (23:23)
[2020-07-31 00:15] VITALS: BP 129/74
[2020-07-31 04:55] VITALS: BP 119/75
[2020-07-31] MEDS: CATHETER FLUSH 10 ML SYR IV SCH ×3 (06:18→22:06)
[2020-07-31] MEDS: predniSONE 20 MG TAB PO SCH (06:56)
[2020-07-31] MEDS: ENOXAPARIN 300 MG/3 ML (LOVENOX) MULTI-DOSE VIAL SQ SCH ×2 (06:57→19:59)
[2020-07-31] MEDS: RT-ALBUTEROL INHALER HFA (VENTOLIN HFA) 18 GM IH SCH ×6 (07:27→23:08)
[2020-07-31 07:54] VITALS: BP 125/75
[2020-07-31] MEDS ORDERED: ATOR20TA66 PO (09:47)
[2020-07-31] MEDS ORDERED: POLY17PO6 PO (09:47)
[2020-07-31] MEDS ORDERED: ASCO500T17 PO (09:47)
[2020-07-31] MEDS ORDERED: CHOL100048 PO (09:47)
[2020-07-31] MEDS ORDERED: ALBU18HF2 INH (09:47)
[2020-07-31] MEDS ORDERED: MULT-1136 PO (09:47)
[2020-07-31] MEDS ORDERED: ACET-2267 PO (09:47)
[2020-07-31] MEDS ORDERED: LOSA50TA63 PO (09:47)
--- NOTE | 2020-07-31 09:51 | NUR ---
SPOKE WITH THE PT AND WENT THRU THE EXT MED HISTORY TO COMPLETE THE MED REC PT WAS ABLE TO NAME ALL HIS MEDICATIONS WELL WHEN/HOW HE TAKES EACH. ALL HIS INFORMATION MATCHED THE EXT MED HISTORY OTC MEDS: VIT D3 VIT C MTV TYLENOL ASPIRIN 81MG MIRALAX
[2020-07-31 11:42] VITALS: BP 132/80
[2020-07-31] MEDS ORDERED: FUROSEMIDE 40 MG/4 ML INJ (LASIX) IVP NR (13:00)
--- NOTE | 2020-07-31 13:55 | Consultation-Cardiology ---
HPI-Cardiology Cardiology Consultation: Date of Consultation 07/31/20 Date of Admission Attending Physician Jace Montalvo MD Admitting Physician Jace Montalvo MD Consulting Physician Kristin BENTLEY MD HPI: Time Seen by a Provider: 12:30 Chief Complaint: Shortness of breath This is a 60-year-old gentleman who presents with worsening shortness of breath. The patient has history of sleep apnea and uses CPAP. He has history of sarcoidosis with lung involvement. He denies significant COPD. Denies active smoking. Pertinent family history is unremarkable. He has been on steroids and has gained 50 pounds in the last few months. He denies any chest pain. Review of Systems-Cardiology Review of Systems Constitutional: As described under HPI; No As described under HPI, No no symptoms reported, No chills, No fever, No lightheadedness Eyes: No As described under HPI, No no symptoms reported, No blindness, No blurred vision, No contact lenses, No drainage, No decreased acuity, No foreign body sensation, No pain, No vision change Ears/Nose/Throat: No As described under HPI, No no symptoms reported, No chronic hearing loss, No ear discharge, No ear pain, No nasal drainage, No ulcerations Respiratory: No no symptoms reported; As described under HPI; No As described under HPI, No cough, No orthopnea; shortness of breath; No SOB with excertion Cardiovascular: No no symptoms reported; As described under HPI; No As described under HPI, No chest pain, No edema, No irregular heart rate, No lightheadedness, No palpitations Gastrointestinal: No no symptoms reported, No As described under HPI, No abdomen distended, No abdominal pain, No blood streaked bowels, No constipation, No diarrhea, No nausea, No vomiting, No stool coloration changes Genitourinary: No As described under HPI, No burning, No dysuria, No discharge, No frequency, No flank pain, No hematuria, No urgency Skin: No rash, No skin related problems, No ulcerations Psychiatric/Neurological: No anxiety, No depression, No seizure, No focal weakness, No syncope Hematologic: No bleeding abnormalities PLL-Xetuxc-Idspzb Hx Patient Social History Alcohol Use: Denies Use Recreational Drug Use: Yes Drug of Choice: marijuana Type Used: Cigarettes 2nd Hand Smoke Exposure: Yes Recent Foreign Travel: No Recent Infectious Disease Expo: No Hospitalization with Isolation: Denies Immunizations Up To Date Tetanus Booster (TDap): More than 5yrs Date of Influenza Vaccine: Jul 07, 2019 Past Medical History PMH As described under Assessment. Family Medical History Family Medical History: Has fam h/o early CAD Allergies and Home Medications Allergies Coded Allergies: ibuprofen (Verified Allergy, Severe, HIVES, 07/30/20) Home Medications Acetaminophen 500 Mg Tablet, 1,000 MG PO Q8H PRN for PAIN-MILD (1-4), (Reported) Albuterol Sulfate 18 Gm Hfa.aer.ad, 2 PUFF INH Q4H PRN for SHORTNESS OF BREATH, (Reported) Ascorbic Acid 500 Mg Tablet, 500 MG PO DAILY, (Reported) Aspirin 81 Mg Tab.chew, 81 MG PO DAILY, (Reported) Atorvastatin Calcium 20 Mg Tablet, 20 MG PO DAILY, (Reported) Budesonide/Formoterol Fumarate 10.2 Gm Hfa.aer.ad, 2 PUFF IH BID, (Reported) Cholecalciferol (Vitamin D3) 25 Mcg Capsule, 25 MCG PO DAILY, (Reported) Furosemide 40 Mg Tablet, 40 MG PO DAILY, (Reported) Losartan Potassium 50 Mg Tablet, 25 MG PO DAILY, (Reported) TAKES OF A 50MG Metoprolol Succinate 50 Mg Tab.er.24h, 50 MG PO DAILY, (Reported) Multivitamin 1 Each Tablet, 1 EACH PO DAILY, (Reported) Nortriptyline HCl 50 Mg Capsule, 50 MG PO HS, (Reported) Pantoprazole Sodium 40 Mg Tablet.dr, 40 MG PO DAILY, (Reported) Polyethylene Glycol 3350 17 Gm Powd.pack, 17 GM PO DAILY PRN for CONSTIPATION- 2ND LINE, (Reported) Potassium Chloride 20 Meq Tablet.er, 20 MEQ PO DAILY, (Reported) Spironolactone 25 Mg Tablet, 25 MG PO DAILY, (Reported) Patient Home Medication List Home Medication List Reviewed: Yes Physical Exam-Cardiology Physical Exam Vital Signs/I&O 07/31/20 07/31/20 07/31/20 07/31/20 04:55 07:27 07:54 08:00 Temp 35.9 36.5 Pulse 80 99 Resp 20 20 B/P (MAP) 119/75 (90) 125/75 (92) Pulse Ox 95 96 95 95 O2 Delivery Room Air Nasal Cannula Nasal Cannula Nasal Cannula O2 Flow Rate 2.00 1.00 1.00 07/31/20 07/31/20 07/31/20 11:14 11:42 14:59 Temp 36.6 Pulse 92 Resp 22 B/P (MAP) 132/80 (97) Pulse Ox 96 97 95 O2 Delivery Room Air Nasal Cannula Room Air O2 Flow Rate 1.00 07/31/20 00:00 Intake Total 600 ml Balance 600 ml Capillary Refill : Less Than 3 Seconds Constitutional: appears stated age, AAO x 3; No apparent distress; well- developed, well-nourished HEENT: PERRL; No discharge; hearing is well preserved, oral hygience is good; No ulceration, No xanthelasmas are seen Neck: No carotid bruit; carotid pulses are 2 + bilaterally Respiratory: chest is bilaterally symmetric, wheezing, other Cardiovascular: regular rate-rhythm, S1 and S2 Gastrointestinal: soft, audible bowel sounds; No spleenomegaly Rectal: deferred Extremities: normal range of motion, non-tender, normal inspection; No clubbing, No cyanosis; no lower extremity edema bilateral; No significant edema Neurologic/Psychiatric: no motor/sensory deficits, alert, normal mood/affect, oriented x 3, power is 5/5 both on sides Skin: normal color; No rash, No ulcerations Data Review Labs Laboratory Tests 07/30/20 15:34: White Blood Count 7.8, Red Blood Count 5.58H, Hemoglobin 16.1, Hematocrit 48, Mean Corpuscular Volume 87, Mean Corpuscular Hemoglobin 29, Mean Corpuscular Hemoglobin Concent 33, Red Cell Distribution Width 13.4, Platelet Count 194, Mean Platelet Volume 10.1, Immature Granulocyte % (Auto) 1, Neutrophils (%) (Auto) 77H, Lymphocytes (%) (Auto) 6L, Monocytes (%) (Auto) 13H, Eosinophils (%) (Auto) 2, Basophils (%) (Auto) 1, Neutrophils # (Auto) 6.0, Lymphocytes # (Auto) 0.5L, Monocytes # (Auto) 1.0, Eosinophils # (Auto) 0.2, Basophils # (Auto) 0.1, Immature Granulocyte # (Auto) 0.1, Neutrophils % (Manual) 80, Lymphocytes % (Manual) 1, Monocytes % (Manual) 10, Eosinophils % (Manual) 3, Reactive Lymphocytes 6, Blood Morphology Comment NORMAL, D-Dimer < 0.20, Sodium Level 138, Potassium Level 4.2, Chloride Level 101, Carbon Dioxide Level 24, Anion Gap 13, Blood Urea Nitrogen 15, Creatinine 1.12, Estimat Glomerular Filtration Rate > 60, BUN/Creatinine Ratio 13, Glucose Level 124H, Calcium Level 9.2, Corrected Calcium 8.9, Magnesium Level 1.9, Total Bilirubin 1.0, Aspartate Amino Transf (AST/SGOT) 34, Alanine Aminotransferase (ALT/SGPT) 61H, Alkaline Phosphatase 72, Troponin I 0.034H, C-Reactive Protein High Sensitivity 0.52H, B-Type Natriuretic Peptide 332.5H, Total Protein 7.5, Albumin 4.4, Procalcitonin 0.03 07/30/20 15:36: Coronavirus 2019 ([facility]) Negative 07/30/20 18:35: Troponin I 0.032H 07/31/20 04:30: Troponin I 0.032H Microbiology 07/30/20 Influenza Types A,B Antigen (PAVEL) - Final, Complete ECG Impression ECG Initial ECG Rhythm: S.Tach Comment RBBB A/P-Cardiology Assessment/Admission Diagnosis Shortness of breath, History of sleep apnea, Sarcoidosis, Sinus tachycardia, Right bundle-branch block, Borderline positive troponin, Elevated BNP, Plan Shortness of breath,Shortness of breath is likely multifactorial with sarcoidosis, mild congestive heart failure. IV Lasix 40 mg, Echocardiogram History of sleep apnea, continue CPAP. Sarcoidosis, defer to the primary team. Sinus tachycardia, Right bundle-branch block, Borderline positive troponin, will request chest CTA to rule out pulmonary embolism. Elevated BNP, low-dose Lasix. Echocardiogram. Thank you for your consultation. Please call me if you have any questions. Paul Bentley MD, FACP, FACC, FSCAI, FHRS, CCDS Interventional Cardiology Cardiac Electrophysiology Vascular Medicine and Endovascular Interventions Clinical Quality Measures DVT/VTE Risk/Contraindication: Risk Factor Score Per Nursin RFS Level Per Nursing on Admit: 2=Moderate Kristin BENTLEY MD Jul 31, 2020 13:55
--- NOTE | 2020-07-31 14:02 | NUR ---
Pt is Taoism. Supervisor Diagnostic provided prayer and tiny piece of Communion.
--- NOTE | 2020-07-31 14:06 | History & Physical ---
History of Present Illness History of Present Illness Reason for visit/HPI 60 yo M admitted for inability to catch his breath. It started over the weekend. When this happens he gets panicky and anxious and his breathing gets worse. Oxygen and ativan has helped him calm down. Also of note he does well at his [employer]; works all day without any issue breathing. But then when he goes home his dog will be around him and his breathing gets labored. He thinks he may be allergic to the dog. He thinks this is the reason because one night he stayed in one room at home and did not play with the dog and he has no issues breathing. On presentation to ER- his troponin was 0.03- and decision made to admit him. Serial troponins were the same no elevation. BNP a little elevated. Lasix given. Ativan as needed for anxiety. Patient this am was doing well breathing; but feels like the steroids have not kicked in. Cardiology was consulted. Date of Admission Jul 30, 2020 at 16:41 Date Seen by a Provider: Jul 31, 2020 Time Seen by a Provider: 08:35 I consulted on this patient on 07/31/20 14:01 Attending Physician Jace Casanova MD Admitting Physician Jace Casanova MD Consult Allergies and Home Medications Allergies Coded Allergies: ibuprofen (Verified Allergy, Severe, HIVES, 07/30/20) Home Medications Acetaminophen 500 Mg Tablet, 1,000 MG PO Q8H PRN for PAIN-MILD (1-4), (Reported) Albuterol Sulfate 18 Gm Hfa.aer.ad, 2 PUFF INH Q4H PRN for SHORTNESS OF BREATH, (Reported) Ascorbic Acid 500 Mg Tablet, 500 MG PO DAILY, (Reported) Aspirin 81 Mg Tab.chew, 81 MG PO DAILY, (Reported) Atorvastatin Calcium 20 Mg Tablet, 20 MG PO DAILY, (Reported) Budesonide/Formoterol Fumarate 10.2 Gm Hfa.aer.ad, 2 PUFF IH BID, (Reported) Cholecalciferol (Vitamin D3) 25 Mcg Capsule, 25 MCG PO DAILY, (Reported) Furosemide 40 Mg Tablet, 40 MG PO DAILY, (Reported) Losartan Potassium 50 Mg Tablet, 25 MG PO DAILY, (Reported) TAKES OF A 50MG Metoprolol Succinate 50 Mg Tab.er.24h, 50 MG PO DAILY, (Reported) Multivitamin 1 Each Tablet, 1 EACH PO DAILY, (Reported) Pantoprazole Sodium 40 Mg Tablet.dr, 40 MG PO DAILY, (Reported) Polyethylene Glycol 3350 17 Gm Powd.pack, 17 GM PO DAILY PRN for CONSTIPATION- 2ND LINE, (Reported) Potassium Chloride 20 Meq Tablet.er, 20 MEQ PO DAILY, (Reported) Prednisone 10 Mg Tab, 20 MG PO DAILY Prescribed by: JACE CASANOVA on 08/01/20 09 Spironolactone 25 Mg Tablet, 25 MG PO DAILY, (Reported) Patient Home Medication List Home Medication List Reviewed: Yes Past Hjvupwf-Rlxytc-Albfeb Hx Patient Social History Alcohol Use: Denies Use Recreational Drug Use: Yes Drug of Choice: marijuana Former Smoker, Quit: Nov 17, 1974 Type Used: Cigarettes 2nd Hand Smoke Exposure: Yes Recent Foreign Travel: No Contact w/other who traveled: No Recent Hopitalizations: No Recent Infectious Disease Expo: No Immunizations Up To Date Tetanus Booster (TDap): More than 5yrs Date of Influenza Vaccine: Jul 07, 2019 Seasonal Allergies Seasonal Allergies: Yes Surgeries Yes (COLON RESECTION x2,PORT) Bowel Surgery Respiratory Yes (SARCOIDOSIS) Currently Using CPAP: Yes Currently Using BIPAP: No Cardiovascular Yes (leaking valve, branch block) Hypertension Neurological No Reproductive System Sexually Transmitted Disease: No HIV/AIDS: No Genitourinary Yes Kidney Stones Gastrointestinal Yes (hx colon ca) Gastroesophageal Reflux, Diverticulosis Musculoskeletal No Endocrine History of Endocrine Disorders: No HEENT History of HEENT Disorders: No Cancer Yes Colon Did You Recieve Any Treatments: Yes Type of Treatment: Chemotherapy, Surgical Intervention Psychosocial History of Psychiatric Problem: No Integumentary History of Skin or Integumenta: No Blood Transfusions History of Blood Disorders: No Adverse Reaction to a Blood Tr: No Family Medical History Significant Family History: Cancer, CAD Under 55 Years Old, Stroke Review of Systems Review of Systems General: No Chills, No Night Sweats HEENT: No Head Aches Pulmonary: Dyspnea; No Cough Cardiovascular: No: Chest Pain, Palpitations Gastrointestinal: No: Nausea, Vomiting, Abdominal Pain Genitourinary: No Dysuria Neurological: No: Weakness Physical Exam Vital Signs Vital Signs - First Documented 07/30/20 15:30 Temp 36.0 Pulse 99 Resp 20 B/P (MAP) 173/118 (136) Pulse Ox 99 O2 Delivery Nasal Cannula O2 Flow Rate 1.50 Capillary Refill : Less Than 3 Seconds Height, Weight, BMI Height: 5'9.00" Weight: 232lbs. 0.0oz. 105.836590ak; 45.56 BMI Method:Stated General Appearance: No Apparent Distress HEENT: PERRL/EOMI Neck: Full Range of Motion, Non Tender, Supple Respiratory: Chest Non Tender, No Accessory Muscle Use, Rhonci (R > L) Cardiovascular: Regular Rate, Rhythm Gastrointestinal: Non Tender, Soft Rectal: Deferred Back: No CVA Tenderness, No Vertebral Tenderness Extremity: Normal Inspection, Non Tender Neurologic/Psychiatric: Alert, Oriented x3 Skin: Warm/Dry Assessment/Plan Assessment/Plan Admission Dx difficulty breathing chest discomfort Admission Status: Observation Assessment and Plan - cardiology consulted- tropinins did not continue to go up. Dispo: get off oxygen - if he is back to room air- and cardiology agrees- he may go home on steroids for a few days. -anxiety- I can send him a script for lorazepam to use as needed. -recommend he make the dog stay outside as it seems to be an allergy for him and have the house cleaned Problems: (1) Elevated troponin (2) Acute anxiety (3) Dyspnea Qualifiers: Qualified Codes: R06.02 - Shortness of breath (4) Essential (primary) hypertension (5) Sarcoidosis Clinical Quality Measures DVT/VTE Risk/Contraindication: Risk Factor Score Per Nursin RFS Level Per Nursing on Admit: 2=Moderate JACE CASANOVA MD Jul 31, 2020 14:06
[2020-07-31] MEDS ORDERED: NS 100 ML (IVPB) BAG IV ONE ×2 (15:15→15:30)
[2020-07-31] MEDS ORDERED: IOHEXOL 350 MG/ML 100 ML (OMNIPAQUE 350) VIAL IV ONE ×2 (15:15→15:30)
[2020-07-31] MEDS ORDERED: HOLD METFORMIN - RECEIVED CONTRAST 20 ML VIAL IV SCH ×2 (15:15→15:30)
[2020-07-31 15:30] VITALS: BP 125/86
[2020-07-31] MEDS ORDERED: CATHETER FLUSH 10 ML SYR IV PRN (15:30)
--- NOTE | 2020-07-31 15:51 | Diagnostic Imaging Report ---
PROCEDURE: CT angiography of the chest with contrast. TECHNIQUE: Multiple contiguous axial images were obtained through the chest after uneventful bolus administration of intravenous contrast. 3D reconstructed CTA MIP acquisitions were also performed. Auto Exposure Controls were utilized during the CT exam to meet ALARA standards for radiation dose reduction. INDICATION: Dyspnea on exertion and elevated troponin. COMPARISON: Comparison is made with prior CT chest from 01/16/2020. FINDINGS: Evaluation of the pulmonary arterial system is without evidence of thromboembolism. No definite filling defects are seen within central, lobar, or segmental branches. The thoracic aorta is normal in caliber. There is no dissection. Heart is enlarged. There is no pericardial fluid. There are trace bilateral pleural effusions. No axillary lymphadenopathy is identified. Fairly extensive mediastinal and hilar lymphadenopathy is again noted, some of which appears to be partially calcified. This is similar to prior exam. Previously described scattered pulmonary nodules appear very similar to prior exam. The area of keith-fissural nodularity in the right lower lobe is similar. No new mass is identified. Upper abdomen is unremarkable. IMPRESSION: 1. No evidence of pulmonary embolism or thoracic aortic dissection. 2. Extensive mediastinal and hilar lymphadenopathy and bilateral pulmonary parenchymal disease with scattered nodules present. Overall, the appearance is very similar to study from January 2020. Patient has developed trace bilateral pleural effusions. Dictated by: Dictated on workstation # [id number]
[2020-07-31 20:00] VITALS: BP 121/77
[2020-07-31] MEDS: LORazepam INJ 2 MG/ML (ATIVAN) VIAL IV PRN (22:05)
[2020-08-01 00:11] VITALS: BP 110/59
[2020-08-01] MEDS: RT-ALBUTEROL INHALER HFA (VENTOLIN HFA) 18 GM IH SCH ×3 (03:00→08:20)
[2020-08-01 04:59] VITALS: BP 133/71
[2020-08-01] MEDS: CATHETER FLUSH 10 ML SYR IV SCH (06:12)
[2020-08-01] MEDS: predniSONE 20 MG TAB PO SCH (06:32)
[2020-08-01 07:50] VITALS: BP 121/87
[2020-08-01] MEDS ORDERED: PRD10T PO (09:05)
--- NOTE | 2020-08-01 09:09 | Discharge Summary ---
Discharge Summary Hospital Course Problems/Dx: (1) Elevated troponin (2) Acute anxiety (3) Dyspnea Status: Acute Qualifiers: Qualified Codes: R06.02 - Shortness of breath (4) Essential (primary) hypertension Hospital Course Date of Admission: Jul 30, 2020 at 16:41 Admission Diagnosis : (1) Elevated troponin (2) Acute anxiety (3) Dyspnea Qualifiers: Qualified Codes: R06.02 - Shortness of breath (4) Essential (primary) hypertension (5) Sarcoidosis Family Physician/Provider: Jace Casanova MD Date of Discharge: 08/01/20 Discharge Diagnosis: (1) Elevated troponin (2) Acute anxiety (3) Dyspnea Qualifiers: Qualified Codes: R06.02 - Shortness of breath (4) Essential (primary) hypertension (5) Sarcoidosis Hospital Course: 60 yo M admitted for inability to catch his breath. It started over the weekend. When this happens he gets panicky and anxious and his breathing gets worse. Oxygen and ativan has helped him calm down. Also of note he does well at his [employer]; works all day without any issue breathing. But then when he goes home his dog will be around him and his breathing gets labored. He thinks he may be allergic to the dog. He thinks this is the reason because one night he stayed in one room at home and did not play with the dog and he has no issues breathing. On presentation to ER- his troponin was 0.03- and decision made to admit him. Serial troponins were the same no elevation. BNP a little elevated. Lasix given. Ativan as needed for anxiety. Patient this am was doing well breathing; but feels like the steroids have not kicked in. Cardiology was consulted. Patient was deemed stable for discharge 08/01/20- He was off oxygen. No new issues came up. See follow instructions. Labs and Pending Lab Test: Microbiology 07/30/20 Influenza Types A,B Antigen (PAVEL) - Final, Complete Home Meds Active Reported Miralax (Polyethylene Glycol 3350) 17 Gm Powd.pack 17 Gm PO DAILY PRN Tylenol Extra Strength (Acetaminophen) 500 Mg Tablet 1,000 Mg PO Q8H PRN Vitamin C (Ascorbic Acid) 500 Mg Tablet 500 Mg PO DAILY Multivitamin 1 Each Tablet 1 Each PO DAILY Vitamin D3 (Cholecalciferol (Vitamin D3)) 25 Mcg Capsule 25 Mcg PO DAILY Ventolin Hfa (Albuterol Sulfate) 18 Gm Hfa.aer.ad 2 Puff INH Q4H PRN Atorvastatin Calcium 20 Mg Tablet 20 Mg PO DAILY Losartan Potassium 50 Mg Tablet 25 Mg PO DAILY TAKES OF A 50MG Spironolactone 25 Mg Tablet 25 Mg PO DAILY Furosemide 40 Mg Tablet 40 Mg PO DAILY Nortriptyline HCl 50 Mg Capsule 50 Mg PO HS Protonix (Pantoprazole Sodium) 40 Mg Tablet.dr 40 Mg PO DAILY Metoprolol Succinate 50 Mg Tab.er.24h 50 Mg PO DAILY Symbicort 160-4.5 Mcg Inhaler (Budesonide/Formoterol Fumarate) 10.2 Gm Hfa.aer.ad 2 Puff IH BID Aspirin 81 Mg Tab.chew 81 Mg PO DAILY Potassium Chloride 20 Meq Tablet.er 20 Meq PO DAILY Assessment/Pt Instructions -Follow up with Dr. Tavera in 1 week- plan to schedule a cardiac stress test -Take 20mg of prednisone daily for 2 days then reassess how you feel. -Follow up at [facility] in 2 weeks. -Decrease exposure to the dog as it is likely it is worsening his allergies and breathing issues. -work on weight loss with lifestyle modifications. -Ativan (lorazepam) nightly as needed for insomnia/anxiety. Discharge Planning: >30 minutes discharge planning Discharge Instructions Discharge Diet: Eat Small Frequent Meals Activity as Tolerated: Yes Pneumonia Vaccine Order Indica: Yes Discharge Physical Examination Vital Signs Vital Signs Date Time Temp Pulse Resp B/P (MAP) Pulse Ox O2 Delivery O2 Flow Rate FiO2 08/01/20 07:50 36.1 64 20 121/87 (98) 96 Room Air 07/31/20 11:42 1.00 General Appearance: No Apparent Distress, WD/WN HEENT: PERRL/EOMI Respiratory: Chest Non Tender, Lungs Clear, Normal Breath Sounds, No Accessory Muscle Use, No Respiratory Distress Cardiovascular: Regular Rate, Rhythm Gastrointestinal: Non Tender, Soft Skin: Normal Color, Warm/Dry Neurologic/Psychiatric: Alert, Oriented x3 Allergies: Coded Allergies: ibuprofen (Verified Allergy, Severe, HIVES, 07/30/20) Discharge Summary Date of Admission Jul 30, 2020 at 16:41 Date of Discharge Aug 01, 2020 Discharge Diagnosis (1) Elevated troponin (2) Acute anxiety (3) Dyspnea Status: Acute Qualifiers: Qualified Codes: R06.02 - Shortness of breath (4) Essential (primary) hypertension Clinical Quality Measures DVT/VTE Risk/Contraindication: Risk Factor Score Per Nursin RFS Level Per Nursing on Admit: 2=Moderate JACE CASANOVA MD Aug 01, 2020 09:09
[2020-08-01] MEDS: ENOXAPARIN 300 MG/3 ML (LOVENOX) MULTI-DOSE VIAL SQ SCH (09:42)
[2020-08-01 10:20] VITALS: BP 121/87
--- NOTE | 2020-08-01 17:21 | Cardiology Progress Note ---
Cardiology SOAP Progress Note Subjective: Improved shortness of breath. Objective: I&O/Vital Signs Weight (Pounds): 232 Weight (Ounces): 0.0 Weight (Calculated Kilograms): [id number] Constitutional: appears stated age, AAO x 3; No apparent distress; well- developed, well-nourished Respiratory: chest is bilaterally symmetric, wheezing, other Cardiovascular: regular rate-rhythm, S1 and S2 Gastrointestional: soft, audible bowel sounds; No spleenomegaly Extremities: normal range of motion, non-tender, normal inspection; No c lubbing, No cyanosis; no lower extremity edema bilateral; No significant edema Neurologic/Psychiatric: no motor/sensory deficits, alert, normal mood/affect, oriented x 3, power is 5/5 both on sides Skin: normal color; No rash, No ulcerations Results/Procedures: Labs Microbiology 07/30/20 Influenza Types A,B Antigen (PAVEL) - Final, Complete A/P: Assessment/Dx: Shortness of breath, History of sleep apnea, Sarcoidosis, Sinus tachycardia, Right bundle-branch block, Borderline positive troponin, Elevated BNP, Plan: Shortness of breath,Shortness of breath is likely multifactorial with sarcoidosis, mild congestive heart failure. IV Lasix 40 mg, Echocardiogram History of sleep apnea, continue CPAP. Sarcoidosis, defer to the primary team. Sinus tachycardia, Right bundle-branch block, Borderline positive troponin, will request chest CTA to rule out pulmonary embolism. Elevated BNP, low-dose Lasix. Echocardiogram. Thank you for your consultation. Please call me if you have any questions. Paul Bentley MD, FACP, FACC, FSCAI, FHRS, CCDS Interventional Cardiology Cardiac Electrophysiology Vascular Medicine and Endovascular Interventions Kristin BENTLEY MD Aug 01, 2020 17:21
== END 2020-08-01 09:02 | disposition home or self-care (01) ==
LOC: EDUNIT# 15:26 → ER 15:28 → UNDOADMOB 16:41 → 4TH 16:41 → UNDODISOB 08-01 10:21
PROVIDERS: ADMIT Family Medicine; ATTEND Family Medicine
DX: R77.8 Other specified abnormalities of plasma proteins (principal); R06.02 Shortness of breath; F41.9 Anxiety disorder, unspecified; D86.9 Sarcoidosis, unspecified; F17.210 Nicotine dependence, cigarettes, uncomplicated; I50.9 Heart failure, unspecified; G47.30 Sleep apnea, unspecified; I45.10 Unspecified right bundle-branch block; I11.9 Hypertensive heart disease without heart failure; Z79.51 Long term (current) use of inhaled steroids; Z79.82 Long term (current) use of aspirin; Z79.899 Other long term (current) drug therapy; Z88.5 Allergy status to narcotic agent
CPT/HCPCS: 71045; 71275; 80053; 83735; 83880; 84145; 84484 ×2; 85007; 85027; 85379; 86141; 87804; 93005; 93306; 94640 ×3; 94760; 96374; 96375; 99284; G0378; U0002; 36415; 87635; 90686

== ENCOUNTER 2021-01-17 07:25 | Observation (INO) | payer BC ==
[~2021-01-17] VITALS: Ht 172.7 cm; Wt 132.0 kg
[~2021-01-17 07:25] MED LIST changes: +ACET-2267 PO; +ALBU18HF2 INH; +ASCO500T17 PO; +CHOL100048 PO; +GUAI400T83 PO; -GUAI400T85 PO; +LOSA50TA63 PO; +MULT-1136 PO; +PRD10T PO
--- NOTE | 2021-01-17 07:51 | ED Dyspnea ---
General Stated Complaint: SOB Source of Information: Patient, EMS Exam Limitations: No Limitations History of Present Illness Date Seen by Provider: January 17, 2021 Time Seen by Provider: 07:30 Initial Comments Patient is a 60-year-old male who presents to the emergency room by ambulance this morning with a chief complaint of shortness of breath. Patient states that he woke up this morning a little bit anxious thinking about someone who had . He states he had fairly sudden onset of some shortness of breath and diaphoresis. Patient states that his chest feels tight with his shortness of breath. He does wear CPAP at night. EMS placed him on CPAP for transport. Patient again is profusely diaphoretic with increased work of breathing. He denies any fevers or chills. No productive cough. No recent illnesses. He does not have chest pain. Tells me that he does not have a history of congestive heart failure but he is on a water pill. 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 No problems with bowels. Patient states that he feels like he may have been urinating slightly less over the course of the last week. Patient had a DuoNeb and 2 mg of Ativan prior to arrival per EMS. All other review of systems reviewed and negative except as stated above. Timing/Duration: 1-3 Hours Severity: Severe Activities at Onset: Rest Prior Episodes/Possible Cause: Occasional Episodes Modifying Factors: Improves With Coughing Associated Symptoms: Cough, Wheezing Allergies and Home Medications Allergies Coded Allergies: ibuprofen (Verified Allergy, Severe, HIVES, 07/30/20) Home Medications Acetaminophen 500 Mg Tablet, 1,000 MG PO Q8H PRN for PAIN-MILD (1-4), (Reported) Last Action: Held Albuterol Sulfate 18 Gm Hfa.aer.ad, 2 PUFF INH Q4H PRN for SHORTNESS OF BREATH, (Reported) Last Action: Held Aspirin 81 Mg Tab.chew, 81 MG PO DAILY, (Reported) Last Action: Held Atorvastatin Calcium 20 Mg Tablet, 20 MG PO DAILY, (Reported) Last Action: Held Cetirizine HCl 10 Mg Tablet, 10 MG PO HS PRN for ALLERGY SYMPTOMS, (Reported) Last Action: Held Cholecalciferol (Vitamin D3) 25 Mcg Capsule, 25 MCG PO DAILY, (Reported) Last Action: Held Diclofenac Sodium 75 Mg Tablet.dr, 75 MG PO DAILY PRN for PAIN-BREAKTHROUGH, (Reported) Last Action: Held Diphenhydramine HCl 25 Mg Tablet, 25 MG PO HS PRN for SLEEP, (Reported) Last Action: Held Fexofenadine HCl 180 Mg Tablet, 180 MG PO DAILY PRN for ALLERGY SYMPTOMS, (Reported) Last Action: Held Furosemide 80 Mg Tablet, 80 MG PO DAILY Prescribed by: ZULEYMA BUCKNER on 01/18/21955 Lorazepam 0.5 Mg Tablet, 0.5 MG PO HS, (Reported) Last Action: Held Losartan Potassium 50 Mg Tablet, 25 MG PO DAILY, (Reported) TAKES OF A 50MG Last Action: Continued Metoprolol Succinate 100 Mg Tab.er.24h, 100 MG PO BID Prescribed by: ZULEYMA BUCKNER on 01/18/21955 Nortriptyline HCl 50 Mg Capsule, 50 MG PO BID, (Reported) Last Action: Held Pantoprazole Sodium 40 Mg Tablet.dr, 40 MG PO DAILY, (Reported) Last Action: Held Potassium Chloride 20 Meq Tablet.er, 20 MEQ PO DAILY, (Reported) Last Action: Held Spironolactone 25 Mg Tablet, 25 MG PO DAILY, (Reported) Last Action: Held Patient Home Medication List Home Medication List Reviewed: Yes Review of Systems Review of Systems Constitutional: see HPI EENTM: no symptoms reported Respiratory: cough, short of breath Cardiovascular: no symptoms reported Gastrointestinal: no symptoms reported Genitourinary: decreased output Musculoskeletal: other (Bilateral leg swelling) Skin: other (Diaphoresis) All Other Systems Reviewed Negative Unless Noted: Yes Past Sknvrpm-Ohojsk-Qboqjq Hx Patient Social History Drug of Choice: marijuana Type Used: Cigarettes Former Smoker, Quit: Nov 17, 1974 2nd Hand Smoke Exposure: Yes Recent Hopitalizations: No Immunizations Up To Date Tetanus Booster (TDap): More than 5yrs Date of Influenza Vaccine: Aug 01, 2020 Seasonal Allergies Seasonal Allergies: Yes Past Medical History Surgeries: Yes (COLON RESECTION x2,PORT) Bowel Surgery Respiratory: Yes (SARCOIDOSIS) Sleep Apnea Currently Using CPAP: Yes Currently Using BIPAP: No Cardiac: Yes (leaking valve, branch block) Hypertension Neurological: No Sexually Transmitted Disease: No HIV/AIDS: No Genitourinary: Yes Kidney Stones Gastrointestinal: Yes (hx colon ca) Gastroesophageal Reflux, Diverticulosis Musculoskeletal: No Endocrine: No HEENT: No Cancer: Yes Colon Did You Recieve Any Treatments: Yes What Type of Treatment Did You: Chemotherapy, Surgical Intervention Psychosocial: No Integumentary: No Blood Disorders: No Adverse Reaction/Blood Tranf: No Family Medical History Cancer, CAD Under 55 Years Old, Stroke Physical Exam Vital Signs Vital Signs - First Documented 01/17/21 01/17/21 07:26 07:47 Temp 35.8 Pulse 111 Resp 32 B/P (MAP) 142/108 (119) Pulse Ox 100 O2 Flow Rate 25.00 Capillary Refill : Height, Weight, BMI Height: 5'9.00" Weight: 232lbs. 0.0oz. 105.555306ea; 45.56 BMI Method:Stated General Appearance: No Apparent Distress, WD/WN HEENT: PERRL/EOMI Neck: Normal Inspection Respiratory: Chest Non Tender, Wheezing (Bilateral scant expiratory wheezing noted with coarse breath sounds throughout) Cardiovascular: Regular Rate, Rhythm, Tachycardia, Other (1-2+ pitting edema bilateral lower extremities) Peripheral Pulses: 2+ Radial Pulses (R), 2+ Radial Pulses (L) Gastrointestinal: Normal Bowel Sounds, Non Tender, Soft Extremity: Normal Inspection, Pedal Edema Neurologic/Psychiatric: Alert, Oriented x3, No Motor/Sensory Deficits, Normal Mood/Affect Skin: Normal Color, Damp Progress/Results/Core Measures Results/Orders Lab Results Laboratory Tests Test 01/17/21 07:32 01/17/21 07:59 01/17/21 09:18 Range/Units Glucometer 192 H 70-110 MG/DL White Blood Count 6.8 4.3-11.0 10^3/uL Red Blood Count 5.61 H 4.30-5.52 10^6/uL Hemoglobin 16.1 13.3-17.7 g/dL Hematocrit 50 40-54 % Mean Corpuscular Volume 88 80-99 fL Mean Corpuscular Hemoglobin 29 25-34 pg Mean Corpuscular Hemoglobin Concent 33 32-36 g/dL Red Cell Distribution Width 13.7 10.0-14.5 % Platelet Count 155 130-400 10^3/uL Mean Platelet Volume 10.1 9.0-12.2 fL Immature Granulocyte % (Auto) 1 % Neutrophils (%) (Auto) 77 H 42-75 % Lymphocytes (%) (Auto) 6 L 12-44 % Monocytes (%) (Auto) 10 0-12 % Eosinophils (%) (Auto) 6 0-10 % Basophils (%) (Auto) 1 0-10 % Neutrophils # (Auto) 5.2 1.8-7.8 10^3/uL Lymphocytes # (Auto) 0.4 L 1.0-4.0 10^3/uL Monocytes # (Auto) 0.7 0.0-1.0 10^3/uL Eosinophils # (Auto) 0.4 H 0.0-0.3 10^3/uL Basophils # (Auto) 0.1 0.0-0.1 10^3/uL Immature Granulocyte # (Auto) 0.1 0.0-0.1 10^3/uL Neutrophils % (Manual) 79 % Lymphocytes % (Manual) 5 % Monocytes % (Manual) 8 % Eosinophils % (Manual) 5 % Basophils % (Manual) 2 % Band Neutrophils 1 % Blood Morphology Comment NORMAL Sodium Level 141 135-145 MMOL/L Potassium Level 4.1 3.6-5.0 MMOL/L Chloride Level 106 98-107 MMOL/L Carbon Dioxide Level 21 21-32 MMOL/L Anion Gap 14 5-14 MMOL/L Blood Urea Nitrogen 15 7-18 MG/DL Creatinine 1.08 0.60-1.30 MG/DL Estimat Glomerular Filtration Rate > 60 BUN/Creatinine Ratio 14 Glucose Level 206 H 70-105 MG/DL Calcium Level 9.6 8.5-10.1 MG/DL Total Creatine Kinase 59 30-200 U/L Creatine Kinase MB 2.3 <6.6 NG/ML Troponin I < 0.028 <0.028 NG/ML B-Type Natriuretic Peptide 309.5 H <100.0 PG/ML Blood Gas Puncture Site LR Blood Gas Patient Temperature 35.8 Arterial Blood pH 7.41 7.37-7.43 Arterial Blood Partial Pressure CO2 40 35-45 MMHG Arterial Blood Partial Pressure O2 75 L 79-93 MMHG Arterial Blood HCO3 26 23-27 MMOL/L Arterial Blood Total CO2 26.8 21.0-31.0 MMOL/L Arterial Blood Oxygen Saturation 97 94-100 % Arterial Blood Base Excess 1.1 -2.5-2.5 MMOL/L Jalen Test YES-POS Blood Gas Ventilator Setting NO Blood Gas Inspired Oxygen 25% My Orders Orders - FLORA HERNANDEZ MD Ed Iv/Invasive Line Start (01/17/21 07:45) Cbc With Automated Diff (01/17/21 07:45) Basic Metabolic Panel (01/17/21 07:45) Creatine Kinase (01/17/21 07:45) Creatine Kinase Mb (01/17/21 07:45) Troponin I (01/17/21 07:45) Ekg Tracing (01/17/21 07:45) Chest 1 View, Ap/Pa Only (01/17/21 07:45) BNP (01/17/21 07:45) Manual Differential (01/17/21 07:59) Furosemide Injection (Lasix Injection) (01/17/21 08:45) Arterial Blood Gas (01/17/21 09:19) Medications Given in ED Vital Signs/I&O 01/17/21 01/17/21 07:26 07:47 Temp 35.8 Pulse 111 111 Resp 32 28 B/P (MAP) 142/108 (119) Pulse Ox 100 99 O2 Flow Rate 25.00 Initial ECG Impression Date: January 17, 2021 Initial ECG Impression Time: 07:37 Initial ECG Rate: 114 Initial ECG Rhythm: Normal Sinus Initial ECG Intervals QTC 496, QRS 164, UT 122 Comment Q waves noted in the inferior leads. Occasional PVCs, right bundle branch block Diagnostic Imaging Diagonstic Imaging: Xray Plain Films/CT/US/NM/MRI: chest Comments [facility], [place] NAME: SUKHJINDER MANCUSO [facility] REC#: [id number] PT STATUS: REG ER : 1960 PHYSICIAN: FLORA HERNANDEZ MD ADMIT DATE: 01/17/21/ER Draft Date of Exam:01/17/21 CHEST 1 VIEW, AP/PA ONLY INDICATION: Tachypnea and diaphoresis. Lower extremity edema. Compared 07/30/2020. FINDINGS: Heart is enlarged. There is vascular congestion. There is interstitial opacities and Tracy B lines present. No appreciable pleural fluid. No pneumothorax. IMPRESSION: Findings suggest component of failure or hypervolemia with cardiomegaly, venous congestion, and at least mild interstitial type edema. Dictated on workstation # [id number] Dict: 01/17/21904 Trans: 01/17/21 0908 SHERIN [id number] Interpreted by: AGEE,LUCIAN D Electronically signed by: Departure Communication (Admissions) Time/Spoke to Admitting Phy: 09:[address] Sheryl Casanova. Accepts patient for observation admission to cardiac stepdown Time/Spoke to Consulting Phy: 09:[address] Tavera; recommends 40 of Lasix IV every 12 as well as 10 mEq of potassium every 12 hours. Impression Primary Impression: Congestive heart failure Qualified Codes: I50.33 - Acute on chronic diastolic (congestive) heart failure Additional Impression: Respiratory distress Disposition: ADMITTED INPATIENT Condition: Stable Admissions Decision to Admit Reason: Admit from ER (General) Decision to Admit/Date: January 17, 2021 Time/Decision to Admit Time: 09:47 Departure-Patient Inst. Referrals: SHERYL CASANOVA MD (PCP/Family) Primary Care Physician Scripts Furosemide (Lasix) 80 Mg Tablet 80 MG PO DAILY, #30 TAB 5 Refills Prov: ZULEYMA BUCKNERP 01/18/21 Metoprolol Succinate (Metoprolol Succinate) 100 Mg Tab.er.24h 100 MG PO BID, #60 TAB 3 Refills Prov: ZULEYMA BUCKNER 01/18/21 FLORA HERNANDEZ MD January 17, 2021 07:51
[2021-01-17 08:08] LABS: BASOPHILS # (AUTO) 0.1 10^3/uL (0.0-0.1); BASOPHILS % (AUTO) 1 % (0-10); EOSINOPHILS # (AUTO) 0.4 10^3/uL (0.0-0.3); EOSINOPHILS % (AUTO) 6 % (0-10); HEMATOCRIT 50 % (40-54); HEMOGLOBIN 16.1 g/dL (13.3-17.7); LYMPHOCYTES # (AUTO) 0.4 10^3/uL (1.0-4.0); LYMPHOCYTES % (AUTO) 6 % (12-44); MEAN CORPUSCULAR HEMOGLOBIN 29 pg (25-34); MEAN CORPUSCULAR HGB CONC 33 g/dL (32-36); MEAN CORPUSCULAR VOLUME 88 fL (80-99); MEAN PLATELET VOLUME 10.1 fL (9.0-12.2); MONOCYTES # (AUTO) 0.7 10^3/uL (0.0-1.0); MONOCYTES % (AUTO) 10 % (0-12); NEUTROPHILS # (AUTO) 5.2 10^3/uL (1.8-7.8); NEUTROPHILS % (AUTO) 77 % (42-75); PLATELET COUNT 155 10^3/uL (130-400); WHITE BLOOD COUNT 6.8 10^3/uL (4.3-11.0)
[2021-01-17 08:22] LABS: BAND NEUTROPHILS 1 %; BASOPHILS % (MANUAL) 2 %; EOSINOPHILS % (MANUAL) 5 %; LYMPHOCYTES % (MANUAL) 5 %; MONOCYTES % (MANUAL) 8 %; NEUTROPHILS % (MANUAL) 79 %; RBC MORPH NORMAL
[2021-01-17 08:26] LABS: CHLORIDE 106 MMOL/L (98-107); POTASSIUM 4.1 MMOL/L (3.6-5.0); SODIUM 141 MMOL/L (135-145)
[2021-01-17 08:27] LABS: CALCIUM 9.6 MG/DL (8.5-10.1); GLUCOSE 206 MG/DL (70-105)
[2021-01-17 08:29] LABS: CARBON DIOXIDE 21 MMOL/L (21-32)
[2021-01-17 08:31] LABS: CREATININE SERUM 1.08 MG/DL (0.60-1.30); GFR ESTIMATED > 60
[2021-01-17 08:32] LABS: BUN/CREATININE RATIO 14
[2021-01-17 08:34] LABS: CREATINE KINASE 59 U/L (30-200)
[2021-01-17 08:41] LABS: CREATINE KINASE MB 2.3 NG/ML (<6.6)
[2021-01-17] MEDS ORDERED: FUROSEMIDE 40 MG/4 ML INJ (LASIX) IVP ONE (08:45)
--- NOTE | 2021-01-17 09:08 | Diagnostic Imaging Report ---
INDICATION: Tachypnea and diaphoresis. Lower extremity edema. Compared 07/30/2020. FINDINGS: Heart is enlarged. There is vascular congestion. There is interstitial opacities and Tracy B lines present. No appreciable pleural fluid. No pneumothorax. IMPRESSION: Findings suggest component of failure or hypervolemia with cardiomegaly, venous congestion, and at least mild interstitial type edema. Dictated by: Dictated on workstation # [id number]
[2021-01-17 09:26] LABS: ABG BASE EXCESS 1.1 MMOL/L (-2.5-2.5); ABG OXYGEN SATURATION 97 % (94-100); ABG PCO2 40 MMHG (35-45); ABG PH 7.41 (7.37-7.43); ABG PO2 75 MMHG (79-93); ABG TCO2 26.8 MMOL/L (21.0-31.0)
[2021-01-17 09:27] LABS: ALLENS TEST YES-POS; INSPIRED O2 25%; PATIENT TEMP 35.8; VENTILATOR NO
[2021-01-17] MEDS ORDERED: dexAMETHasone 6 MG TAB (DECADRON) PO SCH (10:00)
[2021-01-17] MEDS ORDERED: NORT50CA PO ×2 (11:14→15:37)
[2021-01-17] MEDS ORDERED: LORA-404 SL (11:14)
[2021-01-17] MEDS ORDERED: METO50TA15 PO (11:15)
[2021-01-17 13:42] VITALS: BP 142/108
[2021-01-17] MEDS: RT-ALBUTEROL/IPRATROPIUM 3 ML (DUONEB) VIAL INH SCH ×3 (15:04→21:56)
[2021-01-17] MEDS ORDERED: LORA-404 PO (15:37)
[2021-01-17] MEDS ORDERED: FEXO180T84 PO (15:37)
[2021-01-17] MEDS ORDERED: METO50TA7 PO (15:37)
[2021-01-17] MEDS ORDERED: CETI10TA17 PO (15:37)
[2021-01-17] MEDS ORDERED: DICL75TA2 PO (15:37)
[2021-01-17] MEDS ORDERED: DIPH25TA65 PO (15:37)
[2021-01-17] MEDS: FUROSEMIDE 40 MG/4 ML INJ (LASIX) IVP SCH (17:46)
[2021-01-17] MEDS: RT-BUDESONIDE NEBS 0.5 MG/2ML (PULMICORT) AMP INH SCH (18:12)
--- NOTE | 2021-01-17 19:00 | History & Physical ---
History of Present Illness History of Present Illness Reason for visit/HPI 60 yo M admitted observation for CHF exacerbation and acute respiratory failure with hypoxia. He was given IV lasix with good urine output and improvement of his respiratory status enough to go from BiPAP to 2L oxygen via nasal canula. -Patient reports his respiratory status declined acutely this AM- feels like it woke him up and EMS was called. He has been having one of these episodes for the last couple years. Sometimes respiratory related or cardiac related or both. He knows if he would lose weight he would improve his breathing. He denies smoking cigarettes or anything else. Drinks one etoholic beverage every evening but not more than this. Date of Admission January 17, 2021 at 09:44 Date Seen by a Provider: January 17, 2021 Time Seen by a Provider: 18:58 I consulted on this patient on 01/17/21 18:54 Attending Physician Jace Casanova MD Admitting Physician Jace Casanova MD Consult Allergies and Home Medications Allergies Coded Allergies: ibuprofen (Verified Allergy, Severe, HIVES, 07/30/20) Home Medications Acetaminophen 500 Mg Tablet, 1,000 MG PO Q8H PRN for PAIN-MILD (1-4), (Reported) Last Action: Held Albuterol Sulfate 18 Gm Hfa.aer.ad, 2 PUFF INH Q4H PRN for SHORTNESS OF BREATH, (Reported) Last Action: Held Aspirin 81 Mg Tab.chew, 81 MG PO DAILY, (Reported) Last Action: Held Atorvastatin Calcium 20 Mg Tablet, 20 MG PO DAILY, (Reported) Last Action: Held Cetirizine HCl 10 Mg Tablet, 10 MG PO HS PRN for ALLERGY SYMPTOMS, (Reported) Last Action: Held Cholecalciferol (Vitamin D3) 25 Mcg Capsule, 25 MCG PO DAILY, (Reported) Last Action: Held Diclofenac Sodium 75 Mg Tablet.dr, 75 MG PO DAILY PRN for PAIN-BREAKTHROUGH, (Reported) Last Action: Held Diphenhydramine HCl 25 Mg Tablet, 25 MG PO HS PRN for SLEEP, (Reported) Last Action: Held Fexofenadine HCl 180 Mg Tablet, 180 MG PO DAILY PRN for ALLERGY SYMPTOMS, (Reported) Last Action: Held Furosemide 40 Mg Tablet, 40 MG PO DAILY, (Reported) Last Action: Held Lorazepam 0.5 Mg Tablet, 0.5 MG PO HS, (Reported) Last Action: Held Losartan Potassium 50 Mg Tablet, 25 MG PO DAILY, (Reported) TAKES OF A 50MG Last Action: Continued Metoprolol Succinate 50 Mg Tab.er.24h, 50 MG PO BID, (Reported) Last Action: Held Nortriptyline HCl 50 Mg Capsule, 50 MG PO BID, (Reported) Last Action: Held Pantoprazole Sodium 40 Mg Tablet.dr, 40 MG PO DAILY, (Reported) Last Action: Held Potassium Chloride 20 Meq Tablet.er, 20 MEQ PO DAILY, (Reported) Last Action: Held Spironolactone 25 Mg Tablet, 25 MG PO DAILY, (Reported) Last Action: Held Patient Home Medication List Home Medication List Reviewed: Yes Past Dyxoruq-Mgzboi-Luswnx Hx Patient Social History Drug of Choice: marijuana Smoking Status: Former Smoker Former Smoker, Quit: Nov 17, 1974 2nd Hand Smoke Exposure: Yes Recent Hopitalizations: No Have you traveled recently?: No Alcohol Use?: Yes Pt feels they are or have been: No Immunizations Up To Date Tetanus Booster (TDap): More than 5yrs Date of Influenza Vaccine: Jul 20, 2020 Seasonal Allergies Seasonal Allergies: Yes Surgeries Yes (COLON RESECTION x2,PORT) Bowel Surgery Respiratory Yes (SARCOIDOSIS) Currently Using CPAP: Yes Currently Using BIPAP: No Cardiovascular Yes (leaking valve, branch block) Hypertension Neurological No Reproductive System Sexually Transmitted Disease: No HIV/AIDS: No Genitourinary Yes Kidney Stones Gastrointestinal Yes (hx colon ca) Gastroesophageal Reflux, Diverticulosis Musculoskeletal No Endocrine History of Endocrine Disorders: No HEENT History of HEENT Disorders: No Cancer Yes Colon Did You Recieve Any Treatments: Yes Type of Treatment: Chemotherapy, Surgical Intervention Psychosocial History of Psychiatric Problem: No Integumentary History of Skin or Integumenta: No Blood Transfusions History of Blood Disorders: No Adverse Reaction to a Blood Tr: No Family Medical History Significant Family History: Cancer, CAD Under 55 Years Old, Stroke Review of Systems Review of Systems General: No Chills, No Night Sweats HEENT: No Head Aches Pulmonary: Dyspnea, Cough Cardiovascular: Chest Pain; No: Palpitations Gastrointestinal: No: Nausea, Vomiting, Abdominal Pain Genitourinary: No Dysuria Musculoskeletal: No: neck pain Neurological: Weakness All Other Systems Reviewed All Other Systems Reviewed: Yes Physical Exam Vital Signs Vital Signs - First Documented 01/17/21 01/17/21 01/17/21 01/17/21 07:26 07:47 10:08 10:46 Temp 35.8 Pulse 111 Resp 32 B/P (MAP) 142/108 (119) Pulse Ox 100 O2 Delivery NIV Bilevel O2 Flow Rate 25.00 FiO2 30 Capillary Refill : Less Than 3 Seconds Height, Weight, BMI Height: 5'9.00" Weight: 232lbs. 0.0oz. 105.676489rt; 44.76 BMI Method:Stated General Appearance: Mild Distress HEENT: PERRL/EOMI Neck: Non Tender, Supple Respiratory: Chest Non Tender, Rales, Rhonci, Wheezing Cardiovascular: Regular Rate, Rhythm Gastrointestinal: Normal Bowel Sounds, Non Tender, Soft Rectal: Deferred Back: Normal Inspection, No CVA Tenderness Extremity: Non Tender, No Calf Tenderness, Pedal Edema Neurologic/Psychiatric: Alert, Oriented x3 Skin: Warm/Dry Assessment/Plan Assessment/Plan Admission Dx acute CHF exacerbation acute hypoxic respiratory failure. Admission Status: Observation Assessment and Plan admitted 01/17/21- diuresing with lasix. Significant improvement in respiratory status and anxiety level. Will repeat CXR in AM. -cardiology consulted. -dexamethasone given for his respiratory distress as well- he has history of sarcoidosis and LASHAE. He also likely has COPD. -supportive care- oxygen prn. RT consulted. -recommend weight loss as this will make his breathing easier. -lifestyle modifications- balanced portion control diet and exercise. -he has trouble sleeping at night so he would like more something to help tonight. He takes 0.5mg lorazepam qhs. Will give him 1mg. Dispo: monitor today and overnight. plan to d/c to home tomorrow. Problems: (1) Acute respiratory failure with hypoxia (2) Essential (primary) hypertension (3) Acute on chronic diastolic (congestive) heart failure (4) LASHAE (obstructive sleep apnea) JACE CASANOVA MD January 17, 2021 19:00
[2021-01-17] MEDS ORDERED: LORazepam 1 MG (ATIVAN) TAB PO NR (21:00)
[2021-01-17] MEDS: KCL 10 MEQ TAB (MICRO K) PO SCH (21:13)
[2021-01-18] MEDS: RT-ALBUTEROL/IPRATROPIUM 3 ML (DUONEB) VIAL INH SCH ×3 (02:00→10:22)
[2021-01-18] MEDS: FUROSEMIDE 40 MG/4 ML INJ (LASIX) IVP SCH (06:15)
[2021-01-18] MEDS: RT-BUDESONIDE NEBS 0.5 MG/2ML (PULMICORT) AMP INH SCH (06:21)
--- NOTE | 2021-01-18 08:06 | Consultation-Cardiology ---
HPI-Cardiology Cardiology Consultation: Date of Consultation 01/18/21 Time Seen by a Provider: 08:20 Date of Admission 01-17-21 Attending Physician Jace Montalvo MD Admitting Physician Jace Montalvo MD Consulting Physician Brett Tavera MD HPI: Chief Complaint: SOB Mr. Mancuso is a 60 yr old male admitted to ICU 12 from the ED with increasing SOB. He reports he has chronic SOB, but yesterday it became increasingly worse. He reports he felt anxious. He denies any c/o CP. He reports mod bilat LE swelling and states he has been eating a lot more salt in his diet. He reports he feels back to baseline this morning and wishes to go home. No c/o palpitations, syncope or near syncope. No c/o fever or chills. No c/o n/v/d. Review of Systems-Cardiology Review of Systems Constitutional: No chills, No fever, No lightheadedness, No malaise Eyes: No vision change Ears/Nose/Throat: No epistaxis, No recent hearing loss Respiratory: As described under HPI Cardiovascular: As described under HPI Gastrointestinal: No constipation, No diarrhea, No nausea, No vomiting Genitourinary: No dysuria Musculoskeletal: no symptoms reported Skin: No rash on exposed areas, No ulcerations on exposed areas Psychiatric/Neurological: anxiety; No depression, No seizure, No focal weakness, No syncope Hematologic: No bleeding abnormalities All Other Systems Reviewed Negative Unless Noted: Yes SJQ-Pexnke-Vfduqj Hx Patient Social History Smoking Status: Former Smoker 2nd Hand Smoke Exposure: Yes Have you traveled recently?: No Alcohol Use?: Yes Pt feels they are or have been: No Immunizations Up To Date Tetanus Booster (TDap): More than 5yrs Date of Influenza Vaccine: Jul 20, 2020 Past Medical History PMH As described under Assessment. Family Medical History Family Medical History: Has fam h/o early CAD Allergies and Home Medications Allergies Coded Allergies: ibuprofen (Verified Allergy, Severe, HIVES, 07/30/20) Home Medications Acetaminophen 500 Mg Tablet, 1,000 MG PO Q8H PRN for PAIN-MILD (1-4), (Reported) Last Action: Held Albuterol Sulfate 18 Gm Hfa.aer.ad, 2 PUFF INH Q4H PRN for SHORTNESS OF BREATH, (Reported) Last Action: Held Aspirin 81 Mg Tab.chew, 81 MG PO DAILY, (Reported) Last Action: Held Atorvastatin Calcium 20 Mg Tablet, 20 MG PO DAILY, (Reported) Last Action: Held Cetirizine HCl 10 Mg Tablet, 10 MG PO HS PRN for ALLERGY SYMPTOMS, (Reported) Last Action: Held Cholecalciferol (Vitamin D3) 25 Mcg Capsule, 25 MCG PO DAILY, (Reported) Last Action: Held Diclofenac Sodium 75 Mg Tablet.dr, 75 MG PO DAILY PRN for PAIN-BREAKTHROUGH, (Reported) Last Action: Held Diphenhydramine HCl 25 Mg Tablet, 25 MG PO HS PRN for SLEEP, (Reported) Last Action: Held Fexofenadine HCl 180 Mg Tablet, 180 MG PO DAILY PRN for ALLERGY SYMPTOMS, (Reported) Last Action: Held Furosemide 80 Mg Tablet, 80 MG PO DAILY Prescribed by: ZULEYMA BUCKNER on 01/18/21 0956 Lorazepam 0.5 Mg Tablet, 0.5 MG PO HS, (Reported) Last Action: Held Losartan Potassium 50 Mg Tablet, 25 MG PO DAILY, (Reported) TAKES OF A 50MG Last Action: Continued Metoprolol Succinate 100 Mg Tab.er.24h, 100 MG PO BID Prescribed by: ZULEYMA BUCKNER on 01/18/21 0956 Nortriptyline HCl 50 Mg Capsule, 50 MG PO BID, (Reported) Last Action: Held Pantoprazole Sodium 40 Mg Tablet.dr, 40 MG PO DAILY, (Reported) Last Action: Held Potassium Chloride 20 Meq Tablet.er, 20 MEQ PO DAILY, (Reported) Last Action: Held Spironolactone 25 Mg Tablet, 25 MG PO DAILY, (Reported) Last Action: Held Physical Exam-Cardiology Physical Exam Vital Signs/I&O Capillary Refill : Less Than 3 Seconds Constitutional: AAO x 3, well-developed, well-nourished HEENT: PERRL, hearing is well preserved, oral hygience is good Neck: No carotid bruit; carotid pulses are 2 + bilaterally Respiratory: No accessory muscle use, No respiratory distress; chest expansion is symmetric, chest is bilaterally symmetric, other (diminished bases bilat; good air entry) Cardiovascular: regular rate-rhythm Gastrointestinal: No tender; soft, round, audible bowel sounds Extremities: no lower extremity edema bilateral Neurologic/Psychiatric: grossly intact (moves all extremities) Skin: No rash on exposed areas, No ulcerations on exposed areas Data Review Labs Radiology NAME: SUKHJINDER MANCUSO [facility] REC#: [id number] PT STATUS: ADM Alicia : 1960 PHYSICIAN: FLORA HERNANDEZ MD ADMIT DATE: 01/17/21/ICU Signed Date of Exam:01/17/21 CHEST 1 VIEW, AP/PA ONLY INDICATION: Tachypnea and diaphoresis. Lower extremity edema. Compared 07/30/2020. FINDINGS: Heart is enlarged. There is vascular congestion. There is interstitial opacities and Tracy B lines present. No appreciable pleural fluid. No pneumothorax. IMPRESSION: Findings suggest component of failure or hypervolemia with cardiomegaly, venous congestion, and at least mild interstitial type edema. Dictated by: Dictated on workstation # [id number] Dict: 01/17/21904 Trans: 01/17/21 1640 SHERIN [id number] Interpreted by: LUCIAN AGEE Electronically signed by: LUCIAN AGEE 01/17/21 1640 ECG Impression ECG Initial ECG Rhythm: S.Tach A/P-Cardiology Assessment/Admission Diagnosis SOB likely multi-factorial, acute on chronic diastolic CHF, acute on chronic exacerbation of COPD, sarcoidosis flare up H/O anemia due to GI blood loss. 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 S/P colon resection on 09/28/18. Completed chemo and [facility] and frequent, isolated PVCs as documented on ECG of 09/26/18 Card cath of 11/23/18: mild CAD, LVEF 35%, mild elevation of LVEDP Echocardiogram of Jul 31, 2020 showed LVEF 50-55%. Grade 1 diastolic dysfunction. LA is mod dilated. PASP is in the range 10 mmg to 15 mmHg LASHAE - CPAP tx - follows with Dr. Zazueta Impaired fasting glucose H/o hypertension Elevated BMI of approx 43 Fam h/o early CAD. Father had abd aortic surgery (may have had AAA) No evidence of AAA on AA screening scan of 12/20/18 No evidence of any significant PAD on seg pressures of Dec 2013 Sarcoidosis COPD Discussion and Recomendations He feels he is back to his baseline and wishes to go home today Acute on chronic diastolic CHF - improved with IV diuretics Continue home medications including Aldactone and Lasix Management of sarcoidosis flare up per medical services Management of COPD per medical services Advised low sodium diet Advise continued compliance with medications Advise compliance with CPAP tx We would like to thank medical services for this consult OK to discharge home today with out pt f/u in [address] Jace Montalvo this morning ZULEYMA BUCKNER January 18, 2021 08:06
[2021-01-18] MEDS ORDERED: dexAMETHasone 6 MG TAB (DECADRON) PO SCH (08:45)
[2021-01-18] MEDS ORDERED: LOSARTAN 50 MG (COZAAR) TAB PO SCH (09:00)
[2021-01-18] MEDS: KCL 10 MEQ TAB (MICRO K) PO SCH (09:00)
[2021-01-18] MEDS ORDERED: MTP100TCR PO (09:56)
[2021-01-18] MEDS ORDERED: FURO80TA83 PO (09:56)
--- NOTE | 2021-01-18 10:03 | Diagnostic Imaging Report ---
EXAMINATION: Chest radiograph, portable AP view. DATE: 01/18/2021 9:57 AM INDICATION: 60-year-old male, pulmonary congestion. History of congestive heart failure. COMPARISON: January 17, 2021. FINDINGS: Stable overall appearance of the cardiomediastinal silhouette. There is redemonstrated cardiomegaly. There is no identified pneumothorax. There is no large pleural effusion. There are streaky opacities in the right midlung and left lung base which are grossly unchanged. IMPRESSION: 1. Streaky opacities in the right midlung and left lung base which are grossly unchanged and may relate to atelectasis and/or infiltrate. 2. Redemonstrated cardiomegaly. Dictated by: Dictated on workstation # [id number]
[2021-01-18 11:10] VITALS: BP 154/90
--- NOTE | 2021-01-18 12:18 | Consultation-Cardiology ---
HPI-Cardiology Cardiology Consultation: Date of Consultation 01/18/21 Time Seen by a Provider: 09:30 Date of Admission Attending Physician Jace Montalvo MD Admitting Physician Jace Montalvo MD Consulting Physician EDWARDO QUESADA MD, MA, FACP, FACC, FSCAI, CCDS HPI: Chief Complaint: SOB Mr. Gonzales is a 60 yr old male admitted to ICU 12 from the ED with increasing SOB. He reports he has chronic SOB, but yesterday it became increasingly worse. He reports he felt anxious. He denies any c/o CP. He reports mod bilat LE swelling and states he has been eating a lot more salt in his diet. He reports he feels back to baseline this morning and wishes to go home. No c/o palpitations, syncope or near syncope. No c/o fever or chills. No c/o n/v/d. Review of Systems-Cardiology Review of Systems Constitutional: No chills, No fever, No lightheadedness, No malaise Eyes: No vision change Ears/Nose/Throat: No epistaxis, No recent hearing loss Respiratory: As described under HPI Cardiovascular: As described under HPI Gastrointestinal: No constipation, No diarrhea, No nausea, No vomiting Genitourinary: No dysuria Musculoskeletal: no symptoms reported Skin: No rash on exposed areas, No ulcerations on exposed areas Psychiatric/Neurological: anxiety; No depression, No seizure, No focal weakness, No syncope Hematologic: No bleeding abnormalities All Other Systems Reviewed Negative Unless Noted: Yes OPL-Zqlbga-Bfkite Hx Patient Social History Smoking Status: Former Smoker 2nd Hand Smoke Exposure: Yes Have you traveled recently?: No Alcohol Use?: Yes Pt feels they are or have been: No Immunizations Up To Date Tetanus Booster (TDap): More than 5yrs Date of Influenza Vaccine: Jul 20, 2020 Past Medical History PMH As described under Assessment. Family Medical History Family Medical History: Has fam h/o early CAD Allergies and Home Medications Allergies Coded Allergies: ibuprofen (Verified Allergy, Severe, HIVES, 07/30/20) Home Medications Acetaminophen 500 Mg Tablet, 1,000 MG PO Q8H PRN for PAIN-MILD (1-4), (Reported) Last Action: Held Albuterol Sulfate 18 Gm Hfa.aer.ad, 2 PUFF INH Q4H PRN for SHORTNESS OF BREATH, (Reported) Last Action: Held Aspirin 81 Mg Tab.chew, 81 MG PO DAILY, (Reported) Last Action: Held Atorvastatin Calcium 20 Mg Tablet, 20 MG PO DAILY, (Reported) Last Action: Held Cetirizine HCl 10 Mg Tablet, 10 MG PO HS PRN for ALLERGY SYMPTOMS, (Reported) Last Action: Held Cholecalciferol (Vitamin D3) 25 Mcg Capsule, 25 MCG PO DAILY, (Reported) Last Action: Held Diclofenac Sodium 75 Mg Tablet.dr, 75 MG PO DAILY PRN for PAIN-BREAKTHROUGH, (Reported) Last Action: Held Diphenhydramine HCl 25 Mg Tablet, 25 MG PO HS PRN for SLEEP, (Reported) Last Action: Held Fexofenadine HCl 180 Mg Tablet, 180 MG PO DAILY PRN for ALLERGY SYMPTOMS, (Reported) Last Action: Held Furosemide 80 Mg Tablet, 80 MG PO DAILY Prescribed by: ZULEYMA BUCKNER on 01/18/21955 Lorazepam 0.5 Mg Tablet, 0.5 MG PO HS, (Reported) Last Action: Held Losartan Potassium 50 Mg Tablet, 25 MG PO DAILY, (Reported) TAKES OF A 50MG Last Action: Continued Metoprolol Succinate 100 Mg Tab.er.24h, 100 MG PO BID Prescribed by: ZULEYMA BUCKNER on 01/18/21955 Nortriptyline HCl 50 Mg Capsule, 50 MG PO BID, (Reported) Last Action: Held Pantoprazole Sodium 40 Mg Tablet.dr, 40 MG PO DAILY, (Reported) Last Action: Held Potassium Chloride 20 Meq Tablet.er, 20 MEQ PO DAILY, (Reported) Last Action: Held Spironolactone 25 Mg Tablet, 25 MG PO DAILY, (Reported) Last Action: Held Patient Home Medication List Home Medication List Reviewed: Yes Physical Exam-Cardiology Physical Exam Vital Signs/I&O 01/18/21 01/18/21 01/18/21 01/18/21 01:00 06:11 06:19 06:21 Temp 36.6 Pulse 84 75 Resp 18 B/P (MAP) 110/71 (84) Pulse Ox 94 93 93 O2 Delivery Nasal Cannula Nasal Cannula Nasal Cannula O2 Flow Rate 2.00 2.00 2.00 01/18/21 01/18/21 01/18/21 01/18/21 07:00 08:50 09:00 10:23 Temp 36.8 Pulse 102 103 Resp 16 B/P (MAP) 154/90 (111) Pulse Ox 96 93 O2 Delivery Room Air Room Air Room Air 01/18/21 11:10 Temp 36.8 Pulse 103 Resp 16 B/P (MAP) 154/90 Pulse Ox 93 O2 Delivery Room Air 01/18/21 00:00 Intake Total 460 ml Output Total 3075 ml Balance -2615 ml Capillary Refill : Less Than 3 Seconds Constitutional: AAO x 3, well-developed, well-nourished HEENT: PERRL, hearing is well preserved, oral hygience is good Neck: No carotid bruit; carotid pulses are 2 + bilaterally Respiratory: No accessory muscle use, No respiratory distress; chest expansion is symmetric, chest is bilaterally symmetric, other (diminished bases bilat; good air entry) Cardiovascular: regular rate-rhythm Gastrointestinal: No tender; soft, round, audible bowel sounds Extremities: no lower extremity edema bilateral Neurologic/Psychiatric: grossly intact (moves all extremities) Skin: No rash on exposed areas, No ulcerations on exposed areas A/P-Cardiology Assessment/Admission Diagnosis SOB likely multi-factorial, acute on chronic diastolic CHF, acute on chronic exacerbation of COPD, sarcoidosis flare up H/O anemia due to GI blood loss. 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 S/P colon resection on 09/28/18. Completed chemo and is [facility] and frequent, isolated PVCs as documented on ECG of 09/26/18 Card cath of 11/23/18: mild CAD, LVEF 35%, mild elevation of LVEDP Echocardiogram of Jul 31, 2020 showed LVEF 50-55%. Grade 1 diastolic dysfunction. LA is mod dilated. PASP is in the range 10 mmg to 15 mmHg LASHAE - CPAP tx - follows with Dr. Zazueta Impaired fasting glucose H/o hypertension Elevated BMI of approx 43 Fam h/o early CAD. Father had abd aortic surgery (may have had AAA) No evidence of AAA on AA screening scan of 12/20/18 No evidence of any significant PAD on seg pressures of Dec 2013 Sarcoidosis COPD Discussion and Recomendations He feels he is back to his baseline and wishes to go home today Increase furosemide, continue Aldactone Increase beta-ranulfo Management of sarcoidosis flare up per Medical services Management of COPD per Medical services Advised low sodium diet Advise continued compliance with medications Advise compliance with CPAP tx We would like to thank Medical services for this consult OK to discharge home today with out pt f/u in 2 weeks EDWARDO QUESADA MD FACP [facility] CCDS January 18, 2021 12:18
--- NOTE | 2021-01-20 23:02 | Discharge Summary ---
Discharge Summary Hospital Course Was the Problem List Reviewed?: Yes Problems/Dx: (1) Acute respiratory failure with hypoxia Status: Resolved (2) Essential (primary) hypertension Status: Chronic (3) Acute on chronic diastolic (congestive) heart failure Status: Acute (4) LASHAE (obstructive sleep apnea) Status: Chronic Hospital Course Date of Admission: January 17, 2021 at 09:44 Admission Diagnosis : (1) Acute respiratory failure with hypoxia (2) Essential (primary) hypertension (3) Acute on chronic diastolic (congestive) heart failure (4) LASHAE (obstructive sleep apnea) Family Physician/Provider: Jace Casanova MD Date of Discharge: 01/18/21 Discharge Diagnosis: (1) Acute respiratory failure with hypoxia (2) Essential (primary) hypertension (3) Acute on chronic diastolic (congestive) heart failure (4) LASHAE (obstructive sleep apnea) Hospital Course: 60 yo M admitted observation for CHF exacerbation and acute respiratory failure with hypoxia. He was given IV lasix with good urine output and improvement of his respiratory status enough to go from BiPAP to 2L oxygen via nasal canula. -Patient reports his respiratory status declined acutely this AM- feels like it woke him up and EMS was called. He has been having one of these episodes for the last couple years. Sometimes respiratory related or cardiac related or both. He knows if he would lose weight he would improve his breathing. He denies smoking cigarettes or anything else. Drinks one etoholic beverage every evening but not more than this. He diuresed well with lasix. His oxygen requirement went from bipap down oxygen via NC and then to room air. He was monitored overnight and was deemed stable for discharge 01/18/21. Labs and Pending Lab Test: Home Meds Active Lasix (Furosemide) 80 Mg Tablet 80 Mg PO DAILY Metoprolol Succinate 100 Mg Tab.er.24h 100 Mg PO BID Reported Benadryl Allergy (Diphenhydramine HCl) 25 Mg Tablet 25 Mg PO HS PRN Yudi Allergy (Fexofenadine HCl) 180 Mg Tablet 180 Mg PO DAILY PRN Cetirizine HCl 10 Mg Tablet 10 Mg PO HS PRN Ativan (Lorazepam) 0.5 Mg Tablet 0.5 Mg PO HS Diclofenac Sodium 75 Mg Tablet.dr 75 Mg PO DAILY PRN Nortriptyline HCl 50 Mg Capsule 50 Mg PO BID Tylenol Extra Strength (Acetaminophen) 500 Mg Tablet 1,000 Mg PO Q8H PRN Vitamin D3 (Cholecalciferol (Vitamin D3)) 25 Mcg Capsule 25 Mcg PO DAILY Ventolin Hfa (Albuterol Sulfate) 18 Gm Hfa.aer.ad 2 Puff INH Q4H PRN Atorvastatin Calcium 20 Mg Tablet 20 Mg PO DAILY Losartan Potassium 50 Mg Tablet 25 Mg PO DAILY TAKES OF A 50MG Spironolactone 25 Mg Tablet 25 Mg PO DAILY Protonix (Pantoprazole Sodium) 40 Mg Tablet.dr 40 Mg PO DAILY Aspirin 81 Mg Tab.chew 81 Mg PO DAILY Potassium Chloride 20 Meq Tablet.er 20 Meq PO DAILY Assessment/Pt Instructions continue lasix for diureses- -monitor po intake -reduce calorie intake. -weight loss -continue with CPAP and 2L supplemental oxygen -follow up in 2 weeks with [facility] and Cardiology. Discharge Planning: >30 minutes discharge planning Discharge Instructions Discharge Diet: ADA Diet, Cardiac Diet Activity as Tolerated: Yes Discharge Physical Examination Vital Signs Vital Signs Date Time Temp Pulse Resp B/P (MAP) Pulse Ox O2 Delivery O2 Flow Rate FiO2 01/18/21 11:10 36.8 103 16 154/90 93 Room Air 01/18/21 06:21 2.00 01/17/21 10:46 30 Allergies: Coded Allergies: ibuprofen (Verified Allergy, Severe, HIVES, 07/30/20) Discharge Summary Date of Admission January 17, 2021 at 09:44 Date of Discharge January 18, 2021 at 11:10 Discharge Date: January 18, 2021 Discharge Diagnosis (1) Acute respiratory failure with hypoxia Status: Resolved (2) Essential (primary) hypertension Status: Chronic (3) Acute on chronic diastolic (congestive) heart failure Status: Acute (4) LASHAE (obstructive sleep apnea) Status: Chronic JACE CASANOVA MD January 20, 2021 23:02
== END 2021-01-18 11:10 | disposition home or self-care (01) ==
LOC: EDUNIT# 07:25 → ER 07:26 → ICU 09:44
PROVIDERS: ADMIT Family Medicine; ATTEND Family Medicine
DX: I11.0 Hypertensive heart disease with heart failure (principal); I50.33 Acute on chronic diastolic (congestive) heart failure; I45.10 Unspecified right bundle-branch block; J96.01 Acute respiratory failure with hypoxia; G47.33 Obstructive sleep apnea (adult) (pediatric); K21.9 Gastro-esophageal reflux disease without esophagitis; J30.2 Other seasonal allergic rhinitis; R73.01 Impaired fasting glucose; J44.9 Chronic obstructive pulmonary disease, unspecified; D86.9 Sarcoidosis, unspecified; Z79.1 Long term (current) use of non-steroidal anti-inflammatories (NSAID); Z79.82 Long term (current) use of aspirin; Z87.891 Personal history of nicotine dependence; Z98.890 Other specified postprocedural states; Z85.038 Personal history of other malignant neoplasm of large intestine; Z99.81 Dependence on supplemental oxygen; Z79.899 Other long term (current) drug therapy; Z90.49 Acquired absence of other specified parts of digestive tract; Z86.2 Personal history of diseases of the blood and blood-forming organs and certain disorders involving the immune mechanism; Z87.442 Personal history of urinary calculi
CPT/HCPCS: 36415; 71045; 80048; 82550; 82553; 82805; 82947; 83880; 84484; 85007; 85027; 93005; 94640

== ENCOUNTER 2021-06-17 09:45 | Emergency (ER) | payer BC ==
[~2021-06-17] VITALS: Ht 172.7 cm; Wt 130.0 kg
[~2021-06-17 09:45] MED LIST changes: -RT-ALBUTEROL SULF 2.5 MG/3 ML PRE-MIX VIAL INH ONE
--- NOTE | 2021-06-17 10:18 | ED Syncope ---
General Chief Complaint: Respiratory Problems Stated Complaint: SOB,DIZZINESS,NAUSEA,SWEATS Nursing Triage Note: PT TO RM 7 BY WHEELCHAIR WITH COMPLAINT OF SOA, DIZZINESS, AND DIAPHORETIC. PT WAS DOING PFT WHEN HE BECAME DIZZY AND SWEATY AND STARTED TO PASS OUT. PT IS ALERT AND ORIENTED ON ARRIVAL TO ED. Source of Information: Patient Exam Limitations: No Limitations History of Present Illness Date Seen by Provider: Jun 17, 2021 Time Seen by Provider: 10:03 Initial Comments Patient is a 61-year-old male who presents to the emergency department from pulmonology clinic after a near syncopal episode. Patient was scheduled for pulmonary function testing this morning. He states that he was getting ready to take his test, had a nose clip in place and was just giving a big breath into his first test when he suddenly became dizzy, diaphoretic, had increased shortness of breath and almost passed out. Patient states that the tech "caught him" before he hit the floor. He states he was not completely unconscious. Denies chest pain. Was unable to use his normal inhalers prior to testing this morning at their direction. Patient denies any recent illnesses such as fevers, chills, productive cough. Is currently a little nauseous. Did not vomit. Patient tells me that he has a history of congestive heart failure, he follows with Dr. Tavera. He is on 80 mg of Lasix daily. He states per his normal routine he wakes up a little bit more short of breath in the morning with lots of congestion and as he gets up and around by about 9:00 in the morning he is feeling much better. After seeing and evaluating the patient he actually states that he is starting to feel much better. Still little short of breath, still little clammy and cool. All other review of systems reviewed and negative except as stated. Timing/Prior Episodes: No Prior History Symptoms Prior to Episode: Diaphoresis, Lightheadedness, Nausea Precipitating Factors: Sitting Loss of Consciousness: No Loss of Consciousness Current Symptoms: Back to Normal Allergies and Home Medications Allergies Coded Allergies: ibuprofen (Verified Allergy, Severe, HIVES, 07/30/20) Patient Home Medication List Home Medication List Reviewed: Yes Acetaminophen (Tylenol Extra Strength) 500 Mg Tablet, 1,000 MG PO Q8H PRN for PAIN-MILD (1-4), (Reported) Entered as Reported by: ARACELIS SOSA on 07/31/20946 Albuterol Sulfate (Ventolin Hfa) 18 Gm Hfa.aer.ad, 2 PUFF INH Q4H PRN for SHORTNESS OF BREATH, (Reported) Entered as Reported by: ARACELIS SOSA on 07/31/20946 Aspirin (Aspirin) 81 Mg Tab.chew, 81 MG PO DAILY, (Reported) Entered as Reported by: JOSE HOSKINS on 11/08/18 09 Atorvastatin Calcium (Atorvastatin Calcium) 20 Mg Tablet, 20 MG PO DAILY, (Reported) Entered as Reported by: ARACELIS SOSA on 07/31/20946 Cetirizine HCl (Cetirizine HCl) 10 Mg Tablet, 10 MG PO HS PRN for ALLERGY SYMPTOMS, (Reported) Entered as Reported by: ARACELIS SOSA on 01/17/211536 Cholecalciferol (Vitamin D3) (Vitamin D3) 25 Mcg Capsule, 25 MCG PO DAILY, (Reported) Entered as Reported by: ARACELIS SOSA on 07/31/20946 Diclofenac Sodium (Diclofenac Sodium) 75 Mg Tablet.dr, 75 MG PO DAILY PRN for PAIN-BREAKTHROUGH, (Reported) Entered as Reported by: ARACELIS SOSA on 01/17/211536 Diphenhydramine HCl (Benadryl Allergy) 25 Mg Tablet, 25 MG PO HS PRN for SLEEP, (Reported) Entered as Reported by: ARACELIS SOSA on 01/17/211536 Fexofenadine HCl (Yudi Allergy) 180 Mg Tablet, 180 MG PO DAILY PRN for ALLERGY SYMPTOMS, (Reported) Entered as Reported by: ARACELIS SOSA on 01/17/211536 Furosemide (Lasix) 80 Mg Tablet, 80 MG PO DAILY Prescribed by: ZULEYMA BUCKNER on 01/18/21 0956 Lorazepam (Ativan) 0.5 Mg Tablet, 0.5 MG PO HS, (Reported) Entered as Reported by: ARACELIS SOSA on 01/17/211536 Losartan Potassium (Losartan Potassium) 50 Mg Tablet, 25 MG PO DAILY, (Reported) Entered as Reported by: ARACELIS SOSA on 07/31/20946 Metoprolol Succinate (Metoprolol Succinate) 100 Mg Tab.er.24h, 100 MG PO BID Prescribed by: ZULEYMA BUCKNER on 01/18/21 0956 Nortriptyline HCl (Nortriptyline HCl) 50 Mg Capsule, 50 MG PO BID, (Reported) Entered as Reported by: ARACELIS SOSA on 01/17/21 1537 Pantoprazole Sodium (Protonix) 40 Mg Tablet.dr, 40 MG PO DAILY, (Reported) Entered as Reported by: JOSE HOSKINS on 01/14/19 1415 Potassium Chloride (Potassium Chloride) 20 Meq Tablet.er, 20 MEQ PO DAILY, (Reported) Entered as Reported by: JOSE HOSKINS on 10/07/18 1630 Spironolactone (Spironolactone) 25 Mg Tablet, 25 MG PO DAILY, (Reported) Entered as Reported by: ASCENCION RANGEL on 02/09/20 1028 Review of Systems Constitutional: see HPI, diaphoresis EENTM: no symptoms reported Respiratory: cough, short of breath, wheezing Cardiovascular: no symptoms reported Gastrointestinal: nausea Genitourinary: no symptoms reported Musculoskeletal: no symptoms reported Skin: other (Sweating) Psychiatric/Neurological: No Symptoms Reported All Other Systems Reviewed Negative Unless Noted: Yes Past Wxdxlyd-Kxiuhy-Yntmwu Hx Patient Social History Tobacco Use?: No Smoking Status: Former Smoker Use of E-Cig and/or Vaping dev: No Substance use?: No Alcohol Use?: No Pt feels they are or have been: No Immunizations Up To Date Tetanus Booster (TDap): More than 5yrs First/Initial COVID19 Vaccinat: 11/12/20 Second COVID19 Vaccination Ronen: 11/12/20 Seasonal Allergies Seasonal Allergies: Yes Past Medical History Surgeries: Yes (COLON RESECTION x2,PORT) Bowel Surgery Respiratory: Yes (SARCOIDOSIS) Sleep Apnea Currently Using CPAP: Yes Currently Using BIPAP: No Cardiac: Yes (leaking valve, branch block) Hypertension Neurological: No Sexually Transmitted Disease: No HIV/AIDS: No Genitourinary: Yes Kidney Stones Gastrointestinal: Yes (hx colon ca) Gastroesophageal Reflux, Diverticulosis Musculoskeletal: No Endocrine: No HEENT: No Cancer: Yes Colon Did You Recieve Any Treatments: Yes What Type of Treatment Did You: Chemotherapy, Surgical Intervention Psychosocial: No Integumentary: No Blood Disorders: No Adverse Reaction/Blood Tranf: No Family Medical History Cancer, CAD Under 55 Years Old, Stroke Physical Exam Vital Signs Vital Signs - First Documented 06/17/21 09:49 Pulse 74 Resp 20 B/P (MAP) 130/92 (105) Pulse Ox 98 O2 Delivery Room Air Capillary Refill : Less Than 3 Seconds Height, Weight, BMI Height: 5'9.00" Weight: 232lbs. 0.0oz. 105.895208ma; 43.00 BMI Method:Stated General Appearance: WD/WN, Mild Distress (Mildly labored breathing) HEENT: PERRL/EOMI Neck: Full Range of Motion, Normal Inspection Cardiovascular: Regular Rate, Rhythm (70's) Respiratory: No Rales, No Rhonci; Wheezing (Mild to moderate expiratory wheeze noted right greater than left. Slightly increased work of breathing.) Gastrointestinal: Non Tender, Soft Extremities: Normal Capillary Refill, Normal Inspection, Normal Range of Motion Neurologic/Psychiatric: Alert, Oriented x3, No Motor/Sensory Deficits, Normal Mood/Affect, manager medical II-XII Norm as Tested Cranial Nerves: Normal Hearing, Normal Speech, PERRL Motor/Sensory: No Motor Deficit, No Sensory Deficit Skin: Cool, Damp Progress/Results/Core Measures Results/Orders Lab Results Laboratory Tests Test 06/17/21 10:02 Range/Units White Blood Count 7.9 4.3-11.0 10^3/uL Red Blood Count 5.49 4.30-5.52 10^6/uL Hemoglobin 16.6 13.3-17.7 g/dL Hematocrit 48 40-54 % Mean Corpuscular Volume 88 80-99 fL Mean Corpuscular Hemoglobin 30 25-34 pg Mean Corpuscular Hemoglobin Concent 35 32-36 g/dL Red Cell Distribution Width 13.7 10.0-14.5 % Platelet Count 180 130-400 10^3/uL Mean Platelet Volume 10.1 9.0-12.2 fL Immature Granulocyte % (Auto) 1 % Neutrophils (%) (Auto) 73 42-75 % Lymphocytes (%) (Auto) 6 L 12-44 % Monocytes (%) (Auto) 13 H 0-12 % Eosinophils (%) (Auto) 5 0-10 % Basophils (%) (Auto) 1 0-10 % Neutrophils # (Auto) 5.8 1.8-7.8 10^3/uL Lymphocytes # (Auto) 0.5 L 1.0-4.0 10^3/uL Monocytes # (Auto) 1.1 H 0.0-1.0 10^3/uL Eosinophils # (Auto) 0.4 H 0.0-0.3 10^3/uL Basophils # (Auto) 0.1 0.0-0.1 10^3/uL Immature Granulocyte # (Auto) 0.1 0.0-0.1 10^3/uL Neutrophils % (Manual) 75 % Lymphocytes % (Manual) 4 % Monocytes % (Manual) 9 % Eosinophils % (Manual) 10 % Basophils % (Manual) 2 % Blood Morphology Comment NORMAL Sodium Level 139 135-145 MMOL/L Potassium Level 3.9 3.6-5.0 MMOL/L Chloride Level 101 98-107 MMOL/L Carbon Dioxide Level 26 21-32 MMOL/L Anion Gap 12 5-14 MMOL/L Blood Urea Nitrogen 22 H 7-18 MG/DL Creatinine 1.25 0.60-1.30 MG/DL Estimat Glomerular Filtration Rate 59 BUN/Creatinine Ratio 18 Glucose Level 189 H 70-105 MG/DL Calcium Level 9.8 8.5-10.1 MG/DL My Orders Orders - FLORA HERNANDEZ MD Ed Iv/Invasive Line Start (06/17/21 10:18) Cbc With Automated Diff (06/17/21 10:18) Basic Metabolic Panel (06/17/21 10:18) Chest 1 View, Ap/Pa Only (06/17/21 10:18) Ekg Tracing (06/17/21 10:18) Manual Differential (06/17/21 10:02) Vital Signs/I&O 06/17/21 06/17/21 06/17/21 09:49 09:49 12:13 Pulse 74 65 Resp 20 17 B/P (MAP) 130/92 (105) 120/80 Pulse Ox 98 98 O2 Delivery Room Air Room Air Room Air Blood Pressure Mean: 105 Progress Progress Note : Time: 11:10 Progress Note Patient reevaluated after EKG, chest x-ray and labs. Feeling much better but still complains of feeling "a little dizzy". Was able to get up and ambulate to the bathroom, steady gait observed. I did have him take 2 puffs of his albuterol inhaler. We will continue to monitor another 20 to 30 minutes. No clinical or objective findings to warrant further studies from the emergency department at this time. Basic laboratory studies are reviewed and all within normal limits. Chest x-ray shows cardiomegaly without overt signs of congestive failure. Blood pressure has been good, oxygen saturations 97%. No concern for ACS/flash pulmonary edema/infectious process. I do not have a concern for pulmonary embolism. I suspect the patient's symptoms of shortness of breath, near syncope arose from the effort put forth during his pulmonary function study in conjunction with not having used his inhalers this morning prior to coming to the hospital as well as generally "not feeling good" this morning. Patient states that he is feeling back to baseline. Again, we will monitor for another 20 to 30 minutes, anticipate discharge to home. Patient is comfortable with this plan of care. All questions are sought and answered. Initial ECG Impression Date: Jun 17, 2021 Initial ECG Impression Time: 10:05 Initial ECG Rate: 75 Initial ECG Rhythm: Normal Sinus Initial ECG Intervals PA 174 QRS 173 QTC 542 Right bundle branch block noted no ST segment elevation or depression, no ectopy on this EKG Initial ECG Impression: Normal Diagnostic Imaging Diagonstic Imaging: Xray Plain Films/CT/US/NM/MRI: chest Comments [facility]. [place], [place] NAME: SUKHJINDER MANCUSO [facility] REC#: [id number] PT STATUS: REG ER : 1960 PHYSICIAN: FLORA HERNANDEZ MD ADMIT DATE: 06/17/21/ER Draft Date of Exam:06/17/21 CHEST 1 VIEW, AP/PA ONLY INDICATION: Shortness of air and dizziness and diaphoresis. TIME OF EXAM: 10:32 a.m. COMPARISON: Correlation is made with prior chest from 01/18/2021. FINDINGS: Heart is enlarged. Right perihilar atelectasis is unchanged from prior study. Left lung is clear. There is no effusion. There is no evidence of congestive failure. No pneumothorax is identified. IMPRESSION: Overall stable appearance to the chest when compared with examination from 01/18/2021. Dictated on workstation # [id number] Dict: 06/17/21 1043 Trans: 06/17/21 1046 [id number] Interpreted by: SANIA JEFFRIES MD Electronically signed by: Departure Impression Primary Impression: Vasovagal near syncope Disposition: 01 HOME, SELF-CARE Condition: Stable Departure-Patient Inst. Decision time for Depature: 11:14 Referrals: SHERYL CASANOVA MD (PCP/Family) Primary Care Physician Patient Instructions: Vasovagal Response Add. Discharge Instructions: Continue your daily medications as prescribed. Follow up with Dr Casanova and Dr Tavera as scheduled. Come back to the Emergency Department for any return of symptoms or new, emergent complaints. Copy Copies To 1: SHERYL CASANOVA MD, KATHRYN M MD Jun 17, 2021 10:18
[2021-06-17 10:25] LABS: BASOPHILS # (AUTO) 0.1 10^3/uL (0.0-0.1); BASOPHILS % (AUTO) 1 % (0-10); EOSINOPHILS # (AUTO) 0.4 10^3/uL (0.0-0.3); EOSINOPHILS % (AUTO) 5 % (0-10); HEMATOCRIT 48 % (40-54); HEMOGLOBIN 16.6 g/dL (13.3-17.7); LYMPHOCYTES # (AUTO) 0.5 10^3/uL (1.0-4.0); LYMPHOCYTES % (AUTO) 6 % (12-44); MEAN CORPUSCULAR HEMOGLOBIN 30 pg (25-34); MEAN CORPUSCULAR HGB CONC 35 g/dL (32-36); MEAN CORPUSCULAR VOLUME 88 fL (80-99); MEAN PLATELET VOLUME 10.1 fL (9.0-12.2); MONOCYTES # (AUTO) 1.1 10^3/uL (0.0-1.0); MONOCYTES % (AUTO) 13 % (0-12); NEUTROPHILS # (AUTO) 5.8 10^3/uL (1.8-7.8); NEUTROPHILS % (AUTO) 73 % (42-75); PLATELET COUNT 180 10^3/uL (130-400); WHITE BLOOD COUNT 7.9 10^3/uL (4.3-11.0)
[2021-06-17 10:39] LABS: POTASSIUM 3.9 MMOL/L (3.6-5.0)
[2021-06-17 10:40] LABS: CALCIUM 9.8 MG/DL (8.5-10.1)
[2021-06-17 10:45] LABS: CREATININE SERUM 1.25 MG/DL (0.60-1.30)
--- NOTE | 2021-06-17 10:46 | Diagnostic Imaging Report ---
INDICATION: Shortness of air and dizziness and diaphoresis. TIME OF EXAM: 10:32 a.m. COMPARISON: Correlation is made with prior chest from 01/18/2021. FINDINGS: Heart is enlarged. Right perihilar atelectasis is unchanged from prior study. Left lung is clear. There is no effusion. There is no evidence of congestive failure. No pneumothorax is identified. IMPRESSION: Overall stable appearance to the chest when compared with examination from 01/18/2021. Dictated by: Dictated on workstation # [id number]
[2021-06-17 10:48] LABS: BASOPHILS % (MANUAL) 2 %; EOSINOPHILS % (MANUAL) 10 %; LYMPHOCYTES % (MANUAL) 4 %; MONOCYTES % (MANUAL) 9 %; NEUTROPHILS % (MANUAL) 75 %; RBC MORPH NORMAL
[2021-06-17 12:13] VITALS: BP 120/80
== END 2021-06-17 12:13 | disposition home or self-care (01) ==
LOC: EDUNIT# 09:45 → ER 09:47
DX: R55 Syncope and collapse (principal); G47.30 Sleep apnea, unspecified; I10 Essential (primary) hypertension; K21.9 Gastro-esophageal reflux disease without esophagitis; Z87.891 Personal history of nicotine dependence; Z79.899 Other long term (current) drug therapy; Z79.82 Long term (current) use of aspirin
CPT/HCPCS: 36415; 71045; 80048; 85007; 85027; 93005

== ENCOUNTER → 2021-06-17 | Outpatient (CLI) | payer BC ==
[~2021-06-17] MED LIST changes: +CETI10TA17 PO; +DIPH25TA65 PO; +FEXO180T84 PO; +FURO80TA83 PO; +GUAI400T62 PO; -GUAI400T83 PO; +LORA-404 PO; +LORA-404 SL; +METO50TA15 PO; +MTP100TCR PO; +RT-ALBUTEROL SULF 2.5 MG/3 ML PRE-MIX VIAL INH ONE
== END ==
LOC: RT 13:00
PROVIDERS: ATTEND Nurse Practitioner Family
DX: D86.0 Sarcoidosis of lung (principal)

== ENCOUNTER → 2021-10-03 | Outpatient (CLI) | payer BC ==
[~2021-10-03] MED LIST changes: -LEVO500T80 PO; +LEVO500T81 PO
== END ==
LOC: LAB 17:30
PROVIDERS: ATTEND Nurse Practitioner Family
DX: U07.1 COVID-19 (principal)
CPT/HCPCS: 87636

== ENCOUNTER → 2023-01-05 | Outpatient (CLI) | payer OTHER ==
[~2023-01-05] MED LIST changes: +ALBU8.5H6 IH; +LEVO-55 PO; -LEVO500T81 PO; -RT-ALBUINH IH
== END ==
LOC: CARD 09:35
PROVIDERS: ATTEND Nurse Practitioner Family
DX: I34.0 Nonrheumatic mitral (valve) insufficiency (principal); I51.7 Cardiomegaly; I51.9 Heart disease, unspecified
CPT/HCPCS: 93306

== ENCOUNTER 2023-01-27 07:01 | Day surgery (SDC) | payer OTHER ==
[2023-01-27] VITALS (9 sets, daily range): BP systolic 87–105; BP diastolic 50–78
[~2023-01-27] VITALS: Ht 175.3 cm; Wt 123.7 kg
[2023-01-27] MEDS ORDERED: LIDOCAINE 1% INJ 20 ML VIAL ONE (07:13)
[2023-01-27] MEDS ORDERED: NS IV 1000 ML 1,000 ML ONE (07:13)
[2023-01-27] MEDS ORDERED: HEParin (CATH LAB) 2,000 ML IV ONE (07:13)
[2023-01-27] MEDS ORDERED: NS IV 1000 ML 1,000 ML IV SCH ×2 (07:15→09:30)
[2023-01-27 07:33] LABS: HEMATOCRIT 41 % (40-54); HEMOGLOBIN 14.3 g/dL (13.3-17.7); MEAN CORPUSCULAR HEMOGLOBIN 30 pg (25-34); MEAN CORPUSCULAR HGB CONC 35 g/dL (32-36); MEAN CORPUSCULAR VOLUME 86 fL (80-99); MEAN PLATELET VOLUME 10.1 fL (9.0-12.2); PLATELET COUNT 169 10^3/uL (130-400); WHITE BLOOD COUNT 5.7 10^3/uL (4.3-11.0)
[2023-01-27 07:40] LABS: INR 1.1 (0.8-1.4); PROTHROMBIN TIME PATIENT 14.2 SEC (12.2-14.7)
[2023-01-27 07:51] LABS: ALBUMIN 4.2 GM/DL (3.2-4.5); BILIRUBIN,TOTAL 0.8 MG/DL (0.1-1.0); CALCIUM 9.7 MG/DL (8.5-10.1); CREATININE SERUM 1.12 MG/DL (0.60-1.30); POTASSIUM 3.8 MMOL/L (3.6-5.0); TOTAL PROTEIN 7.5 GM/DL (6.4-8.2)
[2023-01-27] MEDS ORDERED: METF-397 PO (07:59)
[2023-01-27] MEDS ORDERED: LOSA25TA41 PO (07:59)
[2023-01-27] MEDS ORDERED: FURO80TA3 PO (07:59)
[2023-01-27] MEDS ORDERED: MONT-40 PO (07:59)
[2023-01-27] MEDS ORDERED: GABA300C PO (07:59)
[2023-01-27] MEDS ORDERED: MTP100TCR PO (07:59)
[2023-01-27] MEDS ORDERED: MIDAZOLAM 5 MG/5 ML (VERSED) VIAL ONE (08:06)
[2023-01-27] MEDS ORDERED: fentaNYL INJ 100 MCG/2 ML AMP ONE (08:06)
[2023-01-27] MEDS ORDERED: VERAPAMIL 5 MG/2 ML (CALAN) VIAL IV ONE (08:06)
[2023-01-27] MEDS ORDERED: NITRO DRIP 25000 MCG/D5W 250 ML IV ONE (08:07)
[2023-01-27] MEDS ORDERED: HEParin 1000 UNIT/ML (10ML VIAL) FOR BOLUS ONE (08:07)
--- NOTE | 2023-01-27 09:19 | Cardiac Procedure Note-CS/ASA ---
Pre-Procedure Note Pre-Op Procedure Note Date of Available H&P: January 19, 2023 Date H&P Reviewed: January 27, 2023 Time H&P Reviewed: 08:45 History & Physical: H&P Reviewed, No changes noted Moderate Sedation PreProcedure ASA Score 3 Airway Lungs Heart ASA score ASA 1: a normal healthy patient ASA 2: a patient with a mild systemic disease (mid diabetes, controlled hypertension, obesity ASA 3: a patient with a severe systemic disease that limits activity (angina, COPD, prior Myocardial infarction) ASA 4: a patient with an incapacitating disease that is a constant threat to life (CHF, renal failure) ASA 5: a moribund patient not expected to survive 24 hrs. (ruptured aneurysm) ASA 6: a declared brain- patient whose organs are being harvested. For emergent operations, add the letter E after the classification Mallampati Classification Grade 2 Sedation Plan Analgesia, Amnesia, Plan communicated to team members The patient is an appropriate candidate to undergo the planned procedure, sedation, and anesthesia. The patient immediately re-assessed prior to indication. EDWARDO QUESADA MD FACP FAC CCDS January 27, 2023 09:19
--- NOTE | 2023-01-27 09:26 | Cardiac Cath Report ---
CARDIAC CATHETERIZATION DATE OF PROCEDURE: 01-28-23 INDICATION: Dyspnea HISTORY: The patient is a 62 year old male with increasing shortness of breath and with a h/o mild to mod CAD on previous eval. PROCEDURES PERFORMED: 1. Cor angio; 2. LHC PROCEDURE DESCRIPTION: After informed consent and in the fasting state, left heart catheterization was performed through the R radial artery utilizing 6 F TIG for cors and 5 F pigtail for LHC and LV angio HEMODYNAMICS: LVEDP 24 mmHg; no significant pressure gradient on pullback across the aortic valve CORONARY ANGIOGRAPHY: Left main coronary artery: Ok Left anterior descending coronary artery: diffuse mild to mod plaque Left circumflex coronary artery: dominant, diffuse mild to mod plaque Right coronary artery: nondominant, diffuse mild to mod plaque LV ANGIOGRAPHY: Diffuse hypokinesis, LVEF approx 35% IMPRESSION: 1. Mild to moderate, nonobstructive CAD 2. LVEF 35% 3. LVEDP 24 mmHg PLAN Treat for HFrEF (nonischemic dilated cardiomyopathy). Continue metoprolol succinate, ARB, sprinolactone, furosemide, supple K. Add SGLT-2 inhib. Follow closely as outpt. Instructed in management of CHF EDWARDO QUESADA MD FACP [facility] CCDS January 27, 2023 09:26
[2023-01-27] MEDS ORDERED: DAPA10TA PO (09:29)
[2023-01-27] MEDS ORDERED: PATIENT MAY USE OWN MEDS, ALL PO SCH (09:30)
--- NOTE | 2023-01-27 09:30 | Discharge Inst-Cardiology ---
Discharge Inst-Cardiac Discharge Medications New Medications: Dapagliflozin Propanediol (Farxiga) 10 Mg Tablet 10 MG PO DAILY, #30 TAB 5 Refills Continued Medications: Acetaminophen (Tylenol Extra Strength) 500 Mg Tablet 1000 MG PO Q8H PRN for PAIN-MILD (1-4), TAB Albuterol Sulfate (Ventolin Hfa) 18 Gm Hfa.aer.ad 2 PUFF INH Q4H PRN for SHORTNESS OF BREATH, EA Atorvastatin Calcium (Atorvastatin Calcium) 20 Mg Tablet 20 MG PO DAILY, TAB Cholecalciferol (Vitamin D3) (Vitamin D3) 25 Mcg Capsule 25 MCG PO DAILY, CAP Fexofenadine HCl (Yudi Allergy) 180 Mg Tablet 180 MG PO DAILY, TAB Furosemide (Furosemide) 80 Mg Tablet 80 MG PO DAILY, TAB Gabapentin (Neurontin) 300 Mg Capsule 300 MG PO BID, CAP Lorazepam (Ativan) 0.5 Mg Tablet 0.5 MG PO HS PRN for SLEEP, TAB Losartan Potassium (Losartan Potassium) 25 Mg Tablet 25 MG PO DAILY, TAB Metoprolol Succinate (Metoprolol Succinate) 100 Mg Tab.er.24h 100 MG PO BID, TAB Nortriptyline HCl (Nortriptyline HCl) 50 Mg Capsule 50 MG PO HS, CAP Potassium Chloride (Potassium Chloride) 20 Meq Tablet.er 20 MEQ PO DAILY, TAB Spironolactone (Spironolactone) 25 Mg Tablet 25 MG PO DAILY, TAB Discontinued Medications: Metformin HCl (Metformin HCl) 500 Mg Tablet 500 MG PO BID, TAB Patient Instructions Patient Instructions: Hold METFORMIN until the am of 01/30/23, then resume previous home dose EDWARDO QUESADA MD FACP FAC CCDS January 27, 2023 09:30
--- NOTE | 2023-01-27 09:31 | Discharge Inst-Post CATH ---
Discharge Inst-CATH/EP Post Cardiac Cath/EP D/C Inst Follow Up/Plan F/u with Dr Tavera next week ACTIVITY * Go Home directly and rest. * Limit activity of the leg (or wrist if it was used) for 7 days including aerobics, swimming, jogging, bicycling, etc. * Restrict stair-climbing for 7 days if possible, if not, climb up with your non -cath leg, then bring together on the same step. * Avoid lifting, pushing, pulling or excessive movement of the affected extr emity for 7 days. * Customary sexual activity may be resumed after 2 days-use caution not to use a position that strains or causes pain to the affected extremity. * No driving for 24 hours. * NO SMOKING. * Avoid straining for bowel movements for 7 days. * Gentle walking on level ground is allowed. * Returning to work will depend on the type of procedure and the results. Your doctor will discuss this with you. CALL YOUR DOCTOR FOR ANY OF THE FOLLOWING: *If bleeding from the puncture site occurs- Apply gentle pressure to site with clean cloth and call your doctor or EMS. * If a knot or lump forms under the skin, increases in size, or causes pain. * If bruising appears to be worsening or moving further down your leg instead of disappearing. * Temperature above 101 F. CARE OF YOUR GROIN INCISION; * Bruising or purple discoloration of the skin near the puncture site is common. * You may shower only, no bathtub bathing for 5 days. Be careful to avoid slipping as your leg may feel stiff. * If a closure device was used on your femoral artery, please see the attached guide regarding care of the device and your leg. * Leave dressing on FOR 24 hours. CARE OF YOUR WRIST INCISION; * Bruising or purple discoloration of the skin near the puncture site is common. * You may shower. * DO NOT submerge wrist. * Leave dressing on FOR 24 hours. EDWARDO TAVERA MD [facility] CCDS January 27, 2023 09:31
== END 2023-01-27 12:30 | disposition home or self-care (01) ==
LOC: CATH 07:01 → SDC 09:50 → CATH 12:30
PROVIDERS: ATTEND Internal Medicine Cardiovascular Disease
DX: I25.10 Atherosclerotic heart disease of native coronary artery without angina pectoris (principal); I49.3 Ventricular premature depolarization; I42.9 Cardiomyopathy, unspecified; I11.9 Hypertensive heart disease without heart failure; I34.0 Nonrheumatic mitral (valve) insufficiency; I45.19 Other right bundle-branch block; G47.33 Obstructive sleep apnea (adult) (pediatric); R73.01 Impaired fasting glucose; E66.9 Obesity, unspecified; M79.606 Pain in leg, unspecified; Z90.49 Acquired absence of other specified parts of digestive tract; Z87.891 Personal history of nicotine dependence; Z99.81 Dependence on supplemental oxygen; Z79.899 Other long term (current) drug therapy; Z68.41 Body mass index [BMI] 40.0-44.9, adult
CPT/HCPCS: 36415; 80053; 80061; 85027; 85610; 85730; 87081; 93005; 93458

== ENCOUNTER 2023-03-02 18:06 | Emergency (ER) | payer OTHER ==
[~2023-03-02] VITALS: Ht 172 cm; Wt 122.0 kg
[~2023-03-02 18:06] MED LIST changes: +DAPA10TA PO; +FURO80TA3 PO; +GABA300C PO; -LOSA100T57 PO; +LOSA100T58 PO; +METF-397 PO; +MONT-40 PO; +POTA-330 PO; -POTA-51 PO
[2023-03-02 18:21] LABS: BASOPHILS # (AUTO) 0.1 10^3/uL (0.0-0.1); BASOPHILS % (AUTO) 2 % (0-10); EOSINOPHILS # (AUTO) 0.4 10^3/uL (0.0-0.3); EOSINOPHILS % (AUTO) 8 % (0-10); HEMATOCRIT 45 % (40-54); HEMOGLOBIN 15.4 g/dL (13.3-17.7); LYMPHOCYTES # (AUTO) 0.6 10^3/uL (1.0-4.0); LYMPHOCYTES % (AUTO) 11 % (12-44); MEAN CORPUSCULAR HEMOGLOBIN 29 pg (25-34); MEAN CORPUSCULAR HGB CONC 34 g/dL (32-36); MEAN CORPUSCULAR VOLUME 84 fL (80-99); MEAN PLATELET VOLUME 10.1 fL (9.0-12.2); MONOCYTES % (AUTO) 19 % (0-12); NEUTROPHILS # (AUTO) 3.2 10^3/uL (1.8-7.8); NEUTROPHILS % (AUTO) 60 % (42-75); PLATELET COUNT 166 10^3/uL (130-400); WHITE BLOOD COUNT 5.3 10^3/uL (4.3-11.0)
[2023-03-02] MEDS ORDERED: AMIODARONE FOR BOLUS 150 MG in NS (IVPB) 100 ML IV ONE (18:30)
[2023-03-02] MEDS ORDERED: AMIODARONE INJECTION 450 MG in NORMAL SALINE 250 ML IV SCH (18:30)
[2023-03-02 18:31] LABS: ALBUMIN 4.5 GM/DL (3.2-4.5); CHLORIDE 99 MMOL/L (98-107); POTASSIUM 3.5 MMOL/L (3.6-5.0); SODIUM 137 MMOL/L (135-145)
[2023-03-02 18:32] LABS: CALCIUM 10.5 MG/DL (8.5-10.1); INR 1.2 (0.8-1.4)
[2023-03-02 18:33] LABS: GLUCOSE 219 MG/DL (70-105); TOTAL PROTEIN 7.8 GM/DL (6.4-8.2)
[2023-03-02 18:34] LABS: CARBON DIOXIDE 24 MMOL/L (21-32)
[2023-03-02 18:37] LABS: ALKALINE PHOSPHATASE 73 U/L (40-136); CREATININE SERUM 1.23 MG/DL (0.60-1.30); GFR ESTIMATED 66
[2023-03-02 18:38] LABS: BUN/CREATININE RATIO 15
--- NOTE | 2023-03-02 18:39 | ED Cardiac General ---
History of Present Illness General Chief Complaint: Cardiac/General Problems Stated Complaint: IRR HEART RATE Nursing Triage Note: PT ARRIVES TO ER VIA EMS. PT REPORTS FEELING DIZZY FOR THE PAST WEEK. 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 EMS REPORTS THAT IT FIRED 2 TIMES IN THEIR PRESENCE AFTER V-TACH WAS SEEN ON MONITOR. PT WAS GIVEN VERSED 2.5 MG IV PER EMS EN ROUTE. DEFIBRILLATOR PLACED 2 WEEKS AGO AT [facility]. Source: patient, EMS Exam Limitations: no limitations History of Present Illness Date Seen by Provider: Mar 02, 2023 Time Seen by Provider: 18:14 Initial Comments 62-year-old male presents emergency department today after his defibrillator went off 3 times in the last 30 to 45 minutes. This was placed 2 weeks ago for atrial fibrillation at [facility]. He did have a prostate surgery a couple of weeks ago at [facility] as well. He does have some dizziness just prior to defibrillations associated with some mid central chest pressure. No recent fevers chills cough abdominal pain or change in bowel or bladder habits EMS has a tracing from [facility] EKG recording showing mon omorphic ventricular tachycardia and a subsequent defibrillation. He has an [employer]igley device All other systems reviewed and negative except documented per HPI. Voice recognition software was used to help create this chart Allergies and Home Medications Allergies Coded Allergies: ibuprofen (Verified Allergy, Severe, HIVES, 07/30/20) Patient Home Medication List Home Medication List Reviewed: Yes Acetaminophen (Tylenol Extra Strength) 500 Mg Tablet, 1,000 MG PO Q8H PRN for PAIN-MILD (1-4), (Reported) Entered as Reported by: ARACELIS SOSA on 07/31/20946 Albuterol Sulfate (Ventolin Hfa) 18 Gm Hfa.aer.ad, 2 PUFF INH Q4H PRN for SHORTNESS OF BREATH, (Reported) Entered as Reported by: ARACELIS SOSA on 07/31/20 09 Atorvastatin Calcium (Atorvastatin Calcium) 20 Mg Tablet, 20 MG PO DAILY, (Reported) Entered as Reported by: ARACELIS SOSA on 07/31/20946 Cholecalciferol (Vitamin D3) (Vitamin D3) 25 Mcg Capsule, 25 MCG PO DAILY, (Reported) Entered as Reported by: ARACELIS SOSA on 07/31/20 0947 Dapagliflozin Propanediol (Farxiga) 10 Mg Tablet, 10 MG PO DAILY Prescribed by: EDWARDO QUESADA on 01/27/23 0929 Fexofenadine HCl (Yudi Allergy) 180 Mg Tablet, 180 MG PO DAILY, (Reported) Entered as Reported by: ARACELIS SOSA on 01/17/21 1537 Furosemide (Furosemide) 80 Mg Tablet, 80 MG PO DAILY, (Reported) Entered as Reported by: YOBANY CARRILLO on 01/27/23 075 Gabapentin (Neurontin) 300 Mg Capsule, 300 MG PO BID, (Reported) Entered as Reported by: YOBANY CARRILLO on 01/27/23 075 Lorazepam (Ativan) 0.5 Mg Tablet, 0.5 MG PO HS PRN for SLEEP, (Reported) Entered as Reported by: ARACELIS SOSA on 01/17/21 153 Losartan Potassium (Losartan Potassium) 25 Mg Tablet, 25 MG PO DAILY, (Reported) Entered as Reported by: YOBANY CARRILLO on 01/27/23 075 Metoprolol Succinate (Metoprolol Succinate) 100 Mg Tab.er.24h, 100 MG PO BID, (Reported) Entered as Reported by: YOBANY CARRILLO on 01/27/23 0759 Nortriptyline HCl (Nortriptyline HCl) 50 Mg Capsule, 50 MG PO HS, (Reported) Entered as Reported by: ARACELIS SOSA on 01/17/21 153 Potassium Chloride (Potassium Chloride) 20 Meq Tablet.er, 20 MEQ PO DAILY, (Reported) Entered as Reported by: JOSE HOSKINS on 10/07/18 1630 Spironolactone (Spironolactone) 25 Mg Tablet, 25 MG PO DAILY, (Reported) Entered as Reported by: ASCENCION RANGEL on 02/09/20 1028 Review of Systems Review of Systems Constitutional: see HPI Past Jpjdcsa-Hehxzh-Rdgvdu Hx Patient Social History Tobacco Use?: No Substance use?: Yes Additional substance use comme: GUMMIES Alcohol Use?: Yes Alcohol Frequency: Several times a month Pt feels they are or have been: No Immunizations Up To Date Tetanus Booster (TDap): More than 5yrs First/Initial COVID19 Vaccinat: RECEIVED, UNK WHEN Second COVID19 Vaccination Ronen: RECEIVED, UNK WHEN Third COVID19 Vaccination Date: RECEIVED, UNK WHEN Seasonal Allergies Seasonal Allergies: Yes Past Medical History Surgeries: Yes (COLON RESECTION x2,PORT) Bowel Surgery Respiratory: Yes (SARCOIDOSIS) Sleep Apnea Currently Using CPAP: Yes Currently Using BIPAP: No Cardiac: Yes (leaking valve, branch block) High Cholesterol, Hypertension Neurological: No Sexually Transmitted Disease: No HIV/AIDS: No Genitourinary: Yes Kidney Stones Gastrointestinal: Yes (hx colon ca) Gastroesophageal Reflux, Diverticulosis Musculoskeletal: No Endocrine: No HEENT: No Cancer: Yes Colon Did You Recieve Any Treatments: Yes What Type of Treatment Did You: Chemotherapy, Surgical Intervention Psychosocial: No Integumentary: No Blood Disorders: No Adverse Reaction/Blood Tranf: No Family Medical History Cancer, CAD Under 55 Years Old, Stroke Physical Exam Vital Signs Vital Signs - First Documented 03/02/23 03/02/23 18:09 19:25 Temp 37.3 Pulse 105 Resp 18 B/P (MAP) 130/89 (103) Pulse Ox 91 O2 Delivery Room Air O2 Flow Rate 2.00 Capillary Refill : Height, Weight, BMI Height: 5'9.00" Weight: 232lbs. 0.0oz. 105.462547fl; 41.00 BMI Method:Stated General Appearance: No Apparent Distress HEENT: Normal ENT Inspection, Pharynx Normal Neck: Normal Inspection, Non Tender, Supple Respiratory: Chest Non Tender, Lungs Clear, Normal Breath Sounds, No Accessory Muscle Use, No Respiratory Distress Cardiovascular: No Murmur, Irregularly Irregular, Tachycardia Gastrointestinal: Non Tender, Soft Extremity: Normal Capillary Refill, Normal Inspection, Normal Range of Motion, Non Tender, No Calf Tenderness Neurologic/Psychiatric: Alert, Oriented x3 Skin: Normal Color, Warm/Dry Progress/Results/Core Measures Results/Orders Lab Results Laboratory Tests Test 03/02/23 18:12 03/02/23 19:50 Range/Units White Blood Count 5.3 4.3-11.0 10^3/uL Red Blood Count 5.37 4.30-5.52 10^6/uL Hemoglobin 15.4 13.3-17.7 g/dL Hematocrit 45 40-54 % Mean Corpuscular Volume 84 80-99 fL Mean Corpuscular Hemoglobin 29 25-34 pg Mean Corpuscular Hemoglobin Concent 34 32-36 g/dL Red Cell Distribution Width 14.5 10.0-14.5 % Platelet Count 166 130-400 10^3/uL Mean Platelet Volume 10.1 9.0-12.2 fL Immature Granulocyte % (Auto) 0 % Neutrophils (%) (Auto) 60 42-75 % Lymphocytes (%) (Auto) 11 L 12-44 % Monocytes (%) (Auto) 19 H 0-12 % Eosinophils (%) (Auto) 8 0-10 % Basophils (%) (Auto) 2 0-10 % Neutrophils # (Auto) 3.2 1.8-7.8 10^3/uL Lymphocytes # (Auto) 0.6 L 1.0-4.0 10^3/uL Monocytes # (Auto) 1.0 0.0-1.0 10^3/uL Eosinophils # (Auto) 0.4 H 0.0-0.3 10^3/uL Basophils # (Auto) 0.1 0.0-0.1 10^3/uL Immature Granulocyte # (Auto) 0.0 0.0-0.1 10^3/uL Neutrophils % (Manual) 51 % Lymphocytes % (Manual) 19 % Monocytes % (Manual) 18 % Eosinophils % (Manual) 12 % Basophils % (Manual) 0 % Band Neutrophils 0 % Blood Morphology Comment NORMAL Prothrombin Time 15.0 H 12.2-14.7 SEC INR Comment 1.2 0.8-1.4 Activated Partial Thromboplast Time 32 24-35 SEC Sodium Level 137 135-145 MMOL/L Potassium Level 3.5 L 3.6-5.0 MMOL/L Chloride Level 99 98-107 MMOL/L Carbon Dioxide Level 24 21-32 MMOL/L Anion Gap 14 5-14 MMOL/L Blood Urea Nitrogen 19 H 7-18 MG/DL Creatinine 1.23 0.60-1.30 MG/DL Estimat Glomerular Filtration Rate 66 BUN/Creatinine Ratio 15 Glucose Level 219 H 70-105 MG/DL Calcium Level 10.5 H 8.5-10.1 MG/DL Corrected Calcium 10.1 8.5-10.1 MG/DL Magnesium Level 2.0 1.6-2.4 MG/DL Total Bilirubin 1.0 0.1-1.0 MG/DL Aspartate Amino Transf (AST/SGOT) 23 5-34 U/L Alanine Aminotransferase (ALT/SGPT) 31 0-55 U/L Alkaline Phosphatase 73 40-136 U/L Troponin I < 0.028 0.140 H <0.028 NG/ML Total Protein 7.8 6.4-8.2 GM/DL Albumin 4.5 3.2-4.5 GM/DL My Orders Orders - GARRETT VILLANUEVA DO Cbc With Automated Diff (03/02/23 18:11) Magnesium (03/02/23 18:11) Chest 1 View, Ap/Pa Only (03/02/23 18:11) Comprehensive Metabolic Panel (03/02/23 18:11) Protime With Inr (03/02/23 18:11) Partial Thromboplastin Time (03/02/23 18:11) O2 (03/02/23 18:11) Monitor-Rhythm Ecg Trace Only (03/02/23 18:11) Ed Iv/Invasive Line Start (03/02/23 18:11) Troponin I Rice (03/02/23 18:11) Amiodarone For Bolus (Cordarone Bolus) (03/02/23 18:30) Amiodarone Injection (Cordarone Injectio (03/02/23 18:30) Manual Differential (03/02/23 18:12) Potassium Chloride (Tablet) (K Dur Table (03/02/23 19:15) Lorazepam Injection (Ativan Injection) (03/02/23 19:15) Troponin I Yanet (03/02/23 20:00) Ekg Tracing (03/02/23 18:06) Ekg Tracing (03/02/23 19:12) Ekg Tracing (03/02/23 19:44) Medications Given in ED Vital Signs/I&O 03/02/23 03/02/23 03/02/23 03/02/23 18:09 18:59 19:25 19:30 Temp 37.3 Pulse 105 108 101 Resp 18 B/P (MAP) 130/89 (103) 106/70 Pulse Ox 91 92 O2 Delivery Room Air Nasal Cannula O2 Flow Rate 2.00 Blood Pressure Mean: 103 Critical Care Note Critical Care Total Time (minutes) 60 Departure Communication (Admissions) The patient remained hemodynamically stable throughout his emergency department stay. He had no more defibrillations from his device. Prehospital EMS has clear tracing that shows ventricular tachycardia, monomorphic. I initially started him on amiodarone bolus at 150 mg. During this infusion he developed some chest pressure into his back and became anxious. We repeated an EKG and sent these images to cardiology. This lasted only a brief period of time, maybe 10 minutes and completely resolved. We had an EKG after his symptoms have abated as well which is similar to the first EKG. Interestingly EKGs have shown some J-point elevation in lead III but there is no reciprocal changes. Has chronic ST depression in V2. Unfortunately do not have comparison EKG after his device was placed. He had no further recurrences of chest pain. He had a heart cath on 01/27 which showed mild to moderate stenosis but no severe stenosis and no interventions at that time. I think ACS is unlikely. Discussed this with Dr. Bentley who is in agreement. His second troponin is slightly elevated however he did receive 4 defibrillations which I think likely accounts for this. This elevation is only very mild. Electrically recommended transfer to [facility] where he had his initial device placed for possible ventricular tachycardia ablation procedure which she could not offer here. I spoke with at [facility] who agrees to transfer. The patient will be transferred to the ER at [facility]. We called our local ambulance transport and they do not have a clear available to take the patient. He then called 3 other local ground transport companies all of whom could not provide service. The patient will be transferred air EMS due to lack of ground transportation and acuity. Impression Primary Impression: Ventricular tachycardia Additional Impression: Defibrillator discharge Disposition: 02 XFER SHT-TRM HOSP Condition: Stable Departure-Patient Inst. Referrals: SHERYL CASANOVA MD (PCP/Family) Primary Care Physician GARRETT VILLANUEVA DO Mar 02, 2023 18:39
[2023-03-02 18:40] LABS: ALANINE AMINOTRANSFERASE 31 U/L (0-55)
--- NOTE | 2023-03-02 18:41 | Diagnostic Imaging Report ---
INDICATION: Chest pain, dizziness. Defibrillator fired post ventricular tachycardia. TECHNIQUE: Single view chest 6:25 PM. CORRELATION STUDY: 06/17/2021 FINDINGS: Left-sided AICD has been placed. Heart size and mediastinum are enlarged and prominent. Vasculature overall is improved and within normal limits. Likely areas of scarring or atelectasis in the perihilar and basilar lung region. No infiltrate. No pneumothorax or significant effusion. IMPRESSION: 1. Left-sided AICD. Cardiac enlargement without failure. Dictated by: Dictated on workstation # [id number]
[2023-03-02 18:47] LABS: BAND NEUTROPHILS 0 %; BASOPHILS % (MANUAL) 0 %; EOSINOPHILS % (MANUAL) 12 %; LYMPHOCYTES % (MANUAL) 19 %; MONOCYTES % (MANUAL) 18 %; NEUTROPHILS % (MANUAL) 51 %; RBC MORPH NORMAL
[2023-03-02] MEDS ORDERED: LORazepam INJ 2 MG/ML (ATIVAN) VIAL IVP ONE (19:15)
[2023-03-02] MEDS ORDERED: KCL 20 MEQ TAB (K-DUR) PO ONE (19:15)
[2023-03-02 20:40] VITALS: BP 96/75
== END 2023-03-02 20:47 | disposition short-term general hospital (02) ==
LOC: EDUNIT# 18:06 → ER 18:07
DX: I47.20 Ventricular tachycardia, unspecified (principal); G47.30 Sleep apnea, unspecified; Z45.02 Encounter for adjustment and management of automatic implantable cardiac defibrillator; Z99.89 Dependence on other enabling machines and devices
CPT/HCPCS: 36415; 71045; 80053; 83735; 84484; 85007; 85027; 85610; 85730

== ENCOUNTER → 2023-06-01 | Outpatient (CLI) | payer OTHER ==
[~2023-06-01] MED LIST changes: -PROC10TA10 PO; +PROC10TA15 PO; -ROPI0.253 PO; +ROPI0.2533 PO
== END ==
LOC: CARD 10:01
PROVIDERS: ATTEND Internal Medicine Cardiovascular Disease
DX: I50.22 Chronic systolic (congestive) heart failure (principal)
CPT/HCPCS: 93306